=== PATIENT | male | born 1945 | race Hispanic/Latino ===

== ENCOUNTER 2016-04-26 14:41 | Emergency (ER) | payer MEDICARE, OTHER ==
[2016-04-26 14:42] VITALS: BMI 23.2
[2016-04-26 15:09] VITALS: BP 123/59; PULSE 71; RESP 16; TEMP 97.9; O2SAT 100
[2016-04-26] MEDS ORDERED: Oxycodone/Acetaminophen 5/325 mg Tab PO STA (15:35)
[2016-04-26] MEDS ORDERED: Oxycodone/Acetaminophen 5/325 mg Tab ONE (15:40)
--- NOTE | 2016-04-26 16:43 | ED PDOC ---
HPI: Back Time Seen by Provider: 04/26/16 15:00 Chief Complaint (Nursing): Back Pain Additional Complaint(s): Patient is a 71 year old male who presents to ED for multiple somatic complaints. Notes a history of chronic back pain requesting an MRI to check on it and a Percocet for pain relief. In addition patient is requesting his sugar be checked and a Hepatitis C test because of a commercial he saw. Patient denies any recent injury. Past Medical History Reviewed: Historical Data, Nursing Documentation, Vital Signs Vital Signs: Last Vital Signs Temp 97.9 F 04/26/16 15:04 Pulse 71 04/26/16 15:04 Resp 16 04/26/16 15:04 BP 123/59 L 04/26/16 15:04 Pulse Ox 100 04/26/16 15:04 - Medical History PMH: Anxiety, Back Problems (herniated disk), Bipolar Disorder, Depression, Diabetes (type II), Hypercholesterolemia, Hyperlipidemia, Seizures Denies: Arthritis, CHF, COPD, Hepatitis, HIV, HTN, Hypothyroidism, Chronic Kidney Disease, Rheumatoid Arthritis, Sexually Transmitted Disease - Surgical History Surgical History: Back Surgery, Tonsillectomy - Family History Family History: States: Unknown Family Hx, Diabetes (father) - Social History Current smoker - smoking cessation education provided: Yes - Immunization History Hx Tetanus Toxoid Vaccination: No Hx Influenza Vaccination: No Hx Pneumococcal Vaccination: No - Home Medications Home Medications: Ambulatory Orders Medication Instructions Recorded Divalproex [Depakote (*BID*)] 1,000 mg PO HS #0 tcp 05/14/15 Divalproex [Depakote (*BID*)] 500 mg PO DAILY #0 tcp 05/14/15 clonazePAM [Klonopin] 1 mg PO BID #0 tab 05/14/15 Benztropine [Cogentin] 0.5 mg PO HS #30 tab 10/07/15 Benztropine [Cogentin] 1 mg PO HS #30 tab 10/07/15 risperiDONE [RisperDAL Tab] 3 mg PO HS #30 tab 10/07/15 Naproxen 1 tab PO BID PRN #14 tab 10/10/15 Atropine/Diphenoxylate [Lonox 2 tab PO Q6 PRN #30 tab 12/07/15 0.025 MG-2.5 MG] Ibuprofen [Motrin Tab] 400 mg PO TID 01/15/16 Famotidine [Pepcid] 20 mg PO BID #10 tab 01/20/16 Cyclobenzaprine [Cyclobenzaprine 10 mg PO TID #20 tab 04/26/16 HCl] oxyCODONE/Acetaminophen [Percocet 1 ea PO Q6 PRN #5 tab 04/26/16 5/325 mg Tab] - Allergies Allergies/Adverse Reactions: Allergies Allergy/AdvReac Type Severity Reaction Status Date / Time No Known Allergies Allergy Verified 04/26/16 15:04 Review of Systems ROS Statement: Except As Marked, All Systems Reviewed And Found Negative Constitutional: Negative for: Fever, Chills Cardiovascular: Negative for: Chest Pain, Palpitations Respiratory: Negative for: Shortness of Breath Musculoskeletal: Positive for: Back Pain. Negative for: Neck Pain, Leg Pain Neurological: Negative for: Weakness, Numbness, Headache, Dizziness Physical Exam - Reviewed Nursing Documentation Reviewed: Yes Vital Signs Reviewed: Yes - Physical Exam Appears: Positive for: Non-toxic, No Acute Distress Skin: Positive for: Normal Color, Warm Eye Exam: Positive for: Normal appearance Neck: Positive for: Normal, Painless ROM Cardiovascular/Chest: Positive for: Regular Rate, Rhythm. Negative for: Murmur Respiratory: Positive for: Normal Breath Sounds. Negative for: Respiratory Distress Back: Positive for: Normal Inspection. Negative for: Vertebral Tenderness, Decreased ROM, Muscle Spasm Extremity: Positive for: Normal ROM Neurologic/Psych: Positive for: Alert, Oriented - ECG O2 Sat by Pulse Oximetry: 100 (RA) Pulse Ox Interpretation: Normal Medical Decision Making Medical Decision Making: Time: 1530 Initial Impression: Chronic back pain Initial Plan: -- Accucheck 137 in ED -- Percocet PO Pt doing well on re-eval, no complaints of pain. Pt educated on indications for Hep C screening, as well as MRI. Advised neither indicated clinically at this time Scribe Attestation: Documented by Betty Dong, acting as a scribe for Janina Pastrana PA-C. Provider Scribe Attestation: All medical record entries made by the Scribe were at my direction and personally dictated by me. I have reviewed the chart and agree that the record accurately reflects my personal performance of the history, physical exam, medical decision making, and the department course for this patient. I have also personally directed, reviewed, and agree with the discharge instructions and disposition. Disposition - Clinical Impression Clinical Impression: Chronic back pain - Patient ED Disposition Is Patient to be Admitted: No - Disposition Referrals: Moe Ojeda MD [Primary Care Provider] - Disposition: Routine/Home Disposition Time: 18:00 Condition: STABLE Prescriptions: Cyclobenzaprine [Cyclobenzaprine HCl] 10 mg PO TID #20 tab oxyCODONE/Acetaminophen [Percocet 5/325 mg Tab] 1 ea PO Q6 PRN #5 tab PRN Reason: Pain, Severe (8-10) Instructions: Chronic Back Pain (ED) - POA Present On Arrival: None
== END 2016-04-26 17:10 | disposition home or self-care (01) ==
LOC: H.ER 14:41
DX: G89.29 Other chronic pain (principal); M54.9 Dorsalgia, unspecified; E11.8 Type 2 diabetes mellitus with unspecified complications; Z71.6 Tobacco abuse counseling; Z86.59 Personal history of other mental and behavioral disorders

== ENCOUNTER 2016-04-28 12:16 | Emergency (ER) | payer MEDICARE, OTHER ==
[2016-04-28 12:16] VITALS: BMI 23.2
[2016-04-28 12:31] VITALS: TEMP 98.4; O2SAT 99
--- NOTE | 2016-04-28 13:04 | ED PDOC ---
HPI: Back Time Seen by Provider: 04/28/16 12:34 Chief Complaint (Nursing): Back Pain Chief Complaint (Provider): Back Pain History Per: Patient History/Exam Limitations: no limitations Onset/Duration Of Symptoms: Days Current Symptoms Are (Timing): Still Present Additional Complaint(s): 71 y/o male who presents to the emergency department with a complaint of a chronic back pain. Patient is requesting an rx for MRI and pain medications because Percocets given 2 days ago worked better than Tylenol #3. Reports going to Dr. Ojeda's office today but unable to get an appointment because the office was closed so patient decided to visit the ER. Denies new injury or any further complaints. Dr. Ojeda's office called and they state the office is open til 1pm. PMD: Dr. Moe Ojeda MD Past Medical History Reviewed: Historical Data, Nursing Documentation, Vital Signs Vital Signs: Last Vital Signs Temp 98.4 F 04/28/16 12:27 Pulse 79 04/28/16 12:27 Resp 20 04/28/16 12:27 BP 186/76 H 04/28/16 12:27 Pulse Ox 99 04/28/16 12:27 - Medical History PMH: Anxiety, Back Problems (herniated disk), Bipolar Disorder, Depression, Diabetes (type II), Hypercholesterolemia, Hyperlipidemia, Seizures Denies: Arthritis, CHF, COPD, Hepatitis, HIV, HTN, Hypothyroidism, Chronic Kidney Disease, Rheumatoid Arthritis, Sexually Transmitted Disease - Surgical History Surgical History: Back Surgery, Tonsillectomy - Family History Family History: States: Unknown Family Hx, Diabetes (father) - Social History Current smoker - smoking cessation education provided: No Alcohol: None Drugs: Denies - Immunization History Hx Tetanus Toxoid Vaccination: No Hx Influenza Vaccination: No Hx Pneumococcal Vaccination: No - Home Medications Home Medications: Ambulatory Orders Medication Instructions Recorded Divalproex [Depakote DR(*BID*)] 1,000 mg PO HS #0 tcp 05/14/15 Divalproex [Depakote DR(*BID*)] 500 mg PO DAILY #0 tcp 05/14/15 clonazePAM [Klonopin] 1 mg PO BID #0 tab 05/14/15 Benztropine [Cogentin] 0.5 mg PO HS #30 tab 10/07/15 Benztropine [Cogentin] 1 mg PO HS #30 tab 08/23/16 risperiDONE [RisperDAL Tab] 3 mg PO HS #30 tab 10/07/15 Naproxen 1 tab PO BID PRN #14 tab 10/10/15 Atropine/Diphenoxylate [Lonox 2 tab PO Q6 PRN #30 tab 12/07/15 0.025 MG-2.5 MG] Ibuprofen [Motrin Tab] 400 mg PO TID 01/15/16 Famotidine [Pepcid] 20 mg PO BID #10 tab 01/20/16 Cyclobenzaprine [Cyclobenzaprine 10 mg PO TID #20 tab 04/26/16 HCl] oxyCODONE/Acetaminophen [Percocet 1 ea PO Q6 PRN #5 tab 04/26/16 5/325 mg Tab] - Allergies Allergies/Adverse Reactions: Allergies Allergy/AdvReac Type Severity Reaction Status Date / Time No Known Allergies Allergy Verified 04/26/16 15:04 Review of Systems ROS Statement: Except As Marked, All Systems Reviewed And Found Negative Musculoskeletal: Positive for: Back Pain (Chronic) Physical Exam - Reviewed Nursing Documentation Reviewed: Yes Vital Signs Reviewed: Yes - Physical Exam Appears: Positive for: Non-toxic, No Acute Distress Head Exam: Positive for: ATRAUMATIC, NORMOCEPHALIC Skin: Positive for: Normal Color, Warm, Dry Eye Exam: Positive for: Normal appearance. Negative for: Conjunctival injection Neck: Positive for: Normal, Supple Respiratory: Negative for: Accessory Muscle Use, Respiratory Distress Extremity: Positive for: Normal ROM. Negative for: Pedal Edema, Swelling Neurologic/Psych: Positive for: Alert, Oriented, Gait - ECG O2 Sat by Pulse Oximetry: 99 (RA) Pulse Ox Interpretation: Normal Medical Decision Making Medical Decision Making: Time: 13:34 Initial impression: Chronic Back Pain Initial plan: --Patient is under the impression he will get pain medications if he gets an MRI. Spoke to patient and notified him that MRI's are not done within the emergency department. Patient must see his PMD in order to get an Rx for the MRI to be completed. Patient states he went to 's office but unable to see him because they were closed. --LUCY White called Dr. Ojeda's office (at 12:30 for confirmation) and notified patient that the office was open until 1 pm. --Patient was notified patient that narcotics or controlled medications will not be prescribed for chronic pain. --Patient doesn't want full exam if he won't get pain medications and stated he will try Dr. Ojeda's office again. Scribe Attestation: Documented by Alana Barrios, acting as a scribe for Pat White PA-C. Provider Scribe Attestation: All medical record entries made by the Scribe were at my direction and personally dictated by me. I have reviewed the chart and agree that the record accurately reflects my personal performance of the history, physical exam, medical decision making, and the department course for this patient. I have also personally directed, reviewed, and agree with the discharge instructions and disposition. Disposition - Clinical Impression Clinical Impression: Chronic back pain - Patient ED Disposition Is Patient to be Admitted: No Counseled Patient/Family Regarding: Diagnosis, Need For Followup - Disposition Referrals: Moe Ojeda MD [Staff Provider] - Disposition: Routine/Home Disposition Time: 13:53 Condition: GOOD Instructions: Chronic Back Pain (ED)
[2016-04-28 13:17] VITALS: BP 160/82; PULSE 74; RESP 14
== END 2016-04-28 13:23 | disposition home or self-care (01) ==
LOC: H.ER 12:16
DX: M54.5 Low back pain (principal)

== ENCOUNTER 2016-05-04 11:01 | Emergency (ER) | payer MEDICARE, OTHER ==
[2016-05-04 11:17] VITALS: TEMP 97; O2SAT 98
[2016-05-04 11:18] VITALS: BMI 21.1
[2016-05-04 12:30] LABS: BASO % 0.8 % (0.0-2.0); EOS # 0.1 K/uL (0.0-0.7); EOS % 1.2 % (0.0-4.0); HEMATOCRIT 42.4 % (35.0-51.0); LYMPH # 1.6 K/uL (1.0-4.3); LYMPH % 26.2 % (20.0-40.0); MEAN CELL VOLUME 91.5 fl (80.0-94.0); MEAN CORPUSCULAR HEMOGLOBIN 31.1 pg (27.0-31.0); MEAN CORPUSCULAR HGB CONC 34.1 g/dL (33.0-37.0); MEAN PLATELET VOLUME 8.3 fl (7.2-11.7); MONO # 0.4 K/uL (0.0-0.8); MONO % 6.9 % (0.0-10.0); NEUT # 3.9 K/uL (1.8-7.0); NEUT % 64.9 % (50.0-75.0); NRBC % 0.1 % (0.0-0.0); RED CELL DISTRIBUTION WIDTH 13.6 % (11.5-14.5)
--- NOTE | 2016-05-04 12:36 | ED PDOC ---
HPI: Abdomen Time Seen by Provider: 05/04/16 11:18 Chief Complaint (Nursing): Abdominal Pain Chief Complaint (Provider): Abdominal Pain History Per: Patient History/Exam Limitations: no limitations Onset/Duration Of Symptoms: Days (years) Current Symptoms Are (Timing): Still Present Severity: Mild Associated Symptoms: Back Pain. denies: Fever, Nausea, Vomiting, Diarrhea Additional Complaint(s): Patient is a 71 year old male presenting to the ED complaining of recurrent abdominal pain and joint pain for the past few years. Patient reports back and shoulder pain every morning for the past few years. Patient takes Tylenol and Codeine for the pain. Patient does not follow up with his pain management doctor and has been to this ED multiple times for these same complaints. Patient does not have any new complaints. Denies fever, nausea, vomiting, or diarrhea. PMD: none Past Medical History Reviewed: Historical Data, Nursing Documentation, Vital Signs Vital Signs: Last Vital Signs Temp 97 F L 05/04/16 11:16 Pulse 90 05/04/16 14:07 Resp 18 05/04/16 14:07 BP 142/78 05/04/16 14:07 Pulse Ox 98 05/04/16 14:07 - Medical History PMH: Anxiety, Back Problems (herniated disk), Bipolar Disorder, Depression, Diabetes (type II), Hypercholesterolemia, Hyperlipidemia, Seizures Denies: Arthritis, CHF, COPD, Hepatitis, HIV, HTN, Hypothyroidism, Chronic Kidney Disease, Rheumatoid Arthritis, Sexually Transmitted Disease - Surgical History Surgical History: Back Surgery, Tonsillectomy - Family History Family History: States: Unknown Family Hx, Diabetes (father) - Immunization History Hx Tetanus Toxoid Vaccination: No Hx Influenza Vaccination: No Hx Pneumococcal Vaccination: No - Home Medications Home Medications: Ambulatory Orders Medication Instructions Recorded Divalproex [Depakote DR(*BID*)] 1,000 mg PO HS #0 tcp 05/14/15 Divalproex [Depakote DR(*BID*)] 500 mg PO DAILY #0 tcp 05/14/15 clonazePAM [Klonopin] 1 mg PO BID #0 tab 05/14/15 Benztropine [Cogentin] 0.5 mg PO HS #30 tab 10/07/15 Benztropine [Cogentin] 1 mg PO HS #30 tab 10/07/15 risperiDONE [RisperDAL Tab] 3 mg PO HS #30 tab 10/07/15 Naproxen 1 tab PO BID PRN #14 tab 10/10/15 Atropine/Diphenoxylate [Lonox 2 tab PO Q6 PRN #30 tab 12/07/15 0.025 MG-2.5 MG] Ibuprofen [Motrin Tab] 400 mg PO TID 01/15/16 Famotidine [Pepcid] 20 mg PO BID #10 tab 01/20/16 Cyclobenzaprine [Cyclobenzaprine 10 mg PO TID #20 tab 04/26/16 HCl] oxyCODONE/Acetaminophen [Percocet 1 ea PO Q6 PRN #5 tab 04/26/16 5/325 mg Tab] - Allergies Allergies/Adverse Reactions: Allergies Allergy/AdvReac Type Severity Reaction Status Date / Time No Known Allergies Allergy Verified 05/04/16 11:30 Review of Systems ROS Statement: Except As Marked, All Systems Reviewed And Found Negative Constitutional: Negative for: Fever Gastrointestinal: Positive for: Abdominal Pain. Negative for: Nausea, Vomiting , Diarrhea Musculoskeletal: Positive for: Shoulder Pain, Back Pain Physical Exam - Reviewed Nursing Documentation Reviewed: Yes Vital Signs Reviewed: Yes - Physical Exam Appears: Positive for: Well, Non-toxic, No Acute Distress Head Exam: Positive for: ATRAUMATIC, NORMAL INSPECTION, NORMOCEPHALIC Skin: Positive for: Normal Color, Warm, DRY Eye Exam: Positive for: EOMI, Normal appearance, PERRL Neck: Positive for: Normal, Painless ROM Cardiovascular/Chest: Positive for: Regular Rate, Rhythm. Negative for: Gallop , Murmur Respiratory: Positive for: Normal Breath Sounds. Negative for: Accessory Muscle Use, Rhonchi, Respiratory Distress Back: Positive for: Other (paralumbar tenderness bilateral) Extremity: Positive for: Normal ROM Neurologic/Psych: Positive for: Alert, Oriented - Laboratory Results Result Diagrams: 05/04/16 12:10 05/04/16 12:10 - ECG O2 Sat by Pulse Oximetry: 98 - Progress Re-evaluation Time: 14:00 Condition: Re-examined, Improved Medical Decision Making Medical Decision Making: Time: 11:20 Impression: Recurrent Abdominal Pain Chronic back and shoulder pain DDx: Gastritis v Colisistitis Plan: CMP Lipase CBC Flexeril 10 mg PO Pepcid 20 mg PO Toradol 30 mg IM Ultram 50 mg PO Scribe Attestation: Documented by Erica Jiménez acting as a scribe for Sandeep Dias MD. Scribe Attestation: All medical record entries made by the Scribe were at my direction and personally dictated by me. I have reviewed the chart and agree that the record accurately reflects my personal performance of the history, physical exam, medical decision making, and the department course for this patient. I have also personally directed, reviewed, and agree with the discharge instructions and disposition. Disposition - Clinical Impression Clinical Impression: Abdominal pain, Arthritis - Patient ED Disposition Is Patient to be Admitted: No Doctor Will See Patient In The: Office Counseled Patient/Family Regarding: Studies Performed, Diagnosis, Need For Followup - Disposition Referrals: Pito Goins MD, PhD [Staff Provider] - Moe Ojeda MD [Staff Provider] - Disposition: Routine/Home Disposition Time: 14:00 Condition: GOOD Additional Instructions: Follow up with your PCP in 2-3 days. Instructions: Abdominal Pain (ED), Chronic Back Pain (ED)
[2016-05-04 12:41] LABS: ALB/GLOB RATIO 1.3 (1.0-2.1); ALKALINE PHOSPHATASE 69 U/L (38-126); ALT/SGPT 38 U/L (21-72); AST/SGOT 26 U/L (17-59); BILIRUBIN,TOTAL 0.5 mg/dl (0.2-1.3); BLOOD UREA NITROGEN 20 mg/dl (9-20); CALCIUM 9.8 mg/dL (8.4-10.2); CARBON DIOXIDE 22 mmol/L (22-30); CHLORIDE 109 mmol/L (98-107); GFR AFRICAN-AMERICAN > 60; GLUCOSE,RANDOM 98 mg/dL (75-110); LIPASE 141 U/L (23-300); POTASSIUM 4.4 MMOL/L (3.6-5.0); SODIUM 145 mmol/l (132-148); TOTAL PROTEIN 7.1 G/DL (6.3-8.2)
[2016-05-04 14:08] VITALS: BP 142/78; PULSE 90; RESP 18
== END 2016-05-04 14:08 | disposition home or self-care (01) ==
LOC: H.ER 11:01
DX: R10.9 Unspecified abdominal pain (principal); M15.9 Polyosteoarthritis, unspecified; E11.9 Type 2 diabetes mellitus without complications
CPT/HCPCS: 80053; 83690; 85025; 96372; 99282; J1885

== ENCOUNTER 2016-05-07 12:47 | Emergency (ER) | payer MEDICARE, OTHER ==
[2016-05-07 12:48] VITALS: BMI 21.1
[2016-05-07 13:11] VITALS: BP 145/76; PULSE 86; RESP 19; TEMP 97.7; O2SAT 98
--- NOTE | 2016-05-07 13:41 | ED PDOC ---
HPI: General Adult Time Seen by Provider: 05/07/16 13:33 Chief Complaint (Nursing): Upper Extremity Problem/Injury Chief Complaint (Provider): pain History Per: Patient History/Exam Limitations: no limitations Additional Complaint(s): 71yo M in ED for c/o of neck pain, abdominal pain, arm pain and back pain x " man years" immediately request percocet for pain. Pt was liliana in ED two this month requesting percocets for pain, last visit was told he is unable to get Rx for narcotics and given the [place] ED narcotic panin and Sedation Medication Policy. Pt has Rx for PTx and Chest xray for chronic cough from PMD-MD emil. negative for: CP, SOB, fever vomiting. Past Medical History Reviewed: Historical Data, Nursing Documentation, Vital Signs Vital Signs: Last Vital Signs Temp 97.7 F 05/07/16 13:07 Pulse 86 05/07/16 13:07 Resp 19 05/07/16 13:07 BP 145/76 05/07/16 13:07 Pulse Ox 98 05/07/16 13:07 - Medical History PMH: Anxiety, Back Problems (herniated disk), Bipolar Disorder, Depression, Diabetes (type II), Hypercholesterolemia, Hyperlipidemia, Seizures Denies: Arthritis, CHF, COPD, Hepatitis, HIV, HTN, Hypothyroidism, Chronic Kidney Disease, Rheumatoid Arthritis, Sexually Transmitted Disease - Surgical History Surgical History: Back Surgery, Tonsillectomy - Family History Family History: States: Unknown Family Hx, Diabetes (father) - Immunization History Hx Tetanus Toxoid Vaccination: No Hx Influenza Vaccination: No Hx Pneumococcal Vaccination: No - Home Medications Home Medications: Ambulatory Orders Medication Instructions Recorded Divalproex [Depakote DR(*BID*)] 1,000 mg PO HS #0 tcp 05/14/15 Divalproex [Depakote DR(*BID*)] 500 mg PO DAILY #0 tcp 05/14/15 clonazePAM [Klonopin] 1 mg PO BID #0 tab 05/14/15 Benztropine [Cogentin] 0.5 mg PO HS #30 tab 10/07/15 Benztropine [Cogentin] 1 mg PO HS #30 tab 10/07/15 risperiDONE [RisperDAL Tab] 3 mg PO HS #30 tab 10/07/15 Naproxen 1 tab PO BID PRN #14 tab 10/10/15 Atropine/Diphenoxylate [Lonox 2 tab PO Q6 PRN #30 tab 12/07/15 0.025 MG-2.5 MG] Ibuprofen [Motrin Tab] 400 mg PO TID 01/15/16 Famotidine [Pepcid] 20 mg PO BID #10 tab 01/20/16 Cyclobenzaprine [Cyclobenzaprine 10 mg PO TID #20 tab 04/26/16 HCl] oxyCODONE/Acetaminophen [Percocet 1 ea PO Q6 PRN #5 tab 04/26/16 5/325 mg Tab] - Allergies Allergies/Adverse Reactions: Allergies Allergy/AdvReac Type Severity Reaction Status Date / Time No Known Allergies Allergy Verified 05/07/16 13:06 Review of Systems ROS Statement: Except As Marked, All Systems Reviewed And Found Negative Musculoskeletal: Positive for: Neck Pain, Shoulder Pain, Arm Pain, Back Pain Physical Exam - Reviewed Nursing Documentation Reviewed: Yes Vital Signs Reviewed: Yes - Physical Exam Appears: Positive for: Well, Non-toxic, No Acute Distress Head Exam: Positive for: ATRAUMATIC, NORMAL INSPECTION, NORMOCEPHALIC Skin: Positive for: Normal Color, Warm, DRY Neck: Positive for: Normal, Painless ROM, Supple Cardiovascular/Chest: Positive for: Regular Rate, Rhythm Gastrointestinal/Abdominal: Positive for: Normal Exam, Bowel Sounds, Soft. Negative for: Tenderness Back: Positive for: Normal Inspection Extremity: Positive for: Normal ROM Neurologic/Psych: Positive for: Alert, Oriented - ECG O2 Sat by Pulse Oximetry: 98 Medical Decision Making Medical Decision Making: PT was offered Xray, but demanded strong kian medication ie T#3/T#4/percocets/ morphine. Pt offered motrin or tylenol, but declined. did not want to further complete treatment in ED. advised to return to ED if with CP or SOB, otherwise for chronic pain control to f.u with pain mgnt, get PTx and f/u with pmd. pt upset that he could not get narcotics. another ED pain/sedation policy given.. Disposition - Clinical Impression Clinical Impression: Drug dependence, Chronic back pain - Patient ED Disposition Is Patient to be Admitted: No - Disposition Disposition: Routine/Home Disposition Time: 13:45 Condition: STABLE
== END 2016-05-07 14:46 | disposition home or self-care (01) ==
LOC: H.ER 12:47
DX: F19.20 Other psychoactive substance dependence, uncomplicated (principal); M54.9 Dorsalgia, unspecified

== ENCOUNTER 2016-05-12 18:24 | Emergency (ER) | payer MEDICARE, OTHER ==
[2016-05-12 18:26] VITALS: BMI 21.1
[2016-05-12 18:44] VITALS: RESP 18; O2SAT 99
[2016-05-12] MEDS: Sodium Chloride 0.9% 500 ML IV STA (19:47)
--- NOTE | 2016-05-12 20:10 | ED PDOC ---
HPI: General Adult Time Seen by Provider: 05/12/16 19:14 Chief Complaint (Nursing): GI Problem Chief Complaint (Provider): Im having diarrhea History Per: Patient History/Exam Limitations: no limitations Onset/Duration Of Symptoms: Hrs (6) Current Symptoms Are (Timing): Intermittent Episodes Recently: Treated By A Physician Additional Complaint(s): 71yo male c/o 3 episodes of diarrhea, last one felt incontinent and "went in my pants". Denies bloody stools, abdominal pain, nausea/vomiting, fever or exposure to spoiled or uncooked foods. Past Medical History Reviewed: Historical Data, Nursing Documentation, Vital Signs Vital Signs: Last Vital Signs Temp 98.2 F 05/12/16 18:41 Pulse 74 05/12/16 18:41 Resp 18 05/12/16 18:41 BP 171/86 H 05/12/16 18:41 Pulse Ox 99 05/12/16 20:10 - Medical History PMH: Anxiety, Back Problems (herniated disk), Bipolar Disorder, Depression, Diabetes (type II), Hypercholesterolemia, Hyperlipidemia, Seizures Denies: Arthritis, CHF, COPD, Hepatitis, HIV, HTN, Hypothyroidism, Chronic Kidney Disease, Rheumatoid Arthritis, Sexually Transmitted Disease Other PMH: on chronic narcotics per [place] Rx monitoring database - Surgical History Surgical History: Back Surgery, Tonsillectomy - Family History Family History: States: Unknown Family Hx, Diabetes (father) - Immunization History Hx Tetanus Toxoid Vaccination: No Hx Influenza Vaccination: No Hx Pneumococcal Vaccination: No - Home Medications Home Medications: Ambulatory Orders Medication Instructions Recorded Divalproex [Depakote DR(*BID*)] 1,000 mg PO HS #0 tcp 05/14/15 Divalproex [Depakote DR(*BID*)] 500 mg PO DAILY #0 tcp 05/14/15 clonazePAM [Klonopin] 1 mg PO BID #0 tab 05/14/15 Benztropine [Cogentin] 0.5 mg PO HS #30 tab 10/07/15 Benztropine [Cogentin] 1 mg PO HS #30 tab 10/07/15 risperiDONE [RisperDAL Tab] 3 mg PO HS #30 tab 10/07/15 Naproxen 1 tab PO BID PRN #14 tab 10/10/15 Atropine/Diphenoxylate [Lonox 2 tab PO Q6 PRN #30 tab 10/23/16 0.025 MG-2.5 MG] Ibuprofen [Motrin Tab] 400 mg PO TID 01/15/16 Famotidine [Pepcid] 20 mg PO BID #10 tab 01/20/16 Cyclobenzaprine [Cyclobenzaprine 10 mg PO TID #20 tab 04/26/16 HCl] oxyCODONE/Acetaminophen [Percocet 1 ea PO Q6 PRN #5 tab 04/26/16 5/325 mg Tab] Loperamide [Loperamide HCl] 2 mg PO QID PRN #10 cap 05/12/16 - Allergies Allergies/Adverse Reactions: Allergies Allergy/AdvReac Type Severity Reaction Status Date / Time No Known Allergies Allergy Verified 05/07/16 13:06 Review of Systems ROS Statement: Except As Marked, All Systems Reviewed And Found Negative Constitutional: Negative for: Fever, Chills Cardiovascular: Negative for: Chest Pain Respiratory: Negative for: Cough Gastrointestinal: Positive for: Diarrhea, Rectal Pain. Negative for: Nausea, Vomiting, Abdominal Pain, Constipation, Melena, Hematochezia, Hematemesis Genitourinary Male: Negative for: Dysuria, Frequency Musculoskeletal: Negative for: Neck Pain, Shoulder Pain Skin: Negative for: Rash, Lesions, Jaundice Neurological: Negative for: Weakness, Numbness, Dizziness Psych: Negative for: Anxiety Physical Exam - Reviewed Nursing Documentation Reviewed: Yes Vital Signs Reviewed: Yes - Physical Exam Appears: Positive for: Well, Non-toxic, No Acute Distress Head Exam: Positive for: ATRAUMATIC, NORMAL INSPECTION, NORMOCEPHALIC Skin: Positive for: Normal Color, Warm, DRY Eye Exam: Positive for: EOMI, Normal appearance, PERRL ENT: Positive for: Normal ENT Inspection Neck: Positive for: Normal, Painless ROM Cardiovascular/Chest: Positive for: Regular Rate, Rhythm Respiratory: Positive for: CNT, Normal Breath Sounds Gastrointestinal/Abdominal: Positive for: Normal Exam, Bowel Sounds, Soft. Negative for: Tenderness, Guarding Back: Positive for: Normal Inspection Extremity: Positive for: Normal ROM Neurologic/Psych: Positive for: Alert, Oriented, Gait (normal). Negative for: Motor/Sensory Deficits - Laboratory Results Result Diagrams: 05/12/16 20:08 05/12/16 20:08 - ECG O2 Sat by Pulse Oximetry: 99 Medical Decision Making Medical Decision Making: workup for acute diarrhea initiated. IVF bolus, check electrolytes. Pt denies recent Abx use or hospitalizations. labs were unremarkable No further BM in ED. Tolerated PO. DC from ED, followup Dr Ojeda. Rx imodium #10 Disposition - Clinical Impression Clinical Impression: Diarrhea - Patient ED Disposition Is Patient to be Admitted: No Counseled Patient/Family Regarding: Studies Performed, Diagnosis, Need For Followup, Rx Given - Disposition Referrals: Moe Ojeda MD [Staff Provider] - Disposition: Routine/Home Disposition Time: 20:45 Condition: STABLE Additional Instructions: Return to ER for any worse or new symptoms. Take medication as directed. Drink plenty of fluids. Prescriptions: Loperamide [Loperamide HCl] 2 mg PO QID PRN #10 cap PRN Reason: Diarrhea Instructions: Acute Diarrhea (ED)
[2016-05-12 20:12] LABS: BASO % 0.5 % (0.0-2.0); EOS # 0.1 K/uL (0.0-0.7); EOS % 1.8 % (0.0-4.0); HEMATOCRIT 40.8 % (35.0-51.0); LYMPH # 1.6 K/uL (1.0-4.3); LYMPH % 29.4 % (20.0-40.0); MEAN CELL VOLUME 92.6 fl (80.0-94.0); MEAN CORPUSCULAR HEMOGLOBIN 31.2 pg (27.0-31.0); MEAN CORPUSCULAR HGB CONC 33.7 g/dL (33.0-37.0); MEAN PLATELET VOLUME 8.1 fl (7.2-11.7); MONO # 0.5 K/uL (0.0-0.8); MONO % 9.5 % (0.0-10.0); NEUT # 3.3 K/uL (1.8-7.0); NEUT % 58.8 % (50.0-75.0); NRBC % 0.1 % (0.0-0.0); RED CELL DISTRIBUTION WIDTH 13.6 % (11.5-14.5); WHITE BLOOD COUNT 5.6 K/uL (4.8-10.8)
[2016-05-12 20:22] LABS: ALB/GLOB RATIO 1.3 (1.0-2.1); ALKALINE PHOSPHATASE 72 U/L (38-126); ALT/SGPT 43 U/L (21-72); AST/SGOT 42 U/L (17-59); BILIRUBIN,TOTAL 0.5 mg/dl (0.2-1.3); BLOOD UREA NITROGEN 30 mg/dl (9-20); CARBON DIOXIDE 28 mmol/L (22-30); CHLORIDE 103 mmol/L (98-107); GFR AFRICAN-AMERICAN > 60; GLUCOSE,RANDOM 102 mg/dL (75-110); POTASSIUM 4.6 MMOL/L (3.6-5.0); SODIUM 143 mmol/l (132-148); TOTAL PROTEIN 7.5 G/DL (6.3-8.2)
[2016-05-12 20:24] LABS: RBC URINE 2 /hpf (0-3); URINE BILIRUBIN NEGATIVE (NEGATIVE); URINE BLOOD NEGATIVE (NEGATIVE); URINE COLOR YELLOW (YELLOW); URINE GLUCOSE (UA) NEG (Normal); URINE KETONE NEGATIVE (NEGATIVE); URINE LEUKOCYTE ESTERASE NEG Leu/uL (Negative); URINE PROTEIN NEGATIVE (NEGATIVE); URINE UROBILINOGEN 0.2-1.0 mg/dL (0.2-1.0); WBC URINE 1 /hpf (0-5)
[2016-05-12 21:35] VITALS: BP 155/85; PULSE 83; TEMP 98.1
== END 2016-05-12 20:52 | disposition home or self-care (01) ==
LOC: H.ER 18:24
DX: R19.7 Diarrhea, unspecified (principal); E11.9 Type 2 diabetes mellitus without complications; E78.00 Pure hypercholesterolemia, unspecified; F31.9 Bipolar disorder, unspecified
CPT/HCPCS: 80053; 81003; 85025; 96360; 99283; J7040

== ENCOUNTER 2016-05-28 15:23 | Emergency (ER) | payer MEDICARE, OTHER ==
[2016-05-28 15:23] VITALS: BMI 21.1
[2016-05-28 15:37] VITALS: BP 150/69; PULSE 86; RESP 18; TEMP 98.1; O2SAT 98
--- NOTE | 2016-05-28 16:43 | ED PDOC ---
Hyperglycemia/Hypoglycemia Time Seen by Provider: 05/28/16 15:39 Chief Complaint (Nursing): High Blood Sugar Chief Complaint (Provider): i want my sugar checked History Per: Patient History/Exam Limitations: no limitations Onset/Duration Of Symptoms: Days (3) : The patient does not have any of the infectious symptoms listed except for those marked. Additional Complaint(s): 71yo male denies hx DM, presents to ED stating her wants his blood sugar checked. States hes been urinating frequently but denies dysuria, back pain or hematuria. Denies polydipsia, weakness or chest pain/ SOB. 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 Past Medical History Reviewed: Historical Data, Nursing Documentation, Vital Signs Vital Signs: Last Vital Signs Temp 98.1 F 05/28/16 15:32 Pulse 86 05/28/16 15:32 Resp 18 05/28/16 15:32 BP 150/69 05/28/16 15:32 Pulse Ox 98 05/28/16 15:32 - Medical History PMH: Anxiety, Back Problems (herniated disk), Bipolar Disorder, Depression, Diabetes (type II), Hypercholesterolemia, Hyperlipidemia, Seizures Denies: Arthritis, CHF, COPD, Hepatitis, HIV, HTN, Hypothyroidism, Chronic Kidney Disease, Rheumatoid Arthritis, Sexually Transmitted Disease - Surgical History Surgical History: Back Surgery, Tonsillectomy - Family History Family History: States: Unknown Family Hx, Diabetes (father) - Social History Current smoker - smoking cessation education provided: Yes Alcohol: Occasional - Immunization History Hx Tetanus Toxoid Vaccination: No Hx Influenza Vaccination: No Hx Pneumococcal Vaccination: No - Home Medications Home Medications: Ambulatory Orders Medication Instructions Recorded Divalproex [Depakote DR(*BID*)] 1,000 mg PO HS #0 tcp 05/14/15 Divalproex [Depakote DR(*BID*)] 500 mg PO DAILY #0 tcp 05/14/15 clonazePAM [Klonopin] 1 mg PO BID #0 tab 05/14/15 Benztropine [Cogentin] 0.5 mg PO HS #30 tab 10/07/15 Benztropine [Cogentin] 1 mg PO HS #30 tab 10/07/15 risperiDONE [RisperDAL Tab] 3 mg PO HS #30 tab 10/07/15 Naproxen 1 tab PO BID PRN #14 tab 10/10/15 Atropine/Diphenoxylate [Lonox 2 tab PO Q6 PRN #30 tab 12/07/15 0.025 MG-2.5 MG] Ibuprofen [Motrin Tab] 400 mg PO TID 01/15/16 Famotidine [Pepcid] 20 mg PO BID #10 tab 01/20/16 Cyclobenzaprine [Cyclobenzaprine 10 mg PO TID #20 tab 04/26/16 HCl] oxyCODONE/Acetaminophen [Percocet 1 ea PO Q6 PRN #5 tab 04/26/16 5/325 mg Tab] Loperamide [Loperamide HCl] 2 mg PO QID PRN #10 cap 05/12/16 - Allergies Allergies/Adverse Reactions: Allergies Allergy/AdvReac Type Severity Reaction Status Date / Time No Known Allergies Allergy Verified 05/07/16 13:06 Review of Systems ROS Statement: Except As Marked, All Systems Reviewed And Found Negative Constitutional: Negative for: Fever, Chills Respiratory: Negative for: Cough, Shortness of Breath Gastrointestinal: Negative for: Nausea, Abdominal Pain Genitourinary Male: Positive for: Frequency. Negative for: Dysuria, Incontinence, Hematuria, Penile Discharge, Scrotal Pain Musculoskeletal: Negative for: Neck Pain, Shoulder Pain, Back Pain Skin: Negative for: Rash, Lesions, Jaundice Neurological: Negative for: Weakness, Numbness, Headache, Dizziness Physical Exam - Reviewed Nursing Documentation Reviewed: Yes Vital Signs Reviewed: Yes - Physical Exam Appears: Positive for: Well, Non-toxic Head Exam: Positive for: ATRAUMATIC Skin: Positive for: Normal Color, Warm Eye Exam: Positive for: EOMI. Negative for: Periorbital swelling Neck: Positive for: Normal, Painless ROM Cardiovascular/Chest: Positive for: Regular Rate, Rhythm Respiratory: Positive for: Normal Breath Sounds. 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 Negative for: Motor/Sensory Deficits - ECG O2 Sat by Pulse Oximetry: 98 Medical Decision Making Medical Decision Making: accucheck performed, normal. Pt given cup to provide urine sample but refused and left ED without treatment complete. Risks of leaving were explained. Patient had stable vitals with normal speech and gait, able to make decisions for self. Refused to sign AMA paperwork. Disposition - Clinical Impression Clinical Impression: Polyuria - Patient ED Disposition Is Patient to be Admitted: No Counseled Patient/Family Regarding: Studies Performed, Diagnosis, Need For Followup - Disposition Disposition: Left W/O Treatment Disposition Time: 16:15 Condition: STABLE
== END 2016-05-28 15:45 | disposition left against medical advice (07) ==
LOC: H.ER 15:23
DX: E11.9 Type 2 diabetes mellitus without complications (principal); R35.8 Other polyuria; E78.00 Pure hypercholesterolemia, unspecified; F31.9 Bipolar disorder, unspecified

== ENCOUNTER 2016-06-29 06:51 | Emergency (ER) | payer MEDICARE, OTHER ==
[2016-06-29 06:51] VITALS: BMI 21.1
[2016-06-29 07:02] VITALS: BP 149/76; PULSE 98; RESP 18; TEMP 99.3; O2SAT 100
--- NOTE | 2016-06-29 07:18 | ED PDOC ---
HPI: CCC, URI, Sore Throat Time Seen by Provider: 06/29/16 07:09 Chief Complaint (Nursing): Flu-like Symptoms Chief Complaint (Provider): Flu-like Symptoms History Per: Patient History/Exam Limitations: no limitations Onset/Duration Of Symptoms: Days Current Symptoms Are (Timing): Still Present Location Of Pain: Diffuse Myalgias Sick Contacts (Context): None Associated Symptoms: Fever, Chills, Cough, Sputum, Nasal Congestion Ear Symptoms: Bilateral: None Severity: Mild Additional Complaint(s): Patient is a 71 year old male who presents to ED for cough, congestion, body aches and runny nose for 4-5 days. Patient state sputum is yellow in color but denies chest pain or SOB. Notes he took Motrin last night. No nausea, vomit. Past Medical History Reviewed: Historical Data, Nursing Documentation, Vital Signs Vital Signs: Last Vital Signs Temp 99.3 F 06/29/16 06:55 Pulse 98 H 06/29/16 06:55 Resp 18 06/29/16 06:55 BP 149/76 06/29/16 06:55 Pulse Ox 100 06/29/16 07:29 - Medical History PMH: Anxiety, Back Problems (herniated disk), Bipolar Disorder, Depression, Diabetes (type II), Hypercholesterolemia, Hyperlipidemia Denies: Arthritis, CHF, COPD, Hepatitis, HIV, HTN, Hypothyroidism, Chronic Kidney Disease, Rheumatoid Arthritis, Sexually Transmitted Disease - Surgical History Surgical History: Back Surgery, Tonsillectomy - Family History Family History: States: Unknown Family Hx, Diabetes (father) - Living Arrangements Living Arrangements: With Family - Immunization History Hx Tetanus Toxoid Vaccination: No Hx Influenza Vaccination: No Hx Pneumococcal Vaccination: No - Home Medications Home Medications: Ambulatory Orders Medication Instructions Recorded Divalproex [Depakote DR(*BID*)] 1,000 mg PO HS #0 tcp 05/14/15 Divalproex [Depakote DR(*BID*)] 500 mg PO DAILY #0 tcp 05/14/15 clonazePAM [Klonopin] 1 mg PO BID #0 tab 05/14/15 Benztropine [Cogentin] 0.5 mg PO HS #30 tab 10/07/15 Benztropine [Cogentin] 1 mg PO HS #30 tab 10/07/15 risperiDONE [RisperDAL Tab] 3 mg PO HS #30 tab 10/07/15 Naproxen 1 tab PO BID PRN #14 tab 10/10/15 Atropine/Diphenoxylate [Lonox 2 tab PO Q6 PRN #30 tab 12/07/15 0.025 MG-2.5 MG] Ibuprofen [Motrin Tab] 400 mg PO TID 01/15/16 Famotidine [Pepcid] 20 mg PO BID #10 tab 01/20/16 Cyclobenzaprine [Cyclobenzaprine 10 mg PO TID #20 tab 04/26/16 HCl] oxyCODONE/Acetaminophen [Percocet 1 ea PO Q6 PRN #5 tab 04/26/16 5/325 mg Tab] Loperamide [Loperamide HCl] 2 mg PO QID PRN #10 cap 05/12/16 Ibuprofen [Motrin] 600 mg PO TID 7 Days 06/29/16 - Allergies Allergies/Adverse Reactions: Allergies Allergy/AdvReac Type Severity Reaction Status Date / Time No Known Allergies Allergy Verified 05/07/16 13:06 Review of Systems Constitutional: Positive for: Fever, Chills. Negative for: Weakness ENT: Positive for: Nose Congestion. Negative for: Ear Pain, Throat Pain Cardiovascular: Negative for: Chest Pain, Palpitations Respiratory: Positive for: Cough, Sputum. Negative for: Shortness of Breath Gastrointestinal: Negative for: Nausea, Vomiting Musculoskeletal: Positive for: Other (diffuse myalgias). Negative for: Neck Pain, Back Pain Skin: Negative for: Rash Neurological: Negative for: Weakness, Numbness, Confusion, Dizziness Physical Exam - Reviewed Nursing Documentation Reviewed: Yes Vital Signs Reviewed: Yes - Physical Exam Appears: Positive for: Non-toxic, No Acute Distress Skin: Positive for: Normal Color, Warm. Negative for: Rash Eye Exam: Positive for: Normal appearance ENT: Positive for: Nasal Congestion. Negative for: Pharyngeal Erythema, Tonsillar Exudate, Tonsillar Swelling Neck: Positive for: Normal, Painless ROM Cardiovascular/Chest: Positive for: Regular Rate, Rhythm. Negative for: Murmur Respiratory: Positive for: Normal Breath Sounds. Negative for: Accessory Muscle Use, Respiratory Distress Back: Positive for: Normal Inspection. Negative for: L CVA Tenderness, R CVA Tenderness Extremity: Positive for: Normal ROM. Negative for: Tenderness, Pedal Edema Neurologic/Psych: Positive for: Alert, Oriented - ECG O2 Sat by Pulse Oximetry: 100 (RA) Pulse Ox Interpretation: Normal - Progress ED Course And Treament: 800: Stable. AAOx3. Pain free. Tolerated PO. Ambulated with no issues. No fever. Likely URI. On tylenol with codeine. Medical Decision Making Medical Decision Making: Time: 714 Initial impression: Viral illness Initial plan: -- Motrin PO Patient instructed to take Motrin as needed for discomfort and to follow up with PMD in 2-3 days. Scribe Attestation: Documented by Betty Dong acting as a scribe for Nicolas Johnson MD MD Scribe Attestation: All medical record entries made by the Scribe were at my direction and personally dictated by me. I have reviewed the chart and agree that the record accurately reflects my personal performance of the history, physical exam, medical decision making, and the department course for this patient. I have also personally directed, reviewed, and agree with the discharge instructions and disposition. Disposition - Clinical Impression Clinical Impression: URI (upper respiratory infection) - Patient ED Disposition Is Patient to be Admitted: No Counseled Patient/Family Regarding: Diagnosis, Need For Followup, Rx Given - Disposition Referrals: [facility] [Outside] - 06/30/16 Disposition: Routine/Home Disposition Time: 07:18 Condition: STABLE Additional Instructions: Return if not better in 3 days. Prescriptions: Ibuprofen [Motrin] 600 mg PO TID 7 Days Instructions: Upper Respiratory Infection (ED)
== END 2016-06-29 07:36 | disposition home or self-care (01) ==
LOC: H.ER 06:51
DX: J06.9 Acute upper respiratory infection, unspecified (principal); R50.9 Fever, unspecified; E11.9 Type 2 diabetes mellitus without complications; E78.00 Pure hypercholesterolemia, unspecified; F31.9 Bipolar disorder, unspecified; F41.9 Anxiety disorder, unspecified

== ENCOUNTER 2016-07-12 19:46 | Emergency (ER) | payer MEDICARE, OTHER ==
[2016-07-12 19:47] VITALS: BMI 21.1
[2016-07-12 20:08] VITALS: BP 147/100; PULSE 78; RESP 18; TEMP 98; O2SAT 100
--- NOTE | 2016-07-12 20:52 | ED PDOC ---
Upper Extremity Pain/Injury Time Seen by Provider: 07/12/16 20:30 Chief Complaint (Nursing): Upper Extremity Problem/Injury Chief Complaint (Provider): Left Shoulder Pain History Per: Patient History/Exam Limitations: no limitations Current Symptoms Are (Timing): Still Present Additional Complaint(s): Bishop Min is a 71 year old male that presents to the ED with a chief complaint of left shoulder pain. Patient states that he has experienced pain in this area before. He denies any injury to the area, as well as denies any irregular activity. Patient reports that he has not taken any medication for his pain. Past Medical History Reviewed: Historical Data, Nursing Documentation, Vital Signs Vital Signs: Last Vital Signs Temp 98 F 07/12/16 20:04 Pulse 78 07/12/16 20:04 Resp 18 07/12/16 20:04 BP 147/100 H 07/12/16 20:04 Pulse Ox 100 07/12/16 20:04 - Medical History PMH: Anxiety, Back Problems (herniated disk), Bipolar Disorder, Depression, Diabetes (type II), Hypercholesterolemia, Hyperlipidemia, Seizures Denies: Arthritis, CHF, COPD, Hepatitis, HIV, HTN, Hypothyroidism, Chronic Kidney Disease, Rheumatoid Arthritis, Sexually Transmitted Disease - Surgical History Surgical History: Back Surgery, Tonsillectomy - Family History Family History: States: Unknown Family Hx, Diabetes (father) - Immunization History Hx Tetanus Toxoid Vaccination: No Hx Influenza Vaccination: No Hx Pneumococcal Vaccination: No - Home Medications Home Medications: Ambulatory Orders Medication Instructions Recorded Divalproex [Depakote (*BID*)] 1,000 mg PO HS #0 tcp 05/14/15 Divalproex [Depakote DR(*BID*)] 500 mg PO DAILY #0 tcp 05/14/15 clonazePAM [Klonopin] 1 mg PO BID #0 tab 05/14/15 Benztropine [Cogentin] 0.5 mg PO HS #30 tab 10/07/15 Benztropine [Cogentin] 1 mg PO HS #30 tab 10/07/15 risperiDONE [RisperDAL Tab] 3 mg PO HS #30 tab 10/07/15 Naproxen 1 tab PO BID PRN #14 tab 10/10/15 Atropine/Diphenoxylate [Lonox 2 tab PO Q6 PRN #30 tab 12/07/15 0.025 MG-2.5 MG] Ibuprofen [Motrin Tab] 400 mg PO TID 01/15/16 Famotidine [Pepcid] 20 mg PO BID #10 tab 01/20/16 Cyclobenzaprine [Cyclobenzaprine 10 mg PO TID #20 tab 04/26/16 HCl] oxyCODONE/Acetaminophen [Percocet 1 ea PO Q6 PRN #5 tab 04/26/16 5/325 mg Tab] Loperamide [Loperamide HCl] 2 mg PO QID PRN #10 cap 05/12/16 Ibuprofen [Motrin] 600 mg PO TID 7 Days 06/29/16 Naproxen [Naprosyn Tab] 375 mg PO Q8 PRN #21 tab 07/12/16 - Allergies Allergies/Adverse Reactions: Allergies Allergy/AdvReac Type Severity Reaction Status Date / Time No Known Allergies Allergy Verified 05/07/16 13:06 Review of Systems Musculoskeletal: Positive for: Shoulder Pain (left shoulder pain) Physical Exam - Reviewed Nursing Documentation Reviewed: Yes Vital Signs Reviewed: Yes - Physical Exam Appears: Positive for: Non-toxic, No Acute Distress Head Exam: Positive for: ATRAUMATIC, NORMOCEPHALIC Skin: Positive for: Normal Color, Warm Eye Exam: Positive for: Normal appearance, EOMI, PERRL Extremity: Positive for: Normal ROM. Negative for: Tenderness Neurologic/Psych: Positive for: Alert, Oriented - ECG O2 Sat by Pulse Oximetry: 100 (RA) Pulse Ox Interpretation: Normal Medical Decision Making Medical Decision Making: Impression: Left Shoulder Pain Plan: * Will give patient Rx for Naproxen. Patient is stable for discharge home. Scribe Attestation: Documented by Rosemary Ruiz, acting as a scribe for Kelechi Crow PA-C. Provider Scribe Attestation: All medical record entries made by the Scribe were at my direction and personally dictated by me. I have reviewed the chart and agree that the record accurately reflects my personal performance of the history, physical exam, medical decision making, and the department course for this patient. I have also personally directed, reviewed, and agree with the discharge instructions and disposition. Disposition - Clinical Impression Clinical Impression: Shoulder strain - Patient ED Disposition Is Patient to be Admitted: No - Disposition Disposition: Routine/Home Disposition Time: 20:40 Condition: FAIR Prescriptions: Naproxen [Naprosyn Tab] 375 mg PO Q8 PRN #21 tab PRN Reason: Pain, Moderate (4-7) Instructions: Rotator Cuff Injury (DC)
== END 2016-07-12 20:49 | disposition home or self-care (01) ==
LOC: H.ER 19:46
DX: M25.512 Pain in left shoulder (principal); E11.9 Type 2 diabetes mellitus without complications

== ENCOUNTER 2016-07-19 14:21 | Emergency (ER) | payer MEDICARE, OTHER ==
[2016-07-19 14:21] VITALS: BMI 21.1
[2016-07-19 14:27] VITALS: BP 154/90; PULSE 98; RESP 19; TEMP 98; O2SAT 100
== END 2016-07-19 14:30 | disposition left against medical advice (07) ==
LOC: H.ER 14:21
DX: Z02.89 Encounter for other administrative examinations (principal)

== ENCOUNTER 2016-07-19 14:44 | Emergency (ER) | payer MEDICARE, OTHER ==
[2016-07-19 14:44] VITALS: BMI 21.1
[2016-07-19 14:50] VITALS: BP 154/90; PULSE 95; RESP 19; TEMP 98; O2SAT 99
--- NOTE | 2016-07-19 16:42 | ED PDOC ---
HPI: Psych/Substance Abuse Time Seen by Provider: 07/19/16 14:46 Chief Complaint (Nursing): Psychiatric Evaluation Chief Complaint (Provider): Psychiatric Evaluation History Per: Patient History/Exam Limitations: no limitations Onset/Duration Of Symptoms: Days (a month prior to arrival) Additional Complaint(s): 14:46 Bishop Min, 71 year old male presents to the ED on 07/19/16 for psychiatric evaluation. Upon arrival, the patient reported hearing voices for a month. He denies any suicidal or homicidal ideations, or any further medical complaints. Past Medical History Reviewed: Historical Data, Nursing Documentation, Vital Signs Vital Signs: Last Vital Signs Temp 98.0 F 07/19/16 14:47 Pulse 95 H 07/19/16 14:47 Resp 19 07/19/16 14:47 BP 154/90 H 07/19/16 14:47 Pulse Ox 99 07/19/16 14:47 - Medical History PMH: Anxiety, Back Problems (herniated disk), Bipolar Disorder, Depression, Diabetes (type II), Hypercholesterolemia, Hyperlipidemia, Seizures Denies: Arthritis, CHF, COPD, Hepatitis, HIV, HTN, Hypothyroidism, Chronic Kidney Disease, Rheumatoid Arthritis, Sexually Transmitted Disease - Surgical History Surgical History: Back Surgery, Tonsillectomy - Family History Family History: States: Unknown Family Hx, Diabetes (father) - Immunization History Hx Tetanus Toxoid Vaccination: No Hx Influenza Vaccination: No Hx Pneumococcal Vaccination: No - Home Medications Home Medications: Ambulatory Orders Medication Instructions Recorded Divalproex [Depakote DR(*BID*)] 1,000 mg PO HS #0 tcp 05/14/15 Divalproex [Depakote DR(*BID*)] 500 mg PO DAILY #0 tcp 05/14/15 clonazePAM [Klonopin] 1 mg PO BID #0 tab 05/14/15 Benztropine [Cogentin] 0.5 mg PO HS #30 tab 10/07/15 Benztropine [Cogentin] 1 mg PO HS #30 tab 10/07/15 risperiDONE [RisperDAL Tab] 3 mg PO HS #30 tab 10/07/15 Naproxen 1 tab PO BID PRN #14 tab 10/10/15 Atropine/Diphenoxylate [Lonox 2 tab PO Q6 PRN #30 tab 12/07/15 0.025 MG-2.5 MG] Ibuprofen [Motrin Tab] 400 mg PO TID 01/15/16 Famotidine [Pepcid] 20 mg PO BID #10 tab 01/20/16 Cyclobenzaprine [Cyclobenzaprine 10 mg PO TID #20 tab 04/26/16 HCl] oxyCODONE/Acetaminophen [Percocet 1 ea PO Q6 PRN #5 tab 04/26/16 5/325 mg Tab] Loperamide [Loperamide HCl] 2 mg PO QID PRN #10 cap 05/12/16 Ibuprofen [Motrin] 600 mg PO TID 7 Days 06/29/16 Naproxen [Naprosyn Tab] 375 mg PO Q8 PRN #21 tab 07/12/16 - Allergies Allergies/Adverse Reactions: Allergies Allergy/AdvReac Type Severity Reaction Status Date / Time No Known Allergies Allergy Verified 05/07/16 13:06 Review of Systems ROS Statement: Except As Marked, All Systems Reviewed And Found Negative Psych: Positive for: Other (hearing voices). Negative for: Suicidal ideation ( and no homicidal ideations) Physical Exam - Reviewed Nursing Documentation Reviewed: Yes Vital Signs Reviewed: Yes - Physical Exam Appears: Positive for: Non-toxic, No Acute Distress Head Exam: Positive for: ATRAUMATIC, NORMOCEPHALIC Skin: Positive for: Normal Color Eye Exam: Positive for: Normal appearance Neck: Positive for: Normal Respiratory: Negative for: Accessory Muscle Use, Respiratory Distress Extremity: Positive for: Normal ROM Neurologic/Psych: Positive for: Alert, Oriented (x3) - ECG O2 Sat by Pulse Oximetry: 99 (RA) Pulse Ox Interpretation: Normal Medical Decision Making Medical Decision Makin:44 At this time, patient left without completing treatment. Pt was pending crisis evaluation. Pt denies SI/HI. Scribe Attestation: Documented by Debby Painting, acting as a scribe for Pat White PA-C. Provider Scribe Attestation: All medical record entries made by the Scribe were at my direction and personally dictated by me. I have reviewed the chart and agree that the record accurately reflects my personal performance of the history, physical exam, medical decision making, and the department course for this patient. I have also personally directed, reviewed, and agree with the discharge instructions and disposition. Disposition - Clinical Impression Clinical Impression: Schizophrenia - Patient ED Disposition Is Patient to be Admitted: No - Disposition Disposition: Left W/O Treatment Disposition Time: 20:56 Condition: STABLE
== END 2016-07-19 16:30 | disposition left against medical advice (07) ==
LOC: H.ER 14:44
DX: R44.0 Auditory hallucinations (principal)

== ENCOUNTER 2016-08-01 20:44 | Observation (INO) | payer MEDICARE, OTHER ==
[2016-08-01 20:45] VITALS: BMI 21.1
[2016-08-01 20:48] VITALS: TEMP 98.6
[2016-08-01] MEDS ORDERED: Sodium Chloride 0.9% 1,000 ML IV STA (22:01)
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
[2016-08-01 22:36] LABS: BASO % 0.4 % (0.0-2.0); EOS % 0.5 % (0.0-4.0); LYMPH # 1.8 K/uL (1.0-4.3); LYMPH % 20.9 % (20.0-40.0); MEAN PLATELET VOLUME 8.1 fl (7.2-11.7); MONO # 0.4 K/uL (0.0-0.8); MONO % 4.7 % (0.0-10.0); NEUT # 6.5 K/uL (1.8-7.0); NEUT % 73.5 % (50.0-75.0); RED CELL DISTRIBUTION WIDTH 13.7 % (11.5-14.5); WHITE BLOOD COUNT 8.8 K/uL (4.8-10.8)
[2016-08-01 22:54] LABS: ALB/GLOB RATIO 1.3 (1.0-2.1); ALCOHOL SERUM < 10 mg/dl (0-10); ALKALINE PHOSPHATASE 62 U/L (38-126); ALT/SGPT 33 U/L (21-72); AST/SGOT 20 U/L (17-59); BILIRUBIN,TOTAL 0.6 mg/dl (0.2-1.3); BLOOD UREA NITROGEN 15 mg/dl (9-20); CALCIUM 9.8 mg/dL (8.4-10.2); CARBON DIOXIDE 25 mmol/L (22-30); CHLORIDE 106 mmol/L (98-107); GFR AFRICAN-AMERICAN > 60; GLUCOSE,RANDOM 170 mg/dL (75-110); SODIUM 142 mmol/l (132-148); TOTAL PROTEIN 7.2 G/DL (6.3-8.2)
[2016-08-01 22:56] LABS: POTASSIUM 3.5 MMOL/L (3.6-5.0)
[2016-08-02 00:11] LABS: HEMATOCRIT 44.9 % (35.0-51.0)
[2016-08-02 00:12] LABS: MEAN CELL VOLUME 91.8 fl (80.0-94.0); MEAN CORPUSCULAR HEMOGLOBIN 31.6 pg (27.0-31.0)
[2016-08-02 00:13] LABS: MEAN CORPUSCULAR HGB CONC 34.5 g/dL (33.0-37.0)
[2016-08-02 02:22] LABS: RBC URINE 2 /hpf (0-3); URINE BACTERIA RARE (<OCC); URINE BILIRUBIN NEGATIVE (NEGATIVE); URINE BLOOD NEGATIVE (NEGATIVE); URINE COLOR YELLOW (YELLOW); URINE GLUCOSE (UA) NEG (Normal); URINE KETONE NEGATIVE (NEGATIVE); URINE LEUKOCYTE ESTERASE NEG Leu/uL (Negative); URINE PROTEIN NEGATIVE (NEGATIVE); URINE UROBILINOGEN 0.2-1.0 mg/dL (0.2-1.0); WBC URINE 1 /hpf (0-5)
[2016-08-02 02:52] VITALS: RESP 13
[2016-08-02 02:53] VITALS: BP 150/72; PULSE 95
[2016-08-02 03:08] VITALS: O2SAT 99
--- NOTE | 2016-08-03 00:12 | CARD ---
APPROVED REPORT EKG Measurement Heart [id number] <Conclusion> Normal sinus rhythm Normal ECG
== END 2016-08-02 06:23 | disposition home or self-care (01) ==
LOC: H.ER 20:44 → H.EROBSV 22:01
PROVIDERS: ADMIT Emergency Medicine; ATTEND Emergency Medicine
DX: F25.9 Schizoaffective disorder, unspecified (principal); E11.9 Type 2 diabetes mellitus without complications; E78.00 Pure hypercholesterolemia, unspecified; F31.9 Bipolar disorder, unspecified; F41.9 Anxiety disorder, unspecified; R56.9 Unspecified convulsions; E78.5 Hyperlipidemia, unspecified; F32.9 Major depressive disorder, single episode, unspecified; Z78.1 Physical restraint status; F17.200 Nicotine dependence, unspecified, uncomplicated
CPT/HCPCS: 36415; 80053; 81003; 82948; 85025; 93005; 96374; 99285; G0378; G0480; J2060; J7040

== ENCOUNTER 2016-08-06 16:16 | Emergency (ER) | payer MEDICARE, OTHER ==
[2016-08-06 16:16] VITALS: BMI 21.1
[2016-08-06 16:26] VITALS: BP 141/73; PULSE 99; RESP 18; TEMP 98.6; O2SAT 97
== END 2016-08-06 17:42 | disposition home or self-care (01) ==
LOC: H.ER 16:16
DX: F20.9 Schizophrenia, unspecified (principal); Z00.8 Encounter for other general examination

== ENCOUNTER 2016-10-22 18:13 | Emergency (ER) | payer MEDICARE, OTHER ==
[2016-10-22 18:14] VITALS: BMI 21.1
[2016-10-22 18:23] VITALS: BP 138/58; PULSE 69; RESP 16; TEMP 98.4; O2SAT 100
--- NOTE | 2016-10-22 18:47 | ED PDOC ---
ATTENTION PHYSICIANS Hyperglycemia/Hypoglycemia History Per: Patient (71 y M with PMHx of Depression, Bipolar Disorder, DM, HLD , and chronic back pain presents to ED for possible hyperglycemia. He states that he had not taking his diabetes medication in 2 weeks and felt worried that his sugar was too high. He has no complaints at this time. Denies CP, SOB, Abominal pain, auditory or visual hallucinations, or suicidal ideations. ) : The patient does not have any of the infectious symptoms listed except for those marked. Treatment Prior To Provider Evaluation: Carey (189) <Jacki Pritchard - Last Filed: 10/22/16 19:01> <Maile Blancas - Last Filed: 10/22/16 19:05> Time Seen by Provider: 10/22/16 18:45 Chief Complaint (Nursing): High Blood Sugar Supervising Attending Note - Supervising Attending Note The Documented history was done by the: Physician Station Cashier The documented physical exam was done by the: Physician Station Cashier The documented procedures were done by the: Physician Station Cashier - Attestation: I have personally seen and examined this patient.: Yes I have fully participated in the care of the patient.: Yes I have reviewed all pertinent clinical information, including history, physical exam and plan: Yes <Maile Blancas - Last Filed: 10/22/16 19:05> Past Medical History Reviewed: Historical Data, Nursing Documentation, Vital Signs Vital Signs: Last Vital Signs Temp 98.4 F 10/22/16 18:22 Pulse 69 10/22/16 18:22 Resp 16 10/22/16 18:22 BP 138/58 L 10/22/16 18:22 Pulse Ox 100 10/22/16 18:22 - Medical History PMH: Anxiety, Back Problems (herniated disk), Bipolar Disorder, Depression, Diabetes (type II), Hypercholesterolemia, Hyperlipidemia, Seizures Denies: Arthritis, CHF, COPD, Hepatitis, HIV, HTN, Hypothyroidism, Chronic Kidney Disease, Rheumatoid Arthritis, Sexually Transmitted Disease - Surgical History Surgical History: Back Surgery, Tonsillectomy - Family History Family History: States: Unknown Family Hx, Diabetes (father) - Living Arrangements Living Arrangements: With Family (Lives with brother) - Immunization History Hx Tetanus Toxoid Vaccination: No Hx Influenza Vaccination: No Hx Pneumococcal Vaccination: No <Jacki Pritchard - Last Filed: 10/22/16 19:01> Vital Signs: Last Vital Signs Temp 98.4 F 10/22/16 18:22 Pulse 69 10/22/16 18:22 Resp 16 10/22/16 18:22 BP 138/58 L 10/22/16 18:22 Pulse Ox 100 10/22/16 19:01 <Maile Blancas - Last Filed: 10/22/16 19:05> - Home Medications Home Medications: Ambulatory Orders Medication Instructions Recorded Divalproex [Depakote DR(*BID*)] 1,000 mg PO HS #0 tcp 05/14/15 Divalproex [Depakote DR(*BID*)] 500 mg PO DAILY #0 tcp 05/14/15 clonazePAM [Klonopin] 1 mg PO BID #0 tab 05/14/15 Benztropine [Cogentin] 0.5 mg PO HS #30 tab 10/07/15 Benztropine [Cogentin] 1 mg PO HS #30 tab 10/07/15 risperiDONE [RisperDAL Tab] 3 mg PO HS #30 tab 10/07/15 Naproxen 1 tab PO BID PRN #14 tab 10/10/15 Atropine/Diphenoxylate [Lonox 2 tab PO Q6 PRN #30 tab 12/07/15 0.025 MG-2.5 MG] Ibuprofen [Motrin Tab] 400 mg PO TID 01/15/16 Famotidine [Pepcid] 20 mg PO BID #10 tab 01/20/16 Cyclobenzaprine [Cyclobenzaprine 10 mg PO TID #20 tab 04/26/16 HCl] oxyCODONE/Acetaminophen [Percocet 1 ea PO Q6 PRN #5 tab 04/26/16 5/325 mg Tab] Loperamide [Loperamide HCl] 2 mg PO QID PRN #10 cap 05/12/16 Ibuprofen [Motrin] 600 mg PO TID 7 Days 06/29/16 Naproxen [Naprosyn Tab] 375 mg PO Q8 PRN #21 tab 07/12/16 - Allergies Allergies/Adverse Reactions: Allergies Allergy/AdvReac Type Severity Reaction Status Date / Time No Known Allergies Allergy Verified 08/06/16 16:23 Review of Systems ROS Statement: Except As Marked, All Systems Reviewed And Found Negative Constitutional: Negative for: Fever, Chills Cardiovascular: Negative for: Chest Pain Respiratory: Negative for: Cough, Shortness of Breath Gastrointestinal: Negative for: Nausea, Vomiting, Abdominal Pain, Diarrhea, Constipation Genitourinary Male: Negative for: Dysuria, Frequency, Incontinence Neurological: Negative for: Weakness, Confusion Psych: Positive for: Anxiety <Jacki Pritchard - Last Filed: 10/22/16 19:01> Physical Exam - Reviewed Nursing Documentation Reviewed: Yes Vital Signs Reviewed: Yes - Physical Exam Appears: Positive for: Well, Non-toxic, No Acute Distress Head Exam: Positive for: ATRAUMATIC, NORMAL INSPECTION, NORMOCEPHALIC Skin: Positive for: Normal Color, Warm, DRY Eye Exam: Positive for: EOMI, Normal appearance, PERRL ENT: Positive for: Normal ENT Inspection Neck: Positive for: Normal, Painless ROM Cardiovascular/Chest: Positive for: Regular Rate, Rhythm Respiratory: Positive for: CNT, Normal Breath Sounds Gastrointestinal/Abdominal: Positive for: Normal Exam, Bowel Sounds, Soft Back: Positive for: Normal Inspection Extremity: Positive for: Normal ROM Neurologic/Psych: Positive for: Alert, Oriented <Jacki Pritchard - Last Filed: 10/22/16 19:01> - ECG O2 Sat by Pulse Oximetry: 100 <Jacki Pritchard - Last Filed: 10/22/16 19:01> Medical Decision Making Medical Decision Makin y male with PMHx of Depression, Bipolar Disorder, DM, HLD, Chronic back pain presents to ED for subjective hyperglycemia and was found to have Glucose of 189. Patient has no complaints or symptoms, physical exam is normal. Stable for D/C <Jacki Pritchard - Last Filed: 10/22/16 19:01> Disposition - Disposition Disposition: Routine/Home Disposition Time: 18:54 <Jacki Pritchard - Last Filed: 10/22/16 19:01> <Maile Blancas - Last Filed: 10/22/16 19:05> - Clinical Impression Clinical Impression: Hyperglycemia - Disposition Condition: STABLE Instructions: How to Check Your Blood Sugar (ED), Diabetes Mellitus Type 2 in Adults (ED) Forms: [employer] ([place]atian)
== END 2016-10-22 19:15 | disposition home or self-care (01) ==
LOC: H.ER 18:13
DX: E11.65 Type 2 diabetes mellitus with hyperglycemia (principal)

== ENCOUNTER 2016-10-27 16:54 | Emergency (ER) | payer MEDICARE, OTHER ==
[2016-10-27 16:54] VITALS: BMI 21.1
[2016-10-27 17:08] VITALS: BP 89/61; PULSE 64; RESP 16; TEMP 98.1; O2SAT 98
--- NOTE | 2016-10-27 18:12 | ED PDOC ---
HPI:Nausea, Vomiting, Diarrhea Time Seen by Provider: 10/27/16 17:45 Chief Complaint (Nursing): Abdominal Pain Chief Complaint (Provider): Diarrhea History Per: Patient Onset/Duration Of Symptoms: Days (365) Current Symptoms Are (Timing): Still Present Have you had recent travel within the past 21 days to any of the following countries: [place], [place], [place] or [place]?: No Severity: Moderate Associated Symptoms: Diarrhea. denies: Fever, Chills, Nausea, Vomiting, Loss Of Appetite, Back Pain, Chest Pain, Constipation, Urinary Symptoms Exacerbating Factors: None Alleviating Factors: None Last Bowel Movement: Today Additional History Per: Patient Additional Complaint(s): 71 y/o male complaining of small amounts of watery diarrhea for the last year and is unchanged. Denies any abdominal pain, nausea, vomiting, fever, blood in stool, or other complaint. He has been taking Immodium and requests recommendation for an alternative. Patient has not discussed this with his PMD Dr. Coombs. Past Medical History Vital Signs: Last Vital Signs Temp 98.1 F 10/27/16 17:03 Pulse 64 10/27/16 17:03 Resp 16 10/27/16 17:03 BP 89/61 L 10/27/16 17:03 Pulse Ox 98 10/27/16 17:03 - Medical History PMH: Anxiety, Back Problems (herniated disk), Bipolar Disorder, Depression, Diabetes (type II), Hypercholesterolemia, Hyperlipidemia, Seizures Denies: Arthritis, CHF, COPD, Hepatitis, HIV, HTN, Hypothyroidism, Chronic Kidney Disease, Rheumatoid Arthritis, Sexually Transmitted Disease - Surgical History Surgical History: Back Surgery, Tonsillectomy - Family History Family History: States: Unknown Family Hx, Diabetes (father) - Immunization History Hx Tetanus Toxoid Vaccination: No Hx Influenza Vaccination: No Hx Pneumococcal Vaccination: No - Home Medications Home Medications: Ambulatory Orders Medication Instructions Recorded Divalproex [Depakote DR(*BID*)] 1,000 mg PO HS #0 tcp 05/14/15 Divalproex [Depakote DR(*BID*)] 500 mg PO DAILY #0 tcp 05/14/15 clonazePAM [Klonopin] 1 mg PO BID #0 tab 05/14/15 Benztropine [Cogentin] 0.5 mg PO HS #30 tab 10/07/15 Benztropine [Cogentin] 1 mg PO HS #30 tab 10/07/15 risperiDONE [RisperDAL Tab] 3 mg PO HS #30 tab 10/07/15 Naproxen 1 tab PO BID PRN #14 tab 10/10/15 Ibuprofen [Motrin Tab] 400 mg PO TID 01/15/16 Famotidine [Pepcid] 20 mg PO BID #10 tab 01/20/16 Cyclobenzaprine [Cyclobenzaprine 10 mg PO TID #20 tab 04/26/16 HCl] oxyCODONE/Acetaminophen [Percocet 1 ea PO Q6 PRN #5 tab 04/26/16 5/325 mg Tab] Loperamide [Loperamide HCl] 2 mg PO QID PRN #10 cap 05/12/16 Ibuprofen [Motrin] 600 mg PO TID 7 Days 06/29/16 Naproxen [Naprosyn Tab] 375 mg PO Q8 PRN #21 tab 07/12/16 Atropine/Diphenoxylate [Lonox 2 tab PO Q6 PRN #30 tab 10/27/16 0.025 MG-2.5 MG] - Allergies Allergies/Adverse Reactions: Allergies Allergy/AdvReac Type Severity Reaction Status Date / Time No Known Allergies Allergy Verified 08/06/16 16:23 Review of Systems ROS Statement: Except As Marked, All Systems Reviewed And Found Negative Gastrointestinal: Positive for: Diarrhea Physical Exam - Reviewed Nursing Documentation Reviewed: Yes Vital Signs Reviewed: Yes - Physical Exam Appears: Positive for: Well, Non-toxic, No Acute Distress Head Exam: Positive for: ATRAUMATIC, NORMAL INSPECTION, NORMOCEPHALIC Skin: Positive for: Normal Color, Warm, DRY Eye Exam: Positive for: Normal appearance Neck: Positive for: Normal, Painless ROM Cardiovascular/Chest: Positive for: Regular Rate, Rhythm Respiratory: Positive for: CNT, Normal Breath Sounds Gastrointestinal/Abdominal: Positive for: Normal Exam, Bowel Sounds, Soft Back: Positive for: Normal Inspection Extremity: Positive for: Normal ROM Neurologic/Psych: Positive for: Alert, Oriented - ECG O2 Sat by Pulse Oximetry: 98 (RA) Pulse Ox Interpretation: Normal Medical Decision Making Medical Decision Making: Impression: Chronic Diarrhea Discussion: there are no acute conditions per history or exam. The patient expresses multiple times that he is here for a medication recommendation, and does not wish for any testing. Additionally I consider emergency medical testing to be contraindicated at this time for his chronic complaints. Prescription for Lomotil given. Patient discharged in stable condition. Attestation Scribe Attestation: Documented by Genesis Menezes acting as a scribe for Sandeep Dias MD. Scribe Attestation: All medical record entries made by the Scribe were at my direction and personally dictated by me. I have reviewed the chart and agree that the record accurately reflects my personal performance of the history, physical exam, medical decision making, and the department course for this patient. I have also personally directed, reviewed, and agree with the discharge instructions and disposition. Disposition - Clinical Impression Clinical Impression: Chronic diarrhea - Patient ED Disposition Is Patient to be Admitted: No Doctor Will See Patient In The: Office Counseled Patient/Family Regarding: Studies Performed, Diagnosis, Need For Followup - Disposition Referrals: Moe Ojeda MD [Family Provider] - Disposition: Routine/Home Disposition Time: 18:33 Condition: GOOD Prescriptions: Atropine/Diphenoxylate [Lonox 0.025 MG-2.5 MG] 2 tab PO Q6 PRN #30 tab PRN Reason: DIARRHEA Instructions: Chronic Diarrhea (ED)
== END 2016-10-27 18:45 | disposition home or self-care (01) ==
LOC: H.ER 16:54
DX: R19.7 Diarrhea, unspecified (principal); E11.9 Type 2 diabetes mellitus without complications; E78.5 Hyperlipidemia, unspecified; F31.9 Bipolar disorder, unspecified; F41.9 Anxiety disorder, unspecified; K52.9 Noninfective gastroenteritis and colitis, unspecified

== ENCOUNTER 2017-02-22 07:54 | Day surgery (SDC) | payer MEDICARE, OTHER ==
[2017-02-22] MEDS ORDERED: Lactated Ringer's 1,000 ML IV ONE (08:42)
[2017-02-22] MEDS ORDERED: Metoprolol 1 mg/ml Inj IVP ONE (09:43)
[2017-02-22] MEDS ORDERED: Propofol 10 mg/ml Inj (20 ML) ONE (09:43)
[2017-02-22 10:24] VITALS: TEMP 98
[2017-02-22 10:49] VITALS: BP 130/67; PULSE 55; RESP 12; O2SAT 100
== END 2017-02-22 11:04 | disposition home or self-care (01) ==
LOC: H.ENDO 07:54
PROVIDERS: ATTEND Internal Medicine Gastroenterology
DX: Z12.11 Encounter for screening for malignant neoplasm of colon (principal); K64.8 Other hemorrhoids; D12.0 Benign neoplasm of cecum; K57.30 Diverticulosis of large intestine without perforation or abscess without bleeding; D12.4 Benign neoplasm of descending colon
CPT/HCPCS: 45385; 82948; 88305; J2704; J7120

== ENCOUNTER 2017-03-06 16:45 | Observation (INO) | payer MEDICARE, OTHER ==
[2017-03-06 16:45] VITALS: BMI 21.1
[2017-03-06] MEDS ORDERED: Iohexol 240 (50 ml) PO ONE (18:17)
[2017-03-06] MEDS ORDERED: Alum-Mag Hydrox-Simethicone Susp (30 mL) PO STA (18:17)
[2017-03-06] MEDS ORDERED: Iohexol 240 (50 ml) ONE (19:05)
[2017-03-06] MEDS ORDERED: Alum-Mag Hydrox-Simethicone Susp (30 mL) ONE (19:05)
[2017-03-06 20:09] LABS: BLOOD UREA NITROGEN 20 mg/dl (9-20); GFR AFRICAN-AMERICAN > 60; GFR NON-AFRICAN AMERICAN > 60
[2017-03-06 20:10] LABS: ALB/GLOB RATIO 1.2 (1.0-2.1); ALBUMIN 4.3 g/dL (3.5-5.0); ALT/SGPT 28 U/L (21-72); AST/SGOT 74 U/L (17-59); CALCIUM 9.6 mg/dL (8.4-10.2)
[2017-03-06 20:11] LABS: LIPASE 80 U/L (23-300)
[2017-03-06 20:15] LABS: BASO % 0.1 % (0.0-2.0); EOS % 0.3 % (0.0-4.0); HEMOGLOBIN 16.1 g/dL (12.0-18.0); LYMPH # 1.4 K/uL (1.0-4.3); LYMPH % 14.7 % (20.0-40.0); MEAN CELL VOLUME 90.3 fl (80.0-94.0); MEAN CORPUSCULAR HEMOGLOBIN 31.5 pg (27.0-31.0); MEAN CORPUSCULAR HGB CONC 34.9 g/dL (33.0-37.0); MEAN PLATELET VOLUME 8.6 fl (7.2-11.7); MONO # 0.5 K/uL (0.0-0.8); MONO % 5.6 % (0.0-10.0); NEUT # 7.5 K/uL (1.8-7.0); NEUT % 79.3 % (50.0-75.0); NRBC % 0.2 % (0.0-0.0); RBC 5.12 Mil/uL (4.40-5.90); RED CELL DISTRIBUTION WIDTH 14.2 % (11.5-14.5); WHITE BLOOD COUNT 9.4 K/uL (4.8-10.8)
--- NOTE | 2017-03-06 20:25 | ED PDOC ---
HPI: Abdomen Time Seen by Provider: 03/06/17 17:04 Chief Complaint (Nursing): Abdominal Pain Chief Complaint (Provider): Adominal Pain History Per: Patient History/Exam Limitations: no limitations Onset/Duration Of Symptoms: Days (x2) Current Symptoms Are (Timing): Still Present Associated Symptoms: denies: Vomiting, Diarrhea Last Bowel Movement: Yesterday Additional Complaint(s): Bishop Min, a 71 year old male patients presents to the Emergency Department complaining of abdominal pain onset two days ago. Reports he took oxycodone for pain, however the pain has returned. His last bowl movement was yesterday. The patient had a colonoscopy about last week, but does not have any results present yet. Also has a history of chronic back pain, alcohol abuse, depression, and hepatitis c. Denies vomiting or diarrhea. PMD: Theodoro Past Medical History Reviewed: Historical Data, Nursing Documentation, Vital Signs Vital Signs: Last Vital Signs Temp 98.5 F 03/07/17 16:39 Pulse 62 03/07/17 16:39 Resp 18 03/07/17 16:39 BP 169/76 H 03/07/17 16:39 Pulse Ox 97 03/07/17 16:39 - Medical History PMH: Anxiety, Back Problems (herniated disk), Bipolar Disorder, Depression, Diabetes (type II), HIV, Hypercholesterolemia, Hyperlipidemia, Seizures Denies: Arthritis, CHF, COPD, Hepatitis, HTN, Hypothyroidism, Chronic Kidney Disease, Rheumatoid Arthritis, Sexually Transmitted Disease - Surgical History Surgical History: Back Surgery, Tonsillectomy - Family History Family History: States: Unknown Family Hx, Diabetes (father) - Social History Current smoker - smoking cessation education provided: Yes Drugs: Other (hx oxycontin abuse) - Immunization History Hx Tetanus Toxoid Vaccination: No Hx Influenza Vaccination: No Hx Pneumococcal Vaccination: No - Home Medications Home Medications: Ambulatory Orders Medication Instructions Recorded ALPRAZolam [Xanax] 1 mg PO DAILY 03/07/17 oxyCODONE [oxyCODONE Immediate 30 mg PO TID 03/07/17 Release Tab] tiZANidine [Zanaflex] 2 mg PO DAILY 03/07/17 - Allergies Allergies/Adverse Reactions: Allergies Allergy/AdvReac Type Severity Reaction Status Date / Time No Known Allergies Allergy Verified 02/22/17 08:45 Review of Systems ROS Statement: Except As Marked, All Systems Reviewed And Found Negative Constitutional: Negative for: Fever, Chills Gastrointestinal: Positive for: Other (abdominal pain; non-radiating ). Negative for: Vomiting, Diarrhea Physical Exam - Reviewed Nursing Documentation Reviewed: Yes Vital Signs Reviewed: Yes - Physical Exam Appears: Positive for: Well, Non-toxic, No Acute Distress Skin: Positive for: Normal Color, Warm, Dry Eye Exam: Positive for: Normal appearance, EOMI, PERRL ENT: Positive for: Normal ENT Inspection Neck: Positive for: Normal, Painless ROM Cardiovascular/Chest: Positive for: Regular Rate, Rhythm. Negative for: Murmur Respiratory: Positive for: Normal Breath Sounds Gastrointestinal/Abdominal: Positive for: Normal Exam, Soft, Tenderness Back: Positive for: Normal Inspection Extremity: Positive for: Normal ROM Neurologic/Psych: Positive for: Alert, Oriented (x3) - Laboratory Results Result Diagrams: 03/07/17 05:30 03/07/17 05:30 - ECG O2 Sat by Pulse Oximetry: 100 (RA) Pulse Ox Interpretation: Normal Medical Decision Making Medical Decision Making: Time: 18:17 Initial Impression: Abdominal Pain Differential Diagnosis includes but is not limited to: Gastritis, Pancreatitis, Colitis, Small bowl movement Initial Plan: --Abdominal Pelvis PO & IV CT --CMP --Lipase Test --CBC --Lidocaine 2% Viscous 15ml PO --Maalox Plus 30ml --Omnipaque 50ml PO --Pepcid 20mg IVP --Reevaluation Time: 22:33 Abdomen/Pelvis CT FINDINGS: Lower thorax: Centrilobular emphysema. Atelectasis. ABDOMEN: Liver: Subcentimeter hypoattenuating foci in the liver, too small to characterize. Gallbladder and bile ducts: Cholelithiasis. Distended gallbladder. Dilated common bile duct. Further evaluation can be performed with dedicated ultrasound. Pancreas: No acute abnormality as visualized. Spleen: No splenomegaly. Approximately 18 mm enhancing focus in the spleen, not visualized on delayed images. Adrenals: No acute abnormality as visualized. Kidneys and ureters: Symmetric emhancement. Right pelvocaliectasis. Bilateral hypoattenuating lesions in the kidneys measuring approximately 1 cm, incompletely characterized. Stomach and bowel: Reflux of contrast into the distal esophagus. Thickening of distal esophageal wall/minimal hiatal hernia. Some retained fecal material in the colon. Appendix: No findings to suggest acute appendicitis. PELVIS: Bladder: No acute abnormality as visualized. Reproductive: Enlarged prostate impresses upon the bladder. ABDOMEN and PELVIS: Intraperitoneal space: No free air. No significant fluid collection. Bones: Multilevel degenerative changes. Mild spondylolisthesis. Vasculature: Atherosclerosis. No abdominal aortic aneurysm. Lymph nodes: No acute abnormality as visualized. IMPRESSION: Cholelithiasis. Distended gallbladder. Dilated common bile duct. Correlate clinically. Further evaluation can be performed with dedicated ultrasound. Please see additional details/findings as above. Some of the above findings may warrant followup evaluation. Time: 22:00 Abdomen US FINDINGS: Liver: No acute abnormality as visualized. Gallbladder: Cholelithiasis. Sludge. No gallbladder wall thickening or pericholecystic fluid. Common bile duct: Dilated to 1.2 cm, sludge visualized within the duct. Pancreas: No acute abnormality as visualized. Right kidney: Measured approximately 12 cm. Dilated central collecting system/hydronephrosis. IMPRESSION: Cholelithiasis. Sludge. Dilated common bile duct with sludge within the duct. Correlate clinically. Nuclear hepatobiliary scan can aid in evaluation. Right kidney demonstrates dilated collecting system/hydronephrosis, question related to UPJ obstruction, right pelvocaliectasis demonstrated on current and prior CT dated 12/07/2015. 0015 Discussed the case with Dr Marie who will be on consult. Scribe Attestation: Documented by Yanely Moralez and Alek Crow, acting as a scribe for Sandeep Dias MD Provider Scribe Attestation: All medical record entries made by the Scribe were at my direction and personally dictated by me. I have reviewed the chart and agree that the record accurately reflects my personal performance of the history, physical exam, medical decision making, and the department course for this patient. I have also personally directed, reviewed, and agree with the discharge instructions and disposition. Disposition - Clinical Impression Clinical Impression: Drug dependence, Choledocholithiasis, Elevated bilirubin - Patient ED Disposition Is Patient to be Admitted: Yes Discussed With : Ely Ramos Doctor Will See Patient In The: ED Counseled Patient/Family Regarding: Studies Performed, Diagnosis - Disposition Disposition Time: 00:30 Condition: FAIR - Pt Status Changed To: Hospital Disposition Of: Inpatient - Admit Certification Admit to Inpatient:: After my assessment, the patient will require hospitalization for at least two midnights. This is because of the severity of symptoms shown, intensity of services needed, and/or the medical risk in this patient being treated as an outpatient. - POA Present On Arrival: None
[2017-03-06] MEDS ORDERED: Iohexol 300 100 ML IJ ONE (21:20)
--- NOTE | 2017-03-06 22:33 | CT ---
EXAM: CT Abdomen and Pelvis With Intravenous Contrast CLINICAL HISTORY: 71 years old, male; Pain; Abdominal pain; Generalized; Patient HX: Generalized abd pain. Constipation. Hep c. Smoker x around 40 yrs TECHNIQUE: Axial computed tomography images of the abdomen and pelvis with intravenous contrast. All CT scans at this facility use one or more dose reduction techniques, viz.: automated exposure control; ma/kV adjustment per patient size (including targeted exams where dose is matched to indication; i.e. head); or iterative reconstruction technique. Coronal and sagittal reformatted images were created and reviewed. CONTRAST: 98 mL of OMNIPAQUE administered intravenously. COMPARISON: CT - ABD PELVIS W/O PO OR IV CONT 2015-12-07 17:45 FINDINGS: Lower thorax: Centrilobular emphysema. Atelectasis. ABDOMEN: Liver: Subcentimeter hypoattenuating foci in the liver, too small to characterize. Gallbladder and bile ducts: Cholelithiasis. Distended gallbladder. Dilated common bile duct. Further evaluation can be performed with dedicated ultrasound. Pancreas: No acute abnormality as visualized. Spleen: No splenomegaly. Approximately 18 mm enhancing focus in the spleen, not visualized on delayed images. Adrenals: No acute abnormality as visualized. Kidneys and ureters: Symmetric emhancement. Right pelvocaliectasis. Bilateral hypoattenuating lesions in the kidneys measuring approximately 1 cm, incompletely characterized. Stomach and bowel: Reflux of contrast into the distal esophagus. Thickening of distal esophageal wall/minimal hiatal hernia. Some retained fecal material in the colon. Appendix: No findings to suggest acute appendicitis. PELVIS: Bladder: No acute abnormality as visualized. Reproductive: Enlarged prostate impresses upon the bladder. ABDOMEN and PELVIS: Intraperitoneal space: No free air. No significant fluid collection. Bones: Multilevel degenerative changes. Mild spondylolisthesis. Vasculature: Atherosclerosis. No abdominal aortic aneurysm. Lymph nodes: No acute abnormality as visualized. IMPRESSION: Cholelithiasis. Distended gallbladder. Dilated common bile duct. Correlate clinically. Further evaluation can be performed with dedicated ultrasound. Please see additional details/findings as above. Some of the above findings may warrant followup evaluation.
--- NOTE | 2017-03-07 00:22 | US ---
EXAM: US Abdomen Limited, Right Upper Quadrant CLINICAL HISTORY: 71 years old, male; Pain; Abdominal pain; Epigastric; Additional info: Abdominal pain gallstones TECHNIQUE: Real-time ultrasound of the right upper quadrant with image documentation. COMPARISON: CT - ABD PELVIS PO IV CONTRAST 2017-03-06 21:28 FINDINGS: Liver: No acute abnormality as visualized. Gallbladder: Cholelithiasis. Sludge. No gallbladder wall thickening or pericholecystic fluid. Common bile duct: Dilated to 1.2 cm, sludge visualized within the duct. Pancreas: No acute abnormality as visualized. Right kidney: Measured approximately 12 cm. Dilated central collecting system/hydronephrosis. IMPRESSION: Cholelithiasis. Sludge. Dilated common bile duct with sludge within the duct. Correlate clinically. Nuclear hepatobiliary scan can aid in evaluation. Right kidney demonstrates dilated collecting system/hydronephrosis, question related to UPJ obstruction, right pelvocaliectasis demonstrated on current and prior CT dated 12/07/2015.
[2017-03-07] MEDS ORDERED: Piperacillin/Tazobact 3.375 GM in Sodium Chloride 0.9% 100 ML IVPB STA (00:36)
[2017-03-07] MEDS ORDERED: Sodium Chloride 0.9% 1,000 ML IV SCH (00:45)
--- NOTE | 2017-03-07 00:45 | CP.PCM.HP ---
History of Present Illness - History of Present Illness History of Present Illness: CC: abd pain HPI: This is a 71 y/o male with MHx significant for EtOH abuse, Hep C, ?heroin abuse, and HTN among other conditions who comes in with several days of abdominal pain with nausea. States pain started 2 days ago, somewhat on the right side. Occ nausea, but no vomiting or diarrhea. Patient had a colonoscopy last week per his report. Patient denies f/c. Patient has chronic back pain. 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 Allergies: NKDA Medications: As per med rec Family Hx: ?DM in family Social Hx: Lives with brother, smokes 1.5 ppd, no EtOH currently Surrogate Dec Mkr: Brother Present on Admission - Present on Admission Any Indicators Present on Admission: No Past Patient History - Infectious Disease Hx of Infectious Diseases: None - Tetanus Immunizations Tetanus Immunization: Unknown - Past Medical History & Family History Past Medical History?: Yes - Past Social History Drugs: Other (hx oxycontin abuse) - CARDIAC Hx Congestive Heart Failure: No Hx Hypercholesterolemia: Yes Hx Hypertension: No - PULMONARY Hx Chronic Obstructive Pulmonary Disease (COPD): No - NEUROLOGICAL Hx Seizures: Yes - HEENT Hx HEENT Problems: No - RENAL Hx Chronic Kidney Disease: No - ENDOCRINE/METABOLIC Hx Hypothyroidism: No - HEMATOLOGICAL/ONCOLOGICAL Hx Human Immunodeficiency Virus (HIV): Yes - INTEGUMENTARY Hx Dermatological Problems: No - MUSCULOSKELETAL/RHEUMATOLOGICAL Hx Arthritis: No Hx Rheumatoid Arthritis: No - GASTROINTESTINAL Hx Gastrointestinal Disorders: No - GENITOURINARY/GYNECOLOGICAL Hx Sexually Transmitted Disorders: No - PSYCHIATRIC Hx Anxiety: Yes Hx Bipolar Disorder: Yes Hx Depression: Yes - SURGICAL HISTORY Hx Tonsillectomy: Yes - ANESTHESIA Hx Anesthesia: No Meds Allergies/Adverse Reactions: Allergies Allergy/AdvReac Type Severity Reaction Status Date / Time No Known Allergies Allergy Verified 02/22/17 08:45 Physical Exam - Constitutional Appears: No Acute Distress - Head Exam Head Exam: ATRAUMATIC, NORMOCEPHALIC - Eye Exam Eye Exam: EOMI, PERRL - ENT Exam ENT Exam: Mucous Membranes Moist - Neck Exam Neck exam: Positive for: Full Rom - Respiratory Exam Respiratory Exam: Clear to Auscultation Bilateral, NORMAL BREATHING PATTERN - Cardiovascular Exam Cardiovascular Exam: REGULAR RHYTHM, +S1, +S2 - GI/Abdominal Exam GI & Abdominal Exam: Normal Bowel Sounds, Soft, Tenderness - Extremities Exam Extremities exam: Positive for: full ROM, normal inspection - Neurological Exam Neurological exam: Alert, CN II-XII Intact, Oriented x3 - Psychiatric Exam Psychiatric exam: Normal Affect, Normal Mood - Skin Skin Exam: Dry, Warm Results - Vital Signs Recent Vital Signs: Last Vital Signs Temp 97.8 F 03/06/17 16:48 Pulse 85 03/06/17 16:48 Resp 16 03/06/17 16:48 BP 162/75 H 03/06/17 16:48 Pulse Ox 100 03/07/17 00:32 - Labs Result Diagrams: 03/06/17 19:22 03/06/17 19:22 Labs: Laboratory Results - last 24 hr 03/06/17 03/06/17 19:22 19:22 WBC 9.4 RBC 5.12 Hgb 16.1 Hct 46.2 MCV 90.3 MCH 31.5 H MCHC 34.9 RDW 14.2 Plt Count 194 MPV 8.6 Neut % (Auto) 79.3 H Lymph % (Auto) 14.7 L Piatt % (Auto) 5.6 Eos % (Auto) 0.3 Baso % (Auto) 0.1 Neut # 7.5 H Lymph # 1.4 Piatt # 0.5 Eos # 0.0 Baso # 0.0 Sodium 139 Potassium 5.2 H Chloride 104 Carbon Dioxide 25 Anion Gap 15 BUN 20 Creatinine 0.9 Est GFR ( Amer) > 60 Est GFR (Non-Af Amer) > 60 Random Glucose 109 Calcium 9.6 Total Bilirubin 2.3 H AST 74 H ALT 28 Alkaline Phosphatase 59 Total Protein 7.8 Albumin 4.3 Globulin 3.5 Albumin/Globulin Ratio 1.2 Lipase 80 - Imaging and Cardiology US - abdomen Status: Report reviewed by me (u/s and CT show cholelithiasis, GB sludge; no cholecystitis) Assessment & Plan (1) Cholelithiases Assessment and Plan: 71 y/o male with HTN, hep C, EtOH and heroine abuse p/w cholelithasis, GB sludge , elevated bilirubin. -NPO after midnight, MRCP in AM -Pain control per scale with dilaudid -GI and surgery consult in AM -Cont abx as started per GI -- Zosyn IV -DVT PPx -- SCDs Status: Acute (2) Biliary sludge Status: Acute (3) DVT prophylaxis Status: Acute (4) Abdominal pain Status: Acute
[2017-03-07] MEDS ORDERED: Piperacillin/Tazobact 3.375 gm Inj IVPB ONE (01:22)
[2017-03-07] MEDS ORDERED: Pneumococcal 23-Valent Vaccine IM ONE (06:00)
[2017-03-07 06:33] LABS: MEAN CORPUSCULAR HEMOGLOBIN 31.3 pg (27.0-31.0); MEAN PLATELET VOLUME 8.1 fl (7.2-11.7); RBC 5.13 Mil/uL (4.40-5.90); RED CELL DISTRIBUTION WIDTH 14.1 % (11.5-14.5); WHITE BLOOD COUNT 8.5 K/uL (4.8-10.8)
[2017-03-07 06:44] LABS: BLOOD UREA NITROGEN 18 mg/dl (9-20); CALCIUM 9.8 mg/dL (8.4-10.2); GFR AFRICAN-AMERICAN > 60; GFR NON-AFRICAN AMERICAN > 60
--- NOTE | 2017-03-07 07:37 | CP.PCM.CON ---
<Rod Newton Ramiro - Last Filed: 03/07/17 07:48> History of Present Illness - History of Present Illness History of Present Illness: General Surgery Consult: Dr Lebron Pt is a 71M w/ hx of Hep C, heroin abuse, HTN and smoking who came into the ED with a 2-3 day history of abdominal pain with nausea. Pt states pain is located in the epigastrium. Pt admits to nausea but denies vomiting. Also complaining of intermittent constipation. Last BM 2 days ago. Pt states he has never had pain like this before. CT demonstrated distended gb, without surrounding pericholecystic fluid, as well as a dilated CBD and right hydronephrosis. Pt scheduled for MRCP today. Review of Systems - Review of Systems All systems: reviewed and no additional remarkable complaints except (as per hpi ) Past Patient History - Infectious Disease Hx of Infectious Diseases: None - Tetanus Immunizations Tetanus Immunization: Unknown - Past Medical History & Family History Past Medical History?: Yes - Past Social History Smoking Status: Heavy Smoker > 10 Cigarettes Daily - CARDIAC Hx Cardiac Disorders: Yes Hx Congestive Heart Failure: No Hx Hypercholesterolemia: Yes Hx Hypertension: No - PULMONARY Hx Respiratory Disorders: No Hx Chronic Obstructive Pulmonary Disease (COPD): No - NEUROLOGICAL Hx Neurological Disorder: Yes Hx Seizures: Yes - HEENT Hx HEENT Problems: No - RENAL Hx Chronic Kidney Disease: No - ENDOCRINE/METABOLIC Hx Endocrine Disorders: No Hx Hypothyroidism: No - HEMATOLOGICAL/ONCOLOGICAL Hx Blood Disorders: Yes Hx AIDS: No Hx Human Immunodeficiency Virus (HIV): Yes - INTEGUMENTARY Hx Dermatological Problems: No Hx Basil Cell: No Hx Zepeda: No Hx Cellulitis: No Hx Eczema: No Hx Melanoma: No Hx Psoriasis: No Hx Squamous Cell: No - MUSCULOSKELETAL/RHEUMATOLOGICAL Hx Musculoskeletal Disorders: No Hx Arthritis: No Hx Falls: No Hx Rheumatoid Arthritis: No - GASTROINTESTINAL Hx Gastrointestinal Disorders: No - GENITOURINARY/GYNECOLOGICAL Hx Genitourinary Disorders: No Hx Sexually Transmitted Disorders: No - PSYCHIATRIC Hx Psychophysiologic Disorder: Yes Hx Anxiety: Yes Hx Bipolar Disorder: Yes Hx Depression: Yes Hx Substance Use: Yes - SURGICAL HISTORY Hx Surgeries: Yes Hx Tonsillectomy: Yes - ANESTHESIA Hx Anesthesia: No Meds Allergies/Adverse Reactions: Allergies Allergy/AdvReac Type Severity Reaction Status Date / Time No Known Allergies Allergy Verified 02/22/17 08:45 - Medications Medications: Current Medications Hydromorphone HCl (Dilaudid) 1 mg IVP Q4 PRN PRN Reason: Pain, Mild (1-3) Hydromorphone HCl (Dilaudid) 2 mg IVP Q4H PRN PRN Reason: Pain, moderate (4-7) Last Admin: 03/07/17 01:42 Dose: 2 mg Sodium Chloride (Sodium Chloride 0.9%) 1,000 mls @ 100 mls/hr IV .Q10H [facility] Stop: 03/07/17 10:44 Last Admin: 03/07/17 01:42 Dose: 100 mls/hr Piperacillin Sod/Tazobactam (Sod 3.375 gm/ Sodium Chloride) 100 mls @ 100 mls/ hr IVPB Q6H [facility] PRN Reason: Protocol Influenza Virus Vaccine (Afluria (Pf)(18yr & Older)) 0.5 ml IM .ONCE ONE Stop: 03/07/17 09:01 Ondansetron HCl (Zofran Inj) 4 mg IVP Q6 PRN PRN Reason: Nausea/Vomiting Physical Exam - Constitutional Appears: Non-toxic, No Acute Distress - Head Exam Head Exam: NORMAL INSPECTION - ENT Exam ENT Exam: Mucous Membranes Moist - Respiratory Exam Respiratory Exam: absent: Accessory Muscle Use, Respiratory Distress - Cardiovascular Exam Cardiovascular Exam: REGULAR RHYTHM. absent: Tachycardia - GI/Abdominal Exam GI & Abdominal Exam: Soft. absent: Distended, Firm, Guarding, Hernia, Rebound, Rigid, Tenderness - Extremities Exam Extremities exam: Negative for: pedal edema - Neurological Exam Neurological exam: Alert, Oriented x3 - Psychiatric Exam Psychiatric exam: Normal Affect, Normal Mood - Skin Skin Exam: Normal Color, Warm Results - Vital Signs Recent Vital Signs: Last Vital Signs Temp 98.2 F 03/07/17 02:40 Pulse 60 03/07/17 02:40 Resp 19 03/07/17 03:00 BP 137/68 03/07/17 02:40 Pulse Ox 96 03/07/17 03:00 - Labs Result Diagrams: 03/07/17 05:30 03/07/17 05:30 Labs: Laboratory Results - last 24 hr 03/06/17 03/06/17 03/07/17 19:22 19:22 05:30 WBC 9.4 8.5 RBC 5.12 5.13 Hgb 16.1 16.0 Hct 46.2 47.2 MCV 90.3 92.0 MCH 31.5 H 31.3 H MCHC 34.9 34.0 RDW 14.2 14.1 Plt Count 194 164 MPV 8.6 8.1 Neut % (Auto) 79.3 H Lymph % (Auto) 14.7 L Power % (Auto) 5.6 Eos % (Auto) 0.3 Baso % (Auto) 0.1 Neut # 7.5 H Lymph # 1.4 Power # 0.5 Eos # 0.0 Baso # 0.0 Sodium 139 Potassium 5.2 H Chloride 104 Carbon Dioxide 25 Anion Gap 15 BUN 20 Creatinine 0.9 Est GFR ( Amer) > 60 Est GFR (Non-Af Amer) > 60 Random Glucose 109 Calcium 9.6 Total Bilirubin 2.3 H AST 74 H ALT 28 Alkaline Phosphatase 59 Total Protein 7.8 Albumin 4.3 Globulin 3.5 Albumin/Globulin Ratio 1.2 Lipase 80 03/07/17 05:30 WBC RBC Hgb Hct MCV MCH MCHC RDW Plt Count MPV Neut % (Auto) Lymph % (Auto) Power % (Auto) Eos % (Auto) Baso % (Auto) Neut # Lymph # Power # Eos # Baso # Sodium 143 Potassium 4.7 Chloride 105 Carbon Dioxide 27 Anion Gap 16 BUN 18 Creatinine 1.0 Est GFR ( Amer) > 60 Est GFR (Non-Af Amer) > 60 Random Glucose 107 Calcium 9.8 Total Bilirubin AST ALT Alkaline Phosphatase Total Protein Albumin Globulin Albumin/Globulin Ratio Lipase Assessment & Plan - Assessment and Plan (Free Text) Assessment: 71M admitted for abdominal pain; ddx cholecystitis vs symptomatic cholelithiasis vs gastritis Plan: keep NPO IV fluids abx pt for MRCP to evaluate ductal dilatation further recs to follow d/w Dr Nehemias Newton, PGY3 <Nahid Del Cid - Last Filed: 03/07/17 10:40> History of Present Illness - History of Present Illness History of Present Illness: Patient was seen and examined at the bedside. Agree with resident's note above. Meds - Medications Medications: Current Medications Hydromorphone HCl (Dilaudid) 1 mg IVP Q4 PRN PRN Reason: Pain, Mild (1-3) Hydromorphone HCl (Dilaudid) 2 mg IVP Q4H PRN PRN Reason: Pain, moderate (4-7) Last Admin: 03/07/17 01:42 Dose: 2 mg Sodium Chloride (Sodium Chloride 0.9%) 1,000 mls @ 100 mls/hr IV .Q10H [facility] Stop: 03/07/17 10:44 Last Admin: 03/07/17 01:42 Dose: 100 mls/hr Piperacillin Sod/Tazobactam (Sod 3.375 gm/ Sodium Chloride) 100 mls @ 100 mls/ hr IVPB Q6H [facility] PRN Reason: Protocol Last Admin: 03/07/17 10:02 Dose: 100 mls/hr Ondansetron HCl (Zofran Inj) 4 mg IVP Q6 PRN PRN Reason: Nausea/Vomiting Results - Vital Signs Recent Vital Signs: Last Vital Signs Temp 98.2 F 03/07/17 08:56 Pulse 56 L 03/07/17 08:56 Resp 20 03/07/17 08:56 BP 149/79 03/07/17 08:56 Pulse Ox 95 03/07/17 08:56 - Labs Result Diagrams: 03/07/17 05:30 03/07/17 05:30 Labs: Laboratory Results - last 24 hr 03/06/17 03/06/17 03/07/17 19:22 19:22 05:30 WBC 9.4 8.5 RBC 5.12 5.13 Hgb 16.1 16.0 Hct 46.2 47.2 MCV 90.3 92.0 MCH 31.5 H 31.3 H MCHC 34.9 34.0 RDW 14.2 14.1 Plt Count 194 164 MPV 8.6 8.1 Neut % (Auto) 79.3 H Lymph % (Auto) 14.7 L Power % (Auto) 5.6 Eos % (Auto) 0.3 Baso % (Auto) 0.1 Neut # 7.5 H Lymph # 1.4 Power # 0.5 Eos # 0.0 Baso # 0.0 Sodium 139 Potassium 5.2 H Chloride 104 Carbon Dioxide 25 Anion Gap 15 BUN 20 Creatinine 0.9 Est GFR ( Amer) > 60 Est GFR (Non-Af Amer) > 60 Random Glucose 109 Calcium 9.6 Total Bilirubin 2.3 H AST 74 H ALT 28 Alkaline Phosphatase 59 Total Protein 7.8 Albumin 4.3 Globulin 3.5 Albumin/Globulin Ratio 1.2 Lipase 80 03/07/17 05:30 WBC RBC Hgb Hct MCV MCH MCHC RDW Plt Count MPV Neut % (Auto) Lymph % (Auto) Power % (Auto) Eos % (Auto) Baso % (Auto) Neut # Lymph # Power # Eos # Baso # Sodium 143 Potassium 4.7 Chloride 105 Carbon Dioxide 27 Anion Gap 16 BUN 18 Creatinine 1.0 Est GFR ( Amer) > 60 Est GFR (Non-Af Amer) > 60 Random Glucose 107 Calcium 9.8 Total Bilirubin AST ALT Alkaline Phosphatase Total Protein Albumin Globulin Albumin/Globulin Ratio Lipase - Imaging and Cardiology CT scan - abdomen Status: Image reviewed by me, Report reviewed by me Assessment & Plan - Assessment and Plan (Free Text) Plan: - keep NPO - IV fluids - Pain control - MRCP - repeat labs in am - GI follow up - Will follow
[2017-03-07] MEDS ORDERED: Influenza Vaccine 18yr & older 0.5 ML/45 MCG SYR IM ONE (09:00)
--- NOTE | 2017-03-07 09:08 | CP.PCM.CON ---
History of Present Illness - History of Present Illness History of Present Illness: 71 yo male with h/o Etoh use and HCV admittted with right sided abdominal pain, nausea and vomiting . Denies having had similar pain previously. Pain has improved since admission. Review of Systems - Constitutional Constitutional: absent: Chills - EENT Eyes: absent: Blurred Vision Ears: absent: Decreased Hearing Nose/Mouth/Throat: absent: Epistaxis - Cardiovascular Cardiovascular: absent: Chest Pain - Respiratory Respiratory: absent: Dyspnea - Gastrointestinal Gastrointestinal: As Per HPI - Genitourinary Genitourinary: absent: Change in Urinary Stream Past Patient History - Infectious Disease Hx of Infectious Diseases: None - Tetanus Immunizations Tetanus Immunization: Unknown - Past Medical History & Family History Past Medical History?: Yes - Past Social History Smoking Status: Heavy Smoker > 10 Cigarettes Daily - CARDIAC Hx Cardiac Disorders: Yes Hx Congestive Heart Failure: No Hx Hypercholesterolemia: Yes Hx Hypertension: No - PULMONARY Hx Respiratory Disorders: No Hx Chronic Obstructive Pulmonary Disease (COPD): No - NEUROLOGICAL Hx Neurological Disorder: Yes Hx Seizures: Yes - HEENT Hx HEENT Problems: No - RENAL Hx Chronic Kidney Disease: No - ENDOCRINE/METABOLIC Hx Endocrine Disorders: No Hx Hypothyroidism: No - HEMATOLOGICAL/ONCOLOGICAL Hx Blood Disorders: Yes Hx AIDS: No Hx Human Immunodeficiency Virus (HIV): Yes - INTEGUMENTARY Hx Dermatological Problems: No Hx Basil Cell: No Hx Zepeda: No Hx Cellulitis: No Hx Eczema: No Hx Melanoma: No Hx Psoriasis: No Hx Squamous Cell: No - MUSCULOSKELETAL/RHEUMATOLOGICAL Hx Musculoskeletal Disorders: No Hx Arthritis: No Hx Falls: No Hx Rheumatoid Arthritis: No - GASTROINTESTINAL Hx Gastrointestinal Disorders: No - GENITOURINARY/GYNECOLOGICAL Hx Genitourinary Disorders: No Hx Sexually Transmitted Disorders: No - PSYCHIATRIC Hx Psychophysiologic Disorder: Yes Hx Anxiety: Yes Hx Bipolar Disorder: Yes Hx Depression: Yes Hx Substance Use: Yes - SURGICAL HISTORY Hx Surgeries: Yes Hx Tonsillectomy: Yes - ANESTHESIA Hx Anesthesia: No Meds Allergies/Adverse Reactions: Allergies Allergy/AdvReac Type Severity Reaction Status Date / Time No Known Allergies Allergy Verified 02/22/17 08:45 - Medications Medications: Current Medications Hydromorphone HCl (Dilaudid) 1 mg IVP Q4 PRN PRN Reason: Pain, Mild (1-3) Hydromorphone HCl (Dilaudid) 2 mg IVP Q4H PRN PRN Reason: Pain, moderate (4-7) Last Admin: 03/07/17 01:42 Dose: 2 mg Sodium Chloride (Sodium Chloride 0.9%) 1,000 mls @ 100 mls/hr IV .Q10H [facility] Stop: 03/07/17 10:44 Last Admin: 03/07/17 01:42 Dose: 100 mls/hr Piperacillin Sod/Tazobactam (Sod 3.375 gm/ Sodium Chloride) 100 mls @ 100 mls/ hr IVPB Q6H [facility] PRN Reason: Protocol Ondansetron HCl (Zofran Inj) 4 mg IVP Q6 PRN PRN Reason: Nausea/Vomiting Physical Exam - Head Exam Head Exam: ATRAUMATIC - Eye Exam Eye Exam: Normal appearance - ENT Exam ENT Exam: Mucous Membranes Moist - Respiratory Exam Respiratory Exam: Clear to Auscultation Bilateral - Cardiovascular Exam Cardiovascular Exam: REGULAR RHYTHM, +S1, +S2 - GI/Abdominal Exam GI & Abdominal Exam: Normal Bowel Sounds, Soft, Tenderness Additional comments: mild RUQ tenderness Results - Vital Signs Recent Vital Signs: Last Vital Signs Temp 98.2 F 03/07/17 08:56 Pulse 56 L 03/07/17 08:56 Resp 20 03/07/17 08:56 BP 149/79 03/07/17 08:56 Pulse Ox 95 03/07/17 08:56 - Labs Result Diagrams: 03/07/17 05:30 03/07/17 05:30 Labs: Laboratory Results - last 24 hr 03/06/17 03/06/17 03/07/17 19:22 19:22 05:30 WBC 9.4 8.5 RBC 5.12 5.13 Hgb 16.1 16.0 Hct 46.2 47.2 MCV 90.3 92.0 MCH 31.5 H 31.3 H MCHC 34.9 34.0 RDW 14.2 14.1 Plt Count 194 164 MPV 8.6 8.1 Neut % (Auto) 79.3 H Lymph % (Auto) 14.7 L [place] % (Auto) 5.6 Eos % (Auto) 0.3 Baso % (Auto) 0.1 Neut # 7.5 H Lymph # 1.4 [place] # 0.5 Eos # 0.0 Baso # 0.0 Sodium 139 Potassium 5.2 H Chloride 104 Carbon Dioxide 25 Anion Gap 15 BUN 20 Creatinine 0.9 Est GFR ( Amer) > 60 Est GFR (Non-Af Amer) > 60 Random Glucose 109 Calcium 9.6 Total Bilirubin 2.3 H AST 74 H ALT 28 Alkaline Phosphatase 59 Total Protein 7.8 Albumin 4.3 Globulin 3.5 Albumin/Globulin Ratio 1.2 Lipase 80 03/07/17 05:30 WBC RBC Hgb Hct MCV MCH MCHC RDW Plt Count MPV Neut % (Auto) Lymph % (Auto) [place] % (Auto) Eos % (Auto) Baso % (Auto) Neut # Lymph # [place] # Eos # Baso # Sodium 143 Potassium 4.7 Chloride 105 Carbon Dioxide 27 Anion Gap 16 BUN 18 Creatinine 1.0 Est GFR ( Amer) > 60 Est GFR (Non-Af Amer) > 60 Random Glucose 107 Calcium 9.8 Total Bilirubin AST ALT Alkaline Phosphatase Total Protein Albumin Globulin Albumin/Globulin Ratio Lipase - Imaging and Cardiology CT scan - abdomen Status: Report reviewed by me US - abdomen Status: Report reviewed by me Assessment & Plan (1) Abdominal pain Assessment and Plan: RUQ abdominal pain and cholelithiasis. CBD dilatedto 1.2 cm and Bili slightly elevated but Alk Phos is normal. MRCP to rule out biliary stone/ sludge. Status: Acute
[2017-03-07] MEDS: Piperacillin/Tazobact 3.375 GM in Sodium Chloride 0.9% 100 ML IVPB SCH ×2 (10:02→15:13)
--- NOTE | 2017-03-07 15:44 | MRI ---
PROCEDURE: Magnetic Resonance Cholangiopancreatography dilated CBD measuring 1.3 centimeter. HISTORY: COMPARISON: None available. TECHNIQUE: Multiplanar, multisequence MR images of the abdomen were obtained, including heavily T2 weighted MRCP images of the biliary system. Rotating maximum intensity projection images of the biliary system were generated. FINDINGS: MRCP: Limited evaluation. Dilated CBD measuring up to 1.3 centimeter. Poor evaluation of the distal CBD. Mild intrahepatic biliary ductal dilatation. No pancreatic ductal dilatation. LIVER: 7 millimeter left hepatic dome T2 hyperintense structure, likely cyst. GALLBLADDER: Depending cholelithiasis without gallbladder wall thickening/edema. SPLEEN: 1.8 centimeter superior splenic T2 hyperintense structure, nonspecific (series 5, image 3). PANCREAS: Limited evaluation. No gross lesion. ADRENALS: Unremarkable. KIDNEYS: Right renal pelvocaliectasis. AORTA: No aneurysm. ASCITES: None. OTHER FINDINGS: Susceptibility artifact in the right lower quadrant. IMPRESSION: Limited evaluation due to motion artifact and absence of intravenous contrast. Dilated CBD measuring up to 1.3 centimeter without obvious choledocholithiasis. Poor evaluation of the distal CBD and pancreatic head for which mass lesion cannot be entirely excluded. ERCP with EUS can be performed for further evaluation as clinically warranted. Cholelithiasis without MR evidence of acute cholecystitis. Nonspecific area of magnetic susceptibility artifact in the right lower quadrant. In review of the CT scan performed 1 day prior on 03/06/2017, there is an approximately 1.8 centimeter longitudinal metallic structure in the base of the cecum series 3, images 117-121) that was not present on prior CT imaging (12/07/2015). Additional findings as above. Findings and recommendations were reported to KIRSTEN Huff by Dr. Duque at 3:30 p.m. on 03/07/2017.
[2017-03-07 16:39] VITALS: BP 169/76; PULSE 62; RESP 18; TEMP 98.5
[2017-03-08 22:14] VITALS: O2SAT 100
== END 2017-03-07 16:45 | disposition left against medical advice (07) ==
LOC: H.ER 16:45 → H.ERHOLD 03-07 00:37 → H.MEDSURG1 03-07 02:37
PROVIDERS: ADMIT Internal Medicine; ATTEND Internal Medicine
DX: K80.70 Calculus of gallbladder and bile duct without cholecystitis without obstruction (principal); F11.20 Opioid dependence, uncomplicated; G89.29 Other chronic pain; I10 Essential (primary) hypertension; E11.9 Type 2 diabetes mellitus without complications; E78.5 Hyperlipidemia, unspecified; B19.20 Unspecified viral hepatitis C without hepatic coma; F10.10 Alcohol abuse, uncomplicated; F31.9 Bipolar disorder, unspecified; F17.210 Nicotine dependence, cigarettes, uncomplicated; Z23 Encounter for immunization
CPT/HCPCS: 36415; 74177; 74181; 76705; 80048; 80053; 83690; 85025; 85027; 87040; 90732; 96374; 99283; G0008; G0009; G0378; J1170; J2543; J7040; Q2035; Q9966; Q9967

== ENCOUNTER 2017-03-10 11:55 | Inpatient (IN) | payer MEDICARE, OTHER ==
[2017-03-10 11:59] VITALS: BMI 20.3
--- NOTE | 2017-03-10 13:01 | ED PDOC ---
HPI: Abdomen Time Seen by Provider: 03/10/17 12:38 Chief Complaint (Nursing): Abdominal Pain Chief Complaint (Provider): Abdominal pain History Per: Patient History/Exam Limitations: no limitations Onset/Duration Of Symptoms: Days (4) Current Symptoms Are (Timing): Still Present Location Of Pain/Discomfort: Diffuse Associated Symptoms: denies: Nausea, Vomiting Additional History Per: Patient Additional Complaint(s): 71yo male, history of HIV, diabetes, hypercholesterolemia, hyperlipidemia, presents to ED with complaints of abdominal pain for the past 4 days. Patient denies any nausea, vomiting or fevers. Patient was admitted on 03/06 for same and was found to have sludge in his galbladder. Patient had MRCP performed and was evaluated by both GI and surgery and was found to be stable for discharge home. No other complaints. Past Medical History Reviewed: Historical Data, Nursing Documentation, Vital Signs Vital Signs: Last Vital Signs Temp 98.1 F 03/10/17 15:23 Pulse 60 03/10/17 15:23 Resp 20 03/10/17 15:23 BP 133/83 03/10/17 15:23 Pulse Ox 97 03/10/17 15:23 - Medical History PMH: Anxiety, Back Problems (herniated disk), Bipolar Disorder, Depression, Diabetes (type II), HIV, Hypercholesterolemia, Hyperlipidemia, Seizures Denies: Arthritis, CHF, COPD, Hepatitis, HTN, Hypothyroidism, Chronic Kidney Disease, Rheumatoid Arthritis, Sexually Transmitted Disease - Surgical History Surgical History: Back Surgery, Tonsillectomy - Family History Family History: States: Unknown Family Hx, Diabetes (father) - Immunization History Hx Tetanus Toxoid Vaccination: No Hx Influenza Vaccination: No Hx Pneumococcal Vaccination: No - Home Medications Home Medications: Ambulatory Orders Medication Instructions Recorded ALPRAZolam [Xanax] 1 mg PO DAILY 03/07/17 oxyCODONE [oxyCODONE Immediate 30 mg PO TID 03/07/17 Release Tab] tiZANidine [Zanaflex] 2 mg PO DAILY 03/07/17 - Allergies Allergies/Adverse Reactions: Allergies Allergy/AdvReac Type Severity Reaction Status Date / Time No Known Allergies Allergy Verified 03/10/17 11:58 Review of Systems ROS Statement: Except As Marked, All Systems Reviewed And Found Negative Constitutional: Negative for: Fever Gastrointestinal: Positive for: Abdominal Pain. Negative for: Nausea, Vomiting , Diarrhea Physical Exam - Reviewed Nursing Documentation Reviewed: Yes Vital Signs Reviewed: Yes - Physical Exam Appears: Positive for: Non-toxic, No Acute Distress Head Exam: Positive for: ATRAUMATIC, NORMAL INSPECTION, NORMOCEPHALIC Skin: Positive for: Normal Color Eye Exam: Positive for: Normal appearance Neck: Positive for: Supple Cardiovascular/Chest: Positive for: Regular Rate, Rhythm Respiratory: Positive for: Normal Breath Sounds. Negative for: Respiratory Distress Gastrointestinal/Abdominal: Positive for: Normal Exam, Bowel Sounds, Soft. Negative for: Tenderness Neurologic/Psych: Positive for: Alert, Oriented. Negative for: Motor/Sensory Deficits - Laboratory Results Result Diagrams: 03/10/17 13:10 03/10/17 13:10 - ECG O2 Sat by Pulse Oximetry: 99 (RA) Pulse Ox Interpretation: Normal Medical Decision Making Medical Decision Making: Impression: Abdominal pain Plan: -- CMP -- Bentyl 10 mg PO -- Pepcid 20 mg IVP -- US Abdomen Reassess Scribe Attestation: Documented by Nancy Delgadillo acting as a scribe for Duane Masters MD. Provider Attestation: All medical record entries made by the Scribe were at my direction and personally dictated by me. I have reviewed the chart and agree that the record accurately reflects my personal performance of the history, physical exam, medical decision making, and the department course for this patient. I have also personally directed, reviewed, and agree with the discharge instructions and disposition. Disposition - Clinical Impression Clinical Impression: Cholelithiases, SIRS (systemic inflammatory response syndrome) - Patient ED Disposition Is Patient to be Admitted: Yes - Disposition Disposition Time: 15:25 Condition: FAIR Forms: [employer] (Iraqi) - Pt Status Changed To: Hospital Disposition Of: Observation - POA Present On Arrival: None
[2017-03-10 13:28] LABS: BASO % 0.2 % (0.0-2.0); EOS # 0.1 K/uL (0.0-0.7); EOS % 0.4 % (0.0-4.0); HEMOGLOBIN 17.8 g/dL (12.0-18.0); LYMPH # 1.8 K/uL (1.0-4.3); LYMPH % 11.4 % (20.0-40.0); MEAN CORPUSCULAR HEMOGLOBIN 31.4 pg (27.0-31.0); MEAN CORPUSCULAR HGB CONC 34.9 g/dL (33.0-37.0); MEAN PLATELET VOLUME 8.9 fl (7.2-11.7); MONO # 0.8 K/uL (0.0-0.8); MONO % 4.9 % (0.0-10.0); NEUT # 13.1 K/uL (1.8-7.0); NEUT % 83.1 % (50.0-75.0); NRBC % 0.1 % (0.0-0.0); RBC 5.66 Mil/uL (4.40-5.90); RED CELL DISTRIBUTION WIDTH 13.7 % (11.5-14.5); WHITE BLOOD COUNT 15.8 K/uL (4.8-10.8)
[2017-03-10 13:37] LABS: ALB/GLOB RATIO 1.3 (1.0-2.1); ALBUMIN 3.9 g/dL (3.5-5.0); ALT/SGPT 47 U/L (21-72); AST/SGOT 34 U/L (17-59); BLOOD UREA NITROGEN 31 mg/dl (9-20); CALCIUM 9.9 mg/dL (8.4-10.2); GFR AFRICAN-AMERICAN > 60; GFR NON-AFRICAN AMERICAN > 60
[2017-03-10] MEDS ORDERED: Piperacillin/Tazobact 3.375 GM in Sodium Chloride 0.9% 100 ML IVPB STA (13:43)
[2017-03-10 14:13] LABS: VENOUS BLOOD GAS BASE EXCESS 0.9 mmol/L (0.0-2.0); VENOUS BLOOD GAS PCO2 39 mmHg (40-60); VENOUS BLOOD GAS PO2 43 mm/Hg (30-55); VENOUS BLOOD PH 7.42 (7.32-7.43)
--- NOTE | 2017-03-10 14:52 | US ---
HISTORY: abd pain COMPARISON: None. TECHNIQUE: Sonographic evaluation of the right upper quadrant of the abdomen. FINDINGS: LIVER: Measures 17.4 cm in length. Normal echogenicity of the liver parenchyma. No mass. No intrahepatic bile duct dilatation. GALLBLADDER: Dependent sludge and small calculi. No mural thickening. Negative sonographic Wright's sign. COMMON BILE DUCT: Measures 9 mm. No evidence of choledocholithiasis. Dilated common bile duct may reflect age related ectasia. No associated intrahepatic biliary ductal dilatation. . PANCREAS: Unremarkable as visualized. No mass. No ductal dilatation. RIGHT KIDNEY: Measures 11.1 cm in length. Normal cortical thickness and echogenicity. Hydronephrosis noted. Etiology unknown. Lower pole simple cortical cyst, 1.3 cm diameter. No calculus. No solid mass. AORTA: No aneurysmal dilatation. IVC: Unremarkable. OTHER FINDINGS: None . IMPRESSION: Cholelithiasis without evidence of cholecystitis. Right hydronephrosis. Mildly dilated common bile duct of uncertain etiology. This may be due to age related ectasia. 1.3 cm simple right lower pole renal cortical cyst.
[2017-03-10] MEDS ORDERED: Vancomycin 1 g Inj ONE (15:26)
--- NOTE | 2017-03-10 19:17 | CP.PCM.CON ---
<Jennie Cm - Last Filed: 03/10/17 19:27> History of Present Illness - History of Present Illness History of Present Illness: General surgery consult note for Dr. Mandie Cm, PGY-1 Pt S & E at bedside. 71M w/PMH sig for ETOH abuse, Hepatitis & HTN consulted for RUQ abdominal pain x 2 days. Pt recently seen/evaluated for the same on previous admission on 03/07 , pt left AMA prior to completing work up. MRCP done at that time with cholelithiasis, no choledocholithiasis; LFTs high. This admission pt reports continued RUQ ab pain after leaving hospital, non radiating, severe, constant, variable intensity. Admits to chills and diarrhea (multiple episodes) at home. Denies fevers, N & V, other complaints. PMH: ETOH abuse, Hep C (or B?), HTN PSH: Back surgery, tonsilectomy All:NKDA SH: ETOH abuse, remote hx of IVDU, heavy tobacco abuse Review of Systems - Review of Systems All systems: reviewed and no additional remarkable complaints except - Constitutional Constitutional: Chills. absent: Fever - EENT Eyes: absent: Change in Vision - Cardiovascular Cardiovascular: absent: Chest Pain - Respiratory Respiratory: absent: Cough - Gastrointestinal Gastrointestinal: Abdominal Pain, Diarrhea. absent: Constipation, Nausea, Vomiting - Genitourinary Genitourinary: absent: Change in Urinary Stream - Integumentary Integumentary: absent: Rash - Psychiatric Psychiatric: absent: Anxiety Past Patient History - Infectious Disease Hx of Infectious Diseases: None - Tetanus Immunizations Tetanus Immunization: Unknown - Past Medical History & Family History Past Medical History?: Yes - Past Social History Smoking Status: Heavy Smoker > 10 Cigarettes Daily - CARDIAC Hx Cardiac Disorders: No - PULMONARY Hx Respiratory Disorders: No Hx Chronic Obstructive Pulmonary Disease (COPD): No - NEUROLOGICAL Hx Neurological Disorder: No Hx Seizures: No - HEENT Hx HEENT Problems: No - RENAL Hx Chronic Kidney Disease: No - ENDOCRINE/METABOLIC Hx Diabetes Mellitus Type 2: Yes Hx Hypothyroidism: No - HEMATOLOGICAL/ONCOLOGICAL Hx Blood Disorders: Yes Hx AIDS: Yes - INTEGUMENTARY Hx Dermatological Problems: No Hx Basil Cell: No Hx Zepeda: No Hx Cellulitis: No Hx Eczema: No Hx Melanoma: No Hx Psoriasis: No Hx Squamous Cell: No - MUSCULOSKELETAL/RHEUMATOLOGICAL Hx Musculoskeletal Disorders: Yes Hx Falls: No - GASTROINTESTINAL Hx Gastrointestinal Disorders: No - GENITOURINARY/GYNECOLOGICAL Hx Sexually Transmitted Disorders: No - PSYCHIATRIC Hx Anxiety: Yes Hx Bipolar Disorder: Yes Hx Depression: Yes Hx Substance Use: No - SURGICAL HISTORY Hx Tonsillectomy: Yes Other/Comment: Cyst removed from his back - ANESTHESIA Hx Anesthesia: Yes Hx Anesthesia Reactions: No Hx Malignant Hyperthermia: No Has any member of the family had a problem w/ anesthesia?: No Meds Allergies/Adverse Reactions: Allergies Allergy/AdvReac Type Severity Reaction Status Date / Time No Known Allergies Allergy Verified 03/10/17 11:58 - Medications Medications: Current Medications Alprazolam (Xanax) 1 mg PO BID [facility] Calcium/Vitamin D (Oyster Shell Calcium/Vitamin D 500 Mg-200 Iu) 1 tab PO BID [facility] Metformin HCl (Glucophage) 500 mg PO BID [facility] Tizanidine HCl (Zanaflex) 4 mg PO BID PRN PRN Reason: Muscle spasm Trazodone HCl (Desyrel) 100 mg PO HS [facility] Physical Exam - Constitutional Appears: Non-toxic, No Acute Distress - Head Exam Head Exam: ATRAUMATIC, NORMAL INSPECTION, NORMOCEPHALIC - Eye Exam Eye Exam: EOMI, Normal appearance - ENT Exam ENT Exam: Mucous Membranes Moist, Normal Exam - Neck Exam Neck exam: Positive for: Full Rom, Normal Inspection - Respiratory Exam Respiratory Exam: NORMAL BREATHING PATTERN - Cardiovascular Exam Cardiovascular Exam: REGULAR RHYTHM, +S1, +S2 - GI/Abdominal Exam GI & Abdominal Exam: Normal Bowel Sounds, Soft. absent: Distended, Firm, Guarding, Rebound, Rigid, Tenderness - Extremities Exam Extremities exam: Positive for: normal inspection. Negative for: pedal edema - Neurological Exam Neurological exam: Alert, CN II-XII Intact, Oriented x3 - Psychiatric Exam Psychiatric exam: Normal Affect, Normal Mood - Skin Skin Exam: Dry, Intact, Normal Color, Warm Results - Vital Signs Recent Vital Signs: Last Vital Signs Temp 99.5 F 03/10/17 17:58 Pulse 59 L 03/10/17 17:58 Resp 20 03/10/17 18:12 BP 165/83 H 03/10/17 17:58 Pulse Ox 98 03/10/17 17:58 - Labs Result Diagrams: 03/10/17 13:10 03/10/17 13:10 Labs: Laboratory Results - last 24 hr 03/10/17 03/10/17 03/10/17 13:10 13:10 13:42 WBC 15.8 H D RBC 5.66 Hgb 17.8 Hct 51.0 MCV 90.0 D MCH 31.4 H MCHC 34.9 RDW 13.7 Plt Count 170 MPV 8.9 Neut % (Auto) 83.1 H Lymph % (Auto) 11.4 L [place] % (Auto) 4.9 Eos % (Auto) 0.4 Baso % (Auto) 0.2 Neut # 13.1 H Lymph # 1.8 [place] # 0.8 Eos # 0.1 Baso # 0.0 pO2 43 VBG pH 7.42 VBG pCO2 39 L VBG HCO3 24.9 VBG Total CO2 26.5 VBG O2 Sat (Calc) 89.0 H VBG Base Excess 0.9 VBG Potassium 3.9 Glucose 130 H Lactate 1.1 FiO2 21.0 Sodium 143 139.0 Potassium 4.0 Chloride 108 H 104.0 Carbon Dioxide 22 Anion Gap 17 BUN 31 H Creatinine 0.8 Est GFR ( Amer) > 60 Est GFR (Non-Af Amer) > 60 Random Glucose 143 H Calcium 9.9 Total Bilirubin 1.4 H AST 34 ALT 47 Alkaline Phosphatase 53 Total Protein 7.0 Albumin 3.9 Globulin 3.1 Albumin/Globulin Ratio 1.3 Venous Blood Potassium 3.9 Assessment & Plan - Assessment and Plan (Free Text) Assessment: 71M w/biliary colic due to cholelithasis Plan: Pt needs medical/cardiac clearance prior to OR IV Abx pain control IVF Anti-emetic CLD Tenative plan for OR Tuesday pending clearance DW attending Soila, PGY-1 - Date & Time Date: 03/10/17 Time: 19:28 <Nahid Del Cid - Last Filed: 03/10/17 19:37> History of Present Illness - History of Present Illness History of Present Illness: Patient was seen and examined at the bedside. Agree with resident's note above Meds - Medications Medications: Current Medications Alprazolam (Xanax) 1 mg PO BID [facility] Calcium/Vitamin D (Oyster Shell Calcium/Vitamin D 500 Mg-200 Iu) 1 tab PO BID [facility] Piperacillin Sod/Tazobactam (Sod 3.375 gm/ Sodium Chloride) 100 mls @ 100 mls/ hr IVPB Q12 [facility] PRN Reason: Protocol Lactated Ringer's (Lactated Ringer's) 1,000 mls @ 100 mls/hr IV .Q10H [facility] Ketorolac Tromethamine (Toradol) 15 mg IVP Q6 PRN PRN Reason: Pain, moderate (4-7) Metformin HCl (Glucophage) 500 mg PO BID [facility] Tizanidine HCl (Zanaflex) 4 mg PO BID PRN PRN Reason: Muscle spasm Trazodone HCl (Desyrel) 100 mg PO HS [facility] Results - Vital Signs Recent Vital Signs: Last Vital Signs Temp 99.5 F 03/10/17 17:58 Pulse 59 L 03/10/17 17:58 Resp 20 03/10/17 18:12 BP 165/83 H 03/10/17 17:58 Pulse Ox 98 03/10/17 17:58 - Labs Result Diagrams: 03/10/17 13:10 03/10/17 13:10 Labs: Laboratory Results - last 24 hr 03/10/17 03/10/17 03/10/17 13:10 13:10 13:42 WBC 15.8 H D RBC 5.66 Hgb 17.8 Hct 51.0 MCV 90.0 D MCH 31.4 H MCHC 34.9 RDW 13.7 Plt Count 170 MPV 8.9 Neut % (Auto) 83.1 H Lymph % (Auto) 11.4 L [place] % (Auto) 4.9 Eos % (Auto) 0.4 Baso % (Auto) 0.2 Neut # 13.1 H Lymph # 1.8 [place] # 0.8 Eos # 0.1 Baso # 0.0 pO2 43 VBG pH 7.42 VBG pCO2 39 L VBG HCO3 24.9 VBG Total CO2 26.5 VBG O2 Sat (Calc) 89.0 H VBG Base Excess 0.9 VBG Potassium 3.9 Glucose 130 H Lactate 1.1 FiO2 21.0 Sodium 143 139.0 Potassium 4.0 Chloride 108 H 104.0 Carbon Dioxide 22 Anion Gap 17 BUN 31 H Creatinine 0.8 Est GFR ( Amer) > 60 Est GFR (Non-Af Amer) > 60 Random Glucose 143 H Calcium 9.9 Total Bilirubin 1.4 H AST 34 ALT 47 Alkaline Phosphatase 53 Total Protein 7.0 Albumin 3.9 Globulin 3.1 Albumin/Globulin Ratio 1.3 Venous Blood Potassium 3.9
[2017-03-10] MEDS: Lactated Ringer's 1,000 ML IV SCH (20:16)
[2017-03-10] MEDS ORDERED: Piperacillin/Tazobact 3.375 GM in Sodium Chloride 0.9% 100 ML IVPB SCH (21:00)
--- NOTE | 2017-03-10 22:46 | CP.PCM.HP ---
History of Present Illness - History of Present Illness History of Present Illness: CC: Abdominal Pain History of Present Illness: A 71yo male, history of HIV, diabetes, Hypercholesterolemia, hyperlipidemia, presents to ED with complaints of abdominal pain for the past 4 days. Patient denies any nausea, vomiting or fevers. Patient was admitted on 03/06 for same and was found to have sludge in his galbladder. Patient had MRCP performed and was evaluated by both GI and surgery and was found to be stable for discharge home. No other complaints. Past Patient History - Infectious Disease Hx of Infectious Diseases: None - Tetanus Immunizations Tetanus Immunization: Unknown - Past Medical History & Family History Past Medical History?: Yes - Past Social History Smoking Status: Heavy Smoker > 10 Cigarettes Daily - CARDIAC Hx Cardiac Disorders: No - PULMONARY Hx Respiratory Disorders: No Hx Chronic Obstructive Pulmonary Disease (COPD): No - NEUROLOGICAL Hx Neurological Disorder: No Hx Seizures: No - HEENT Hx HEENT Problems: No - RENAL Hx Chronic Kidney Disease: No - ENDOCRINE/METABOLIC Hx Diabetes Mellitus Type 2: Yes Hx Hypothyroidism: No - HEMATOLOGICAL/ONCOLOGICAL Hx Blood Disorders: Yes Hx AIDS: Yes - INTEGUMENTARY Hx Dermatological Problems: No Hx Basil Cell: No Hx Zepeda: No Hx Cellulitis: No Hx Eczema: No Hx Melanoma: No Hx Psoriasis: No Hx Squamous Cell: No - MUSCULOSKELETAL/RHEUMATOLOGICAL Hx Musculoskeletal Disorders: Yes Hx Falls: No - GASTROINTESTINAL Hx Gastrointestinal Disorders: No - GENITOURINARY/GYNECOLOGICAL Hx Sexually Transmitted Disorders: No - PSYCHIATRIC Hx Anxiety: Yes Hx Bipolar Disorder: Yes Hx Depression: Yes Hx Substance Use: No - SURGICAL HISTORY Hx Tonsillectomy: Yes Other/Comment: Cyst removed from his back - ANESTHESIA Hx Anesthesia: Yes Hx Anesthesia Reactions: No Hx Malignant Hyperthermia: No Has any member of the family had a problem w/ anesthesia?: No Meds Allergies/Adverse Reactions: Allergies Allergy/AdvReac Type Severity Reaction Status Date / Time No Known Allergies Allergy Verified 03/10/17 11:58 Results - Vital Signs Recent Vital Signs: Last Vital Signs Temp 98.8 F 03/10/17 20:18 Pulse 52 L 03/10/17 20:18 Resp 16 03/10/17 20:18 BP 158/76 H 03/10/17 20:18 Pulse Ox 97 03/10/17 20:18 - Labs Result Diagrams: 03/12/17 06:00 03/12/17 06:00 Labs: Laboratory Results - last 24 hr 03/10/17 03/10/17 03/10/17 13:10 13:10 13:42 WBC 15.8 H D RBC 5.66 Hgb 17.8 Hct 51.0 MCV 90.0 D MCH 31.4 H MCHC 34.9 RDW 13.7 Plt Count 170 MPV 8.9 Neut % (Auto) 83.1 H Lymph % (Auto) 11.4 L [place] % (Auto) 4.9 Eos % (Auto) 0.4 Baso % (Auto) 0.2 Neut # 13.1 H Lymph # 1.8 [place] # 0.8 Eos # 0.1 Baso # 0.0 pO2 43 VBG pH 7.42 VBG pCO2 39 L VBG HCO3 24.9 VBG Total CO2 26.5 VBG O2 Sat (Calc) 89.0 H VBG Base Excess 0.9 VBG Potassium 3.9 Glucose 130 H Lactate 1.1 FiO2 21.0 Sodium 143 139.0 Potassium 4.0 Chloride 108 H 104.0 Carbon Dioxide 22 Anion Gap 17 BUN 31 H Creatinine 0.8 Est GFR ( Amer) > 60 Est GFR (Non-Af Amer) > 60 Random Glucose 143 H Calcium 9.9 Total Bilirubin 1.4 H AST 34 ALT 47 Alkaline Phosphatase 53 Troponin I Total Protein 7.0 Albumin 3.9 Globulin 3.1 Albumin/Globulin Ratio 1.3 Venous Blood Potassium 3.9 03/10/17 20:12 WBC RBC Hgb Hct MCV MCH MCHC RDW Plt Count MPV Neut % (Auto) Lymph % (Auto) [place] % (Auto) Eos % (Auto) Baso % (Auto) Neut # Lymph # [place] # Eos # Baso # pO2 VBG pH VBG pCO2 VBG HCO3 VBG Total CO2 VBG O2 Sat (Calc) VBG Base Excess VBG Potassium Glucose Lactate FiO2 Sodium Potassium Chloride Carbon Dioxide Anion Gap BUN Creatinine Est GFR ( Amer) Est GFR (Non-Af Amer) Random Glucose Calcium Total Bilirubin AST ALT Alkaline Phosphatase Troponin I 0.0170 Total Protein Albumin Globulin Albumin/Globulin Ratio Venous Blood Potassium
[2017-03-11] MEDS: Piperacillin/Tazobact 3.375 GM in Sodium Chloride 0.9% 100 ML IVPB SCH ×2 (05:05→16:15)
--- NOTE | 2017-03-11 08:09 | CP.PCM.PN ---
<Rod Newton - Last Filed: 03/11/17 08:07> Subjective - Date & Time of Evaluation Date of Evaluation: 03/11/17 Time of Evaluation: 08:07 - Subjective Subjective: Gen Surg: Dr Del Cid Pt S&E. KATLYN. Pt reports improvement in pain. Still to RUQ but now 03/26. Denies N/V, F/C. Requesting something solid to eat. Objective - Vital Signs/Intake and Output Vital Signs (last 24 hours): Temp Pulse Resp BP Pulse Ox 98.7 F 55 L 18 163/70 H 96 03/11/17 06:00 03/11/17 06:00 03/11/17 06:00 03/11/17 06:00 03/11/17 06:00 - Medications Medications: Current Medications Alprazolam (Xanax) 1 mg PO BID [facility] Last Admin: 03/10/17 21:17 Dose: 1 mg Calcium/Vitamin D (Oyster Shell Calcium/Vitamin D 500 Mg-200 Iu) 1 tab PO BID [facility] Lactated Ringer's (Lactated Ringer's) 1,000 mls @ 100 mls/hr IV .Q10H [facility] Last Admin: 03/10/17 20:16 Dose: 100 mls/hr Piperacillin Sod/Tazobactam (Sod 3.375 gm/ Sodium Chloride) 100 mls @ 100 mls/ hr IVPB Q12@0500,1700 [facility] PRN Reason: Protocol Last Admin: 03/11/17 05:05 Dose: 100 mls/hr Ketorolac Tromethamine (Toradol) 15 mg IVP Q6 PRN PRN Reason: Pain, moderate (4-7) Last Admin: 03/10/17 21:31 Dose: 15 mg Metformin HCl (Glucophage) 500 mg PO BID [facility] Tizanidine HCl (Zanaflex) 4 mg PO BID PRN PRN Reason: Muscle spasm Trazodone HCl (Desyrel) 100 mg PO HS [facility] Last Admin: 03/10/17 21:17 Dose: 100 mg - Labs Labs: 03/10/17 13:10 03/10/17 13:10 - Constitutional Appears: Non-toxic, No Acute Distress - Head Exam Head Exam: NORMAL INSPECTION - Respiratory Exam Respiratory Exam: NORMAL BREATHING PATTERN. absent: Accessory Muscle Use, Respiratory Distress - Cardiovascular Exam Cardiovascular Exam: REGULAR RHYTHM. absent: Tachycardia - GI/Abdominal Exam GI & Abdominal Exam: Soft, Tenderness (minimal RUQ). absent: Distended, Firm, Guarding - Neurological Exam Neurological Exam: Alert, Awake, Oriented x3 - Psychiatric Exam Psychiatric exam: Normal Affect, Normal Mood - Skin Skin Exam: Normal Color, Warm Assessment and Plan - Assessment and Plan (Free Text) Assessment: 71M w/ recurrent symptomatic cholelithiasis Plan: tentatively planning for OR tuesday pending medical/cardiac clearance ECHO is ordered will cont to follow will d/w Dr Nehemias Newton, PGY3 <Nahid Del Cid - Last Filed: 03/11/17 12:25> Subjective - Date & Time of Evaluation Time of Evaluation: 11:45 - Subjective Subjective: Patient was seen and examined at the bedside. Agree with resident's note above. Objective - Vital Signs/Intake and Output Vital Signs (last 24 hours): Temp Pulse Resp BP Pulse Ox 98.2 F 55 L 18 151/64 H 95 03/11/17 09:32 03/11/17 09:32 03/11/17 09:32 03/11/17 09:32 03/11/17 09:32 - Medications Medications: Current Medications Alprazolam (Xanax) 1 mg PO BID [facility] Last Admin: 03/11/17 11:47 Dose: 1 mg Calcium/Vitamin D (Oyster Shell Calcium/Vitamin D 500 Mg-200 Iu) 1 tab PO BID [facility] Last Admin: 03/11/17 09:16 Dose: 1 tab Lactated Ringer's (Lactated Ringer's) 1,000 mls @ 100 mls/hr IV .Q10H [facility] Last Admin: 03/11/17 09:17 Dose: 100 mls/hr Piperacillin Sod/Tazobactam (Sod 3.375 gm/ Sodium Chloride) 100 mls @ 100 mls/ hr IVPB Q12@0500,1700 [facility] PRN Reason: Protocol Last Admin: 03/11/17 05:05 Dose: 100 mls/hr Ketorolac Tromethamine (Toradol) 15 mg IVP Q6 PRN PRN Reason: Pain, moderate (4-7) Last Admin: 03/11/17 11:56 Dose: 15 mg Metformin HCl (Glucophage) 500 mg PO BID [facility] Last Admin: 03/11/17 09:16 Dose: 500 mg Tizanidine HCl (Zanaflex) 4 mg PO BID PRN PRN Reason: Muscle spasm Trazodone HCl (Desyrel) 100 mg PO [facility] Last Admin: 03/10/17 21:17 Dose: 100 mg - Labs Labs: 03/10/17 13:10 03/10/17 13:10 Assessment and Plan - Assessment and Plan (Free Text) Plan: - Pain control - Regular diet - Antibiotics - Plan for cholecystectomy on 03/14/17
[2017-03-11] MEDS: Calcium-Vit D 500 mg-200 Units Tab UD PO SCH ×2 (09:16→16:14)
[2017-03-11] MEDS: Lactated Ringer's 1,000 ML IV SCH ×2 (09:17→16:14)
--- NOTE | 2017-03-11 11:59 | CP.PCM.CON ---
History of Present Illness - History of Present Illness History of Present Illness: This 71-year-old man came to the emergency room complaining of severe abdominal pain. He is known to have cholecystitis and recently underwent MRCP. The patient has a long medical history consisting of HIV, COPD because of chronic cigarette use and chronic alcohol abuse and hypertension. He is not a diabetic and denies any history of having suffered myocardial infarction or symptoms of congestive cardiac failure. Prior to his present illness the patient indicated that he is able to walk 6-8 blocks without any difficulty and can't climb a flight of stairs without any problem. This consultation was requested for cardiac evaluation before proceeding with gallbladder surgery. On physical examination this is a middle aged man who is alert awake and coherent afebrile able to lie virtually flat in bed and breathes comfortably at 18 breaths per minute and can carry on conversation. He was afebrile with a pulse rate 62 bpm and regular. His blood pressure was 136/74 mmHg. His jugular venous pressure was not elevated and there was no edema or his lower extremity. The pedal pulses were feeble but distinctly present. There were no carotid bruits. The apex was not palpable. The first and second heart sounds are normal. There was a brief apical systolic murmur. There were no gallop and no rales. Abdomen was soft mild tenderness was evident in the right hypochondrial area. There was no guarding or rigidity. His electrocardiogram showed sinus rhythm with a normal EKG pattern. His echocardiogram had a poor echo window but the left ventricular systolic function appeared preserved. His lab data showed mild leukocytosis with mildly elevated hemoglobin and hematocrit. His BUN/creatinine were 31 and 0.8 mg percent respectively his electrolytes were normal his total bilirubin was 1.4 g otherwise his liver profile was normal his troponin levels were also normal. Impression: Acute cholecystitis in a patient with known colelithiasis, chronic alcohol use, COPD and HIV. The patient is hemodynamically stable to proceed with the planned surgery. Past Patient History - Infectious Disease Hx of Infectious Diseases: None - Tetanus Immunizations Tetanus Immunization: Unknown - Past Medical History & Family History Past Medical History?: Yes - Past Social History Smoking Status: Heavy Smoker > 10 Cigarettes Daily - CARDIAC Hx Cardiac Disorders: No - PULMONARY Hx Respiratory Disorders: No Hx Chronic Obstructive Pulmonary Disease (COPD): No - NEUROLOGICAL Hx Neurological Disorder: No Hx Seizures: No - HEENT Hx HEENT Problems: No - RENAL Hx Chronic Kidney Disease: No - ENDOCRINE/METABOLIC Hx Diabetes Mellitus Type 2: Yes Hx Hypothyroidism: No - HEMATOLOGICAL/ONCOLOGICAL Hx Blood Disorders: Yes Hx AIDS: Yes - INTEGUMENTARY Hx Dermatological Problems: No Hx Basil Cell: No Hx Zepeda: No Hx Cellulitis: No Hx Eczema: No Hx Melanoma: No Hx Psoriasis: No Hx Squamous Cell: No - MUSCULOSKELETAL/RHEUMATOLOGICAL Hx Musculoskeletal Disorders: Yes Hx Falls: No - GASTROINTESTINAL Hx Gastrointestinal Disorders: No - GENITOURINARY/GYNECOLOGICAL Hx Sexually Transmitted Disorders: No - PSYCHIATRIC Hx Anxiety: Yes Hx Bipolar Disorder: Yes Hx Depression: Yes Hx Substance Use: No - SURGICAL HISTORY Hx Tonsillectomy: Yes Other/Comment: Cyst removed from his back - ANESTHESIA Hx Anesthesia: Yes Hx Anesthesia Reactions: No Hx Malignant Hyperthermia: No Has any member of the family had a problem w/ anesthesia?: No Meds Allergies/Adverse Reactions: Allergies Allergy/AdvReac Type Severity Reaction Status Date / Time No Known Allergies Allergy Verified 03/10/17 11:58 - Medications Medications: Current Medications Alprazolam (Xanax) 1 mg PO BID [facility] Last Admin: 03/10/17 21:17 Dose: 1 mg Calcium/Vitamin D (Oyster Shell Calcium/Vitamin D 500 Mg-200 Iu) 1 tab PO BID [facility] Last Admin: 03/11/17 09:16 Dose: 1 tab Lactated Ringer's (Lactated Ringer's) 1,000 mls @ 100 mls/hr IV .Q10H [facility] Last Admin: 03/11/17 09:17 Dose: 100 mls/hr Piperacillin Sod/Tazobactam (Sod 3.375 gm/ Sodium Chloride) 100 mls @ 100 mls/ hr IVPB Q12@0500,1700 [facility] PRN Reason: Protocol Last Admin: 03/11/17 05:05 Dose: 100 mls/hr Ketorolac Tromethamine (Toradol) 15 mg IVP Q6 PRN PRN Reason: Pain, moderate (4-7) Last Admin: 03/10/17 21:31 Dose: 15 mg Metformin HCl (Glucophage) 500 mg PO BID [facility] Last Admin: 03/11/17 09:16 Dose: 500 mg Tizanidine HCl (Zanaflex) 4 mg PO BID PRN PRN Reason: Muscle spasm Trazodone HCl (Desyrel) 100 mg PO HS [facility] Last Admin: 03/10/17 21:17 Dose: 100 mg Results - Vital Signs Recent Vital Signs: Last Vital Signs Temp 98.2 F 03/11/17 09:32 Pulse 55 L 03/11/17 09:32 Resp 18 03/11/17 09:32 BP 151/64 H 03/11/17 09:32 Pulse Ox 95 03/11/17 09:32 - Labs Result Diagrams: 03/10/17 13:10 03/10/17 13:10 Labs: Laboratory Results - last 24 hr 03/10/17 03/10/17 03/10/17 13:10 13:10 13:42 WBC 15.8 H D RBC 5.66 Hgb 17.8 Hct 51.0 MCV 90.0 D MCH 31.4 H MCHC 34.9 RDW 13.7 Plt Count 170 MPV 8.9 Neut % (Auto) 83.1 H Lymph % (Auto) 11.4 L Bowie % (Auto) 4.9 Eos % (Auto) 0.4 Baso % (Auto) 0.2 Neut # 13.1 H Lymph # 1.8 Bowie # 0.8 Eos # 0.1 Baso # 0.0 pO2 43 VBG pH 7.42 VBG pCO2 39 L VBG HCO3 24.9 VBG Total CO2 26.5 VBG O2 Sat (Calc) 89.0 H VBG Base Excess 0.9 VBG Potassium 3.9 Glucose 130 H Lactate 1.1 FiO2 21.0 Sodium 143 139.0 Potassium 4.0 Chloride 108 H 104.0 Carbon Dioxide 22 Anion Gap 17 BUN 31 H Creatinine 0.8 Est GFR ( Amer) > 60 Est GFR (Non-Af Amer) > 60 POC Glucose (mg/dL) Random Glucose 143 H Calcium 9.9 Total Bilirubin 1.4 H AST 34 ALT 47 Alkaline Phosphatase 53 Troponin I Total Protein 7.0 Albumin 3.9 Globulin 3.1 Albumin/Globulin Ratio 1.3 Venous Blood Potassium 3.9 03/10/17 03/11/17 03/11/17 20:12 04:45 09:24 WBC RBC Hgb Hct MCV MCH MCHC RDW Plt Count MPV Neut % (Auto) Lymph % (Auto) Bowie % (Auto) Eos % (Auto) Baso % (Auto) Neut # Lymph # Bowie # Eos # Baso # pO2 VBG pH VBG pCO2 VBG HCO3 VBG Total CO2 VBG O2 Sat (Calc) VBG Base Excess VBG Potassium Glucose Lactate FiO2 Sodium Potassium Chloride Carbon Dioxide Anion Gap BUN Creatinine Est GFR ( Amer) Est GFR (Non-Af Amer) POC Glucose (mg/dL) 139 H Random Glucose Calcium Total Bilirubin AST ALT Alkaline Phosphatase Troponin I 0.0170 0.0220 Total Protein Albumin Globulin Albumin/Globulin Ratio Venous Blood Potassium
[2017-03-11 15:47] LABS: URINE BILIRUBIN NEGATIVE (NEGATIVE); URINE BLOOD NEGATIVE (NEGATIVE); URINE CLARITY CLEAR (Clear); URINE COLOR YELLOW (YELLOW); URINE GLUCOSE (UA) NEG (Normal); URINE LEUKOCYTE ESTERASE NEG Leu/uL (Negative); URINE NITRATE NEGATIVE (NEGATIVE); URINE PROTEIN NEGATIVE (NEGATIVE); URINE UROBILINOGEN 0.2-1.0 mg/dL (0.2-1.0)
--- NOTE | 2017-03-11 17:02 | CP.PCM.PN ---
Subjective - Date & Time of Evaluation Date of Evaluation: 03/11/17 Time of Evaluation: 18:00 Objective - Vital Signs/Intake and Output Vital Signs (last 24 hours): Temp Pulse Resp BP Pulse Ox 98.4 F 54 L 14 148/61 98 03/11/17 15:49 03/11/17 15:49 03/11/17 15:49 03/11/17 15:49 03/11/17 15:49 - Medications Medications: Current Medications Alprazolam (Xanax) 1 mg PO BID [facility] Last Admin: 03/11/17 16:16 Dose: 1 mg Calcium/Vitamin D (Oyster Shell Calcium/Vitamin D 500 Mg-200 Iu) 1 tab PO BID [facility] Last Admin: 03/11/17 16:14 Dose: 1 tab Lactated Ringer's (Lactated Ringer's) 1,000 mls @ 100 mls/hr IV .Q10H [facility] Last Admin: 03/11/17 16:14 Dose: Not Given Piperacillin Sod/Tazobactam (Sod 3.375 gm/ Sodium Chloride) 100 mls @ 100 mls/ hr IVPB Q12@0500,1700 [facility] PRN Reason: Protocol Last Admin: 03/11/17 16:15 Dose: 100 mls/hr Ketorolac Tromethamine (Toradol) 15 mg IVP Q6 PRN PRN Reason: Pain, moderate (4-7) Last Admin: 03/11/17 11:56 Dose: 15 mg Metformin HCl (Glucophage) 500 mg PO BID [facility] Last Admin: 03/11/17 16:14 Dose: 500 mg Tizanidine HCl (Zanaflex) 4 mg PO BID PRN PRN Reason: Muscle spasm Trazodone HCl (Desyrel) 100 mg PO HS [facility] Last Admin: 03/10/17 21:17 Dose: 100 mg - Labs Labs: 03/10/17 13:10 03/10/17 13:10
--- NOTE | 2017-03-11 17:54 | CARD ---
APPROVED REPORT EXAM: Two-dimensional and M-mode echocardiogram with Doppler and color Doppler. Other Information Quality : AverageRhythm : NSR Technically limited study due to Limited Parasternal Window INDICATION LV Function:SystolicDiastolic 2D DIMENSIONS IVSd1.00 (0.7-1.1cm)LVDd4.06 (3.9-5.9cm) PWd0.88 (0.7-1.1cm)IVSs1.07 (0.8-1.2cm) LVDs2.49 (2.5-4.0cm)FS (%) 38.8 % PWs1.01 (0.8-1.2cm) Mitral Valve MV E Teyoitst58.9cm/sMV DECEL [id number] A Wmsltqxg47.0cm/s MV [id number]/A ratio0.9MVA (PHT)2.14cm2 TDI Lateral E' Peak V7.99cm/sMedial E' Peak V5.70cm/sE/Lateral E'7.9 E/Medial E'11.0 LEFT VENTRICLE The left ventricle is normal size. There is normal left ventricular wall thickness. The left ventricular function is normal. The left ventricular ejection fraction is 60% There is normal LV segmental wall motion. The left ventricular diastolic function is normal. No left ventricle thrombus noted on this study. There is no ventricular septal defect visualized. There is no left ventricular aneurysm. There is no mass noted in the left ventricle. RIGHT VENTRICLE The right ventricle is normal size. There is normal right ventricular wall thickness. The right ventricular systolic function is normal. ATRIA The left atrium size is normal. The right atrium size is normal. The interatrial septum is intact with no evidence for an atrial septal defect. AORTIC VALVE The aortic valve is normal in structure. No aortic regurgitation is present. There is no aortic valvular stenosis. There is no aortic valvular vegetation. MITRAL VALVE The mitral valve is normal in structure. There is no evidence of mitral valve prolapse. There is no mitral valve stenosis. There is no mitral valve regurgitation noted. TRICUSPID VALVE The tricuspid valve is normal in structure. There is no tricuspid valve regurgitation noted. There is no tricuspid valve prolapse or vegetation. There is no tricuspid valve stenosis. PULMONIC VALVE The pulmonary valve is normal in structure. There is no pulmonic valvular regurgitation. There is no pulmonic valvular stenosis. GREAT VESSELS The aortic root is normal in size. The ascending aorta is normal in size. The IVC is normal in size and collapses >50% with inspiration. PERICARDIAL EFFUSION The pericardium appears normal. There is no pleural effusion. <Conclusion> Normal Echocardiogram Limited Echocardiographic Views
--- NOTE | 2017-03-11 18:11 | CARD ---
APPROVED REPORT EKG Measurement Heart [id number] <Conclusion> Sinus bradycardia Nonspecific ST abnormality Abnormal ECG
--- NOTE | 2017-03-12 00:49 | CP.PCM.PN ---
Subjective - Date & Time of Evaluation Date of Evaluation: 03/12/17 Time of Evaluation: 00:47 - Subjective Subjective: General Surgery: Dr Del Cid Pt S&E. Resting comfortably. Pt reports pain is minimal. Has been tolerating diet. Denies N/V, F/C. Agrees to plan for laparoscopic cholecystectomy tuesday. Pt cleared by cardiology. Objective - Vital Signs/Intake and Output Vital Signs (last 24 hours): Temp Pulse Resp BP Pulse Ox 98.8 F 60 14 158/69 H 98 03/11/17 20:28 03/11/17 21:00 03/11/17 20:28 03/11/17 20:28 03/11/17 20:28 Intake and Output: 03/11/17 03/12/17 18:59 06:59 Intake Total 850 Balance 850 - Medications Medications: Current Medications Alprazolam (Xanax) 1 mg PO BID [facility] Last Admin: 03/11/17 16:16 Dose: 1 mg Calcium/Vitamin D (Oyster Shell Calcium/Vitamin D 500 Mg-200 Iu) 1 tab PO BID [facility] Last Admin: 03/11/17 16:14 Dose: 1 tab Lactated Ringer's (Lactated Ringer's) 1,000 mls @ 100 mls/hr IV .Q10H [facility] Last Admin: 03/11/17 16:14 Dose: Not Given Piperacillin Sod/Tazobactam (Sod 3.375 gm/ Sodium Chloride) 100 mls @ 100 mls/ hr IVPB Q12@0500,1700 [facility] PRN Reason: Protocol Last Admin: 03/11/17 16:15 Dose: 100 mls/hr Ketorolac Tromethamine (Toradol) 15 mg IVP Q6 PRN PRN Reason: Pain, moderate (4-7) Last Admin: 03/12/17 00:14 Dose: 15 mg Metformin HCl (Glucophage) 500 mg PO BID [facility] Last Admin: 03/11/17 16:14 Dose: 500 mg Tizanidine HCl (Zanaflex) 4 mg PO BID PRN PRN Reason: Muscle spasm Trazodone HCl (Desyrel) 100 mg PO HS [facility] Last Admin: 03/11/17 21:04 Dose: 100 mg - Labs Labs: 03/10/17 13:10 03/10/17 13:10 - Constitutional Appears: Non-toxic, No Acute Distress - Eye Exam Eye Exam: Normal appearance - ENT Exam ENT Exam: Mucous Membranes Moist - Respiratory Exam Respiratory Exam: absent: Accessory Muscle Use, Respiratory Distress - Cardiovascular Exam Cardiovascular Exam: REGULAR RHYTHM. absent: Tachycardia - GI/Abdominal Exam GI & Abdominal Exam: Soft, Tenderness (RUQ but improved). absent: Distended, Guarding, Rigid - Extremities Exam Extremities Exam: absent: Pedal Edema - Neurological Exam Neurological Exam: Alert, Awake, Oriented x3 - Psychiatric Exam Psychiatric exam: Normal Affect, Normal Mood - Skin Skin Exam: Normal Color, Warm Assessment and Plan - Assessment and Plan (Free Text) Assessment: 71M with acute cholecystitis Plan: plan for OR tuesday NPO tuesday night hold anti-coagulation tuesday further mgmt by primary team will d/w attending Lamar, PGY3
[2017-03-12] MEDS: Lactated Ringer's 1,000 ML IV SCH ×3 (01:30→23:48)
[2017-03-12] MEDS: Piperacillin/Tazobact 3.375 GM in Sodium Chloride 0.9% 100 ML IVPB SCH ×2 (05:53→16:38)
[2017-03-12 07:31] LABS: BASO % 0.3 % (0.0-2.0); EOS # 0.1 K/uL (0.0-0.7); EOS % 1.2 % (0.0-4.0); LYMPH # 1.5 K/uL (1.0-4.3); LYMPH % 15.1 % (20.0-40.0); MEAN CELL VOLUME 90.7 fl (80.0-94.0); MEAN CORPUSCULAR HEMOGLOBIN 31.6 pg (27.0-31.0); MEAN CORPUSCULAR HGB CONC 34.9 g/dL (33.0-37.0); MEAN PLATELET VOLUME 8.9 fl (7.2-11.7); MONO # 0.5 K/uL (0.0-0.8); MONO % 5.2 % (0.0-10.0); NEUT % 78.2 % (50.0-75.0); NRBC % 0.1 % (0.0-0.0); RBC 4.74 Mil/uL (4.40-5.90); RED CELL DISTRIBUTION WIDTH 13.5 % (11.5-14.5); WHITE BLOOD COUNT 10.2 K/uL (4.8-10.8)
[2017-03-12 07:45] LABS: ALB/GLOB RATIO 1.1 (1.0-2.1); ALT/SGPT 41 U/L (21-72); AST/SGOT 22 U/L (17-59); BLOOD UREA NITROGEN 29 mg/dl (9-20); CALCIUM 9.3 mg/dL (8.4-10.2); GFR AFRICAN-AMERICAN > 60; GFR NON-AFRICAN AMERICAN > 60; LIPASE 513 U/L (23-300)
[2017-03-12 07:50] LABS: INR 1.2 (0.9-1.2); PARTIAL THROMBOPLASTIN TIME 28.1 Seconds (25.6-37.1); PROTHROMBIN TIME 12.9 Seconds (9.8-13.1)
[2017-03-12] MEDS: Calcium-Vit D 500 mg-200 Units Tab UD PO SCH ×2 (08:17→16:37)
--- NOTE | 2017-03-12 11:06 | RAD ---
PROCEDURE: CHEST RADIOGRAPH, 1 VIEW HISTORY: Pre-op assessment COMPARISON: Comparison made with prior study 05/10/2016. FINDINGS: LUNGS: Minor bibasilar atelectasis left greater than right. . PLEURA: No pneumothorax or pleural fluid seen. CARDIOVASCULAR: Normal. OSSEOUS STRUCTURES: No significant abnormalities. VISUALIZED UPPER ABDOMEN: Normal. OTHER FINDINGS: None. IMPRESSION: Minor bibasilar atelectasis left greater than right. .
--- NOTE | 2017-03-12 16:54 | CP.PCM.PN ---
Subjective - Date & Time of Evaluation Date of Evaluation: 03/12/17 Time of Evaluation: 17:05 Objective - Vital Signs/Intake and Output Vital Signs (last 24 hours): Temp Pulse Resp BP Pulse Ox 98.4 F 53 L 14 157/79 H 97 03/12/17 16:12 03/12/17 16:12 03/12/17 16:12 03/12/17 16:12 03/12/17 16:12 - Medications Medications: Current Medications Alprazolam (Xanax) 1 mg PO BID@0900,2100 [facility] Last Admin: 03/12/17 08:18 Dose: 1 mg Calcium/Vitamin D (Oyster Shell Calcium/Vitamin D 500 Mg-200 Iu) 1 tab PO BID [facility] Last Admin: 03/12/17 16:37 Dose: 1 tab Lactated Ringer's (Lactated Ringer's) 1,000 mls @ 100 mls/hr IV .Q10H [facility] Last Admin: 03/12/17 12:35 Dose: 100 mls/hr Piperacillin Sod/Tazobactam (Sod 3.375 gm/ Sodium Chloride) 100 mls @ 100 mls/ hr IVPB Q12@0500,1700 [facility] PRN Reason: Protocol Last Admin: 03/12/17 16:38 Dose: 100 mls/hr Ketorolac Tromethamine (Toradol) 15 mg IVP Q6 PRN PRN Reason: Pain, moderate (4-7) Last Admin: 03/12/17 12:32 Dose: 15 mg Metformin HCl (Glucophage) 500 mg PO BID [facility] Last Admin: 03/12/17 16:36 Dose: 500 mg Tizanidine HCl (Zanaflex) 4 mg PO BID PRN PRN Reason: Muscle spasm Trazodone HCl (Desyrel) 100 mg PO HS [facility] Last Admin: 03/11/17 21:04 Dose: 100 mg - Labs Labs: 03/12/17 06:00 03/12/17 06:00 PT 12.9 Seconds (9.8-13.1) 03/12/17 06:00 INR 1.2 (0.9-1.2) 03/12/17 06:00 APTT 28.1 Seconds (25.6-37.1) 03/12/17 06:00
[2017-03-13] MEDS: Piperacillin/Tazobact 3.375 GM in Sodium Chloride 0.9% 100 ML IVPB SCH ×2 (04:29→16:07)
--- NOTE | 2017-03-13 05:58 | CP.PCM.PN ---
Subjective - Date & Time of Evaluation Date of Evaluation: 03/13/17 Time of Evaluation: 03:00 - Subjective Subjective: General Surgery Progress Note Fro Dr. Del Cid This pt was seen and examined this AM at bedside no acute events overnight. Pt reports abdominal pain and difficulty sleeping. Denies chest pain SOB nausea vomiting or diarrhea. Objective - Vital Signs/Intake and Output Vital Signs (last 24 hours): Temp Pulse Resp BP Pulse Ox 98.1 F 55 L 18 136/71 96 03/13/17 05:00 03/13/17 05:00 03/13/17 05:00 03/13/17 05:00 03/13/17 05:00 - Medications Medications: Current Medications Alprazolam (Xanax) 1 mg PO BID@0900,2100 [facility] Last Admin: 03/12/17 21:02 Dose: 1 mg Amlodipine Besylate (Norvasc) 5 mg PO DAILY [facility] Last Admin: 03/12/17 21:02 Dose: 5 mg Calcium/Vitamin D (Oyster Shell Calcium/Vitamin D 500 Mg-200 Iu) 1 tab PO BID [facility] Last Admin: 03/12/17 16:37 Dose: 1 tab Lactated Ringer's (Lactated Ringer's) 1,000 mls @ 100 mls/hr IV .Q10H [facility] Last Admin: 03/12/17 23:48 Dose: Not Given Piperacillin Sod/Tazobactam (Sod 3.375 gm/ Sodium Chloride) 100 mls @ 100 mls/ hr IVPB Q12@0500,1700 [facility] PRN Reason: Protocol Last Admin: 03/13/17 04:29 Dose: 100 mls/hr Ketorolac Tromethamine (Toradol) 15 mg IVP Q6 PRN PRN Reason: Pain, moderate (4-7) Last Admin: 03/12/17 21:26 Dose: 15 mg Ketorolac Tromethamine (Toradol) 30 mg IVP Q6 PRN PRN Reason: Pain, severe (8-10) Last Admin: 03/12/17 17:39 Dose: 30 mg Metformin HCl (Glucophage) 500 mg PO BID [facility] Last Admin: 03/12/17 16:36 Dose: 500 mg Tizanidine HCl (Zanaflex) 4 mg PO BID PRN PRN Reason: Muscle spasm Last Admin: 03/13/17 01:57 Dose: 4 mg Trazodone HCl (Desyrel) 100 mg PO HS [facility] Last Admin: 03/12/17 21:03 Dose: 100 mg - Labs Labs: 03/12/17 06:00 03/12/17 06:00 PT 12.9 Seconds (9.8-13.1) 03/12/17 06:00 INR 1.2 (0.9-1.2) 03/12/17 06:00 APTT 28.1 Seconds (25.6-37.1) 03/12/17 06:00 - Constitutional Appears: Non-toxic, No Acute Distress - Eye Exam Eye Exam: Normal appearance - ENT Exam ENT Exam: Mucous Membranes Moist - Respiratory Exam Respiratory Exam: absent: Accessory Muscle Use, Respiratory Distress - Cardiovascular Exam Cardiovascular Exam: REGULAR RHYTHM. absent: Tachycardia - GI/Abdominal Exam GI & Abdominal Exam: Soft. absent: Distended, Guarding, Rigid, Tender - Extremities Exam Extremities Exam: absent: Pedal Edema - Neurological Exam Neurological Exam: Alert, Awake, Oriented x3 - Psychiatric Exam Psychiatric exam: Normal Affect, Normal Mood - Skin Skin Exam: Normal Color, Warm Assessment and Plan - Assessment and Plan (Free Text) Assessment: 71M with acute cholecystitis Plan: plan for OR tomorrow NPO hold anti-coagulation further mgmt by primary team D/W Dr. Nehemias Holden PGY2
[2017-03-13] MEDS: Calcium-Vit D 500 mg-200 Units Tab UD PO SCH ×2 (08:22→17:29)
--- NOTE | 2017-03-13 22:42 | CP.PCM.PN ---
Subjective - Date & Time of Evaluation Date of Evaluation: 03/13/17 Time of Evaluation: 14:30 Objective - Vital Signs/Intake and Output Vital Signs (last 24 hours): Temp Pulse Resp BP Pulse Ox 99 F 60 20 167/75 H 98 03/13/17 19:46 03/13/17 21:14 03/13/17 19:46 03/13/17 21:14 03/13/17 19:46 - Medications Medications: Current Medications Alprazolam (Xanax) 1 mg PO BID@0900,2100 [facility] Last Admin: 03/13/17 21:16 Dose: 1 mg Amlodipine Besylate (Norvasc) 5 mg PO DAILY [facility] Last Admin: 03/13/17 21:14 Dose: 5 mg Calcium/Vitamin D (Oyster Shell Calcium/Vitamin D 500 Mg-200 Iu) 1 tab PO BID [facility] Last Admin: 03/13/17 17:29 Dose: 1 tab Lactated Ringer's (Lactated Ringer's) 1,000 mls @ 100 mls/hr IV .Q10H [facility] Last Admin: 03/12/17 23:48 Dose: Not Given Piperacillin Sod/Tazobactam (Sod 3.375 gm/ Sodium Chloride) 100 mls @ 100 mls/ hr IVPB Q12@0500,1700 [facility] PRN Reason: Protocol Last Admin: 03/13/17 16:07 Dose: 100 mls/hr Ketorolac Tromethamine (Toradol) 30 mg IVP Q6 PRN PRN Reason: Pain, severe (8-10) Last Admin: 03/13/17 15:19 Dose: 30 mg Ketorolac Tromethamine (Toradol) 15 mg IVP Q6 PRN PRN Reason: Pain, moderate (4-7) Last Admin: 03/13/17 19:42 Dose: 15 mg Metformin HCl (Glucophage) 500 mg PO BID [facility] Last Admin: 03/13/17 17:29 Dose: 500 mg Tizanidine HCl (Zanaflex) 4 mg PO BID PRN PRN Reason: Muscle spasm Last Admin: 03/13/17 16:08 Dose: 4 mg Trazodone HCl (Desyrel) 100 mg PO HS [facility] Last Admin: 03/12/17 21:03 Dose: 100 mg - Labs Labs: 03/12/17 06:00 03/12/17 06:00 PT 12.9 Seconds (9.8-13.1) 03/12/17 06:00 INR 1.2 (0.9-1.2) 03/12/17 06:00 APTT 28.1 Seconds (25.6-37.1) 03/12/17 06:00
[2017-03-14] MEDS: Piperacillin/Tazobact 3.375 GM in Sodium Chloride 0.9% 100 ML IVPB SCH (04:20)
[2017-03-14] MEDS: Lactated Ringer's 1,000 ML IV SCH (04:20)
[2017-03-14] MEDS: Calcium-Vit D 500 mg-200 Units Tab UD PO SCH ×2 (08:45→16:02)
[2017-03-14 08:59] LABS: HEMOGLOBIN 15.1 g/dL (12.0-18.0); MEAN CELL VOLUME 90.1 fl (80.0-94.0); MEAN CORPUSCULAR HEMOGLOBIN 31.5 pg (27.0-31.0); MEAN CORPUSCULAR HGB CONC 34.9 g/dL (33.0-37.0); RBC 4.81 Mil/uL (4.40-5.90); RED CELL DISTRIBUTION WIDTH 13.5 % (11.5-14.5); WHITE BLOOD COUNT 10.9 K/uL (4.8-10.8)
[2017-03-14 09:15] LABS: ALB/GLOB RATIO 1.1 (1.0-2.1); ALBUMIN 3.2 g/dL (3.5-5.0); ALT/SGPT 56 U/L (21-72); AST/SGOT 27 U/L (17-59); BLOOD UREA NITROGEN 20 mg/dl (9-20); CALCIUM 9.4 mg/dL (8.4-10.2); GFR AFRICAN-AMERICAN > 60; GFR NON-AFRICAN AMERICAN > 60
[2017-03-14] MEDS ORDERED: Bupivacaine 0.5% Inj(30mL) ONE (09:29)
[2017-03-14] MEDS ORDERED: Rocuronium 10 mg/ml (5 ml) ONE (10:14)
[2017-03-14] MEDS ORDERED: Midazolam 2 MG/2 ML VIAL ONE (10:14)
[2017-03-14] MEDS ORDERED: Propofol 10 mg/ml Inj (20 ML) ONE (10:14)
[2017-03-14] MEDS ORDERED: Succinylcholine 200 mg/10 ml Inj IV ONE (10:15)
[2017-03-14] MEDS ORDERED: Lactated Ringer's 1,000 ML IV ONE (10:17)
[2017-03-14] MEDS ORDERED: Phenylephrine 10 mg/ml Inj ONE ×2 (10:58→11:00)
[2017-03-14] MEDS ORDERED: ePHEDrine 50 mg/ml Inj ONE (10:58)
[2017-03-14] MEDS ORDERED: Bupivacaine 0.5% 50 ML IJ ONE (11:02)
--- NOTE | 2017-03-14 11:21 | PCM.SURG1 ---
Surgeon's Initial Post Op Note - Surgeon's Notes Surgeon: Nehemias Apprentice Painter Neckties: Bernardino Type of Anesthesia: General Endo Anesthesia Administered By: Batsheva Pre-Operative Diagnosis: Symptomatic cholelithiasis, possible choledocholithiasis Operative Findings: cholelithiasis Post-Operative Diagnosis: Same Operation Performed: Laparoscopic cholecystectomy Specimen/Specimens Removed: gallbladder Estimated Blood Loss: EBL {In ML}: 10 Blood Products Given: N/A Drains Used: No Drains Post-Op Condition: Good Date of Surgery/Procedure: 03/14/17 Time of Surgery/Procedure: 10:30
[2017-03-14] MEDS ORDERED: Lactated Ringer's 1,000 ML IV SCH ×2 (11:30→11:45)
[2017-03-14] MEDS ORDERED: DiphenhydrAMINE 50 mg/ml Inj IVP PRN (11:43)
[2017-03-14] MEDS: HYDROmorphone 0.5 mg/0.5 ml ISec IVP PRN ×3 (12:15→13:50)
[2017-03-14] MEDS ORDERED: HYDROmorphone 0.5 mg/0.5 ml ISec ONE (12:16)
--- NOTE | 2017-03-14 13:13 | OP ---
PROCEDURE DATE: PREOPERATIVE DIAGNOSES: Symptomatic cholelithiasis and possible choledocholithiasis. POSTOPERATIVE DIAGNOSES: Symptomatic cholelithiasis and possible choledocholithiasis. PROCEDURE: Laparoscopic cholecystectomy. SURGEON: Nahid Del Cid MD. CONGREGATIONAL CARE PASTOR: Bernardino. ANESTHESIA ADMINISTERED BY: Dr. Herman. TYPE OF ANESTHESIA: General with endotracheal intubation. IV FLUIDS: Crystalloids. ESTIMATED BLOOD LOSS: 10 mL INTRAOPERATIVE FINDINGS: Cholelithiasis. SPECIMEN: Gallbladder. BRIEF HISTORY: Mr. Min is a 71-year-old gentleman who initially presented to the hospital with epigastric right upper quadrant abdominal pain as well as elevated liver enzymes. Upon further investigation on MRCP, it did not reveal any filling defects in the common bile duct. However, the bile duct was dilated to 1.2 cm. Subsequent to that, the patient signed out from the hospital AMA and re-presented to the hospital 2 days later complaining of epigastric abdominal and right upper quadrant pain. At that time, the patient's LFT's have normalized and repeat ultrasound showed a decrease in size of the common bile duct to 9 mm. All the risks and benefits of the procedure were explained to the patient and with the patient having a full understanding of all the risks and benefits involved, informed consent was obtained and the patient was taken to the operating room for above-stated procedure. DESCRIPTION OF PROCEDURE: The patient was brought into the operating room and placed supine on the operating table. Bilateral Flowtron boots were applied to the patient's lower extremities. After successful induction of anesthesia and successful endotracheal intubation by the Anesthesia team, the patient's abdomen was shaved and prepped with ChloraPrep stick and draped in a standard surgical fashion. Prior to the beginning of the procedure, a time-out was called in the room and everyone in the room were in agreement. The patient received prophylactic Ancef antibiotic prior to the incision. Using Veress needle, the patient's abdomen was entered at the umbilicus and pneumoperitoneum was achieved with good opening pressures. Once this was accomplished, using an 11-blade scalpel knife, approximately 1-cm incision was made in a longitudinal fashion in the umbilicus and subsequent to that, an 11-mm trocar was introduced into the patient's abdomen. At that point in time, a 5 mm 0-degree scope was introduced into the patient's abdomen and abdomen was inspected. We immediately were able to visualize the gallbladder that appeared to be chronically inflamed. Then, attention was turned to the subxiphoid area. Using an 11-blade scalpel knife, a 5-mm incision was made in a transverse fashion and subsequent to that, 5 mm trocar was introduced into the patient's abdomen. At that point in time, attention was turned to the right side of the patient's abdomen. Using an 11 blade scalpel knife, two 5 mm incisions were made in a transverse fashion and subsequent to that, two 5 mm trocars were introduced into the patient's abdomen. At this point in time, gallbladder was grasped at the fundus and the infundibulum, and using [place] dissector, cystic duct and cystic artery were dissected out and a critical view of safety was achieved. At this point in time, the cystic duct was clipped with two clips proximal and one distal, and transected with laparoscopic scissors. Same thing was done for the cystic artery. It was clipped with two clips proximal and one distal and transected with laparoscopic scissors. At this point in time, gallbladder was dissected off the gallbladder fossa using hook electrical cautery. Once the gallbladder was completely freed up from the gallbladder fossa, EndoCatch bag was introduced into the patient's abdomen; gallbladder was placed inside of the bag and the bag was closed. At this point in time, gallbladder fossa was inspected for hemostasis,hemostasis was confirmed. Abdominal cavity and gallbladder fossa were irrigated with sterile saline and fluid was suctioned out. At this point in time, an 11-mm trocar together with the EndoCatch bag and gallbladder were removed from patient's abdomen and passed [facility] to [facility] as a specimen. Fascial layer at the umbilical port site was closed with two interrupted 0 Vicryl sutures on UR-6 needle; subsequent to that, patient's abdomen was fully desufflated. The rest of the trocars were removed from the patient's abdomen and the skin was closed with 4-0 Monocryl suture in a running subcuticular fashion. At the end of the procedure, incision sites were infiltrated with Marcaine anesthetic. The patient's abdomen was washed and dried and Dermabond was applied to the incision sites. Patient was successfully extubated by the Anesthesia team, transferred to the stretcher, and taken to the recovery room in a stable condition. At the end of the procedure, all instrument counts, needles, and sponges were correct. Nahid Del Cid MD
[2017-03-14 13:15] LABS: HEMOGLOBIN 16.1 g/dL (12.0-18.0); MEAN CELL VOLUME 90.1 fl (80.0-94.0); MEAN CORPUSCULAR HEMOGLOBIN 31.1 pg (27.0-31.0); MEAN CORPUSCULAR HGB CONC 34.5 g/dL (33.0-37.0); RBC 5.18 Mil/uL (4.40-5.90); RED CELL DISTRIBUTION WIDTH 13.6 % (11.5-14.5); WHITE BLOOD COUNT 10.7 K/uL (4.8-10.8)
[2017-03-14] MEDS ORDERED: Piperacillin/Tazobact 3.375 GM in Sodium Chloride 0.9% 50 ML IVPB SCH (17:00)
[2017-03-14] MEDS: Oxycodone/Acetaminophen 5/325 mg Tab PO PRN (22:43)
[2017-03-15 05:49] LABS: BASO % 0.4 % (0.0-2.0); EOS # 0.1 K/uL (0.0-0.7); EOS % 1.1 % (0.0-4.0); LYMPH % 18.2 % (20.0-40.0); MEAN CELL VOLUME 89.1 fl (80.0-94.0); MEAN CORPUSCULAR HEMOGLOBIN 30.8 pg (27.0-31.0); MEAN CORPUSCULAR HGB CONC 34.5 g/dL (33.0-37.0); MEAN PLATELET VOLUME 8.7 fl (7.2-11.7); MONO % 8.8 % (0.0-10.0); NEUT # 7.9 K/uL (1.8-7.0); NEUT % 71.5 % (50.0-75.0); NRBC % 1.4 % (0.0-0.0); RBC 4.88 Mil/uL (4.40-5.90); RED CELL DISTRIBUTION WIDTH 13.6 % (11.5-14.5); WHITE BLOOD COUNT 11.1 K/uL (4.8-10.8)
[2017-03-15 06:03] LABS: ALB/GLOB RATIO 1.1 (1.0-2.1); ALBUMIN 3.1 g/dL (3.5-5.0); ALT/SGPT 48 U/L (21-72); AST/SGOT 39 U/L (17-59); BLOOD UREA NITROGEN 16 mg/dl (9-20); CALCIUM 9.7 mg/dL (8.4-10.2); GFR AFRICAN-AMERICAN > 60; GFR NON-AFRICAN AMERICAN > 60
--- NOTE | 2017-03-15 07:47 | CP.PCM.PN ---
<Rod Newton Ramiro - Last Filed: 03/15/17 07:42> Subjective - Date & Time of Evaluation Date of Evaluation: 03/15/17 Time of Evaluation: 07:42 - Subjective Subjective: General Surgery: Dr Del Cid Pt S&E. POD#1 s/p lap vignesh. Reports pain well controlled. Tolerated CLD. Denies N/V, F/C. Not yet passing flatus. States he feels somewhat weak. Objective - Vital Signs/Intake and Output Vital Signs (last 24 hours): Temp Pulse Resp BP Pulse Ox 98.4 F 57 L 16 115/68 96 03/15/17 05:00 03/15/17 05:00 03/15/17 05:00 03/15/17 05:00 03/15/17 05:00 - Medications Medications: Current Medications Alprazolam (Xanax) 1 mg PO BID@0900,2100 [facility] Last Admin: 03/14/17 22:39 Dose: 1 mg Amlodipine Besylate (Norvasc) 5 mg PO DAILY [facility] Last Admin: 03/14/17 08:44 Dose: Not Given Calcium/Vitamin D (Oyster Shell Calcium/Vitamin D 500 Mg-200 Iu) 1 tab PO BID [facility] Last Admin: 03/14/17 16:02 Dose: 1 tab Hydralazine HCl (Apresoline) 10 mg IV ONCE PRN PRN Reason: Systolic Blood Pressure Last Admin: 03/14/17 12:45 Dose: 10 mg Hydromorphone HCl (Dilaudid) 0.5 mg IVP Q3 PRN PRN Reason: moderate pain Last Admin: 03/14/17 20:21 Dose: 0.5 mg Ketorolac Tromethamine (Toradol) 30 mg IVP Q6 PRN PRN Reason: Pain, severe (8-10) Last Admin: 03/14/17 03:03 Dose: 30 mg Metformin HCl (Glucophage) 500 mg PO BID [facility] Last Admin: 03/14/17 16:02 Dose: 500 mg Ondansetron HCl (Zofran Inj) 4 mg IVP Q6 PRN PRN Reason: Nausea/Vomiting Oxycodone/Acetaminophen (Percocet 5/325 Mg Tab) 1 tab PO Q4 PRN PRN Reason: Pain, Mild (1-3) Stop: 03/17/17 11:23 Last Admin: 03/14/17 22:43 Dose: 1 tab Tizanidine HCl (Zanaflex) 4 mg PO BID PRN PRN Reason: Muscle spasm Last Admin: 03/13/17 16:08 Dose: 4 mg Trazodone HCl (Desyrel) 100 mg PO HS [facility] Last Admin: 03/14/17 22:39 Dose: 100 mg - Labs Labs: 03/15/17 04:25 03/15/17 04:25 PT 12.9 Seconds (9.8-13.1) 03/12/17 06:00 INR 1.2 (0.9-1.2) 03/12/17 06:00 APTT 28.1 Seconds (25.6-37.1) 03/12/17 06:00 - Constitutional Appears: Non-toxic, No Acute Distress - ENT Exam ENT Exam: Mucous Membranes Moist - Respiratory Exam Respiratory Exam: absent: Accessory Muscle Use, Respiratory Distress - Cardiovascular Exam Cardiovascular Exam: REGULAR RHYTHM - GI/Abdominal Exam GI & Abdominal Exam: Soft, Tenderness (post-op and appropriate). absent: Distended, Firm, Guarding Additional comments: incisions c/d/ hematomas resolved adv to regular diet will d/w attending [facility], PGY3 <Nahid Del Cid - Last Filed: 03/15/17 10:56> Subjective - Date & Time of Evaluation Time of Evaluation: 10:00 - Subjective Subjective: Patient was seen and examined at the bedside. Agree with resident's note above. Objective - Vital Signs/Intake and Output Vital Signs (last 24 hours): Temp Pulse Resp BP Pulse Ox 97.4 F L 63 18 126/67 97 03/15/17 09:13 03/15/17 10:02 03/15/17 09:13 03/15/17 10:02 03/15/17 09:13 - Medications Medications: Current Medications Amlodipine Besylate (Norvasc) 5 mg PO DAILY [facility] Last Admin: 03/15/17 10:02 Dose: 5 mg Calcium/Vitamin D (Oyster Shell Calcium/Vitamin D 500 Mg-200 Iu) 1 tab PO BID [facility] Last Admin: 03/15/17 10:03 Dose: 1 tab Hydralazine HCl (Apresoline) 10 mg IV ONCE PRN PRN Reason: Systolic Blood Pressure Last Admin: 03/14/17 12:45 Dose: 10 mg Hydromorphone HCl (Dilaudid) 0.5 mg IVP Q3 PRN PRN Reason: moderate pain Last Admin: 03/15/17 07:49 Dose: 0.5 mg Ketorolac Tromethamine (Toradol) 30 mg IVP Q6 PRN PRN Reason: Pain, severe (8-10) Last Admin: 03/14/17 03:03 Dose: 30 mg Metformin HCl (Glucophage) 500 mg PO BID [facility] Last Admin: 03/15/17 10:02 Dose: 500 mg Ondansetron HCl (Zofran Inj) 4 mg IVP Q6 PRN PRN Reason: Nausea/Vomiting Oxycodone/Acetaminophen (Percocet 5/325 Mg Tab) 1 tab PO Q4 PRN PRN Reason: Pain, Mild (1-3) Stop: 03/17/17 11:23 Last Admin: 03/15/17 10:07 Dose: 1 tab Tizanidine HCl (Zanaflex) 4 mg PO BID PRN PRN Reason: Muscle spasm Last Admin: 03/13/17 16:08 Dose: 4 mg Trazodone HCl (Desyrel) 100 mg PO HS [facility] Last Admin: 03/14/17 22:39 Dose: 100 mg - Labs Labs: 03/15/17 04:25 03/15/17 04:25 PT 12.9 Seconds (9.8-13.1) 03/12/17 06:00 INR 1.2 (0.9-1.2) 03/12/17 06:00 APTT 28.1 Seconds (25.6-37.1) 03/12/17 06:00 Assessment and Plan - Assessment and Plan (Free Text) Plan: - Start regular diet - pain control - Insentive spirometry - Patient is clear for discharge from the general surgery stand point - Patient will follow up with me in the office in 10 days to 2 weeks for post- op visit
[2017-03-15] MEDS: Calcium-Vit D 500 mg-200 Units Tab UD PO SCH ×2 (10:03→17:44)
[2017-03-15] MEDS: Oxycodone/Acetaminophen 5/325 mg Tab PO PRN ×2 (10:07→18:27)
--- NOTE | 2017-03-15 10:07 | PQF GENQUE ---
This form is a permanent part of the medical record 03/15/17 Dr. Black, Please clarify the diagnosis of HIV utilizing the following coding terminology :"Asymptomatic HIV Infection /HIV positive only" : used when no HIV infection symptoms or conditions are present..... versus "Symptomatic HIV Disease /AIDS" : this code is used for pts. who have had a prior diagnosis of an HIV- related illness or CD4 count <200 in the past; HAART OR ...Unable to determine H&P in draft with history of HIV. Clarification of your documentation is requested to better reflect the severity of illness and intensity of treatment of your patient. Indicators present [] Specify: [] [] Specify: [] [] Specify: [] [] Specify: [] Location in the medical record that reflects the above clinical findings: [] Treatment Provided: [] PHYSICIAN'S RESPONSE Based on your medical judgment of the clinical indicators outlined above please clarify the following: [X] Practitioner response: Asymptomatic HIV Infection /HIV positive only [] If unable to determine, please check the box, sign and date. Present On Admission (POA) Indicator: [X] Present at the time of admission [] Not present at the time of admission [] Clinically Undetermined In responding to this query, please exercise your independent professional judgment. The fact that a question is asked does not imply that any particular answer is desired or expected. Thank you for your clarification on this documentation. If you have any questions please call:ext [phone] * Thank you, Kiesha Ng RN [facility]
--- NOTE | 2017-03-15 23:53 | CP.PCM.PN ---
Subjective - Date & Time of Evaluation Date of Evaluation: 03/14/17 Time of Evaluation: 23:15 Objective - Vital Signs/Intake and Output Vital Signs (last 24 hours): Temp Pulse Resp BP Pulse Ox 98.5 F 68 20 119/68 95 03/15/17 19:16 03/15/17 19:16 03/15/17 19:16 03/15/17 19:16 03/15/17 19:16 Intake and Output: 03/15/17 03/16/17 18:59 06:59 Intake Total 860 Balance 860 - Medications Medications: Current Medications Alprazolam (Xanax) 1 mg PO BID [facility] Last Admin: 03/15/17 17:46 Dose: 1 mg Amlodipine Besylate (Norvasc) 5 mg PO DAILY [facility] Last Admin: 03/15/17 10:02 Dose: 5 mg Calcium/Vitamin D (Oyster Shell Calcium/Vitamin D 500 Mg-200 Iu) 1 tab PO BID [facility] Last Admin: 03/15/17 17:44 Dose: 1 tab Hydralazine HCl (Apresoline) 10 mg IV ONCE PRN PRN Reason: Systolic Blood Pressure Last Admin: 03/14/17 12:45 Dose: 10 mg Hydromorphone HCl (Dilaudid) 0.5 mg IVP Q3 PRN PRN Reason: moderate pain Last Admin: 03/15/17 20:15 Dose: 0.5 mg Ketorolac Tromethamine (Toradol) 30 mg IVP Q6 PRN PRN Reason: Pain, severe (8-10) Last Admin: 03/14/17 03:03 Dose: 30 mg Metformin HCl (Glucophage) 500 mg PO BID [facility] Last Admin: 03/15/17 17:47 Dose: Not Given Ondansetron HCl (Zofran Inj) 4 mg IVP Q6 PRN PRN Reason: Nausea/Vomiting Oxycodone/Acetaminophen (Percocet 5/325 Mg Tab) 1 tab PO Q4 PRN PRN Reason: Pain, Mild (1-3) Stop: 03/17/17 11:23 Last Admin: 03/15/17 18:27 Dose: 1 tab Tizanidine HCl (Zanaflex) 4 mg PO BID PRN PRN Reason: Muscle spasm Last Admin: 03/15/17 21:09 Dose: 4 mg Trazodone HCl (Desyrel) 100 mg PO HS [facility] Last Admin: 03/15/17 21:09 Dose: 100 mg - Labs Labs: 03/15/17 04:25 03/15/17 04:25 PT 12.9 Seconds (9.8-13.1) 03/12/17 06:00 INR 1.2 (0.9-1.2) 03/12/17 06:00 APTT 28.1 Seconds (25.6-37.1) 03/12/17 06:00
--- NOTE | 2017-03-15 23:54 | CP.PCM.PN ---
Subjective - Date & Time of Evaluation Date of Evaluation: 03/15/17 Time of Evaluation: 20:45 Objective - Vital Signs/Intake and Output Vital Signs (last 24 hours): Temp Pulse Resp BP Pulse Ox 98.5 F 68 20 119/68 95 03/15/17 19:16 03/15/17 19:16 03/15/17 19:16 03/15/17 19:16 03/15/17 19:16 Intake and Output: 03/15/17 03/16/17 18:59 06:59 Intake Total 860 Balance 860 - Medications Medications: Current Medications Alprazolam (Xanax) 1 mg PO BID [facility] Last Admin: 03/15/17 17:46 Dose: 1 mg Amlodipine Besylate (Norvasc) 5 mg PO DAILY [facility] Last Admin: 03/15/17 10:02 Dose: 5 mg Calcium/Vitamin D (Oyster Shell Calcium/Vitamin D 500 Mg-200 Iu) 1 tab PO BID [facility] Last Admin: 03/15/17 17:44 Dose: 1 tab Hydralazine HCl (Apresoline) 10 mg IV ONCE PRN PRN Reason: Systolic Blood Pressure Last Admin: 03/14/17 12:45 Dose: 10 mg Hydromorphone HCl (Dilaudid) 0.5 mg IVP Q3 PRN PRN Reason: moderate pain Last Admin: 03/15/17 20:15 Dose: 0.5 mg Ketorolac Tromethamine (Toradol) 30 mg IVP Q6 PRN PRN Reason: Pain, severe (8-10) Last Admin: 03/14/17 03:03 Dose: 30 mg Metformin HCl (Glucophage) 500 mg PO BID [facility] Last Admin: 03/15/17 17:47 Dose: Not Given Ondansetron HCl (Zofran Inj) 4 mg IVP Q6 PRN PRN Reason: Nausea/Vomiting Oxycodone/Acetaminophen (Percocet 5/325 Mg Tab) 1 tab PO Q4 PRN PRN Reason: Pain, Mild (1-3) Stop: 03/17/17 11:23 Last Admin: 03/15/17 18:27 Dose: 1 tab Tizanidine HCl (Zanaflex) 4 mg PO BID PRN PRN Reason: Muscle spasm Last Admin: 03/15/17 21:09 Dose: 4 mg Trazodone HCl (Desyrel) 100 mg PO HS [facility] Last Admin: 03/15/17 21:09 Dose: 100 mg - Labs Labs: 03/15/17 04:25 03/15/17 04:25 PT 12.9 Seconds (9.8-13.1) 03/12/17 06:00 INR 1.2 (0.9-1.2) 03/12/17 06:00 APTT 28.1 Seconds (25.6-37.1) 03/12/17 06:00
[2017-03-16 08:11] VITALS: RESP 20
[2017-03-16] MEDS: Calcium-Vit D 500 mg-200 Units Tab UD PO SCH ×2 (08:36→17:39)
[2017-03-16] MEDS: Oxycodone/Acetaminophen 5/325 mg Tab PO PRN ×2 (08:43→13:20)
--- NOTE | 2017-03-16 09:56 | CP.PCM.PN ---
Subjective - Date & Time of Evaluation Date of Evaluation: 03/16/17 Time of Evaluation: 09:35 - Subjective Subjective: Patient was seen and examined at the bedside. Denies any abdominal pain, tolerating regular diet. Objective - Vital Signs/Intake and Output Vital Signs (last 24 hours): Temp Pulse Resp BP Pulse Ox 98.4 F 69 20 108/65 95 03/16/17 08:00 03/16/17 08:34 03/16/17 08:00 03/16/17 08:34 03/16/17 08:00 Intake and Output: 03/16/17 03/16/17 06:59 18:59 Intake Total 860 Balance 860 - Medications Medications: Current Medications Alprazolam (Xanax) 1 mg PO BID [facility] Last Admin: 03/16/17 08:44 Dose: 1 mg Amlodipine Besylate (Norvasc) 5 mg PO DAILY [facility] Last Admin: 03/16/17 08:34 Dose: 5 mg Calcium/Vitamin D (Oyster Shell Calcium/Vitamin D 500 Mg-200 Iu) 1 tab PO BID [facility] Last Admin: 03/16/17 08:36 Dose: 1 tab Hydralazine HCl (Apresoline) 10 mg IV ONCE PRN PRN Reason: Systolic Blood Pressure Last Admin: 03/14/17 12:45 Dose: 10 mg Hydromorphone HCl (Dilaudid) 0.5 mg IVP Q3 PRN PRN Reason: moderate pain Last Admin: 03/16/17 05:57 Dose: 0.5 mg Ketorolac Tromethamine (Toradol) 30 mg IVP Q6 PRN PRN Reason: Pain, severe (8-10) Last Admin: 03/14/17 03:03 Dose: 30 mg Metformin HCl (Glucophage) 500 mg PO BID [facility] Last Admin: 03/16/17 08:34 Dose: 500 mg Ondansetron HCl (Zofran Inj) 4 mg IVP Q6 PRN PRN Reason: Nausea/Vomiting Oxycodone/Acetaminophen (Percocet 5/325 Mg Tab) 1 tab PO Q4 PRN PRN Reason: Pain, Mild (1-3) Stop: 03/17/17 11:23 Last Admin: 03/16/17 08:43 Dose: 1 tab Tizanidine HCl (Zanaflex) 4 mg PO BID PRN PRN Reason: Muscle spasm Last Admin: 03/15/17 21:09 Dose: 4 mg Trazodone HCl (Desyrel) 100 mg PO HS [facility] Last Admin: 03/15/17 21:09 Dose: 100 mg - Labs Labs: 03/15/17 04:25 03/15/17 04:25 PT 12.9 Seconds (9.8-13.1) 03/12/17 06:00 INR 1.2 (0.9-1.2) 03/12/17 06:00 APTT 28.1 Seconds (25.6-37.1) 03/12/17 06:00 - Constitutional Appears: Well, Non-toxic, No Acute Distress - Head Exam Head Exam: ATRAUMATIC, NORMAL INSPECTION, NORMOCEPHALIC - Eye Exam Eye Exam: EOMI, Normal appearance, PERRL Pupil Exam: NORMAL ACCOMODATION, PERRL - ENT Exam ENT Exam: Mucous Membranes Moist, Normal Exam - Neck Exam Neck Exam: Full ROM, Normal Inspection - Respiratory Exam Respiratory Exam: Clear to Ausculation Bilateral, NORMAL BREATHING PATTERN - Cardiovascular Exam Cardiovascular Exam: REGULAR RHYTHM, +S1, +S2 - GI/Abdominal Exam GI & Abdominal Exam: Soft, Normal Bowel Sounds Additional comments: NT, ND, no rebound, no guarding, incisions clean, no erythema, no drainage, dermobond in place - Rectal Exam Rectal Exam: Deferred - Extremities Exam Extremities Exam: Full ROM, Normal Inspection - Neurological Exam Neurological Exam: Alert, Awake, Oriented x3 - Psychiatric Exam Psychiatric exam: Normal Affect, Normal Mood - Skin Skin Exam: Dry, Intact, Normal Color, Warm Assessment and Plan - Assessment and Plan (Free Text) Assessment: 71 y.o. male s/p Laparoscopic cholecystectomy Plan: - Continue diet - pain control - Insentive spirometry - DVT ppx - Out of bed and ambulate - Patient is clear for discharge home from the general surgery stand point - No further general surgery intervention at present time - General surgery will sign off - Please re-consult as needed
--- NOTE | 2017-03-16 15:47 | CP.PCM.DIS ---
Provider - Provider Date of Admission: 03/11/17 19:16 Attending physician: Erica Black MD Time Spent in preparation of Discharge (in minutes): 35 Hospital Course - Lab Results Lab Results: Micro Results 03/10/17 13:55 Blood Blood Culture - Final NO GROWTH AFTER 5 DAYS 03/10/17 13:55 Blood Gram Stain - Final TEST NOT PERFORMED 03/10/17 14:24 Blood Blood Culture - Final NO GROWTH AFTER 5 DAYS 03/10/17 14:24 Blood Gram Stain - Final TEST NOT PERFORMED 03/10/17 15:28 Urine,Random Urine Culture - Final No Growth (<1,000 CFU/ML) Most Recent Lab Values WBC 11.1 K/uL (4.8-10.8) H 03/15/17 04:25 RBC 4.88 Mil/uL (4.40-5.90) 03/15/17 04:25 Hgb 15.0 g/dL (12.0-18.0) 03/15/17 04:25 Hct 43.5 % (35.0-51.0) 03/15/17 04:25 MCV 89.1 fl (80.0-94.0) 03/15/17 04:25 MCH 30.8 pg (27.0-31.0) 03/15/17 04:25 MCHC 34.5 g/dL (33.0-37.0) 03/15/17 04:25 RDW 13.6 % (11.5-14.5) 03/15/17 04:25 Plt Count 154 K/uL (130-400) 03/15/17 04:25 MPV 8.7 fl (7.2-11.7) 03/15/17 04:25 Neut % (Auto) 71.5 % (50.0-75.0) 03/15/17 04:25 Lymph % (Auto) 18.2 % (20.0-40.0) L 03/15/17 04:25 Obion % (Auto) 8.8 % (0.0-10.0) 03/15/17 04:25 Eos % (Auto) 1.1 % (0.0-4.0) 03/15/17 04:25 Baso % (Auto) 0.4 % (0.0-2.0) 03/15/17 04:25 Neut # 7.9 K/uL (1.8-7.0) H 03/15/17 04:25 Lymph # 2.0 K/uL (1.0-4.3) 03/15/17 04:25 Obion # 1.0 K/uL (0.0-0.8) H 03/15/17 04:25 Eos # 0.1 K/uL (0.0-0.7) 03/15/17 04:25 Baso # 0.0 K/uL (0.0-0.2) 03/15/17 04:25 PT 12.9 Seconds (9.8-13.1) 03/12/17 06:00 INR 1.2 (0.9-1.2) 03/12/17 06:00 APTT 28.1 Seconds (25.6-37.1) 03/12/17 06:00 pO2 43 mm/Hg (30-55) 03/10/17 13:42 VBG pH 7.42 (7.32-7.43) 03/10/17 13:42 VBG pCO2 39 mmHg (40-60) L 03/10/17 13:42 VBG HCO3 24.9 mmol/L 03/10/17 13:42 VBG Total CO2 26.5 mmol/L (22-28) 03/10/17 13:42 VBG O2 Sat (Calc) 89.0 % (40-65) H 03/10/17 13:42 VBG Base Excess 0.9 mmol/L (0.0-2.0) 03/10/17 13:42 VBG Potassium 3.9 mmol/L (3.6-5.2) 03/10/17 13:42 Sodium 139.0 mmol/L (132-148) 03/10/17 13:42 Chloride 104.0 mmol/L (98-107) 03/10/17 13:42 Glucose 130 mg/dL (75-110) H 03/10/17 13:42 Lactate 1.1 mmol/L (0.7-2.1) 03/10/17 13:42 FiO2 21.0 % 03/10/17 13:42 Sodium 140 mmol/l (132-148) 03/15/17 04:25 Potassium 4.1 MMOL/L (3.6-5.0) 03/15/17 04:25 Chloride 103 mmol/L (98-107) 03/15/17 04:25 Carbon Dioxide 27 mmol/L (22-30) 03/15/17 04:25 Anion Gap 14 (10-20) 03/15/17 04:25 BUN 16 mg/dl (9-20) 03/15/17 04:25 Creatinine 0.7 mg/dl (0.8-1.5) L 03/15/17 04:25 Est GFR ( Amer) > 60 03/15/17 04:25 Est GFR (Non-Af Amer) > 60 03/15/17 04:25 Random Glucose 111 mg/dL (75-110) H 03/15/17 04:25 POC Glucose (mg/dL) 159 mg/dL (65-110) H 03/16/17 11:06 Calcium 9.7 mg/dL (8.4-10.2) 03/15/17 04:25 Total Bilirubin 1.2 mg/dl (0.2-1.3) 03/15/17 04:25 AST 39 U/L (17-59) 03/15/17 04:25 ALT 48 U/L (21-72) 03/15/17 04:25 Alkaline Phosphatase 62 U/L (38-126) 03/15/17 04:25 Troponin I 0.0150 ng/mL (0.00-0.120) 03/11/17 12:05 Total Protein 6.0 G/DL (6.3-8.2) L 03/15/17 04:25 Albumin 3.1 g/dL (3.5-5.0) L 03/15/17 04:25 Globulin 2.9 gm/dL (2.2-3.9) 03/15/17 04:25 Albumin/Globulin Ratio 1.1 (1.0-2.1) 03/15/17 04:25 Lipase 154 U/L (23-300) 03/15/17 14:07 Venous Blood Potassium 3.9 mmol/L (3.6-5.2) 03/10/17 13:42 Urine Color Yellow (YELLOW) 03/10/17 15:28 Urine Clarity Clear (Clear) 03/10/17 15:28 Urine pH 6.0 (5.0-8.0) 03/10/17 15:28 Ur Specific Vaiden 1.028 (1.003-1.030) 03/10/17 15:28 Urine Protein Negative mg/dL (NEGATIVE) 03/10/17 15:28 Urine Glucose (UA) Neg mg/dL (Normal) 03/10/17 15:28 Urine Ketones Negative mg/dL (NEGATIVE) 03/10/17 15:28 Urine Blood Negative (NEGATIVE) 03/10/17 15:28 Urine Nitrate Negative (NEGATIVE) 03/10/17 15:28 Urine Bilirubin Negative (NEGATIVE) 03/10/17 15:28 Urine Urobilinogen 0.2-1.0 mg/dL (0.2-1.0) 03/10/17 15:28 Ur Leukocyte Esterase Neg Edward/uL (Negative) 03/10/17 15:28 Urine RBC (Auto) 1 /hpf (0-3) 03/10/17 15:28 Urine Microscopic WBC 2 /hpf (0-5) 03/10/17 15:28 Discharge Exam - Head Exam Head Exam: ATRAUMATIC, NORMAL INSPECTION, NORMOCEPHALIC Discharge Plan - Follow Up Plan Condition: FAIR Disposition: HOME/ ROUTINE
[2017-03-16 16:18] VITALS: BP 120/66; PULSE 68; TEMP 97.6; O2SAT 96
== END 2017-03-16 19:00 | DRG 419 ==
LOC: H.ER 11:55 → H.ERHOLD 15:22 → H.TEL 17:57 → OBSVTOIN 03-11 19:16 → H.TEL 03-14 12:19
PROVIDERS: ADMIT Internal Medicine; ATTEND Internal Medicine
PROC: 0FT44ZZ Resection of Gallbladder, Percutaneous Endoscopic Approach (ICD-10-PCS; principal; 2017-03-14 10:00)
DX: K80.00 Calculus of gallbladder with acute cholecystitis without obstruction (principal); E11.9 Type 2 diabetes mellitus without complications; Z21 Asymptomatic human immunodeficiency virus [HIV] infection status; R56.9 Unspecified convulsions; J44.9 Chronic obstructive pulmonary disease, unspecified; I10 Essential (primary) hypertension; E78.5 Hyperlipidemia, unspecified; F10.10 Alcohol abuse, uncomplicated; F31.9 Bipolar disorder, unspecified; B19.20 Unspecified viral hepatitis C without hepatic coma; F41.9 Anxiety disorder, unspecified; F17.210 Nicotine dependence, cigarettes, uncomplicated

== ENCOUNTER 2017-04-03 16:28 | Emergency (ER) | payer MEDICARE, OTHER ==
[2017-04-03 16:28] VITALS: BMI 20.3
[2017-04-03 16:40] VITALS: RESP 16; O2SAT 99
[2017-04-03 17:57] LABS: BASO # 0.1 K/uL (0.0-0.2); BASO % 0.5 % (0.0-2.0); EOS % 0.4 % (0.0-4.0); HEMOGLOBIN 13.6 g/dL (12.0-18.0); LYMPH # 1.8 K/uL (1.0-4.3); LYMPH % 16.6 % (20.0-40.0); MEAN CELL VOLUME 90.1 fl (80.0-94.0); MEAN CORPUSCULAR HEMOGLOBIN 30.9 pg (27.0-31.0); MEAN CORPUSCULAR HGB CONC 34.3 g/dL (33.0-37.0); MONO # 0.7 K/uL (0.0-0.8); MONO % 6.4 % (0.0-10.0); NEUT # 8.1 K/uL (1.8-7.0); NEUT % 76.1 % (50.0-75.0); NRBC % 0.2 % (0.0-0.0); RBC 4.41 Mil/uL (4.40-5.90); RED CELL DISTRIBUTION WIDTH 13.9 % (11.5-14.5); WHITE BLOOD COUNT 10.7 K/uL (4.8-10.8)
[2017-04-03 18:16] LABS: ALBUMIN 3.4 g/dL (3.5-5.0); ALT/SGPT 52 U/L (21-72); AMYLASE 162 U/L (30-110); AST/SGOT 27 U/L (17-59); BLOOD UREA NITROGEN 18 mg/dl (9-20); CALCIUM 9.4 mg/dL (8.4-10.2); GFR AFRICAN-AMERICAN > 60; GFR NON-AFRICAN AMERICAN > 60; LIPASE 287 U/L (23-300)
--- NOTE | 2017-04-03 18:27 | ED PDOC ---
HPI: Abdomen Time Seen by Provider: 04/03/17 17:20 Chief Complaint (Nursing): Abdominal Pain Chief Complaint (Provider): Diffuse Abdominal Pain History/Exam Limitations: no limitations Onset/Duration Of Symptoms: Days Current Symptoms Are (Timing): Still Present Location Of Pain/Discomfort: Diffuse Exacerbating Factors: None Alleviating Factors: None Additional Complaint(s): 71 year old male post cholecytectomy 3 weeks ago presents to the ED complaining of ongoing diffuse abdominal pain since surgery. The patient state that as an outpatient he was given dilaudid for pain and is requesting the same today. Denies nausea, fever, vomiting, diarrhea, fever. Patients surgical wounds have healed without complications. Past Medical History Vital Signs: Last Vital Signs Temp 98.1 F 04/03/17 19:09 Pulse 75 04/03/17 19:09 Resp 16 04/03/17 19:09 BP 135/80 04/03/17 19:09 Pulse Ox 99 04/03/17 19:09 - Medical History PMH: Anxiety, Back Problems (herniated disk), Bipolar Disorder, Depression, Diabetes (type II), HIV, Hypercholesterolemia, Hyperlipidemia Denies: Arthritis, CHF, COPD, Hepatitis, HTN, Hypothyroidism, Chronic Kidney Disease, Rheumatoid Arthritis, Seizures, Sexually Transmitted Disease - Surgical History Surgical History: Back Surgery, Tonsillectomy - Family History Family History: States: Unknown Family Hx, Diabetes (father) - Immunization History Hx Tetanus Toxoid Vaccination: No Hx Influenza Vaccination: No Hx Pneumococcal Vaccination: No - Home Medications Home Medications: Ambulatory Orders Medication Instructions Recorded Calcium Carbonate/Vitamin D3 1 tab PO BID 03/10/17 [Calcium 500-Vit D3 200 Caplet] Ranitidine HCl [Zantac] 150 mg PO BID 03/10/17 metFORMIN [glucOPHAGE] 500 mg PO BID 03/10/17 tiZANidine [Zanaflex] 4 mg PO BID PRN 03/10/17 traZODone [Desyrel] 100 mg PO HS 03/10/17 ALPRAZolam [Xanax] 1 mg PO BID tab 03/16/17 amLODIPine [Norvasc] 5 mg PO DAILY tab 03/16/17 oxyCODONE/Acetaminophen [Percocet 1 tab PO Q4 PRN #20 tab 03/16/17 5/325 mg Tab] traMADol [Ultram] 50 mg PO TID PRN #15 tab 04/03/17 - Allergies Allergies/Adverse Reactions: Allergies Allergy/AdvReac Type Severity Reaction Status Date / Time No Known Allergies Allergy Verified 03/10/17 11:58 Review of Systems ROS Statement: Except As Marked, All Systems Reviewed And Found Negative Constitutional: Negative for: Fever Gastrointestinal: Positive for: Abdominal Pain (diffuse). Negative for: Nausea , Vomiting, Diarrhea Physical Exam - Reviewed Nursing Documentation Reviewed: Yes Vital Signs Reviewed: Yes - Physical Exam Appears: Positive for: Non-toxic, No Acute Distress Head Exam: Positive for: ATRAUMATIC, NORMAL INSPECTION, NORMOCEPHALIC Skin: Positive for: Normal Color, Warm, Dry. Negative for: Rash Eye Exam: Positive for: Normal appearance, EOMI, PERRL ENT: Positive for: Normal ENT Inspection. Negative for: Nasal Congestion, Tonsillar Exudate Neck: Positive for: Normal, Painless ROM Cardiovascular/Chest: Positive for: Regular Rate, Rhythm, Chest Non Tender. Negative for: Tachycardia Respiratory: Negative for: Rales, Rhonchi, Wheezing, Respiratory Distress Gastrointestinal/Abdominal: Positive for: Bowel Sounds, Soft, Tenderness ( bruises diffusely tender to surficial palpation), Other (pt has healing wounds and diffuse areas of resolving bruises ). Negative for: Mass, Guarding, Rebound , Hernia Back: Positive for: Normal Inspection. Negative for: L CVA Tenderness, R CVA Tenderness Extremity: Positive for: Normal ROM. Negative for: Tenderness, Deformity, Swelling Neurologic/Psych: Positive for: Alert, Oriented, Gait. Negative for: Motor/ Sensory Deficits - Laboratory Results Result Diagrams: 04/03/17 17:43 04/03/17 17:43 - ECG O2 Sat by Pulse Oximetry: 99 (RA) Pulse Ox Interpretation: Normal Medical Decision Making Medical Decision Makin Initial Impression 71 y/o male presenting with post surgical abdominal pain Initial Plan: * Amylase * CMP * Lipase * CBC * Toradol 30mg IVP * RAD abdomen (Flat Plate) * Reevaluation Documented by Yoko Olvera acting as a scribe for Francesco Reyes DO. All medical record entries made by the Scribe were at my direction and personally dictated by me. I have reviewed the chart and agree that the record accurately reflects my personal performance of the history, physical exam, medical decision making, and the department course for this patient. I have also personally directed, reviewed, and agree with the discharge instructions and disposition. Disposition - Clinical Impression Clinical Impression: Abdominal pain - Disposition Condition: STABLE Prescriptions: traMADol [Ultram] 50 mg PO TID PRN #15 tab PRN Reason: Pain, Moderate (4-7) Instructions: Acute Abdomen (Belly Pain), Adult (DC) Forms: [employer] (Tongan)
[2017-04-03 19:09] VITALS: BP 135/80; PULSE 75; TEMP 98.1
--- NOTE | 2017-04-04 11:06 | RAD ---
HISTORY: pain post vignesh COMPARISON: No prior. FINDINGS: BOWEL: The bowel gas pattern is nonspecific. No evidence of bowel dilatation. BONES: Normal. OTHER FINDINGS: Surgical clips in the right upper quadrant are related to prior cholecystectomy. IMPRESSION: Nonobstructive bowel-gas pattern.
== END 2017-04-03 19:10 | disposition home or self-care (01) ==
LOC: H.ER 16:28
DX: R10.9 Unspecified abdominal pain (principal); E11.9 Type 2 diabetes mellitus without complications; Z79.84 Long term (current) use of oral hypoglycemic drugs; E78.00 Pure hypercholesterolemia, unspecified; F31.9 Bipolar disorder, unspecified; F41.9 Anxiety disorder, unspecified; Z98.890 Other specified postprocedural states
CPT/HCPCS: 74018; 80053; 82150; 83690; 85025; 96374; 99284; J1885

== ENCOUNTER 2017-04-08 09:50 | Emergency (ER) | payer MEDICARE, OTHER ==
[2017-04-08 09:59] VITALS: BMI 17.2
[2017-04-08 10:00] VITALS: RESP 20
--- NOTE | 2017-04-08 11:21 | ED PDOC ---
HPI: Abdomen Time Seen by Provider: 04/08/17 10:06 Chief Complaint (Nursing): Abdominal Pain Chief Complaint (Provider): abd pain History Per: Patient Additional Complaint(s): 71-year-old male presents to emergency department with persistent abdominal pain. Patient has history of chronic abdominal pain but had cholecystectomy on and states the pain has been worse since then. Patient denies any vomiting or or diarrhea. He is tolerating liquids and solids. No fever or chills. Patient was seen for same complaint on April 03 and was sent home with tramadol but he states this is not helping the pain. Patient has long standing history of opiate dependence. PMD: Dr. Ojeda Past Medical History Reviewed: Historical Data, Nursing Documentation, Vital Signs Vital Signs: Last Vital Signs Temp 98.3 F 04/08/17 10:00 Pulse 70 04/08/17 10:00 Resp 20 04/08/17 10:00 BP 138/78 04/08/17 10:00 Pulse Ox 99 04/08/17 12:16 - Medical History PMH: Anxiety, Back Problems (herniated disk), Bipolar Disorder, Depression, Diabetes (type II), HIV, Hypercholesterolemia, Hyperlipidemia, Seizures - Surgical History Surgical History: Back Surgery, Cholecystectomy, Tonsillectomy - Family History Family History: States: Diabetes (father) - Living Arrangements Living Arrangements: With Family (lives with his brother) - Social History Current smoker - smoking cessation education provided: No Alcohol: None Drugs: Denies - Home Medications Home Medications: Ambulatory Orders Medication Instructions Recorded Calcium Carbonate/Vitamin D3 1 tab PO BID 03/10/17 [Calcium 500-Vit D3 200 Caplet] Ranitidine HCl [Zantac] 150 mg PO BID 03/10/17 metFORMIN [glucOPHAGE] 500 mg PO BID 03/10/17 tiZANidine [Zanaflex] 4 mg PO BID PRN 03/10/17 traZODone [Desyrel] 100 mg PO HS 03/10/17 ALPRAZolam [Xanax] 1 mg PO BID tab 03/16/17 amLODIPine [Norvasc] 5 mg PO DAILY tab 03/16/17 oxyCODONE/Acetaminophen [Percocet 1 tab PO Q4 PRN #20 tab 03/16/17 5/325 mg Tab] traMADol [Ultram] 50 mg PO TID PRN #15 tab 04/03/17 Ibuprofen [Motrin Tab] 800 mg PO Q8 PRN #20 tab 04/08/17 - Allergies Allergies/Adverse Reactions: Allergies Allergy/AdvReac Type Severity Reaction Status Date / Time No Known Allergies Allergy Verified 04/08/17 10:05 Review of Systems ROS Statement: Except As Marked, All Systems Reviewed And Found Negative Constitutional: Negative for: Fever, Chills Cardiovascular: Negative for: Chest Pain Respiratory: Negative for: Shortness of Breath Gastrointestinal: Positive for: Abdominal Pain. Negative for: Nausea, Vomiting , Diarrhea, Constipation Physical Exam - Reviewed Nursing Documentation Reviewed: Yes Vital Signs Reviewed: Yes - Physical Exam Appears: Positive for: Well, Non-toxic, No Acute Distress Skin: Negative for: Rash Eye Exam: Positive for: Normal appearance Cardiovascular/Chest: Positive for: Regular Rate, Rhythm Respiratory: Positive for: Normal Breath Sounds Gastrointestinal/Abdominal: Positive for: Soft, Other (Well-healed surgical scars noted). Negative for: Tenderness, Distended, Guarding, Rebound Back: Negative for: L CVA Tenderness, R CVA Tenderness Extremity: Positive for: Normal ROM Neurologic/Psych: Positive for: Alert, Oriented - Laboratory Results Result Diagrams: 04/08/17 11:59 04/08/17 11:59 - ECG O2 Sat by Pulse Oximetry: 99 Pulse Ox Interpretation: Normal - Other Rad KUB X-Ray: Interpreted by Me, Viewed By Me X-Ray Interpretation: moderate feces, no obstruction Medical Decision Making Medical Decision Makin71 year old with abdominal pain, s/p cholecystectomy on 03/15/17 Plan: CBC CMP KUB IVF IV toradol Patient states he feels somewhat better after Toradol. Negative workup noted. Patient discharged with prescription for Motrin and was advised to follow up with primary doctor. Disposition - Clinical Impression Clinical Impression: Abdominal pain, Chronic pain - Patient ED Disposition Is Patient to be Admitted: No Counseled Patient/Family Regarding: Studies Performed, Diagnosis, Need For Followup, Rx Given - Disposition Referrals: Moe Ojeda MD [Staff Provider] - Disposition: Routine/Home Disposition Time: 12:58 Condition: STABLE Additional Instructions: Take rx meds as directed. Follow up with primary care doctor. Prescriptions: Ibuprofen [Motrin Tab] 800 mg PO Q8 PRN #20 tab PRN Reason: Pain, Moderate (4-7) Instructions: Chronic Pain (DC), Acute Abdomen (Belly Pain), Adult (DC) Forms: [employer] (Frisian) Results - Lab Results Lab Results: 04/08/17 04/08/17 04/08/17 11:59 11:59 10:15 WBC 6.2 RBC 4.50 Hgb 14.4 Hct 41.1 MCV 91.4 MCH 31.9 H MCHC 34.9 RDW 14.9 H Plt Count 193 MPV 7.5 Neut % (Auto) 70.8 Lymph % (Auto) 22.3 Hardin % (Auto) 6.0 Eos % (Auto) 0.3 Baso % (Auto) 0.6 Neut # (Auto) 4.4 Lymph # (Auto) 1.4 Hardin # (Auto) 0.4 Eos # (Auto) 0.0 Baso # (Auto) 0.0 Sodium 143 Potassium 3.6 Chloride 108 H Carbon Dioxide 23 Anion Gap 16 BUN 15 Creatinine 0.7 L Est GFR ( Amer) > 60 Est GFR (Non-Af Amer) > 60 POC Glucose (mg/dL) 104 Random Glucose 101 Calcium 9.2 Total Bilirubin 0.8 AST 25 ALT 41 Alkaline Phosphatase 68 Total Protein 6.7 Albumin 3.5 Globulin 3.2 Albumin/Globulin Ratio 1.1
[2017-04-08] MEDS ORDERED: Sodium Chloride 0.9% 1,000 ML IV STA (11:42)
[2017-04-08 12:08] LABS: BASO % 0.6 % (0.0-2.0); EOS % 0.3 % (0.0-4.0); HEMOGLOBIN 14.4 g/dL (12.0-18.0); LYMPH # 1.4 K/uL (1.0-4.3); LYMPH % 22.3 % (20.0-40.0); MEAN CELL VOLUME 91.4 fl (80.0-94.0); MEAN CORPUSCULAR HEMOGLOBIN 31.9 pg (27.0-31.0); MEAN CORPUSCULAR HGB CONC 34.9 g/dL (33.0-37.0); MEAN PLATELET VOLUME 7.5 fl (7.2-11.7); MONO # 0.4 K/uL (0.0-0.8); NEUT # 4.4 K/uL (1.8-7.0); NEUT % 70.8 % (50.0-75.0); NRBC % 0.2 % (0.0-0.0); RBC 4.5 Mil/uL (4.40-5.90); RED CELL DISTRIBUTION WIDTH 14.9 % (11.5-14.5); WHITE BLOOD COUNT 6.2 K/uL (4.8-10.8)
[2017-04-08 12:18] LABS: ALB/GLOB RATIO 1.1 (1.0-2.1); ALBUMIN 3.5 g/dL (3.5-5.0); ALT/SGPT 41 U/L (21-72); AST/SGOT 25 U/L (17-59); BLOOD UREA NITROGEN 15 mg/dl (9-20); CALCIUM 9.2 mg/dL (8.4-10.2); GFR AFRICAN-AMERICAN > 60; GFR NON-AFRICAN AMERICAN > 60
--- NOTE | 2017-04-08 12:48 | RAD ---
HISTORY: pain COMPARISON: No prior. FINDINGS: BOWEL: There is a nonspecific bowel gas pattern appreciated with a mildly distended loop of apparent small bowel the left upper quadrant distended to 3.5 cm. Remaining small bowel is generally unremarkable but mildly distended with gas. No demonstrated free intraperitoneal gas air surgical clips again seen the right upper quadrant abdomen. No suspicious intra-abdominal calcifications. BONES: Normal. OTHER FINDINGS: None. IMPRESSION: Nonspecific bowel gas pattern with a 3.4 distended loop of small bowel noted in the left upper quadrant. No free intraperitoneal gas. Prior cholecystectomy changes suggestive right upper quadrant. Clinically correlate with possible radiographic follow-up as required.
[2017-04-08 13:29] VITALS: BP 120/70; PULSE 72; TEMP 98.6; O2SAT 98
== END 2017-04-08 13:32 | disposition home or self-care (01) ==
LOC: H.ER 09:50
DX: R10.9 Unspecified abdominal pain (principal); G89.29 Other chronic pain; E11.9 Type 2 diabetes mellitus without complications; E78.00 Pure hypercholesterolemia, unspecified; F31.9 Bipolar disorder, unspecified; F41.9 Anxiety disorder, unspecified; Z79.84 Long term (current) use of oral hypoglycemic drugs; Z90.49 Acquired absence of other specified parts of digestive tract
CPT/HCPCS: 96365; 99283; J1885; J7040

== ENCOUNTER 2017-04-09 00:14 | Inpatient (IN) | payer MEDICARE, OTHER ==
[2017-04-09 00:14] VITALS: BMI 17.2
--- NOTE | 2017-04-09 01:01 | ED PDOC ---
HPI: Abdomen Time Seen by Provider: 04/09/17 00:20 Chief Complaint (Nursing): Abdominal Pain Chief Complaint (Provider): abdominal pain and back pain History Per: Patient History/Exam Limitations: no limitations Onset/Duration Of Symptoms: Hrs (24 hours ago), Days Current Symptoms Are (Timing): Still Present Additional Complaint(s): 71 yo male with a history of depression,schizophrenia, and a recent cholecystectomy for acute cholecystitis, presents to the ED complaining of abdominal pain and back pain, onset of 24 hours ago. Of note, this is the patient's 3rd ED visit in the last 24 hours. He initially presents complaining of abdominal and back pain, but now also states that he feels depressed, alone, and unable to care for himself. He was recently released from a rehab facility and says that he felt safer in said facility. He denies any homicidal or suicidal ideation, but reports of auditory hallucinations. Past Medical History Reviewed: Historical Data, Nursing Documentation, Vital Signs Vital Signs: Last Vital Signs Temp 98.2 F 04/09/17 00:38 Pulse 72 04/09/17 00:38 Resp 18 04/09/17 00:38 BP 132/83 04/09/17 00:38 Pulse Ox 97 04/09/17 01:15 - Medical History PMH: Anxiety, Back Problems (herniated disk), Bipolar Disorder, Depression, Diabetes (type II), HIV, Hypercholesterolemia, Hyperlipidemia, Schizophrenia, Seizures Denies: Arthritis, CHF, COPD, Hepatitis, HTN, Hypothyroidism, Chronic Kidney Disease, Rheumatoid Arthritis, Sexually Transmitted Disease - Surgical History Surgical History: Back Surgery, Cholecystectomy, Tonsillectomy - Family History Family History: States: Unknown Family Hx, Diabetes (father) - Social History Current smoker - smoking cessation education provided: Yes (heavy) Alcohol: None Drugs: Denies - Immunization History Hx Tetanus Toxoid Vaccination: No Hx Influenza Vaccination: No Hx Pneumococcal Vaccination: No - Home Medications Home Medications: Ambulatory Orders Medication Instructions Recorded No Known Home Med 04/08/17 - Allergies Allergies/Adverse Reactions: Allergies Allergy/AdvReac Type Severity Reaction Status Date / Time No Known Allergies Allergy Verified 04/08/17 15:20 Review of Systems ROS Statement: Except As Marked, All Systems Reviewed And Found Negative Gastrointestinal: Positive for: Abdominal Pain Musculoskeletal: Positive for: Back Pain Psych: Positive for: Depression, Other (auditory hallucination). Negative for: Suicidal ideation (no suicidal or homicidal ideation) Physical Exam - Reviewed Nursing Documentation Reviewed: Yes Vital Signs Reviewed: Yes - Physical Exam Appears: Positive for: Well, Non-toxic, No Acute Distress Head Exam: Positive for: ATRAUMATIC, NORMAL INSPECTION, NORMOCEPHALIC Skin: Positive for: Normal Color, Warm, DRY Eye Exam: Positive for: EOMI, Normal appearance, PERRL ENT: Positive for: Normal ENT Inspection Neck: Positive for: Normal, Painless ROM Cardiovascular/Chest: Positive for: Regular Rate, Rhythm. Negative for: Murmur Respiratory: Positive for: Normal Breath Sounds. Negative for: Respiratory Distress Gastrointestinal/Abdominal: Positive for: Normal Exam, Soft. Negative for: Tenderness Back: Positive for: Normal Inspection Extremity: Positive for: Normal ROM. Negative for: Pedal Edema, Deformity Neurologic/Psych: Positive for: Alert, Oriented, Mood/Affect (affect is flat) - ECG O2 Sat by Pulse Oximetry: 97 (RA) Pulse Ox Interpretation: Normal Medical Decision Making Medical Decision Making: Time: --00:40 Impression: --71 yo male with depression and auditory hallucinations in setting of schizophrenia Plan: --ECG --Crisis Evaluation as ordered Reassess --01:50 Patient has been evaluated by crisis and will be admitted under Dr. Cardozo. diagnosis: Depression Scribe Attestation: Documented by Darwin Aguillon acting as a scribe for Josh Ayala MD. Provider Attestation: All medical record entries made by the Scribe were at my direction and personally dictated by me. I have reviewed the chart and agree that the record accurately reflects my personal performance of the history, physical exam, medical decision making, and the department course for this patient. I have also personally directed, reviewed, and agree with the discharge instructions and disposition. Disposition - Clinical Impression Clinical Impression: Depression - Patient ED Disposition Is Patient to be Admitted: Yes Discussed With : Elina Cardozo Doctor Will See Patient In The: Hospital - Disposition Disposition Time: 01:50 Condition: FAIR Forms: [employer] (Samoan)
[2017-04-09] MEDS ORDERED: Alum-Mag Hydrox-Simethicone Susp (30 mL) PO STA (01:45)
[2017-04-09] MEDS ORDERED: Alum-Mag Hydrox-Simethicone Susp (30 mL) ONE (01:48)
[2017-04-09] MEDS ORDERED: Oxycodone/Acetaminophen 5/325 mg Tab PO STA (02:55)
[2017-04-09 03:03] VITALS: O2SAT 99
[2017-04-09] MEDS ORDERED: Oxycodone/Acetaminophen 5/325 mg Tab ONE (03:05)
[2017-04-09] MEDS ORDERED: Alum-Mag Hydrox-Simethicone Susp (30 mL) PO PRN (04:51)
[2017-04-09] MEDS ORDERED: Magnesium Hydroxide Susp 30 ml UD PO PRN (04:51)
[2017-04-09] MEDS ORDERED: Bismuth Subsalicylate 262 mg/15 ml Sus (240 ml) PO PRN (04:51)
--- NOTE | 2017-04-09 05:05 | PCM.BM ---
<Treva Calix - Last Filed: 04/09/17 05:03> Treatment Plan Problems - Problems identified on initial assessmt Hopelessness/Helplessness Date Initiated: 04/09/17 Time Initiated: 05:03 Assessment reference: NA Status: Active Self care deficit Date Initiated: 04/09/17 Time Initiated: 05:04 Assessment reference: NA Status: Active Treatment assets and liabiliti Patient Assests: cooperative, ADL independent, negotiates basic needs Patient Liabilities: poor support system - Milieu Protocol Maintain good personal hygiene: daily Encourage regular showers, daily Remind patient to perform daily oral care, other Assist patient to perform ADL's (prn) Conduct patient checks and document Observation sheet: Q15 minutes Maintain personal safety: every shift Educate patient to report safety concerns to staff, every shift Monitor environment for contraband/sharps Medication safety: Monitor for expected outcome, potential side effects: every shift, Assess barriers to learning: every shift, Assess readiness for medication education: every shift <Elina Cardozo - Last Filed: 04/09/17 12:30> - Diagnosis (1) Major depressive disorder Status: Acute Interventions: Medication management, Individual and group therapy, Psychoeducation 04/09/17 12:30 <Jenniffer Robertson - Last Filed: 04/11/17 12:34> Family Contact Family involvement: Patient does not wish Family/SO involvement Family contact: Patient declines to allow family contact at present Family contact name: Juancarlos - brother Discharge/Continuing Care - Education Needs Education Needs: Patient Medication, Patient Diagnosis/Disease Process, Patient Coping Skills, Patient Community resources, Patient Activities of Daily Living, Patient Health Practices/Safety, Patient Personal Hygiene/Grooming, Patient Aftercare Safety Plan - Discharge Discharge Criteria: Tolerates medication w/o severe side effects, Normal sleep pattern, Ability to care for self, Reduction of target symptoms, Other ( Reduction of depressive symptoms) Discharge to:: Home, With Family - Additional Comments 04/11/17 12:26 Pt seen and discussed in team meeting. Reason for admission reviewed and discussed. Pt reported being self-referred tot he Ed due to abdominal pain. Pt stated " i was in a lot of pain in my stomach, depressed and very nervous." Pt reported feeling very nervous because "I can't take care of myself." When asked to further elaborate of "can't take care of himself" pt stated that he is unable to cook for himself and his brother, Juancarlos and has difficulty going to the grocery store. Lab Analyst reviewed and discussed home health aide services, but pt refused at the present time. Pt reported being his brother, Juancarlos primary patient care associate. Pt reported limited social and emotional support system. Pt reported medication non-compliance. Pt reported he is not linked to an outpatient mental health services at the present time. Pt's medications reviewed and discussed with attending MD. Tx plan reviewed and pt is agreeable. SW to continue to follow case. - Treatment Team Participation Discussed with Family/SO: No Was Patient/Family/SO present at Treatment Team Meeting: Yes
--- NOTE | 2017-04-09 09:37 | RAD ---
HISTORY: admit COMPARISON: Portable chest 03/12/2017. FINDINGS: LUNGS: No active pulmonary disease. PLEURA: No significant pleural effusion identified, no pneumothorax apparent. CARDIOVASCULAR: Normal. OSSEOUS STRUCTURES: No significant abnormalities. VISUALIZED UPPER ABDOMEN: Normal. OTHER FINDINGS: None. IMPRESSION: No interval acute cardiopulmonary disease appreciated.
--- NOTE | 2017-04-09 12:31 | PCM.PSYCH ---
Initial Psychiatric Evaluation - Initial Psychiatric Evaluation Type of Admission: Voluntary Legal Status: Capacity Chief Complaint (in patient's own words): I'm depressed Patient's Reaction to Hospitalization: HPI: 71 yo male w/ remote history of Alcohol and Opiate use disorder, presents w / severe depression in the context of having chronic pain. Patient reports that he feels depressed and hopeless and reports poor memory and concentration. He denies AH/VH/paranoia/delusions/SI/HI. PPHx: H/o previous psychiatric hospitalizations for MDD vs bipolar disorder; patient is not currently compliant with any psychiatric treatment or medications PMHx: Hepatitis, HTN SHx: H/o back surgery, h/o tonsil surgery ALL: NKDA SHx: Lives w/ his brother; denies current drug/ alcohol abuse; +cig use FHx: Brother w/ schizophrenia Current Medications: Active Medications Generic Name Dose Route Start Last Admin Trade Name Freq PRN Reason Stop Dose Admin Acetaminophen 650 mg 04/09/17 04:51 Tylenol 325mg Tab PO Q4 PRN Pain, moderate (4-7) Al Hydrox/Mg Hydrox/Simethicone 30 ml 04/09/17 04:51 Maalox Plus 30 Ml PO Q4 PRN Dyspepsia Bismuth Subsalicylate 524 mg 04/09/17 04:51 Pepto-Bismol PO Q4 PRN Diarrhea Duloxetine HCl 30 mg 04/09/17 12:30 Cymbalta PO DAILY MERCEDES Lorazepam 0.5 mg 04/09/17 04:51 Ativan PO 04/23/17 04:52 HS PRN Insomnia Lorazepam 0.5 mg 04/09/17 04:51 Ativan PO 04/23/17 04:52 Q6 PRN Anixety/Agitation Magnesium Hydroxide 30 ml 04/09/17 04:51 Milk Of Magnesia PO HS PRN Constipation Tramadol HCl 50 mg 04/09/17 10:12 04/09/17 10:41 Ultram PO 50 mg Q6 PRN Administration Pain, severe (8-10) Trazodone HCl 50 mg 04/09/17 12:29 Desyrel PO HS PRN Insomnia Past Psychiatric History - Past Psychiatric History Previous Treatment History: Inpatient Pertinent Medical Hx (Current Medical&Sleep Prob, Allergies): Allergies Allergy/AdvReac Type Severity Reaction Status Date / Time No Known Allergies Allergy Verified 04/08/17 15:20 No Known Home Med 04/08/17 Review of Systems - Psychiatric Psychiatric: Abnormal Sleep Pattern, Depression, Difficulty Concentrating, Memory Loss Mental Status Examination - Personal Presentation Personal Presentation: Looks stated age - Affect Affect: Constricted, Depressed - Motor Activity Motor Activity: Calm - Reliability in Providing Information Reliability in Providing Information: Poor, due to altered mood - Speech Speech: Coherent - Mood Mood: Depressed - Formal Thought Process Formal Thought Process: Loosening of associations - Hallucinations/Delusions Additional comments: Denies AH/VH/paranoia/delusions - Obsessions/Compulsions Obsessions: No Compulsions: No - Cognitive Functions Orientation: Person, Place, Situation, Time Sensorium: Alert Judgement: Intact, as evidence by: Insight regarding need for hospitalization Memory: Recent intact, as evidence by: Ability to recall events of the day, Remote intact, as evidenced by: Abilit to recall sig. life events - Risk Risk: Diminished functioning - Strength & Assets Inventory Strength & Assets Inventory: Cooperative DSM 5 DX - DSM 5 DSM 5 Diagnosis: Depressive Disorder - Recommended/Plan of Treatment Treatment Recommendations and Plan of Treatment: Depressive Disorder; r/o MDD, r/o Bipolar disorder -Admit to geriatric psychiatry unit -Start Cymbalta 30 mg PO Daily -Individual and group therapy -Medicine consult -Psychoeducation -Disposition planning Projected ELOS: 5-9 days Discharge Plan and Discharge Criteria: Discharge patient when he is psychiatrically stable - Smoking Cessation Smoking Cessation Initiated: No Reason for not providing: Patient declined
[2017-04-09 17:34] LABS: OPIATES, UR NEGATIVE (NEGATIVE)
[2017-04-09 17:39] LABS: BARBITURATES, UR NEGATIVE (NEGATIVE); BENZODIAZEPINES, UR NEGATIVE (NEGATIVE); PHENCYCLIDINE, UR NEGATIVE (NEGATIVE)
--- NOTE | 2017-04-09 19:06 | CARD ---
APPROVED REPORT EKG Measurement Heart [id number] <Conclusion> Normal sinus rhythm Normal ECG
--- NOTE | 2017-04-09 22:06 | CP.PCM.HP ---
History of Present Illness - History of Present Illness History of Present Illness: CC: Feeling Down and Back Pain History of Present Illness A 71 yo male with a history of depression,schizophrenia, and a recent cholecystectomy for acute cholecystitis, presents to the ED complaining of abdominal pain and back pain, onset of 24 hours ago. Of note, this is the patient's 3rd ED visit in the last 24 hours. He initially presents complaining of abdominal and back pain, but now also states that he feels depressed, alone, and unable to care for himself. He was recently released from a rehab facility and says that he felt safer in said facility. He denies any homicidal or suicidal ideation, but reports of auditory hallucinations. Present on Admission - Present on Admission Any Indicators Present on Admission: No History of DVT/PE: No Review of Systems - Review of Systems All systems: reviewed and no additional remarkable complaints except Past Patient History - Infectious Disease Hx of Infectious Diseases: None - Tetanus Immunizations Tetanus Immunization: Unknown - Past Medical History & Family History Past Medical History?: Yes Past Family History: Reviewed and not pertinent - Past Social History Smoking Status: Former Smoker Alcohol: None Drugs: Denies - CARDIAC Hx Cardiac Disorders: No Hx Hypertension: No - PULMONARY Hx Respiratory Disorders: No Hx Bronchitis: No Hx Tuberculosis: No - NEUROLOGICAL HX Cerebrovascular Accident: No Hx Seizures: Yes - HEENT Hx HEENT Problems: No - RENAL Hx Chronic Kidney Disease: No - ENDOCRINE/METABOLIC Hx Endocrine Disorders: Yes Hx Diabetes Mellitus Type 2: Yes - HEMATOLOGICAL/ONCOLOGICAL Hx Blood Disorders: No Hx Cancer: No Hx Human Immunodeficiency Virus (HIV): Yes - INTEGUMENTARY Hx Dermatological Problems: No - MUSCULOSKELETAL/RHEUMATOLOGICAL Hx Arthritis: No Hx Falls: No Hx Rheumatoid Arthritis: No - GASTROINTESTINAL Hx Gastrointestinal Disorders: No - GENITOURINARY/GYNECOLOGICAL Hx Sexually Transmitted Disorders: No - PSYCHIATRIC Hx Depression: Yes Hx Emotional Abuse: No Hx Physical Abuse: No Hx Sexual Abuse: No Hx Substance Use: Yes (HX HEROIN, COCAINE, AND MARIJUANA USE) - SURGICAL HISTORY Hx Cholecystectomy: Yes Hx Tonsillectomy: Yes - ANESTHESIA Hx Anesthesia: Yes Hx Anesthesia Reactions: No Hx Malignant Hyperthermia: No Meds Allergies/Adverse Reactions: Allergies Allergy/AdvReac Type Severity Reaction Status Date / Time No Known Allergies Allergy Verified 04/08/17 15:20 Physical Exam - Constitutional Appears: Chronically Ill - Head Exam Head Exam: ATRAUMATIC, NORMAL INSPECTION, NORMOCEPHALIC - Eye Exam Eye Exam: EOMI, Normal appearance, PERRL Pupil Exam: NORMAL ACCOMODATION, PERRL - ENT Exam ENT Exam: Mucous Membranes Moist, Normal Exam - Neck Exam Neck exam: Positive for: Full Rom, Normal Inspection - Respiratory Exam Respiratory Exam: Clear to Auscultation Bilateral, NORMAL BREATHING PATTERN - Cardiovascular Exam Cardiovascular Exam: REGULAR RHYTHM, +S1, +S2 - GI/Abdominal Exam GI & Abdominal Exam: Normal Bowel Sounds, Soft. absent: Tenderness - Extremities Exam Extremities exam: Positive for: full ROM, joint swelling, normal inspection - Back Exam Back exam: NORMAL INSPECTION - Neurological Exam Neurological exam: Alert, CN II-XII Intact, Normal Gait, Oriented x3, Reflexes Normal - Psychiatric Exam Psychiatric exam: Anxious, Depressed, Flat Affect - Skin Skin Exam: Dry, Intact, Normal Color, Warm Results - Vital Signs Recent Vital Signs: Last Vital Signs Temp 97.6 F 04/09/17 15:08 Pulse 62 04/09/17 15:08 Resp 18 04/09/17 15:08 BP 144/69 04/09/17 15:08 Pulse Ox 99 04/09/17 03:02 - Labs Result Diagrams: 04/10/17 06:30 04/10/17 06:30 Labs: Laboratory Results - last 24 hr 04/09/17 17:10 Urine Opiates Screen Negative Urine Methadone Screen Negative Ur Barbiturates Screen Negative Ur Phencyclidine Scrn Negative Ur Amphetamines Screen Negative U Benzodiazepines Scrn Negative U Oth Cocaine Metabols Negative U Cannabinoids Screen Negative - Imaging and Cardiology Chest x-ray Additional comment: IMPRESSION: No interval acute cardiopulmonary disease appreciated. Assessment & Plan (1) Major depressive disorder Assessment and Plan: With Hallucination Continue Psych Recommendation Status: Acute (2) Abdominal pain Assessment and Plan: Bialiary Colic Tramadol PRN Will consult surgery if pain Persists Status: Chronic Priority: Medium (3) HIV antibody positive Status: Chronic
[2017-04-10 07:25] LABS: BASO % 0.5 % (0.0-2.0); EOS # 0.1 K/uL (0.0-0.7); EOS % 1.6 % (0.0-4.0); HEMOGLOBIN 13.2 g/dL (12.0-18.0); LYMPH # 1.9 K/uL (1.0-4.3); LYMPH % 31.4 % (20.0-40.0); MEAN CELL VOLUME 90.6 fl (80.0-94.0); MEAN CORPUSCULAR HEMOGLOBIN 31.8 pg (27.0-31.0); MEAN CORPUSCULAR HGB CONC 35.1 g/dL (33.0-37.0); MEAN PLATELET VOLUME 7.5 fl (7.2-11.7); MONO # 0.5 K/uL (0.0-0.8); NEUT # 3.5 K/uL (1.8-7.0); NEUT % 58.5 % (50.0-75.0); NRBC % 0.4 % (0.0-0.0); RBC 4.16 Mil/uL (4.40-5.90); RED CELL DISTRIBUTION WIDTH 15.2 % (11.5-14.5); WHITE BLOOD COUNT 5.9 K/uL (4.8-10.8)
[2017-04-10 07:55] LABS: ALT/SGPT 42 U/L (21-72); AST/SGOT 31 U/L (17-59); BLOOD UREA NITROGEN 20 mg/dl (9-20); CALCIUM 9.1 mg/dL (8.4-10.2); GFR AFRICAN-AMERICAN > 60; GFR NON-AFRICAN AMERICAN > 60; HDL CHOLESTEROL 35 MG/DL (30-70); IRON 55 ug/dL (49-181)
[2017-04-10 08:04] LABS: LDL CHOLESTEROL 49 mg/dL (0-129)
[2017-04-10 08:08] LABS: % IRON SATURATION 23 % (20-55); TOTAL IRON BINDING CAPACITY 240 ug/dL (250-450)
--- NOTE | 2017-04-10 10:05 | PCM.PYCHPN ---
Psychiatric Progress Note - Psychiatric Progress Note Patient seen today, length of contact: Patient evaluated, case discussed w/ team , chart reviewed Patient Chief Complaint: I'm depressed Problems Identified/Issues Discussed: Patient continues to report feeling depressed. He states that his chronic stomach pain causes him to feel hopeless. No acute AH/VH/SI/HI. Medication Change: No Medical Record Reviewed: Yes Consults ordered or reviewed: Medicine consult Mental Status Examination - Cognitive Function Orientation: Person, Place, Situation, Time Memory: Impaired Fund of Knowledge: WNL Decription of patient's judgement and insights: Fair I/J - Mood Mood: Depressed - Affect Affect: Constricted, Depressed - Formal Thought Process Formal Thought Process: Loosening of associations Psychotic Thoughts and Behaviors: NO AH/VH/paranoia/delusions - Suicidal Ideation Suicidal Ideation: No - Homicidal Ideation Homicidal Ideation: No Goal/Treatment Plan - Goal/Treatment Plan Need for Continued Stay: Remain at risks for inpatient hospitalization, Severe depression anxiety Progress Toward Problem(s) and Goals/Treatment Plan: Depressive Disorder; r/o MDD, r/o Bipolar disorder -Continue Cymbalta 30 mg PO Daily -Individual and group therapy -Medicine consult -Psychoeducation -Disposition planning Estimated Date of D/C: 04/14/17
--- NOTE | 2017-04-10 13:22 | CP.PCM.PN ---
Subjective - Date & Time of Evaluation Date of Evaluation: 04/10/17 Time of Evaluation: 13:05 - Subjective Subjective: Seen and examined the bed side. C/O On and off abdominal pain. Objective - Vital Signs/Intake and Output Vital Signs (last 24 hours): Temp Pulse Resp BP Pulse Ox 97.7 F 62 18 139/69 99 04/10/17 05:54 04/10/17 05:54 04/10/17 05:54 04/10/17 05:54 04/09/17 03:02 - Medications Medications: Current Medications Acetaminophen (Tylenol 325mg Tab) 650 mg PO Q4 PRN PRN Reason: Pain, moderate (4-7) Al Hydrox/Mg Hydrox/Simethicone (Maalox Plus 30 Ml) 30 ml PO Q4 PRN PRN Reason: Dyspepsia Last Admin: 04/10/17 12:21 Dose: 30 ml Bismuth Subsalicylate (Pepto-Bismol) 524 mg PO Q4 PRN PRN Reason: Diarrhea Duloxetine HCl (Cymbalta) 30 mg PO DAILY [facility] Last Admin: 04/10/17 08:14 Dose: 30 mg Lorazepam (Ativan) 0.5 mg PO HS PRN PRN Reason: Insomnia Stop: 04/23/17 04:52 Lorazepam (Ativan) 0.5 mg PO Q6 PRN PRN Reason: Anixety/Agitation Stop: 04/23/17 04:52 Magnesium Hydroxide (Milk Of Magnesia) 30 ml PO HS PRN PRN Reason: Constipation Tramadol HCl (Ultram) 50 mg PO Q6 PRN PRN Reason: Pain, severe (8-10) Last Admin: 04/10/17 09:47 Dose: 50 mg Trazodone HCl (Desyrel) 50 mg PO HS PRN PRN Reason: Insomnia Last Admin: 04/09/17 21:06 Dose: 50 mg - Labs Labs: 04/10/17 06:30 04/10/17 06:30 - Constitutional Appears: Well, No Acute Distress - Head Exam Head Exam: ATRAUMATIC, NORMAL INSPECTION, NORMOCEPHALIC - Eye Exam Eye Exam: EOMI, Normal appearance, PERRL Pupil Exam: NORMAL ACCOMODATION, PERRL - ENT Exam ENT Exam: Mucous Membranes Moist, Normal Exam - Neck Exam Neck Exam: Full ROM, Normal Inspection. absent: Lymphadenopathy - Respiratory Exam Respiratory Exam: Clear to Ausculation Bilateral, NORMAL BREATHING PATTERN - Cardiovascular Exam Cardiovascular Exam: REGULAR RHYTHM, +S1, +S2. absent: Murmur - GI/Abdominal Exam GI & Abdominal Exam: Soft, Normal Bowel Sounds. absent: Tenderness - Extremities Exam Extremities Exam: Full ROM, Normal Capillary Refill, Normal Inspection. absent : Joint Swelling, Pedal Edema - Back Exam Back Exam: NORMAL INSPECTION - Neurological Exam Neurological Exam: Alert, Awake, CN II-XII Intact, Normal Gait, Oriented x3 - Psychiatric Exam Psychiatric exam: Normal Affect, Normal Mood - Skin Skin Exam: Dry, Intact, Normal Color, Warm Assessment and Plan (1) Major depressive disorder Assessment & Plan: With Hallucination Continue Psych Recommendation Status: Acute (2) Abdominal pain Assessment and Plan: Bialiary Colic Tramadol PRN Will consult surgery if pain Persists Status: Chronic Priority: Medium (3) HIV antibody positive Status: Chronic
[2017-04-10 16:39] LABS: FOLATE 14.3 ng/mL
--- NOTE | 2017-04-11 11:39 | PCM.PYCHPN ---
Psychiatric Progress Note - Psychiatric Progress Note Patient seen today, length of contact: Patient evaluated, case discussed w/ team , chart reviewed Patient Chief Complaint: I'm depressed Problems Identified/Issues Discussed: Patient continues to report feeling depressed and states that he is anxious. He reports less stomach pain, but continues to feel hopeless at times. No acute AH/VH/SI/HI. Medication Change: No Medical Record Reviewed: Yes Consults ordered or reviewed: Medicine consult Mental Status Examination - Cognitive Function Orientation: Person, Place, Situation, Time Memory: Impaired Fund of Knowledge: WNL Decription of patient's judgement and insights: Fair I/J - Mood Mood: Depressed, Anxious - Affect Affect: Constricted, Depressed - Formal Thought Process Formal Thought Process: Loosening of associations Psychotic Thoughts and Behaviors: NO AH/VH/paranoia/delusions - Suicidal Ideation Suicidal Ideation: No - Homicidal Ideation Homicidal Ideation: No Goal/Treatment Plan - Goal/Treatment Plan Need for Continued Stay: Remain at risks for inpatient hospitalization, Severe depression anxiety Progress Toward Problem(s) and Goals/Treatment Plan: Depressive Disorder; r/o MDD, r/o Bipolar disorder -Continue Cymbalta 30 mg PO Daily -Vistaril PRN anxiety -Individual and group therapy -Medicine consult -Psychoeducation -Disposition planning Estimated Date of D/C: 04/14/17
--- NOTE | 2017-04-12 10:16 | PCM.PYCHPN ---
Psychiatric Progress Note - Psychiatric Progress Note Patient seen today, length of contact: Patient evaluated, case discussed w/ team , chart reviewed Patient Chief Complaint: I'm depressed Problems Identified/Issues Discussed: Patient reports that his mood is starting to improve, but he continues to feel depressed and anxious. He reports less stomach pain (chronic pain). No acute AH/VH/SI/HI. Medication Change: No Medical Record Reviewed: Yes Consults ordered or reviewed: Medicine consult Mental Status Examination - Cognitive Function Orientation: Person, Place, Situation, Time Memory: Impaired Fund of Knowledge: WNL Decription of patient's judgement and insights: Fair I/J - Mood Mood: Anxious - Affect Affect: Constricted - Formal Thought Process Formal Thought Process: Loosening of associations Psychotic Thoughts and Behaviors: NO AH/VH/paranoia/delusions - Suicidal Ideation Suicidal Ideation: No - Homicidal Ideation Homicidal Ideation: No Goal/Treatment Plan - Goal/Treatment Plan Need for Continued Stay: Remain at risks for inpatient hospitalization, Severe depression anxiety Progress Toward Problem(s) and Goals/Treatment Plan: Depressive Disorder; r/o MDD, r/o Bipolar disorder -Continue Cymbalta 30 mg PO Daily -Vistaril PRN anxiety -Individual and group therapy -Medicine consult -Psychoeducation -Disposition planning Estimated Date of D/C: 04/14/17
--- NOTE | 2017-04-12 18:04 | CP.PCM.PN ---
Subjective - Date & Time of Evaluation Date of Evaluation: 04/11/17 Time of Evaluation: 15:45 - Subjective Subjective: Continue depressed. No Complaint. Objective - Vital Signs/Intake and Output Vital Signs (last 24 hours): Temp Pulse Resp BP Pulse Ox 98.1 F 67 18 134/64 99 04/12/17 15:46 04/12/17 15:46 04/12/17 15:46 04/12/17 15:46 04/09/17 03:02 - Medications Medications: Current Medications Acetaminophen (Tylenol 325mg Tab) 650 mg PO Q4 PRN PRN Reason: Pain, moderate (4-7) Al Hydrox/Mg Hydrox/Simethicone (Maalox Plus 30 Ml) 30 ml PO Q4 PRN PRN Reason: Dyspepsia Last Admin: 04/10/17 12:21 Dose: 30 ml Bismuth Subsalicylate (Pepto-Bismol) 524 mg PO Q4 PRN PRN Reason: Diarrhea Duloxetine HCl (Cymbalta) 30 mg PO DAILY [facility] Last Admin: 04/12/17 08:31 Dose: 30 mg Hydroxyzine Pamoate (Vistaril) 25 mg PO TID PRN PRN Reason: Anxiety Last Admin: 04/12/17 13:38 Dose: 25 mg Lorazepam (Ativan) 0.5 mg PO HS PRN PRN Reason: Insomnia Stop: 04/23/17 04:52 Last Admin: 04/10/17 21:04 Dose: 0.5 mg Lorazepam (Ativan) 0.5 mg PO Q6 PRN PRN Reason: Anixety/Agitation Stop: 04/23/17 04:52 Last Admin: 04/11/17 21:21 Dose: 0.5 mg Magnesium Hydroxide (Milk Of Magnesia) 30 ml PO HS PRN PRN Reason: Constipation Tramadol HCl (Ultram) 50 mg PO Q6 PRN PRN Reason: Pain, severe (8-10) Last Admin: 04/12/17 09:37 Dose: 50 mg Trazodone HCl (Desyrel) 50 mg PO HS PRN PRN Reason: Insomnia Last Admin: 04/09/17 21:06 Dose: 50 mg - Labs Labs: 04/10/17 06:30 04/10/17 06:30 - Constitutional Appears: No Acute Distress, Chronically Ill - Head Exam Head Exam: ATRAUMATIC, NORMAL INSPECTION, NORMOCEPHALIC - Eye Exam Eye Exam: EOMI - ENT Exam ENT Exam: Mucous Membranes Dry - Neck Exam Neck Exam: Full ROM, Normal Inspection - Cardiovascular Exam Cardiovascular Exam: REGULAR RHYTHM, +S1, +S2 - Extremities Exam Extremities Exam: Full ROM, Normal Capillary Refill, Normal Inspection - Neurological Exam Neurological Exam: Alert, Awake, CN II-XII Intact - Psychiatric Exam Psychiatric exam: Anxious, Depressed, Flat Affect Assessment and Plan (1) Major depressive disorder Status: Acute (2) Back pain Status: Chronic
--- NOTE | 2017-04-12 18:05 | CP.PCM.PN ---
Subjective - Date & Time of Evaluation Date of Evaluation: 04/12/17 Time of Evaluation: 17:50 - Subjective Subjective: Still feels Depressed and anxious. Objective - Vital Signs/Intake and Output Vital Signs (last 24 hours): Temp Pulse Resp BP Pulse Ox 98.1 F 67 18 134/64 99 04/12/17 15:46 04/12/17 15:46 04/12/17 15:46 04/12/17 15:46 04/09/17 03:02 - Medications Medications: Current Medications Acetaminophen (Tylenol 325mg Tab) 650 mg PO Q4 PRN PRN Reason: Pain, moderate (4-7) Al Hydrox/Mg Hydrox/Simethicone (Maalox Plus 30 Ml) 30 ml PO Q4 PRN PRN Reason: Dyspepsia Last Admin: 04/10/17 12:21 Dose: 30 ml Bismuth Subsalicylate (Pepto-Bismol) 524 mg PO Q4 PRN PRN Reason: Diarrhea Duloxetine HCl (Cymbalta) 30 mg PO DAILY [facility] Last Admin: 04/12/17 08:31 Dose: 30 mg Hydroxyzine Pamoate (Vistaril) 25 mg PO TID PRN PRN Reason: Anxiety Last Admin: 04/12/17 13:38 Dose: 25 mg Lorazepam (Ativan) 0.5 mg PO HS PRN PRN Reason: Insomnia Stop: 04/23/17 04:52 Last Admin: 04/10/17 21:04 Dose: 0.5 mg Lorazepam (Ativan) 0.5 mg PO Q6 PRN PRN Reason: Anixety/Agitation Stop: 04/23/17 04:52 Last Admin: 04/11/17 21:21 Dose: 0.5 mg Magnesium Hydroxide (Milk Of Magnesia) 30 ml PO HS PRN PRN Reason: Constipation Tramadol HCl (Ultram) 50 mg PO Q6 PRN PRN Reason: Pain, severe (8-10) Last Admin: 04/12/17 09:37 Dose: 50 mg Trazodone HCl (Desyrel) 50 mg PO HS PRN PRN Reason: Insomnia Last Admin: 04/09/17 21:06 Dose: 50 mg - Labs Labs: 04/10/17 06:30 04/10/17 06:30 Assessment and Plan (1) Major depressive disorder Assessment & Plan: Continue Current Care Status: Acute (2) Chronic back pain Status: Chronic
--- NOTE | 2017-04-13 12:25 | PCM.PYCHPN ---
Psychiatric Progress Note - Psychiatric Progress Note Patient seen today, length of contact: Patient evaluated, case discussed w/ team , chart reviewed Patient Chief Complaint: I'm depressed Problems Identified/Issues Discussed: Patient reports that his mood is improving, but he continues to feel depressed and anxious. He reports less stomach pain (chronic pain). No acute AH/VH/SI/ HI. Medication Change: No Medical Record Reviewed: Yes Mental Status Examination - Cognitive Function Orientation: Person, Place, Situation, Time Memory: Impaired Fund of Knowledge: WNL Decription of patient's judgement and insights: Fair I/J - Mood Mood: Anxious - Affect Affect: Constricted - Formal Thought Process Formal Thought Process: Loosening of associations Psychotic Thoughts and Behaviors: NO AH/VH/paranoia/delusions - Suicidal Ideation Suicidal Ideation: No - Homicidal Ideation Homicidal Ideation: No Goal/Treatment Plan - Goal/Treatment Plan Need for Continued Stay: Remain at risks for inpatient hospitalization, Severe depression anxiety Progress Toward Problem(s) and Goals/Treatment Plan: Depressive Disorder; r/o MDD, r/o Bipolar disorder -Continue Cymbalta 30 mg PO Daily -Vistaril PRN anxiety -Individual and group therapy -Medicine consult -Psychoeducation -Disposition planning Estimated Date of D/C: 04/15/17
--- NOTE | 2017-04-14 08:56 | PCM.PYCHPN ---
Psychiatric Progress Note - Psychiatric Progress Note Patient seen today, length of contact: Patient evaluated, case discussed w/ team , chart reviewed Patient Chief Complaint: I'm okay Problems Identified/Issues Discussed: Patient reports that his mood is improving, but he continues to feel intermittently depressed and anxious. His main complaint is chronic pain. No acute AH/VH/SI/HI. Medication Change: No Medical Record Reviewed: Yes Consults ordered or reviewed: Medicine consult Mental Status Examination - Cognitive Function Orientation: Person, Place, Situation, Time Memory: Impaired Fund of Knowledge: WNL Decription of patient's judgement and insights: Fair I/J - Mood Mood: Anxious - Affect Affect: Constricted - Formal Thought Process Formal Thought Process: Loosening of associations Psychotic Thoughts and Behaviors: NO AH/VH/paranoia/delusions - Suicidal Ideation Suicidal Ideation: No - Homicidal Ideation Homicidal Ideation: No Goal/Treatment Plan - Goal/Treatment Plan Need for Continued Stay: Remain at risks for inpatient hospitalization, Severe depression anxiety Progress Toward Problem(s) and Goals/Treatment Plan: Depressive Disorder; r/o MDD, r/o Bipolar disorder -Continue Cymbalta 30 mg PO Daily -Vistaril PRN anxiety -Individual and group therapy -Medicine consult -Psychoeducation -Disposition planning- likely discharge tomorrow if patient continues to improve clinically Estimated Date of D/C: 04/15/17
--- NOTE | 2017-04-15 00:04 | CP.PCM.PN ---
Subjective - Date & Time of Evaluation Date of Evaluation: 04/13/17 Time of Evaluation: 23:10 - Subjective Subjective: No New complaint. Objective - Vital Signs/Intake and Output Vital Signs (last 24 hours): Temp Pulse Resp BP Pulse Ox 97.7 F 71 20 112/60 99 04/14/17 16:03 04/14/17 16:03 04/14/17 16:03 04/14/17 16:03 04/09/17 03:02 - Medications Medications: Current Medications Acetaminophen (Tylenol 325mg Tab) 650 mg PO Q4 PRN PRN Reason: Pain, moderate (4-7) Al Hydrox/Mg Hydrox/Simethicone (Maalox Plus 30 Ml) 30 ml PO Q4 PRN PRN Reason: Dyspepsia Last Admin: 04/10/17 12:21 Dose: 30 ml Bismuth Subsalicylate (Pepto-Bismol) 524 mg PO Q4 PRN PRN Reason: Diarrhea Duloxetine HCl (Cymbalta) 30 mg PO DAILY [facility] Last Admin: 04/14/17 08:31 Dose: 30 mg Hydroxyzine Pamoate (Vistaril) 25 mg PO TID PRN PRN Reason: Anxiety Last Admin: 04/13/17 20:03 Dose: 25 mg Lorazepam (Ativan) 0.5 mg PO HS PRN PRN Reason: Insomnia Stop: 04/23/17 04:52 Last Admin: 04/13/17 23:44 Dose: 0.5 mg Lorazepam (Ativan) 0.5 mg PO Q6 PRN PRN Reason: Anixety/Agitation Stop: 04/23/17 04:52 Last Admin: 04/14/17 21:04 Dose: 0.5 mg Magnesium Hydroxide (Milk Of Magnesia) 30 ml PO HS PRN PRN Reason: Constipation Tramadol HCl (Ultram) 50 mg PO Q6 PRN PRN Reason: Pain, severe (8-10) Last Admin: 04/14/17 23:23 Dose: 50 mg Trazodone HCl (Desyrel) 50 mg PO HS PRN PRN Reason: Insomnia Last Admin: 04/13/17 21:04 Dose: 50 mg - Labs Labs: 04/10/17 06:30 04/10/17 06:30 - Constitutional Appears: No Acute Distress, Chronically Ill - Head Exam Head Exam: ATRAUMATIC, NORMAL INSPECTION, NORMOCEPHALIC - Eye Exam Eye Exam: EOMI, Normal appearance, PERRL Pupil Exam: NORMAL ACCOMODATION, PERRL - ENT Exam ENT Exam: Mucous Membranes Moist, Normal Exam - Neck Exam Neck Exam: Full ROM, Normal Inspection. absent: Lymphadenopathy - Respiratory Exam Respiratory Exam: Clear to Ausculation Bilateral, NORMAL BREATHING PATTERN - Cardiovascular Exam Cardiovascular Exam: REGULAR RHYTHM, +S1, +S2. absent: Murmur - GI/Abdominal Exam GI & Abdominal Exam: Soft, Normal Bowel Sounds. absent: Tenderness - Extremities Exam Extremities Exam: Full ROM, Normal Capillary Refill, Normal Inspection. absent : Joint Swelling, Pedal Edema - Back Exam Back Exam: NORMAL INSPECTION - Neurological Exam Neurological Exam: Alert, Awake, CN II-XII Intact, Normal Gait, Oriented x3 - Psychiatric Exam Psychiatric exam: Normal Affect, Normal Mood - Skin Skin Exam: Dry, Intact, Normal Color, Warm Assessment and Plan (1) Major depressive disorder Assessment & Plan: With Hallucination Continue Psych Recommendation Status: Acute (2) Abdominal pain Assessment and Plan: Bialiary Colic Tramadol PRN Will consult surgery if pain Persists Status: Chronic Priority: Medium (3) HIV antibody positive Status: Chronic
--- NOTE | 2017-04-15 00:05 | CP.PCM.PN ---
Subjective - Date & Time of Evaluation Date of Evaluation: 04/14/17 Time of Evaluation: 23:35 - Subjective Subjective: No new complaint. Objective - Vital Signs/Intake and Output Vital Signs (last 24 hours): Temp Pulse Resp BP Pulse Ox 97.7 F 71 20 112/60 99 04/14/17 16:03 04/14/17 16:03 04/14/17 16:03 04/14/17 16:03 04/09/17 03:02 - Medications Medications: Current Medications Acetaminophen (Tylenol 325mg Tab) 650 mg PO Q4 PRN PRN Reason: Pain, moderate (4-7) Al Hydrox/Mg Hydrox/Simethicone (Maalox Plus 30 Ml) 30 ml PO Q4 PRN PRN Reason: Dyspepsia Last Admin: 04/10/17 12:21 Dose: 30 ml Bismuth Subsalicylate (Pepto-Bismol) 524 mg PO Q4 PRN PRN Reason: Diarrhea Duloxetine HCl (Cymbalta) 30 mg PO DAILY [facility] Last Admin: 04/14/17 08:31 Dose: 30 mg Hydroxyzine Pamoate (Vistaril) 25 mg PO TID PRN PRN Reason: Anxiety Last Admin: 04/13/17 20:03 Dose: 25 mg Lorazepam (Ativan) 0.5 mg PO HS PRN PRN Reason: Insomnia Stop: 04/23/17 04:52 Last Admin: 04/13/17 23:44 Dose: 0.5 mg Lorazepam (Ativan) 0.5 mg PO Q6 PRN PRN Reason: Anixety/Agitation Stop: 04/23/17 04:52 Last Admin: 04/14/17 21:04 Dose: 0.5 mg Magnesium Hydroxide (Milk Of Magnesia) 30 ml PO HS PRN PRN Reason: Constipation Tramadol HCl (Ultram) 50 mg PO Q6 PRN PRN Reason: Pain, severe (8-10) Last Admin: 04/14/17 23:23 Dose: 50 mg Trazodone HCl (Desyrel) 50 mg PO HS PRN PRN Reason: Insomnia Last Admin: 04/13/17 21:04 Dose: 50 mg - Labs Labs: 04/10/17 06:30 04/10/17 06:30 - Constitutional Appears: No Acute Distress - Head Exam Head Exam: ATRAUMATIC, NORMAL INSPECTION, NORMOCEPHALIC - Eye Exam Eye Exam: EOMI, Normal appearance, PERRL Pupil Exam: NORMAL ACCOMODATION, PERRL - ENT Exam ENT Exam: Mucous Membranes Moist, Normal Exam - Neck Exam Neck Exam: Full ROM, Normal Inspection. absent: Lymphadenopathy - Respiratory Exam Respiratory Exam: Clear to Ausculation Bilateral, NORMAL BREATHING PATTERN - Cardiovascular Exam Cardiovascular Exam: REGULAR RHYTHM, +S1, +S2. absent: Murmur - GI/Abdominal Exam GI & Abdominal Exam: Soft, Normal Bowel Sounds. absent: Tenderness - Extremities Exam Extremities Exam: Full ROM, Normal Capillary Refill, Normal Inspection. absent : Joint Swelling, Pedal Edema - Back Exam Back Exam: NORMAL INSPECTION - Neurological Exam Neurological Exam: Alert, Awake, CN II-XII Intact, Normal Gait, Oriented x3 - Psychiatric Exam Psychiatric exam: Anxious, Depressed. absent: Homicidal Ideation, Suicidal Ideation - Skin Skin Exam: Dry, Intact, Normal Color, Warm Assessment and Plan (1) Major depressive disorder Assessment & Plan: With Hallucination Continue Psych Recommendation Status: Acute (2) Abdominal pain Assessment and Plan: Bialiary Colic Tramadol PRN Will consult surgery if pain Persists Status: Chronic Priority: Medium (3) HIV antibody positive Status: Chronic
--- NOTE | 2017-04-15 09:38 | PCM.PYCHPN ---
Psychiatric Progress Note - Psychiatric Progress Note Patient seen today, length of contact: Patient evaluated, case discussed w/ team , chart reviewed Patient Chief Complaint: I'm okay Problems Identified/Issues Discussed: Patient reports that he continues to feel depressed and anxious in the context of chronic pain. SW arranging to arrange at home service for him upon discharge. No acute AH/VH/SI/HI. Medication Change: No Medical Record Reviewed: Yes Consults ordered or reviewed: Medicine consult Mental Status Examination - Cognitive Function Orientation: Person, Place, Situation, Time Memory: Impaired Fund of Knowledge: WNL Decription of patient's judgement and insights: Fair I/J - Mood Mood: Depressed, Anxious - Affect Affect: Constricted - Formal Thought Process Formal Thought Process: Loosening of associations Psychotic Thoughts and Behaviors: NO AH/VH/paranoia/delusions - Suicidal Ideation Suicidal Ideation: No - Homicidal Ideation Homicidal Ideation: No Goal/Treatment Plan - Goal/Treatment Plan Need for Continued Stay: Remain at risks for inpatient hospitalization, Severe depression anxiety Progress Toward Problem(s) and Goals/Treatment Plan: Depressive Disorder; r/o MDD, r/o Bipolar disorder -Continue Cymbalta 30 mg PO Daily -Vistaril PRN anxiety -Individual and group therapy -Medicine consult -Psychoeducation -Psychology consult to determine neurocognitive function -Disposition planning- likely discharge on Tuesday if patient continues to improve clinically Estimated Date of D/C: 04/18/17
--- NOTE | 2017-04-15 10:25 | CP.PCM.CON ---
History of Present Illness - History of Present Illness History of Present Illness: Pt is a 71 year old male admitted to the geropsych unit and referred to the fiction and nonfiction prose writer for cognitive testing. Pt reported "losing time" prior to admission and increased memory issues. On the DRS, Pt scored an overall score of 115. Pt scored within normal limits on Attention and Memory tasks. Pt's Construction, Conceptualization and Initiation skills fell in the Borderline Range. Overall 115 Attention 33 Construction 3 Conceptaulization 29 Initiation 30 Memory 20 Pt may benefit from asssistance with financial and medication management assistance. Pt also provided with reccomendations such as a memory book and note taking to asssist with daily functioning. Thank you for this referral, Dr. Blackwood Past Patient History - Infectious Disease Hx of Infectious Diseases: None - Tetanus Immunizations Tetanus Immunization: Unknown - Past Medical History & Family History Past Medical History?: Yes Past Family History: Reviewed and not pertinent - Past Social History Smoking Status: Former Smoker Alcohol: None Drugs: Denies - CARDIAC Hx Cardiac Disorders: No Hx Hypertension: No - PULMONARY Hx Respiratory Disorders: No Hx Bronchitis: No Hx Tuberculosis: No - NEUROLOGICAL HX Cerebrovascular Accident: No Hx Seizures: Yes - HEENT Hx HEENT Problems: No - RENAL Hx Chronic Kidney Disease: No - ENDOCRINE/METABOLIC Hx Endocrine Disorders: Yes Hx Diabetes Mellitus Type 2: Yes - HEMATOLOGICAL/ONCOLOGICAL Hx Blood Disorders: No Hx Cancer: No Hx Human Immunodeficiency Virus (HIV): Yes - INTEGUMENTARY Hx Dermatological Problems: No - MUSCULOSKELETAL/RHEUMATOLOGICAL Hx Arthritis: No Hx Falls: No Hx Rheumatoid Arthritis: No - GASTROINTESTINAL Hx Gastrointestinal Disorders: No - GENITOURINARY/GYNECOLOGICAL Hx Sexually Transmitted Disorders: No - PSYCHIATRIC Hx Depression: Yes Hx Emotional Abuse: No Hx Physical Abuse: No Hx Sexual Abuse: No Hx Substance Use: Yes (HX HEROIN, COCAINE, AND MARIJUANA USE) - SURGICAL HISTORY Hx Cholecystectomy: Yes Hx Tonsillectomy: Yes - ANESTHESIA Hx Anesthesia: Yes Hx Anesthesia Reactions: No Hx Malignant Hyperthermia: No Meds Allergies/Adverse Reactions: Allergies Allergy/AdvReac Type Severity Reaction Status Date / Time No Known Allergies Allergy Verified 04/08/17 15:20 - Medications Medications: Current Medications Acetaminophen (Tylenol 325mg Tab) 650 mg PO Q4 PRN PRN Reason: Pain, moderate (4-7) Al Hydrox/Mg Hydrox/Simethicone (Maalox Plus 30 Ml) 30 ml PO Q4 PRN PRN Reason: Dyspepsia Last Admin: 04/10/17 12:21 Dose: 30 ml Bismuth Subsalicylate (Pepto-Bismol) 524 mg PO Q4 PRN PRN Reason: Diarrhea Duloxetine HCl (Cymbalta) 30 mg PO DAILY MERCEDES Last Admin: 04/15/17 08:41 Dose: 30 mg Hydroxyzine Pamoate (Vistaril) 25 mg PO TID PRN PRN Reason: Anxiety Last Admin: 04/13/17 20:03 Dose: 25 mg Lorazepam (Ativan) 0.5 mg PO HS PRN PRN Reason: Insomnia Stop: 04/23/17 04:52 Last Admin: 04/13/17 23:44 Dose: 0.5 mg Lorazepam (Ativan) 0.5 mg PO Q6 PRN PRN Reason: Anixety/Agitation Stop: 04/23/17 04:52 Last Admin: 04/14/17 21:04 Dose: 0.5 mg Magnesium Hydroxide (Milk Of Magnesia) 30 ml PO HS PRN PRN Reason: Constipation Tramadol HCl (Ultram) 50 mg PO Q6 PRN PRN Reason: Pain, severe (8-10) Last Admin: 04/15/17 06:37 Dose: 50 mg Trazodone HCl (Desyrel) 50 mg PO HS PRN PRN Reason: Insomnia Last Admin: 04/13/17 21:04 Dose: 50 mg Results - Vital Signs Recent Vital Signs: Last Vital Signs Temp 97.5 F L 04/15/17 05:43 Pulse 59 L 04/15/17 05:43 Resp 20 04/15/17 05:43 BP 129/73 04/15/17 05:43 Pulse Ox 99 04/09/17 03:02 - Labs Result Diagrams: 04/10/17 06:30 04/10/17 06:30
--- NOTE | 2017-04-16 11:41 | CP.PCM.PN ---
Subjective - Date & Time of Evaluation Date of Evaluation: 04/15/17 Time of Evaluation: 19:30 - Subjective Subjective: Seen and examined at the bed side. Anxious about going home. Ambulates with Steady gait. Objective - Vital Signs/Intake and Output Vital Signs (last 24 hours): Temp Pulse Resp BP Pulse Ox 97.1 F L 72 19 102/74 99 04/16/17 05:52 04/16/17 05:52 04/16/17 05:52 04/16/17 05:52 04/09/17 03:02 - Medications Medications: Current Medications Acetaminophen (Tylenol 325mg Tab) 650 mg PO Q4 PRN PRN Reason: Pain, moderate (4-7) Al Hydrox/Mg Hydrox/Simethicone (Maalox Plus 30 Ml) 30 ml PO Q4 PRN PRN Reason: Dyspepsia Last Admin: 04/10/17 12:21 Dose: 30 ml Bismuth Subsalicylate (Pepto-Bismol) 524 mg PO Q4 PRN PRN Reason: Diarrhea Duloxetine HCl (Cymbalta) 30 mg PO DAILY MERCEDES Last Admin: 04/16/17 08:36 Dose: 30 mg Hydroxyzine Pamoate (Vistaril) 25 mg PO TID PRN PRN Reason: Anxiety Last Admin: 04/13/17 20:03 Dose: 25 mg Lorazepam (Ativan) 0.5 mg PO HS PRN PRN Reason: Insomnia Stop: 04/23/17 04:52 Last Admin: 04/15/17 21:15 Dose: 0.5 mg Lorazepam (Ativan) 0.5 mg PO Q6 PRN PRN Reason: Anixety/Agitation Stop: 04/23/17 04:52 Last Admin: 04/14/17 21:04 Dose: 0.5 mg Magnesium Hydroxide (Milk Of Magnesia) 30 ml PO HS PRN PRN Reason: Constipation Tramadol HCl (Ultram) 50 mg PO Q6 PRN PRN Reason: Pain, severe (8-10) Last Admin: 04/16/17 01:58 Dose: 50 mg Trazodone HCl (Desyrel) 50 mg PO HS PRN PRN Reason: Insomnia Last Admin: 04/13/17 21:04 Dose: 50 mg - Labs Labs: 04/10/17 06:30 04/10/17 06:30 - Constitutional Appears: No Acute Distress - Head Exam Head Exam: ATRAUMATIC, NORMAL INSPECTION, NORMOCEPHALIC - Eye Exam Eye Exam: EOMI, Normal appearance, PERRL Pupil Exam: NORMAL ACCOMODATION, PERRL - ENT Exam ENT Exam: Mucous Membranes Moist, Normal Exam - Neck Exam Neck Exam: Full ROM, Normal Inspection. absent: Lymphadenopathy - Respiratory Exam Respiratory Exam: Clear to Ausculation Bilateral, NORMAL BREATHING PATTERN - Cardiovascular Exam Cardiovascular Exam: REGULAR RHYTHM, +S1, +S2. absent: Murmur - GI/Abdominal Exam GI & Abdominal Exam: Soft, Normal Bowel Sounds. absent: Tenderness - Extremities Exam Extremities Exam: Full ROM, Normal Capillary Refill, Normal Inspection. absent : Joint Swelling, Pedal Edema - Back Exam Back Exam: NORMAL INSPECTION - Neurological Exam Neurological Exam: Alert, Awake, CN II-XII Intact, Normal Gait, Oriented x3 - Psychiatric Exam Psychiatric exam: Normal Affect, Normal Mood - Skin Skin Exam: Dry, Intact, Normal Color, Warm Assessment and Plan (1) Major depressive disorder Assessment & Plan: With Hallucination Continue Psych Recommendation Status: Acute (2) Abdominal pain Assessment and Plan: Bialiary Colic Tramadol PRN Will consult surgery if pain Persists Status: Chronic Priority: Medium (3) HIV antibody positive Status: Chronic
--- NOTE | 2017-04-16 13:59 | PCM.PYCHPN ---
Psychiatric Progress Note - Psychiatric Progress Note Patient seen today, length of contact: Patient evaluated, case discussed w/ team , chart reviewed Patient Chief Complaint: I slept better last night Problems Identified/Issues Discussed: pt seen in bed cooperative good eye contact reporting depressed mood , anxious affect, improved sleep , no changes in appetite, denied any current suicidal or homicidal ideations denied perceptual disturbances, no reported side effects of medications DSM 5 Symptoms Update: depression generalized anxiety Medication Change: No Medical Record Reviewed: Yes Mental Status Examination - Cognitive Function Orientation: Person, Place, Situation, Time Memory: Impaired Attention: WNL Concentration: WNL Association: WNL Fund of Knowledge: WNL - Mood Mood: Depressed, Anxious - Affect Affect: Constricted - Speech Speech: Soft - Formal Thought Process Formal Thought Process: Circumstantial - Suicidal Ideation Suicidal Ideation: No - Homicidal Ideation Homicidal Ideation: No Goal/Treatment Plan - Goal/Treatment Plan Need for Continued Stay: Remain at risks for inpatient hospitalization, Severe depression anxiety Progress Toward Problem(s) and Goals/Treatment Plan: continue with duloxetine CBT , group and supportive therapy Estimated Date of D/C: 04/18/17
--- NOTE | 2017-04-16 23:22 | CP.PCM.PN ---
Subjective - Date & Time of Evaluation Date of Evaluation: 04/16/17 Time of Evaluation: 17:35 - Subjective Subjective: Seen and examined at the bed side. Anxious about going home. Ambulates with Steady gait. Objective - Vital Signs/Intake and Output Vital Signs (last 24 hours): Temp Pulse Resp BP Pulse Ox 97.7 F 60 19 110/68 99 04/16/17 16:48 04/16/17 16:48 04/16/17 16:48 04/16/17 16:48 04/09/17 03:02 - Medications Medications: Current Medications Acetaminophen (Tylenol 325mg Tab) 650 mg PO Q4 PRN PRN Reason: Pain, moderate (4-7) Al Hydrox/Mg Hydrox/Simethicone (Maalox Plus 30 Ml) 30 ml PO Q4 PRN PRN Reason: Dyspepsia Last Admin: 04/10/17 12:21 Dose: 30 ml Bismuth Subsalicylate (Pepto-Bismol) 524 mg PO Q4 PRN PRN Reason: Diarrhea Duloxetine HCl (Cymbalta) 30 mg PO DAILY MERCEDES Last Admin: 04/16/17 08:36 Dose: 30 mg Hydroxyzine Pamoate (Vistaril) 25 mg PO TID PRN PRN Reason: Anxiety Last Admin: 04/13/17 20:03 Dose: 25 mg Lorazepam (Ativan) 0.5 mg PO HS PRN PRN Reason: Insomnia Stop: 04/23/17 04:52 Last Admin: 04/16/17 21:01 Dose: 0.5 mg Lorazepam (Ativan) 0.5 mg PO Q6 PRN PRN Reason: Anixety/Agitation Stop: 04/23/17 04:52 Last Admin: 04/14/17 21:04 Dose: 0.5 mg Magnesium Hydroxide (Milk Of Magnesia) 30 ml PO HS PRN PRN Reason: Constipation Tramadol HCl (Ultram) 50 mg PO Q6 PRN PRN Reason: Pain, severe (8-10) Last Admin: 04/16/17 18:41 Dose: 50 mg Trazodone HCl (Desyrel) 50 mg PO HS PRN PRN Reason: Insomnia Last Admin: 04/13/17 21:04 Dose: 50 mg - Labs Labs: 04/10/17 06:30 04/10/17 06:30 Assessment and Plan (1) Major depressive disorder Assessment & Plan: With Hallucination Continue Psych Recommendation Status: Acute (2) Abdominal pain Assessment and Plan: Bialiary Colic Tramadol PRN Will consult surgery if pain Persists Status: Chronic Priority: Medium (3) HIV antibody positive Status: Chronic
--- NOTE | 2017-04-17 10:48 | PCM.PYCHPN ---
Psychiatric Progress Note - Psychiatric Progress Note Patient seen today, length of contact: Patient evaluated, case discussed w/ team , chart reviewed Patient Chief Complaint: I am ok Problems Identified/Issues Discussed: pt seen in bed cooperative good eye contact reporting better mood , anxious affect, improved sleep , no changes in appetite, denied any current suicidal or homicidal ideations denied perceptual disturbances, no reported side effects of medications DSM 5 Symptoms Update: depression generalized anxiety Medication Change: No Medical Record Reviewed: Yes Mental Status Examination - Cognitive Function Orientation: Person, Place, Situation, Time Memory: Impaired Attention: WNL Concentration: WNL Association: WNL Fund of Knowledge: WNL - Mood Mood: Depressed, Anxious - Affect Affect: Constricted - Speech Speech: Soft - Formal Thought Process Formal Thought Process: Circumstantial - Suicidal Ideation Suicidal Ideation: No - Homicidal Ideation Homicidal Ideation: No Goal/Treatment Plan - Goal/Treatment Plan Need for Continued Stay: Remain at risks for inpatient hospitalization, Severe depression anxiety Progress Toward Problem(s) and Goals/Treatment Plan: continue with duloxetine CBT , group and supportive therapy Estimated Date of D/C: 04/18/17
--- NOTE | 2017-04-17 22:04 | CP.PCM.PN ---
Subjective - Date & Time of Evaluation Date of Evaluation: 04/17/17 Time of Evaluation: 20:15 - Subjective Subjective: Seen and examined at the bed side. Anxious about going home. Ambulates with Steady gait. For d/c home tomorrow Objective - Vital Signs/Intake and Output Vital Signs (last 24 hours): Temp Pulse Resp BP Pulse Ox 97.5 F L 60 19 117/67 99 04/17/17 15:49 04/17/17 15:49 04/17/17 15:49 04/17/17 15:49 04/09/17 03:02 - Medications Medications: Current Medications Acetaminophen (Tylenol 325mg Tab) 650 mg PO Q4 PRN PRN Reason: Pain, moderate (4-7) Al Hydrox/Mg Hydrox/Simethicone (Maalox Plus 30 Ml) 30 ml PO Q4 PRN PRN Reason: Dyspepsia Last Admin: 04/10/17 12:21 Dose: 30 ml Bismuth Subsalicylate (Pepto-Bismol) 524 mg PO Q4 PRN PRN Reason: Diarrhea Duloxetine HCl (Cymbalta) 30 mg PO DAILY MERCEDES Last Admin: 04/17/17 09:02 Dose: 30 mg Hydroxyzine Pamoate (Vistaril) 25 mg PO TID PRN PRN Reason: Anxiety Last Admin: 04/13/17 20:03 Dose: 25 mg Lactulose (Enulose) 20 gm PO DAILY PRN PRN Reason: Constipation Last Admin: 04/17/17 09:02 Dose: 20 gm Lorazepam (Ativan) 0.5 mg PO HS PRN PRN Reason: Insomnia Stop: 04/23/17 04:52 Last Admin: 04/16/17 21:01 Dose: 0.5 mg Lorazepam (Ativan) 0.5 mg PO Q6 PRN PRN Reason: Anixety/Agitation Stop: 04/23/17 04:52 Last Admin: 04/14/17 21:04 Dose: 0.5 mg Magnesium Hydroxide (Milk Of Magnesia) 30 ml PO HS PRN PRN Reason: Constipation Tramadol HCl (Ultram) 50 mg PO Q6 PRN PRN Reason: Pain, severe (8-10) Last Admin: 04/17/17 15:07 Dose: 50 mg Trazodone HCl (Desyrel) 50 mg PO HS PRN PRN Reason: Insomnia Last Admin: 04/17/17 21:04 Dose: 50 mg - Labs Labs: 04/10/17 06:30 04/10/17 06:30 Assessment and Plan (1) Major depressive disorder Status: Chronic
[2017-04-18 05:51] VITALS: BP 101/62; PULSE 73; RESP 18; TEMP 97.3
--- NOTE | 2017-04-18 08:44 | PCM.PYCHDC ---
Mental Status Examination - Mental Status Examination Orientation: Person, Place, Situation, Time Memory: Intact Mood: Neutral Affect: Broad Speech: Appropriate Attention: WNL Concentration: Poor Association: WNL Fund of Knowledge: WNL Formal Thought Process: No Impairment Description of patient's judgement and insight: Fair I/J Psychotic Thoughts and Behaviors: NO AH/VH/paranoia/delusions Suicidal Ideation: No Current Homicidal Ideation?: No Discharge Summary - Discharge Note Reason for Hospitalization: HPI: 71 yo male w/ remote history of Alcohol and Opiate use disorder, presents w / severe depression in the context of having chronic pain. Patient reports that he feels depressed and hopeless and reports poor memory and concentration. He denies AH/VH/paranoia/delusions/SI/HI. PPHx: H/o previous psychiatric hospitalizations for MDD vs bipolar disorder; patient is not currently compliant with any psychiatric treatment or medications PMHx: Hepatitis, HTN SHx: H/o back surgery, h/o tonsil surgery ALL: NKDA SHx: Lives w/ his brother; denies current drug/ alcohol abuse; +cig use FHx: Brother w/ schizophrenia Consultations:: List each consultation separately and include: 1. Reason for request. 2. Findings. 3. Follow-up Consultations: Medicine consult Psychology consult: Pt is a 71 year old male admitted to the geropsych unit and referred to the telegraphic typewriter mechanic for cognitive testing. Pt reported "losing time" prior to admission and increased memory issues. On the DRS, Pt scored an overall score of 115. Pt scored within normal limits on Attention and Memory tasks. Pt's Construction, Conceptualization and Initiation skills fell in the Borderline Range. Overall 115 Attention 33 Construction 3 Conceptaulization 29 Initiation 30 Memory 20 Summary of Hospital Course include:: 1. Description of specific treatment plan utilized for patients during their course of treatmen. 2. Summarize the time- course for resolution of acute symptoms and/or regressed behaviors. 3. Describe issues identified and worked on during hospitalization. 4. Describe medication utilized. 5. Describe medical problems identified and treated. 6. Reassessment of suicide risk Summary of Hospital Course: Patient was admitted to the geriatric psychiatry unit. Individual and group therapy were provided. Patient was stabilized on Cymbalta 30 mg PO Daily and Trazodone 50 mg PO HS. He reports that his mood has improved. No current psychotic symptoms, no SI/HI. Patient is psychiatrically stable for discharge with outpatient follow-up. - Diagnosis (1) Major depressive disorder Current Visit: Yes Status: Chronic - Final Diagnosis (DSM 5) Condition upon Discharge: STABLE DSM 5: Depressive Disorder Disposition: HOME/ ROUTINE Follow-up Treatment Plan: Depressive Disorder -Continue Cymbalta and Trazodone -Discharge with outpatient follow-up Prescriptions/Medication Reconciliation: DULoxetine [Cymbalta] 30 mg PO DAILY #30 ecc traMADol [Ultram] 50 mg PO Q6 PRN #10 tab PRN Reason: Pain, Severe (8-10) traZODone [Desyrel] 50 mg PO HS #30 tab - Smoking Cessation Smoking Cessation Medication prescribed: No Reason for not providing: Not indicated - Antipsychotic Medications Pt discharged on 2 or more routine antipsychotic medications: No
--- NOTE | 2017-04-18 11:35 | PCM.BM ---
Treatment Plan Problems - Problems identified on initial assessmt Hopelessness/Helplessness Date Initiated: 04/09/17 Time Initiated: 05:03 Assessment reference: NA Status: Active Self care deficit Date Initiated: 04/09/17 Time Initiated: 05:04 Assessment reference: NA Status: Active Treatment assets and liabiliti Patient Assests: cooperative, ADL independent, negotiates basic needs Patient Liabilities: poor support system - Milieu Protocol Maintain good personal hygiene: daily Encourage regular showers, daily Remind patient to perform daily oral care, other Assist patient to perform ADL's (prn) Conduct patient checks and document Observation sheet: Q15 minutes Maintain personal safety: every shift Educate patient to report safety concerns to staff, every shift Monitor environment for contraband/sharps Medication safety: Monitor for expected outcome, potential side effects: every shift, Assess barriers to learning: every shift, Assess readiness for medication education: every shift Milieu Narrative: Depressive Disorder -Continue Cymbalta and Trazodone -Discharge with outpatient follow-up Family Contact Family involvement: Patient does not wish Family/SO involvement Family contact: Patient declines to allow family contact at present Family contact name: Juancarlos - brother Family contact comment: Pt reported he does not wish for his brother to be contacted as "he has his own issues." Pt reported that he will contact his brother and inform him of the hospitalization. Discharge/Continuing Care - Education Needs Education Needs: Patient Medication, Patient Diagnosis/Disease Process, Patient Coping Skills, Patient Community resources, Patient Activities of Daily Living, Patient Health Practices/Safety, Patient Personal Hygiene/Grooming, Patient Aftercare Safety Plan - Discharge Discharge Criteria: Tolerates medication w/o severe side effects, Normal sleep pattern, Ability to care for self, Reduction of target symptoms, Other ( Reduction of depressive symptoms) Discharge to:: Home, With Family - Additional Comments 04/11/17 12:26 Pt seen and discussed in team meeting. Reason for admission reviewed and discussed. Pt reported being self-referred tot he Ed due to abdominal pain. Pt stated " i was in a lot of pain in my stomach, depressed and very nervous." Pt reported feeling very nervous because "I can't take care of myself." When asked to further elaborate of "can't take care of himself" pt stated that he is unable to cook for himself and his brother, Juancarlos and has difficulty going to the grocery store. Deputy Director Of Finance reviewed and discussed home health aide services, but pt refused at the present time. Pt reported being his brother, Juancarlos primary hemodialysis patient care specialist. Pt reported limited social and emotional support system. Pt reported medication non-compliance. Pt reported he is not linked to an outpatient mental health services at the present time. Pt's medications reviewed and discussed with attending MD. Tx plan reviewed and pt is agreeable. SW to continue to follow case. - Treatment Team Participation Patient/Family/SO Statement: Depressive Disorder -Continue Cymbalta and Trazodone -Discharge with outpatient follow-up Discussed with Family/SO: No Was Patient/Family/SO present at Treatment Team Meeting: Yes Treatment Plan Review - Problem Hopelessness/Helplessness Date Initiated: 04/09/17 Time Initiated: 05:03 Progress toward outcomes: improved Self care deficit Date Initiated: 04/09/17 Time Initiated: 05:04 Progress toward outcomes: resolved - Discharge / Continuing Care Behavioral Health Services: Outpatient therapy ([facility] 04/22/2017 at 9AM) , Home health care, Other ([facility]; [facility]) Health Needs: Follow up care/test, Doctor appointments, Nutritional, Medications /Rx, Recreational/Social, Other (Pt also advised to follow up with PMD and GI regarding abdominal pain and discomfort)
== END 2017-04-18 14:30 | disposition home health service (06) | DRG 885 ==
LOC: H.ER 00:14 → H.ERHOLD 01:50 → H.STEP 04:43
PROVIDERS: ADMIT Psychiatry & Neurology Psychiatry; ATTEND Psychiatry & Neurology Psychiatry
PROC: GZHZZZZ Group Psychotherapy (ICD-10-PCS; principal; 2017-04-09)
PROC: GZ58ZZZ Individual Psychotherapy, Cognitive-Behavioral (ICD-10-PCS; 2017-04-09)
DX: F32.2 Major depressive disorder, single episode, severe without psychotic features (principal); F20.9 Schizophrenia, unspecified; Z21 Asymptomatic human immunodeficiency virus [HIV] infection status; F41.1 Generalized anxiety disorder; G89.29 Other chronic pain; E11.9 Type 2 diabetes mellitus without complications; K75.9 Inflammatory liver disease, unspecified; Z91.14 Patient's other noncompliance with medication regimen; R10.9 Unspecified abdominal pain; E78.5 Hyperlipidemia, unspecified; E78.00 Pure hypercholesterolemia, unspecified; I10 Essential (primary) hypertension; F11.10 Opioid abuse, uncomplicated; F17.200 Nicotine dependence, unspecified, uncomplicated

== ENCOUNTER 2017-05-06 12:57 | Emergency (ER) | payer MEDICARE ==
[2017-05-06 12:57] VITALS: BMI 17.2
[2017-05-06 13:05] VITALS: BP 165/94; PULSE 101; RESP 18; TEMP 98.5; O2SAT 100
--- NOTE | 2017-05-06 14:13 | ED PDOC ---
HPI: Psych/Substance Abuse Time Seen by Provider: 05/06/17 13:14 Chief Complaint (Nursing): Psychiatric Evaluation Chief Complaint (Provider): Psychiatric Evaluation History Per: Patient History/Exam Limitations: no limitations Onset/Duration Of Symptoms: Days Current Symptoms Are (Timing): Still Present Additional Complaint(s): 72 year old male presents to the emergency department with a complaint of anxiety and states he wanted to be admitted to psychiatric floor because he does not like living in the "real world." Otherwise patient denies depression, suicidal or homicidal ideation. Reports no other complaints. Denies any abdominal pain, N/V/D, urinary symptoms. Past Medical History Reviewed: Historical Data, Nursing Documentation, Vital Signs Vital Signs: Last Vital Signs Temp 98.5 F 05/06/17 13:02 Pulse 101 H 05/06/17 13:02 Resp 18 05/06/17 13:02 BP 165/94 H 05/06/17 13:02 Pulse Ox 100 05/06/17 13:02 - Medical History PMH: Anxiety, Back Problems (herniated disk), Bipolar Disorder, Depression, Diabetes (type II), HIV, Hypercholesterolemia, Hyperlipidemia, Schizophrenia, Seizures Denies: Arthritis, Bronchitis, CHF, COPD, Hepatitis, HTN, Hypothyroidism, Chronic Kidney Disease, Rheumatoid Arthritis, Sexually Transmitted Disease - Surgical History Surgical History: Back Surgery, Cholecystectomy, Tonsillectomy - Family History Family History: States: Unknown Family Hx, Diabetes (father) - Immunization History Hx Tetanus Toxoid Vaccination: No Hx Influenza Vaccination: No Hx Pneumococcal Vaccination: No - Home Medications Home Medications: Ambulatory Orders Medication Instructions Recorded DULoxetine [Cymbalta] 30 mg PO DAILY #30 ecc 04/18/17 traMADol [Ultram] 50 mg PO Q6 PRN #10 tab 04/18/17 traZODone [Desyrel] 50 mg PO HS #30 tab 04/18/17 - Allergies Allergies/Adverse Reactions: Allergies Allergy/AdvReac Type Severity Reaction Status Date / Time No Known Allergies Allergy Verified 04/08/17 15:20 Review of Systems ROS Statement: Except As Marked, All Systems Reviewed And Found Negative (As per HPI, otherwise negative) Psych: Positive for: Anxiety. Negative for: Depression, Suicidal ideation ( homicidal ) Physical Exam - Reviewed Nursing Documentation Reviewed: Yes Vital Signs Reviewed: Yes - Physical Exam Appears: Positive for: No Acute Distress Head Exam: Positive for: NORMAL INSPECTION (No scalp swelling or tenderness) Skin: Positive for: Warm, Dry. Negative for: Cyanosis Eye Exam: Positive for: Normal appearance. Negative for: Nystagmus, Conjunctival injection, Scleral icterus ENT: Positive for: Normal ENT Inspection (Mucous membranes moist) Neck: Positive for: Normal, Supple. Negative for: Pain On Movement Of Neck ( tenderness or stiffness) Respiratory: Positive for: Normal Breath Sounds (Equal b/l). Negative for: Rales, Rhonchi, Stridor, Wheezing Gastrointestinal/Abdominal: Positive for: Normal Exam, Soft. Negative for: Tenderness, Distended, Guarding Lymphatic: Positive for: Normal Exam. Negative for: Adenopathy Neurologic/Psych: Positive for: Alert, campus recruiting intern II-XII (intact), Oriented (x3), Mood/ Affect (Calm and cooperative) - ECG O2 Sat by Pulse Oximetry: 100 (RA) Pulse Ox Interpretation: Normal Medical Decision Making Medical Decision Making: Time: 1322 Initial impression: Psychiatric Evaluation Initial plan: --Crisis evaluation --Reevaluation CXR : NAD, as read by PA Patient is seen and evaluated by crisis. As per crisis evaluation, decision made for outpatient follow up as per Dr. Cardozo. Advised to follow up with outpt psych as advised by crisis in 1-2 days without fail. Return to the emergency room at any time for any new or worsening symptoms. Scribe Attestation: Documented by Alana Barrios, acting as a scribe for Merary Darling PA-C Provider Scribe Attestation: All medical record entries made by the Scribe were at my direction and personally dictated by me. I have reviewed the chart and agree that the record accurately reflects my personal performance of the history, physical exam, medical decision making, and the department course for this patient. I have also personally directed, reviewed, and agree with the discharge instructions and disposition. Disposition - Clinical Impression Clinical Impression: Depression - Patient ED Disposition Is Patient to be Admitted: No Counseled Patient/Family Regarding: Diagnosis, Need For Followup - Disposition Referrals: Gillian Redding MD [Medical Doctor] - Disposition: Routine/Home Disposition Time: 15:00 Condition: STABLE Additional Instructions: Thank you for letting us take care of you today. You were treated for depression. The emergency medical care you received today was directed at your acute symptoms. Return to the Emergency Department if your symptoms worsen, do not improve, or if you have any other problems. Please contact outpatient psych referral provided by crisis. Bring any paperwork you were given at discharge with you along with any medications you are taking to your follow up visit. Our treatment cannot replace ongoing medical care by a primary care provider (PCP) outside of the emergency department. Thank you for allowing the [facility] team to be part of your care today. Instructions: Depression Forms: [employer] (Korean) - PA / SALES AND MARKETING MANAGER / Resident Statement MD/DO has reviewed & agrees with the documentation as recorded.
--- NOTE | 2017-05-06 15:16 | RAD ---
PROCEDURE: CHEST RADIOGRAPH, 1 VIEW HISTORY: psych eval COMPARISON: Comparison made with prior chest radiograph dated 04/09/2017 FINDINGS: LUNGS: Mild hyperinflation. No focal consolidation or effusion. PLEURA: No pneumothorax or pleural fluid seen. CARDIOVASCULAR: Normal. OSSEOUS STRUCTURES: No significant abnormalities. VISUALIZED UPPER ABDOMEN: Normal. OTHER FINDINGS: None. IMPRESSION: No active disease.
== END 2017-05-06 15:27 | disposition home or self-care (01) ==
LOC: H.ER 12:57
DX: F32.9 Major depressive disorder, single episode, unspecified (principal); E11.9 Type 2 diabetes mellitus without complications; E78.00 Pure hypercholesterolemia, unspecified; F31.9 Bipolar disorder, unspecified; F20.9 Schizophrenia, unspecified; F41.9 Anxiety disorder, unspecified

== ENCOUNTER 2017-06-08 10:00 | Emergency (ER) | payer MEDICARE ==
[2017-06-08 10:05] VITALS: BMI 20.2
[2017-06-08 10:06] VITALS: RESP 16
[2017-06-08] MEDS ORDERED: Sodium Chloride 0.9% 1,000 ML IV STA (10:42)
[2017-06-08 11:18] LABS: BASO % 0.5 % (0.0-2.0); EOS % 0.6 % (0.0-4.0); HEMOGLOBIN 16.1 g/dL (12.0-18.0); LYMPH # 1.4 K/uL (1.0-4.3); LYMPH % 19.4 % (20.0-40.0); MEAN CELL VOLUME 93.6 fl (80.0-94.0); MEAN CORPUSCULAR HEMOGLOBIN 33.1 pg (27.0-31.0); MEAN CORPUSCULAR HGB CONC 35.4 g/dL (33.0-37.0); MEAN PLATELET VOLUME 8.1 fl (7.2-11.7); MONO # 0.4 K/uL (0.0-0.8); MONO % 6.2 % (0.0-10.0); NEUT # 5.3 K/uL (1.8-7.0); NEUT % 73.3 % (50.0-75.0); NRBC % 0.2 % (0.0-0.0); RBC 4.85 Mil/uL (4.40-5.90); RED CELL DISTRIBUTION WIDTH 13.5 % (11.5-14.5); WHITE BLOOD COUNT 7.2 K/uL (4.8-10.8)
[2017-06-08 11:30] LABS: ALB/GLOB RATIO 1.2 (1.0-2.1); ALBUMIN 3.9 g/dL (3.5-5.0); AMYLASE 132 U/L (30-110); CALCIUM 9.5 mg/dL (8.4-10.2); GFR AFRICAN-AMERICAN > 60; GFR NON-AFRICAN AMERICAN > 60
[2017-06-08 11:37] LABS: ALT/SGPT 35 U/L (21-72); AST/SGOT 26 U/L (17-59); BLOOD UREA NITROGEN 21 mg/dl (9-20)
--- NOTE | 2017-06-08 13:00 | ED PDOC ---
HPI: Abdomen Time Seen by Provider: 06/08/17 10:32 Chief Complaint (Nursing): GI Problem Chief Complaint (Provider): Weakness, diarrhea History Per: Patient History/Exam Limitations: no limitations Onset/Duration Of Symptoms: Days (2 months) Current Symptoms Are (Timing): Still Present Associated Symptoms: Diarrhea, Other (unsteady gait, weakness). denies: Fever, Chills, Nausea, Vomiting Additional Complaint(s): Bishop Min is a 72 year old male, with a past medical history of cholecystectomy and type 2 diabetes, who presents to the emergency department complaining of generalized weakness, unsteady gait and diarrhea associated with loss of appetite onset for x2 months. Patient reports he has difficulty taking care of himself at home, he can't clean or shave himself. Patient reports symptoms occurred after cholecystectomy done by Dr. Burns. He is not taking any medications. Patient states he is allergic to ASA but doesn't know reaction. He denies any fever, chills, cough, nausea, vomit or abodminal pain. No further medical complaints. PMD: None provided. Past Medical History Reviewed: Historical Data, Nursing Documentation, Vital Signs Vital Signs: Last Vital Signs Temp 98.4 F 06/08/17 10:05 Pulse 76 06/08/17 10:05 Resp 16 06/08/17 10:05 BP 151/80 H 06/08/17 10:05 Pulse Ox 99 06/08/17 13:21 - Medical History PMH: Anxiety, Back Problems (herniated disk), Bipolar Disorder, Depression, Diabetes (type II), HIV, Hypercholesterolemia, Hyperlipidemia, Schizophrenia, Seizures Denies: Arthritis, Bronchitis, CHF, COPD, Hepatitis, HTN, Hypothyroidism, Chronic Kidney Disease, Rheumatoid Arthritis, Sexually Transmitted Disease - Surgical History Surgical History: Back Surgery, Cholecystectomy, Tonsillectomy Other surgeries: teeth implants removed recently - Family History Family History: States: Unknown Family Hx, Diabetes (father) - Social History Current smoker - smoking cessation education provided: No Alcohol: None Drugs: Denies - Immunization History Hx Tetanus Toxoid Vaccination: No Hx Influenza Vaccination: No Hx Pneumococcal Vaccination: No - Home Medications Home Medications: Ambulatory Orders Medication Instructions Recorded DULoxetine [Cymbalta] 30 mg PO DAILY #30 ecc 04/18/17 traMADol [Ultram] 50 mg PO Q6 PRN #10 tab 04/18/17 traZODone [Desyrel] 50 mg PO HS #30 tab 04/18/17 - Allergies Allergies/Adverse Reactions: Allergies Allergy/AdvReac Type Severity Reaction Status Date / Time No Known Allergies Allergy Verified 06/08/17 10:13 Review of Systems ROS Statement: Except As Marked, All Systems Reviewed And Found Negative Constitutional: Positive for: Weakness (generalized ), Other (unsteady gait). Negative for: Fever, Chills Respiratory: Negative for: Cough Gastrointestinal: Positive for: Diarrhea, Other (loss of appetite). Negative for: Nausea, Vomiting, Abdominal Pain Physical Exam - Reviewed Nursing Documentation Reviewed: Yes Vital Signs Reviewed: Yes - Physical Exam Appears: Positive for: Non-toxic, No Acute Distress Head Exam: Positive for: ATRAUMATIC, NORMOCEPHALIC Skin: Positive for: Normal Color, Warm, Dry. Negative for: Rash Eye Exam: Positive for: Normal appearance, EOMI, PERRL ENT: Positive for: Other (mucosa dry ) Neck: Positive for: Painless ROM, Supple Cardiovascular/Chest: Positive for: Regular Rate, Rhythm. Negative for: Edema, Murmur Respiratory: Positive for: Normal Breath Sounds. Negative for: Respiratory Distress Gastrointestinal/Abdominal: Positive for: Normal Exam, Soft. Negative for: Tenderness Extremity: Positive for: Normal ROM (all extremities). Negative for: Deformity , Swelling Neurologic/Psych: Positive for: Alert, Oriented. Negative for: Motor/Sensory Deficits - Laboratory Results Result Diagrams: 06/08/17 11:05 06/08/17 11:05 - ECG O2 Sat by Pulse Oximetry: 99 (RA) Pulse Ox Interpretation: Normal Medical Decision Making Medical Decision Making: Initial Impression: Initial Plan: --Alcohol seum --Amylase --CMP --Drug screen, urine --Social work referral routine --Urine dipstick --CBC w/ differential --Sodium Chloride 1,000 ml IV 1,000 mls/hr --Physical therapy screening --Reevaluation Scribe Attestation: Documented by Delvis Jorge, acting as a scribe for Maile Blancas MD Provider Scribe Attestation: All medical record entries made by the Scribe were at my direction and personally dictated by me. I have reviewed the chart and agree that the record accurately reflects my personal performance of the history, physical exam, medical decision making, and the department course for this patient. I have also personally directed, reviewed, and agree with the discharge instructions and disposition. case d/w social insurance administrator. patient seen by PT and found to have steady gait. Patient observed to ambulate without issues. Advised him to followup with his PMD, Dr. Ojeda Disposition - Clinical Impression Clinical Impression: Feeding difficulty in elderly - Patient ED Disposition Is Patient to be Admitted: No Doctor Will See Patient In The: Office Counseled Patient/Family Regarding: Diagnosis, Need For Followup - Disposition Referrals: Moe Ojeda MD [Family Provider] - [facility] [Outside] Disposition: Routine/Home Disposition Time: 15:36 Condition: STABLE Instructions: Preventive Healthcare for Older Adults, Preventing Falls in the Older Adult Forms: [employer] (Maltese) - POA Present On Arrival: None
[2017-06-08] MEDS ORDERED: Alum-Mag Hydrox-Simethicone Susp (30 mL) PO ONE (14:02)
[2017-06-08] MEDS ORDERED: Alum-Mag Hydrox-Simethicone Susp (30 mL) ONE (14:13)
[2017-06-08 16:03] VITALS: BP 140/78; PULSE 72; TEMP 97; O2SAT 98
[2017-06-08 16:42] LABS: BARBITURATES, UR NEGATIVE (NEGATIVE); BENZODIAZEPINES, UR NEGATIVE (NEGATIVE); OPIATES, UR NEGATIVE (NEGATIVE); PHENCYCLIDINE, UR NEGATIVE (NEGATIVE)
== END 2017-06-08 16:14 | disposition home or self-care (01) ==
LOC: H.ER 10:00
DX: R63.3 Feeding difficulties (principal); E11.9 Type 2 diabetes mellitus without complications; E78.00 Pure hypercholesterolemia, unspecified; F20.9 Schizophrenia, unspecified; F31.9 Bipolar disorder, unspecified; F41.9 Anxiety disorder, unspecified
CPT/HCPCS: 80053; 82150; 85025; 99284; G0480; J7040

== ENCOUNTER 2017-06-17 11:06 | Inpatient (IN) | payer MEDICARE ==
[2017-06-17 14:11] LABS: BASO % 0.7 % (0.0-2.0); EOS # 0.1 K/uL (0.0-0.7); EOS % 0.8 % (0.0-4.0); LYMPH # 1.4 K/uL (1.0-4.3); LYMPH % 22.4 % (20.0-40.0); MEAN CELL VOLUME 92.9 fl (80.0-94.0); MEAN CORPUSCULAR HEMOGLOBIN 32.1 pg (27.0-31.0); MEAN CORPUSCULAR HGB CONC 34.6 g/dL (33.0-37.0); MEAN PLATELET VOLUME 8.1 fl (7.2-11.7); MONO # 0.4 K/uL (0.0-0.8); MONO % 5.7 % (0.0-10.0); NEUT # 4.4 K/uL (1.8-7.0); NEUT % 70.4 % (50.0-75.0); NRBC % 0.1 % (0.0-0.0); RBC 4.65 Mil/uL (4.40-5.90); RED CELL DISTRIBUTION WIDTH 12.8 % (11.5-14.5); WHITE BLOOD COUNT 6.3 K/uL (4.8-10.8)
[2017-06-17 14:12] LABS: URINE BILIRUBIN NEGATIVE (NEGATIVE); URINE BLOOD NEGATIVE (NEGATIVE); URINE CLARITY CLEAR (Clear); URINE COLOR YELLOW (YELLOW); URINE GLUCOSE (UA) NEG (Normal); URINE LEUKOCYTE ESTERASE NEG Leu/uL (Negative); URINE PROTEIN NEGATIVE (NEGATIVE); URINE UROBILINOGEN 0.2-1.0 mg/dL (0.2-1.0)
[2017-06-17 14:26] LABS: BARBITURATES, UR NEGATIVE (NEGATIVE); BENZODIAZEPINES, UR NEGATIVE (NEGATIVE); OPIATES, UR POSITIVE (NEGATIVE); PHENCYCLIDINE, UR NEGATIVE (NEGATIVE)
[2017-06-17 14:30] LABS: BLOOD UREA NITROGEN 14 mg/dl (9-20); CALCIUM 9.4 mg/dL (8.4-10.2); GFR AFRICAN-AMERICAN > 60; GFR NON-AFRICAN AMERICAN > 60
--- NOTE | 2017-06-17 14:57 | ED PDOC ---
HPI: Psych/Substance Abuse Time Seen by Provider: 06/17/17 11:21 Chief Complaint (Nursing): Psychiatric Evaluation Chief Complaint (Provider): Depression History Per: Patient History/Exam Limitations: no limitations Current Symptoms Are (Timing): Still Present Suicide/Self Injury Attempted (Context): None Additional Complaint(s): 72 year old male, with a past medical history of anxiety and depression, presented to ED with depression. Patient reported that he was hearing voices telling him it was not worth it to stay alive. He denies suicide intentions and reports no allergies. He indicates he stopped taking medications because of side effects. Past Medical History Reviewed: Historical Data, Nursing Documentation, Vital Signs Vital Signs: Last Vital Signs Temp 98.3 F 06/17/17 11:10 Pulse 82 06/17/17 11:10 Resp 19 06/17/17 11:10 BP 177/84 H 06/17/17 11:10 Pulse Ox 97 06/17/17 11:10 - Medical History PMH: Anxiety, Back Problems (herniated disk), Bipolar Disorder, Depression, Diabetes (type II), HIV, Hypercholesterolemia, Hyperlipidemia, Schizophrenia, Seizures Denies: Arthritis, Bronchitis, CHF, COPD, Hepatitis, HTN, Hypothyroidism, Chronic Kidney Disease, Rheumatoid Arthritis, Sexually Transmitted Disease - Surgical History Surgical History: Back Surgery, Cholecystectomy, Tonsillectomy - Family History Family History: States: Unknown Family Hx, Diabetes (father) - Social History Current smoker - smoking cessation education provided: No Ex-Smoker (has not smoked in the last 12 months): Yes Alcohol: None Drugs: Cannabis, Cocaine - Immunization History Hx Tetanus Toxoid Vaccination: No Hx Influenza Vaccination: No Hx Pneumococcal Vaccination: No - Home Medications Home Medications: Ambulatory Orders Medication Instructions Recorded DULoxetine [Cymbalta] 30 mg PO DAILY #30 ecc 04/18/17 traMADol [Ultram] 50 mg PO Q6 PRN #10 tab 04/18/17 traZODone [Desyrel] 50 mg PO HS #30 tab 04/18/17 - Allergies Allergies/Adverse Reactions: Allergies Allergy/AdvReac Type Severity Reaction Status Date / Time No Known Allergies Allergy Verified 06/08/17 10:13 Review of Systems ROS Statement: Except As Marked, All Systems Reviewed And Found Negative Psych: Positive for: Anxiety, Depression. Negative for: Suicidal ideation Physical Exam - Reviewed Nursing Documentation Reviewed: Yes Vital Signs Reviewed: Yes - Physical Exam Appears: Positive for: Non-toxic, No Acute Distress Head Exam: Positive for: ATRAUMATIC, NORMAL INSPECTION, NORMOCEPHALIC Skin: Positive for: Normal Color, Warm, Dry Eye Exam: Positive for: Normal appearance, EOMI, PERRL Neck: Positive for: Normal, Painless ROM Cardiovascular/Chest: Positive for: Regular Rate, Rhythm. Negative for: Murmur Respiratory: Positive for: Normal Breath Sounds. Negative for: Wheezing, Respiratory Distress Gastrointestinal/Abdominal: Positive for: Normal Exam, Soft. Negative for: Tenderness Back: Positive for: Normal Inspection. Negative for: L CVA Tenderness, R CVA Tenderness Extremity: Positive for: Normal ROM (upper/lower) Neurologic/Psych: Positive for: Alert, Oriented. Negative for: Motor/Sensory Deficits - Laboratory Results Result Diagrams: 06/17/17 13:53 06/17/17 13:53 - ECG O2 Sat by Pulse Oximetry: 97 (RA) Pulse Ox Interpretation: Normal Medical Decision Making Medical Decision Making: Initial Impression: Depression Initial Plan: Alcohol Serum stat BMP Drug Screen Urine stat CBC Urinalysis Crisis Evaluation Medical Evaluation Scribe Attestation: Documented by Kirill Painting acting as a scribe for Maile Blancas MD. Provider Scribe Attestation: All medical record entries made by the Scribe were at my direction and personally dictated by me. I have reviewed the chart and agree that the record accurately reflects my personal performance of the history, physical exam, medical decision making, and the department course for this patient. I have also personally directed, reviewed, and agree with the discharge instructions and disposition. patient is seen by project crew worker and admitted to [facility] for major depresion. Disposition - Clinical Impression Clinical Impression: Depression - Patient ED Disposition Is Patient to be Admitted: Transfer of Care Doctor Will See Patient In The: Hospital - Disposition Disposition: Transfer of Care Disposition Time: 15:18 Condition: STABLE Instructions: When You Have Depression and Another Health Problem, Depression, Adult (DC) Forms: [employer] (Irish) - POA Present On Arrival: None
[2017-06-17] MEDS ORDERED: Alum-Mag Hydrox-Simethicone Susp (30 mL) PO ONE (15:16)
[2017-06-17] MEDS ORDERED: Alum-Mag Hydrox-Simethicone Susp (30 mL) ONE (15:34)
--- NOTE | 2017-06-17 15:53 | RAD ---
HISTORY: for med clearance COMPARISON: Chest radiograph dated 05/06/2017. TECHNIQUE: Chest PA and lateral FINDINGS: LUNGS: No active pulmonary disease. PLEURA: No significant pleural effusion identified. No pneumothorax apparent. CARDIOVASCULAR: Atherosclerotic aortic calcifications. Cardiomediastinal silhouette within normal limits. OSSEOUS STRUCTURES: Unchanged. VISUALIZED UPPER ABDOMEN: Right upper quadrant surgical clips redemonstrated. OTHER FINDINGS: None. IMPRESSION: No active disease.
[2017-06-17] MEDS ORDERED: Magnesium Hydroxide Susp 30 ml UD PO PRN (17:14)
--- NOTE | 2017-06-17 17:32 | PCM.BM ---
<Renée Beal - Last Filed: 06/17/17 17:30> Treatment Plan Problems - Problems identified on initial assessmt Medication nonadherence Date Initiated: 06/17/17 Time Initiated: 17:34 Assessment reference: HP, NA Treatment assets and liabiliti Patient Assests: cooperative, ADL independent, negotiates basic needs Patient Liabilities: poor support system - Milieu Protocol Maintain good personal hygiene: daily Encourage regular showers, daily Remind patient to perform daily oral care, daily Assist patient to perform ADL's Conduct patient checks and document Observation sheet: Q15 minutes Maintain personal safety: every shift Educate patient to report safety concerns to staff, every shift Monitor environment for contraband/sharps Medication safety: Monitor for expected outcome, potential side effects: every shift, Assess barriers to learning: every shift, Assess readiness for medication education: every shift <Elina Cardozo - Last Filed: 06/18/17 11:00> - Diagnosis (1) Major depressive disorder with psychotic features Status: Acute Interventions: Medication management, Individual and group therapy, Psychoeducation 06/18/17 11:01 <Jenniffer Robertson - Last Filed: 06/20/17 12:04> Family Contact Family involvement: Famreymundo/BENY not involved - Outside Agency [facility] Care involvment: Not involved Agency contact name: Pt is non-compliant with after care appointments. Agency contact number: [phone] [facility] Care involvment: Not involved Agency contact name: Pt is non-compliant with after care referrals. Agency contact number: [phone] [facility] Care involvment: Not involved Agency contact name: Pt is non-compliant with after care referrals. - Goals for Treatment Patient goals for treatment: Pt to be encouraged to attend activity and clinical groups 3-5x per week to identify at least 2 contributing factors to depression and suicide attempt. Psycho-education to be provided to patient/ family regarding benefits of medications and treatment adherence. Pt to be encouraged to participate in group milieu to develop effective coping skills to reduce depression and free of suicide ideation. Coordinate discharge resource needs by providing referral for psychiatric treatment follow up in the community. Discharge/Continuing Care - Education Needs Education Needs: Patient Medication, Patient Diagnosis/Disease Process, Patient Coping Skills, Patient Community resources, Patient Activities of Daily Living, Patient Health Practices/Safety, Patient Personal Hygiene/Grooming, Patient Aftercare Safety Plan - Discharge Discharge Criteria: Tolerates medication w/o severe side effects, Free of agitation, Normal sleep pattern, Ability to care for self, Reduction of target symptoms, Other (Free of command auditory hallucinations) Discharge to:: Home - Additional Comments 06/20/17 11:57 Pt seen and discussed in team meeting. Reason for hospitalization reviewed and discussed. Pt reported being admitted due to "my stomach" and "the voices." Pt reported that the "voices" were telling him " all sort of stuff...I'm not getting better and this and that." Pt denied command auditory hallucinations at time of team meeting. Pt reported his sleep is "on and off." Pt reported "ok" appetite. Pt reported after care and recommendations non-compliance post discharge in april 2017. Pt reported he "could not make it" to [facility] due to stomach issues; pt reported that he disconnected the home telephone from the [facility] because people kept prank calling him therefore [facility]; and [facility] [place] with [place] 2 1/2 weeks ago. Pt reported his goal for admission and treatment is "to be put somewhere like rehab." Pt stated "I can't take being home anymore." Pt informed of the criteria and requirements for LTC placement. Pt's medications reviewed and discussed. Pt's social and medical issues reviewed. Tx plan reviewed and verbalized agreement. Pt signed written consent for [facility]. [employer] will continue to follow case. - Treatment Team Participation Discussed with Family/SO: No Was Patient/Family/SO present at Treatment Team Meeting: Yes
[2017-06-18 07:05] LABS: HEMOGLOBIN 14.1 g/dL (12.0-18.0); MEAN CELL VOLUME 92.7 fl (80.0-94.0); MEAN CORPUSCULAR HEMOGLOBIN 32.2 pg (27.0-31.0); MEAN CORPUSCULAR HGB CONC 34.8 g/dL (33.0-37.0); RBC 4.37 Mil/uL (4.40-5.90); RED CELL DISTRIBUTION WIDTH 12.9 % (11.5-14.5); WHITE BLOOD COUNT 7.1 K/uL (4.8-10.8)
[2017-06-18 07:17] LABS: LDL CHOLESTEROL 60 mg/dL (0-129)
[2017-06-18 07:22] LABS: T4 13.6 ug/dl (5.5-11.0)
[2017-06-18 07:40] LABS: ALB/GLOB RATIO 1.2 (1.0-2.1); ALBUMIN 3.4 g/dL (3.5-5.0); ALT/SGPT 33 U/L (21-72); AST/SGOT 18 U/L (17-59); BLOOD UREA NITROGEN 25 mg/dl (9-20); CALCIUM 9.4 mg/dL (8.4-10.2); GFR AFRICAN-AMERICAN > 60; GFR NON-AFRICAN AMERICAN > 60; HDL CHOLESTEROL 34 MG/DL (30-70)
--- NOTE | 2017-06-18 11:07 | PCM.PSYCH ---
Initial Psychiatric Evaluation - Initial Psychiatric Evaluation Type of Admission: Voluntary Legal Status: Capacity Chief Complaint (in patient's own words): "I'm depressed." Patient's Reaction to Hospitalization: HPI: 72 yo male w/ remote history of Alcohol use disorder, presents w/ severe depression in the context of having chronic pain. He also reports hearing AH, telling him he would be better off . He denies active suicidal ideation/ plan/intent. Patient reports that he feels depressed and hopeless and reports poor memory and concentration. Denies current AH/VH/paranoia/delusions. PPHx: H/o previous psychiatric hospitalizations for MDD vs bipolar disorder; patient is not currently compliant with any psychiatric treatment or medications ; last prescribed Cymbalta and Trazodone PMHx: Hepatitis, HTN SHx: H/o back surgery, h/o tonsil surgery ALL: NKDA SHx: Lives w/ his brother; denies current drug/ alcohol abuse; +1.5 ppd cig use ; +Opiate pain use (states he get Oxycodone from a pain specialist) FHx: Brother w/ schizophrenia Current Medications: Active Medications Generic Name Dose Route Start Last Admin Trade Name Freq PRN Reason Stop Dose Admin Acetaminophen 650 mg 06/17/17 17:14 Tylenol 325mg Tab PO Q4 PRN Pain, moderate (4-7) Al Hydrox/Mg Hydrox/Simethicone 30 ml 06/17/17 17:14 Maalox Plus 30 Ml PO Q4 PRN Dyspepsia Bismuth Subsalicylate 524 mg 06/17/17 17:14 Pepto-Bismol PO Q4 PRN Diarrhea Duloxetine HCl 30 mg 06/18/17 11:00 Cymbalta PO DAILY [facility] Lorazepam 0.5 mg 06/17/17 17:14 06/18/17 00:59 Ativan PO 07/01/17 17:15 0.5 mg HS PRN Administration Insomnia Lorazepam 0.5 mg 06/17/17 17:14 Ativan PO 07/01/17 17:15 Q6 PRN Anixety/Agitation Magnesium Hydroxide 30 ml 06/17/17 17:14 Milk Of Magnesia PO HS PRN Constipation Risperidone 0.5 mg 06/18/17 22:00 Risperdal Tab PO HS [facility] Trazodone HCl 50 mg 06/17/17 17:26 06/17/17 22:02 Desyrel PO 50 mg HS PRN Administration insomia Past Psychiatric History - Past Psychiatric History Previous Treatment History: Inpatient Pertinent Medical Hx (Current Medical&Sleep Prob, Allergies): Allergies Allergy/AdvReac Type Severity Reaction Status Date / Time No Known Allergies Allergy Verified 06/08/17 10:13 DULoxetine [Cymbalta] 30 mg PO DAILY #30 ecc 04/18/17 traMADol [Ultram] 50 mg PO Q6 PRN #10 tab 04/18/17 traZODone [Desyrel] 50 mg PO HS #30 tab 04/18/17 Review of Systems - Neurological Neurological: Abnormal Hearing - Psychiatric Psychiatric: As Per HPI, Abnormal Sleep Pattern, Anhedonia, Anxiety, Auditory Hallucinations, Change in Appetite, Depression, Difficulty Concentrating, Hopelessness, Irritability, Memory Loss, Mood Swings Mental Status Examination - Personal Presentation Personal Presentation: Looks stated age - Affect Affect: Constricted, Depressed - Motor Activity Motor Activity: Calm - Reliability in Providing Information Reliability in Providing Information: Fair - Speech Speech: Coherent - Mood Mood: Depressed - Formal Thought Process Formal Thought Process: Hallucinations (AH last night; none current) - Obsessions/Compulsions Obsessions: No Compulsions: No - Cognitive Functions Orientation: Person, Place, Situation, Time Sensorium: Alert Estimate of Intelligence: Average Judgement: Intact, as evidence by: Insight regarding need for hospitalization Memory: Recent intact, as evidence by: Ability to recall events of the day - Risk Risk: Diminished functioning - Strength & Assets Inventory Strength & Assets Inventory: Cooperative - Limitations Limitations: Decreased memory, recent DSM 5 DX - DSM 5 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
[2017-06-18] MEDS: Alum-Mag Hydrox-Simethicone Susp (30 mL) PO PRN (12:14)
--- NOTE | 2017-06-18 18:00 | CP.PCM.CON ---
History of Present Illness - History of Present Illness History of Present Illness: Cc: Depression A 72 year old male, with a past medical history of anxiety and depression, who presented to ED with depression. The patient reported that he was hearing voices telling him it was not worth it to stay alive. Patient denies suicide or homicidal intentions. He indicates he stopped taking medications because of side effects. He denies any chest pain, palpitations, headache, dizziness, fever , chills, nausea or vomiting. Review of Systems - Review of Systems All systems: reviewed and no additional remarkable complaints except (as stated) - Cardiovascular Cardiovascular: absent: Chest Pain, Dyspnea, Leg Edema - Respiratory Respiratory: absent: Cough, Chest Congestion - Neurological Neurological: absent: Dizziness, Headaches, Weakness - Psychiatric Psychiatric: Auditory Hallucinations, Behavioral Changes, Depression, Hallucinations Past Patient History - Infectious Disease Hx of Infectious Diseases: None - Tetanus Immunizations Tetanus Immunization: Unknown - Past Medical History & Family History Past Medical History?: Yes Pertinent Family History: Father (Diabetes) - Past Social History Alcohol: None Drugs: Cannabis, Cocaine - CARDIAC Hx Cardiac Disorders: No - PULMONARY Hx Respiratory Disorders: No Hx Tuberculosis: No - NEUROLOGICAL Hx Neurological Disorder: No HX Cerebrovascular Accident: No Hx Seizures: Yes - HEENT Hx HEENT Problems: No - RENAL Hx Chronic Kidney Disease: No - ENDOCRINE/METABOLIC Hx Diabetes Mellitus Type 2: Yes Hx Hypothyroidism: No - HEMATOLOGICAL/ONCOLOGICAL Hx Blood Disorders: No Hx Cancer: No Hx Hepatitis C: Yes - INTEGUMENTARY Hx Dermatological Problems: No - MUSCULOSKELETAL/RHEUMATOLOGICAL Hx Musculoskeletal Disorders: No Hx Arthritis: No Hx Falls: Yes Hx Rheumatoid Arthritis: No - GASTROINTESTINAL Hx Gastrointestinal Disorders: No - GENITOURINARY/GYNECOLOGICAL Hx Genitourinary Disorders: No Hx Sexually Transmitted Disorders: No - PSYCHIATRIC Hx Anxiety: Yes Hx Depression: Yes Hx Substance Use: Yes - SURGICAL HISTORY Hx Surgeries: Yes Hx Cholecystectomy: Yes Hx Tonsillectomy: Yes - ANESTHESIA Hx Anesthesia: Yes Hx Anesthesia Reactions: No Hx Malignant Hyperthermia: No Meds Allergies/Adverse Reactions: Allergies Allergy/AdvReac Type Severity Reaction Status Date / Time No Known Allergies Allergy Verified 06/08/17 10:13 - Medications Medications: Current Medications Acetaminophen (Tylenol 325mg Tab) 650 mg PO Q4 PRN PRN Reason: Pain, moderate (4-7) Al Hydrox/Mg Hydrox/Simethicone (Maalox Plus 30 Ml) 30 ml PO Q4 PRN PRN Reason: Dyspepsia Last Admin: 06/18/17 12:14 Dose: 30 ml Bismuth Subsalicylate (Pepto-Bismol) 524 mg PO Q4 PRN PRN Reason: Diarrhea Duloxetine HCl (Cymbalta) 30 mg PO DAILY [facility] Last Admin: 06/18/17 12:10 Dose: 30 mg Lorazepam (Ativan) 0.5 mg PO HS PRN PRN Reason: Insomnia Stop: 07/01/17 17:15 Last Admin: 06/18/17 00:59 Dose: 0.5 mg Lorazepam (Ativan) 0.5 mg PO Q6 PRN PRN Reason: Anixety/Agitation Stop: 07/01/17 17:15 Magnesium Hydroxide (Milk Of Magnesia) 30 ml PO HS PRN PRN Reason: Constipation Nicotine (Nicoderm Cq) 1 patch TD DAILY [facility] Last Admin: 06/18/17 12:34 Dose: 1 patch Risperidone (Risperdal Tab) 0.5 mg PO HS [facility] Tramadol HCl (Ultram) 50 mg PO Q6 PRN PRN Reason: Pain, severe (8-10) Last Admin: 06/18/17 16:04 Dose: 50 mg Trazodone HCl (Desyrel) 50 mg PO HS PRN PRN Reason: insomia Last Admin: 06/17/17 22:02 Dose: 50 mg Physical Exam - Constitutional Appears: Well, No Acute Distress - Head Exam Head Exam: ATRAUMATIC, NORMOCEPHALIC - Eye Exam Eye Exam: Normal appearance, PERRL Pupil Exam: NORMAL ACCOMODATION - ENT Exam ENT Exam: Mucous Membranes Moist - Neck Exam Neck exam: Positive for: Normal Inspection - Respiratory Exam Respiratory Exam: Clear to Auscultation Bilateral, NORMAL BREATHING PATTERN - Cardiovascular Exam Cardiovascular Exam: REGULAR RHYTHM, +S1, +S2 - GI/Abdominal Exam GI & Abdominal Exam: Normal Bowel Sounds, Soft - Extremities Exam Extremities exam: Positive for: normal inspection. Negative for: pedal edema - Back Exam Back exam: NORMAL INSPECTION - Neurological Exam Neurological exam: Alert, Oriented x3 - Psychiatric Exam Psychiatric exam: Anxious, Depressed - Skin Skin Exam: Dry, Warm Results - Vital Signs Recent Vital Signs: Last Vital Signs Temp 97.6 F 06/18/17 16:14 Pulse 65 06/18/17 16:14 Resp 18 06/18/17 16:14 BP 158/89 H 06/18/17 16:14 Pulse Ox 98 06/17/17 16:43 - Labs Result Diagrams: 06/18/17 06:44 06/18/17 06:44 Labs: Laboratory Results - last 24 hr 06/18/17 06/18/17 06/18/17 06:44 06:44 06:44 WBC 7.1 RBC 4.37 L Hgb 14.1 Hct 40.5 MCV 92.7 MCH 32.2 H MCHC 34.8 RDW 12.9 Plt Count 147 Sodium 141 Potassium 4.2 Chloride 104 Carbon Dioxide 29 Anion Gap 12 BUN 25 H Creatinine 0.8 Est GFR ( Amer) > 60 Est GFR (Non-Af Amer) > 60 Random Glucose 143 H Calcium 9.4 Ferritin 108.0 Total Bilirubin 0.5 AST 18 ALT 33 Alkaline Phosphatase 57 Total Protein 6.2 L Albumin 3.4 L Globulin 2.8 Albumin/Globulin Ratio 1.2 Triglycerides 89 Cholesterol 118 LDL Cholesterol Direct 60 HDL Cholesterol 34 Vitamin B12 312 Free T4 1.21 Thyroxine (T4) 13.6 H TSH 3rd Generation 0.97 Assessment & Plan (1) Depression Assessment and Plan: On medications Monitor Status: Acute (2) Anxiety Assessment and Plan: On medications Status: Acute (3) Abdominal pain Assessment and Plan: Tramadol PRN Status: Chronic Priority: Medium
[2017-06-19] MEDS: Alum-Mag Hydrox-Simethicone Susp (30 mL) PO PRN (10:11)
--- NOTE | 2017-06-19 10:12 | PCM.PYCHPN ---
Psychiatric Progress Note - Psychiatric Progress Note Patient seen today, length of contact: Patient evaluated, case discussed with team, chart reviewed Patient Chief Complaint: "I'm depressed." Problems Identified/Issues Discussed: Patient continues to report depression, anxiety, chronic stomach pain and intermittent AH. No adverse effects to medications reported. No current active suicidal ideation/plan/intent. Medication Change: No Medical Record Reviewed: Yes Consults ordered or reviewed: Medicine consult Mental Status Examination - Cognitive Function Orientation: Person, Place, Situation, Time Memory: Impaired Association: WNL Fund of Knowledge: [facility] Decription of patient's judgement and insights: Poor I/J - Mood Mood: Depressed - Affect Affect: Constricted, Depressed - Formal Thought Process Formal Thought Process: Hallucinations (intermittent AH) - Suicidal Ideation Suicidal Ideation: No - Homicidal Ideation Homicidal Ideation: No Goal/Treatment Plan - Goal/Treatment Plan Need for Continued Stay: Remain at risks for inpatient hospitalization, Severe depression anxiety, Discharge may exacerbated symptoms Progress Toward Problem(s) and Goals/Treatment Plan: Major Depressive Disorder w/ Psychotic Features -Continue Cymbalta 30 mg PO Daily -Continue Risperdal 0.5 mg PO HS -Medicine consult -Individual and group therapy -Psychoeducation -Disposition planning -Nicotine patch Estimated Date of D/C: 06/23/17
[2017-06-19 12:14] LABS: FOLATE 11.2 ng/mL
--- NOTE | 2017-06-20 10:11 | PCM.PYCHPN ---
Psychiatric Progress Note - Psychiatric Progress Note Patient seen today, length of contact: Patient evaluated, case discussed with team, chart reviewed Patient Chief Complaint: "I'm depressed." Problems Identified/Issues Discussed: Patient continues to report depression, anxiety and intermittent AH; denies CAH. No adverse effects to medications reported. No current active suicidal ideation/plan/intent. +Improving appetite Medication Change: Yes (Increase Cymbalta, Increase Risperdal) Medical Record Reviewed: Yes Consults ordered or reviewed: Medicine consult Mental Status Examination - Cognitive Function Orientation: Person, Place, Situation, Time Memory: Impaired Association: WNL Fund of Knowledge: [facility] Decription of patient's judgement and insights: Poor I/J - Mood Mood: Depressed - Affect Affect: Constricted, Depressed - Formal Thought Process Formal Thought Process: Hallucinations (Intermittent AH) Psychotic Thoughts and Behaviors: +Intermittent AH - Suicidal Ideation Suicidal Ideation: No - Homicidal Ideation Homicidal Ideation: No Goal/Treatment Plan - Goal/Treatment Plan Need for Continued Stay: Remain at risks for inpatient hospitalization, Severe depression anxiety, Discharge may exacerbated symptoms Progress Toward Problem(s) and Goals/Treatment Plan: Major Depressive Disorder w/ Psychotic Features -Increase Cymbalta to 60 mg PO Daily -Increase Risperdal to 1 mg PO HS -Medicine consult -Individual and group therapy -Psychoeducation -Disposition planning -Nicotine patch Estimated Date of D/C: 06/23/17
[2017-06-20] MEDS: Alum-Mag Hydrox-Simethicone Susp (30 mL) PO PRN (11:15)
--- NOTE | 2017-06-20 22:34 | CP.PCM.PN ---
Subjective - Date & Time of Evaluation Date of Evaluation: 06/20/17 Time of Evaluation: 16:00 - Subjective Subjective: Patient still reports depression and AH. Had some stomach discomfort today, medications helped Objective - Vital Signs/Intake and Output Vital Signs (last 24 hours): Temp Pulse Resp BP Pulse Ox 97.1 F L 72 19 126/77 98 06/20/17 15:53 06/20/17 15:53 06/20/17 15:53 06/20/17 15:53 06/17/17 16:43 - Medications Medications: Current Medications Acetaminophen (Tylenol 325mg Tab) 650 mg PO Q4 PRN PRN Reason: Pain, moderate (4-7) Last Admin: 06/20/17 15:57 Dose: 650 mg Al Hydrox/Mg Hydrox/Simethicone (Maalox Plus 30 Ml) 30 ml PO Q4 PRN PRN Reason: Dyspepsia Last Admin: 06/20/17 11:15 Dose: 30 ml Bismuth Subsalicylate (Pepto-Bismol) 524 mg PO Q4 PRN PRN Reason: Diarrhea Duloxetine HCl (Cymbalta) 60 mg PO DAILY [facility] Lorazepam (Ativan) 0.5 mg PO HS PRN PRN Reason: Insomnia Stop: 07/01/17 17:15 Last Admin: 06/19/17 21:07 Dose: 0.5 mg Lorazepam (Ativan) 0.5 mg PO Q6 PRN PRN Reason: Anixety/Agitation Stop: 07/01/17 17:15 Magnesium Hydroxide (Milk Of Magnesia) 30 ml PO HS PRN PRN Reason: Constipation Nicotine (Nicoderm Cq) 1 patch TD DAILY [facility] Last Admin: 06/20/17 08:13 Dose: 1 patch Risperidone (Risperdal Tab) 1 mg PO HS [facility] Last Admin: 06/20/17 21:04 Dose: 1 mg Tramadol HCl (Ultram) 50 mg PO Q6 PRN PRN Reason: Pain, severe (8-10) Last Admin: 06/20/17 14:14 Dose: 50 mg Trazodone HCl (Desyrel) 50 mg PO HS PRN PRN Reason: insomia Last Admin: 06/17/17 22:02 Dose: 50 mg - Labs Labs: 06/18/17 06:44 06/18/17 06:44 - Constitutional Appears: Well, No Acute Distress - Head Exam Head Exam: ATRAUMATIC, NORMOCEPHALIC - Respiratory Exam Respiratory Exam: Clear to Ausculation Bilateral, NORMAL BREATHING PATTERN - Cardiovascular Exam Cardiovascular Exam: REGULAR RHYTHM, +S1, +S2 - GI/Abdominal Exam GI & Abdominal Exam: Soft, Normal Bowel Sounds - Neurological Exam Neurological Exam: Alert, Oriented x3 - Psychiatric Exam Psychiatric exam: Depressed - Skin Skin Exam: Normal Color, Warm Assessment and Plan (1) Depression Assessment & Plan: Continue with medications as per psychiatrist Status: Acute (2) Anxiety Assessment & Plan: continue with psych meds Status: Acute (3) Abdominal pain Assessment & Plan: Continue Tramadol for Mod-severe APain Tylenol PRN for Mild pain. Status: Chronic
--- NOTE | 2017-06-21 09:38 | PCM.PYCHPN ---
Psychiatric Progress Note - Psychiatric Progress Note Patient seen today, length of contact: Patient evaluated, case discussed with team, chart reviewed Patient Chief Complaint: "I'm depressed." Problems Identified/Issues Discussed: Patient continues to report depression, chronic stomach pain, anxiety and intermittent AH; denies CAH. No adverse effects to medications reported. No current active suicidal ideation/plan/intent. Medication Change: No Medical Record Reviewed: Yes Consults ordered or reviewed: Medicine consult Mental Status Examination - Cognitive Function Orientation: Person, Place, Situation, Time Memory: Impaired Association: WNL Fund of Knowledge: [facility] Decription of patient's judgement and insights: Poor I/J - Mood Mood: Depressed - Affect Affect: Constricted, Depressed - Formal Thought Process Formal Thought Process: Hallucinations (Intermittent AH) Psychotic Thoughts and Behaviors: +Intermittent AH - Suicidal Ideation Suicidal Ideation: No - Homicidal Ideation Homicidal Ideation: No Goal/Treatment Plan - Goal/Treatment Plan Need for Continued Stay: Remain at risks for inpatient hospitalization, Severe depression anxiety, Discharge may exacerbated symptoms Progress Toward Problem(s) and Goals/Treatment Plan: Major Depressive Disorder w/ Psychotic Features -Continue Cymbalta 60 mg PO Daily -Continue Risperdal 1 mg PO HS -Medicine consult -Individual and group therapy -Psychoeducation -Disposition planning -Nicotine patch Estimated Date of D/C: 06/27/17
[2017-06-21] MEDS: Bismuth Subsalicylate 262 mg/15 ml Sus (240 ml) PO PRN (15:36)
--- NOTE | 2017-06-21 22:41 | CP.PCM.PN ---
Subjective - Date & Time of Evaluation Date of Evaluation: 06/21/17 Time of Evaluation: 17:00 - Subjective Subjective: Seen and examined at bedside, c/o of abd. pain, pain medication helping Still c/o of depression and AH Objective - Vital Signs/Intake and Output Vital Signs (last 24 hours): Temp Pulse Resp BP Pulse Ox 97.9 F 62 19 129/70 98 06/21/17 15:30 06/21/17 15:30 06/21/17 15:30 06/21/17 15:30 06/17/17 16:43 - Medications Medications: Current Medications Acetaminophen (Tylenol 325mg Tab) 650 mg PO Q4 PRN PRN Reason: Pain, moderate (4-7) Last Admin: 06/21/17 10:07 Dose: 650 mg Al Hydrox/Mg Hydrox/Simethicone (Maalox Plus 30 Ml) 30 ml PO Q4 PRN PRN Reason: Dyspepsia Last Admin: 06/20/17 11:15 Dose: 30 ml Bismuth Subsalicylate (Pepto-Bismol) 524 mg PO Q4 PRN PRN Reason: Diarrhea Last Admin: 06/21/17 15:36 Dose: 524 mg Duloxetine HCl (Cymbalta) 60 mg PO DAILY [facility] Last Admin: 06/21/17 08:46 Dose: 60 mg Lorazepam (Ativan) 0.5 mg PO HS PRN PRN Reason: Insomnia Stop: 07/01/17 17:15 Last Admin: 06/20/17 22:36 Dose: 0.5 mg Lorazepam (Ativan) 0.5 mg PO Q6 PRN PRN Reason: Anixety/Agitation Stop: 07/01/17 17:15 Magnesium Hydroxide (Milk Of Magnesia) 30 ml PO HS PRN PRN Reason: Constipation Nicotine (Nicoderm Cq) 1 patch TD DAILY [facility] Last Admin: 06/21/17 08:46 Dose: 1 patch Risperidone (Risperdal Tab) 1 mg PO HS [facility] Last Admin: 06/21/17 21:08 Dose: 1 mg Tramadol HCl (Ultram) 50 mg PO Q6 PRN PRN Reason: Pain, severe (8-10) Last Admin: 06/21/17 10:09 Dose: 50 mg Trazodone HCl (Desyrel) 50 mg PO HS PRN PRN Reason: insomia Last Admin: 06/17/17 22:02 Dose: 50 mg - Labs Labs: 06/18/17 06:44 06/18/17 06:44 - Constitutional Appears: Well, No Acute Distress - Head Exam Head Exam: ATRAUMATIC - Respiratory Exam Respiratory Exam: Clear to Ausculation Bilateral, NORMAL BREATHING PATTERN - Cardiovascular Exam Cardiovascular Exam: REGULAR RHYTHM, +S1, +S2 - GI/Abdominal Exam GI & Abdominal Exam: Soft, Normal Bowel Sounds - Neurological Exam Neurological Exam: Alert, Oriented x3 - Psychiatric Exam Psychiatric exam: Depressed - Skin Skin Exam: Normal Color, Warm Assessment and Plan (1) Depression Assessment & Plan: On medications group therapy Status: Acute (2) Anxiety Assessment & Plan: on medications Status: Acute (3) Abdominal discomfort Assessment & Plan: Tramadol prn for moderate pain Tylenol prn mild pain Status: Acute
[2017-06-22] MEDS: Bismuth Subsalicylate 262 mg/15 ml Sus (240 ml) PO PRN (03:42)
[2017-06-22] MEDS: Alum-Mag Hydrox-Simethicone Susp (30 mL) PO PRN ×2 (05:50→14:38)
--- NOTE | 2017-06-22 08:07 | CP.PCM.PN ---
Subjective - Date & Time of Evaluation Date of Evaluation: 06/19/17 Time of Evaluation: 19:15 - Subjective Subjective: Patient still reports depression and AH. Had some stomach discomfort today, medications helped Objective - Vital Signs/Intake and Output Vital Signs (last 24 hours): Temp Pulse Resp BP Pulse Ox 98.2 F 84 18 113/72 98 06/22/17 05:51 06/22/17 05:51 06/22/17 05:51 06/22/17 05:51 06/17/17 16:43 - Medications Medications: Current Medications Acetaminophen (Tylenol 325mg Tab) 650 mg PO Q4 PRN PRN Reason: Pain, moderate (4-7) Last Admin: 06/21/17 10:07 Dose: 650 mg Al Hydrox/Mg Hydrox/Simethicone (Maalox Plus 30 Ml) 30 ml PO Q4 PRN PRN Reason: Dyspepsia Last Admin: 06/22/17 05:50 Dose: 30 ml Bismuth Subsalicylate (Pepto-Bismol) 524 mg PO Q4 PRN PRN Reason: Diarrhea Last Admin: 06/22/17 03:42 Dose: 524 mg Duloxetine HCl (Cymbalta) 60 mg PO DAILY [facility] Last Admin: 06/21/17 08:46 Dose: 60 mg Lorazepam (Ativan) 0.5 mg PO HS PRN PRN Reason: Insomnia Stop: 07/01/17 17:15 Last Admin: 06/20/17 22:36 Dose: 0.5 mg Lorazepam (Ativan) 0.5 mg PO Q6 PRN PRN Reason: Anixety/Agitation Stop: 07/01/17 17:15 Magnesium Hydroxide (Milk Of Magnesia) 30 ml PO HS PRN PRN Reason: Constipation Nicotine (Nicoderm Cq) 1 patch TD DAILY [facility] Last Admin: 06/21/17 08:46 Dose: 1 patch Risperidone (Risperdal Tab) 1 mg PO HS [facility] Last Admin: 06/21/17 21:08 Dose: 1 mg Tramadol HCl (Ultram) 50 mg PO Q6 PRN PRN Reason: Pain, severe (8-10) Last Admin: 06/21/17 23:12 Dose: 50 mg Trazodone HCl (Desyrel) 50 mg PO HS PRN PRN Reason: insomia Last Admin: 06/17/17 22:02 Dose: 50 mg - Labs Labs: 06/18/17 06:44 06/18/17 06:44 Assessment and Plan (1) Depression Status: Acute (2) Anxiety Status: Acute (3) Abdominal pain Status: Chronic
--- NOTE | 2017-06-22 08:51 | PCM.PYCHPN ---
Psychiatric Progress Note - Psychiatric Progress Note Patient seen today, length of contact: Patient evaluated, case discussed with team, chart reviewed Patient Chief Complaint: "I'm depressed." Problems Identified/Issues Discussed: Patient continues to report depression, chronic stomach pain, anxiety and intermittent AH; denies CAH. It is unclear if the voices are true AH or negative thoughts; patient believes they are true external AH. No adverse effects to medications reported. No current active suicidal ideation/plan/ intent. Medication Change: No Medical Record Reviewed: Yes Consults ordered or reviewed: Medicine consult Mental Status Examination - Cognitive Function Orientation: Person, Place, Situation, Time Memory: Impaired Association: WNL Fund of Knowledge: [facility] Decription of patient's judgement and insights: Poor I/J - Mood Mood: Depressed - Affect Affect: Constricted, Depressed - Formal Thought Process Formal Thought Process: Hallucinations (Intermittent AH) Psychotic Thoughts and Behaviors: +Intermittent AH - Suicidal Ideation Suicidal Ideation: No - Homicidal Ideation Homicidal Ideation: No Goal/Treatment Plan - Goal/Treatment Plan Need for Continued Stay: Remain at risks for inpatient hospitalization, Severe depression anxiety, Discharge may exacerbated symptoms Progress Toward Problem(s) and Goals/Treatment Plan: Major Depressive Disorder w/ Psychotic Features -Continue Cymbalta 60 mg PO Daily -Continue Risperdal 1 mg PO HS; will consider further titration as clinically indicated -Medicine consult -Individual and group therapy -Psychoeducation -Disposition planning -Nicotine patch Estimated Date of D/C: 06/27/17
--- NOTE | 2017-06-22 21:35 | CP.PCM.PN ---
Subjective - Date & Time of Evaluation Date of Evaluation: 06/22/17 Time of Evaluation: 10:15 - Subjective Subjective: States he feels depressed, hearing voices has abd pain, medications helping Objective - Vital Signs/Intake and Output Vital Signs (last 24 hours): Temp Pulse Resp BP Pulse Ox 97.6 F 62 18 123/75 98 06/22/17 17:09 06/22/17 17:09 06/22/17 17:09 06/22/17 17:06/17/17 16:43 - Medications Medications: Current Medications Acetaminophen (Tylenol 325mg Tab) 650 mg PO Q4 PRN PRN Reason: Pain, moderate (4-7) Last Admin: 06/22/17 10:34 Dose: 650 mg Al Hydrox/Mg Hydrox/Simethicone (Maalox Plus 30 Ml) 30 ml PO Q4 PRN PRN Reason: Dyspepsia Last Admin: 06/22/17 14:38 Dose: 30 ml Bismuth Subsalicylate (Pepto-Bismol) 524 mg PO Q4 PRN PRN Reason: Diarrhea Last Admin: 06/22/17 03:42 Dose: 524 mg Duloxetine HCl (Cymbalta) 60 mg PO DAILY [facility] Last Admin: 06/22/17 08:33 Dose: 60 mg Lorazepam (Ativan) 0.5 mg PO HS PRN PRN Reason: Insomnia Stop: 07/01/17 17:15 Last Admin: 06/20/17 22:36 Dose: 0.5 mg Lorazepam (Ativan) 0.5 mg PO Q6 PRN PRN Reason: Anixety/Agitation Stop: 07/01/17 17:15 Magnesium Hydroxide (Milk Of Magnesia) 30 ml PO HS PRN PRN Reason: Constipation Nicotine (Nicoderm Cq) 1 patch TD DAILY [facility] Last Admin: 06/22/17 08:33 Dose: 1 patch Risperidone (Risperdal Tab) 1 mg PO HS [facility] Last Admin: 06/22/17 21:09 Dose: 1 mg Tramadol HCl (Ultram) 50 mg PO Q6 PRN PRN Reason: Pain, severe (8-10) Last Admin: 06/21/17 23:12 Dose: 50 mg Trazodone HCl (Desyrel) 50 mg PO HS PRN PRN Reason: insomia Last Admin: 06/17/17 22:02 Dose: 50 mg - Labs Labs: 06/18/17 06:44 06/18/17 06:44 - Constitutional Appears: Well, No Acute Distress - Head Exam Head Exam: ATRAUMATIC - Respiratory Exam Respiratory Exam: Clear to Ausculation Bilateral, NORMAL BREATHING PATTERN - Cardiovascular Exam Cardiovascular Exam: REGULAR RHYTHM, +S1, +S2 - GI/Abdominal Exam GI & Abdominal Exam: Soft, Normal Bowel Sounds - Neurological Exam Neurological Exam: Alert, Oriented x3 - Psychiatric Exam Psychiatric exam: Normal Affect - Skin Skin Exam: Normal Color, Warm Assessment and Plan (1) Depression Assessment & Plan: On medications Group therapy Status: Acute (2) Anxiety Assessment & Plan: On medications Status: Acute (3) Abdominal pain Assessment & Plan: Tramadol prn Tylenol prn Status: Chronic
--- NOTE | 2017-06-23 09:22 | PCM.PYCHPN ---
Psychiatric Progress Note - Psychiatric Progress Note Patient seen today, length of contact: Patient evaluated, case discussed with team, chart reviewed Patient Chief Complaint: "I'm depressed." Problems Identified/Issues Discussed: Patient continues to report depressed mood, chronic stomach pain, anxiety and intermittent AH; denies CAH. It is unclear if the voices are true AH or negative thoughts as the patient does not recall what the voices say and he does not seem internally preoccupied. No adverse effects to medications reported. No current active suicidal ideation/plan/intent. Medication Change: No Medical Record Reviewed: Yes Consults ordered or reviewed: Medicine consult Mental Status Examination - Cognitive Function Orientation: Person, Place, Situation, Time Memory: Impaired Association: WNL Fund of Knowledge: WNL Decription of patient's judgement and insights: Poor I/J - Mood Mood: Depressed - Affect Affect: Constricted, Depressed - Formal Thought Process Formal Thought Process: Hallucinations (Intermittent AH) Psychotic Thoughts and Behaviors: +Intermittent AH - Suicidal Ideation Suicidal Ideation: No - Homicidal Ideation Homicidal Ideation: No Goal/Treatment Plan - Goal/Treatment Plan Need for Continued Stay: Remain at risks for inpatient hospitalization, Severe depression anxiety, Discharge may exacerbated symptoms Progress Toward Problem(s) and Goals/Treatment Plan: Major Depressive Disorder w/ Psychotic Features -Continue Cymbalta 60 mg PO Daily -Continue Risperdal 1 mg PO HS; will consider further titration as clinically indicated -Medicine consult -Individual and group therapy -Psychoeducation -Disposition planning -Nicotine patch Estimated Date of D/C: 06/27/17
--- NOTE | 2017-06-23 22:41 | CP.PCM.PN ---
Subjective - Date & Time of Evaluation Date of Evaluation: 06/23/17 Time of Evaluation: 14:00 - Subjective Subjective: Feels slightly better but still depressed and has intermittent AH and some abdominal pain Objective - Vital Signs/Intake and Output Vital Signs (last 24 hours): Temp Pulse Resp BP Pulse Ox 97.2 F L 67 19 130/70 98 06/23/17 15:37 06/23/17 15:37 06/23/17 15:37 06/23/17 15:37 06/17/17 16:43 - Medications Medications: Current Medications Acetaminophen (Tylenol 325mg Tab) 650 mg PO Q4 PRN PRN Reason: Pain, moderate (4-7) Last Admin: 06/22/17 10:34 Dose: 650 mg Al Hydrox/Mg Hydrox/Simethicone (Maalox Plus 30 Ml) 30 ml PO Q4 PRN PRN Reason: Dyspepsia Last Admin: 06/22/17 14:38 Dose: 30 ml Bismuth Subsalicylate (Pepto-Bismol) 524 mg PO Q4 PRN PRN Reason: Diarrhea Last Admin: 06/22/17 03:42 Dose: 524 mg Duloxetine HCl (Cymbalta) 60 mg PO DAILY [facility] Last Admin: 06/23/17 08:40 Dose: 60 mg Lorazepam (Ativan) 0.5 mg PO HS PRN PRN Reason: Insomnia Stop: 07/01/17 17:15 Last Admin: 06/22/17 23:31 Dose: 0.5 mg Lorazepam (Ativan) 0.5 mg PO Q6 PRN PRN Reason: Anixety/Agitation Stop: 07/01/17 17:15 Magnesium Hydroxide (Milk Of Magnesia) 30 ml PO HS PRN PRN Reason: Constipation Nicotine (Nicoderm Cq) 1 patch TD DAILY [facility] Last Admin: 06/23/17 08:40 Dose: 1 patch Risperidone (Risperdal Tab) 1 mg PO HS [facility] Last Admin: 06/23/17 21:05 Dose: 1 mg Trazodone HCl (Desyrel) 50 mg PO HS PRN PRN Reason: insomia Last Admin: 06/17/17 22:02 Dose: 50 mg - Labs Labs: 06/18/17 06:44 06/18/17 06:44 - Constitutional Appears: Well, No Acute Distress - Head Exam Head Exam: ATRAUMATIC - Respiratory Exam Respiratory Exam: Clear to Ausculation Bilateral, NORMAL BREATHING PATTERN - Cardiovascular Exam Cardiovascular Exam: REGULAR RHYTHM, +S1, +S2 - GI/Abdominal Exam GI & Abdominal Exam: Soft, Normal Bowel Sounds - Neurological Exam Neurological Exam: Alert, Oriented x3 - Psychiatric Exam Psychiatric exam: Depressed - Skin Skin Exam: Normal Color, Warm Assessment and Plan (1) Depression Assessment & Plan: On medications group therapy Status: Acute (2) Anxiety Assessment & Plan: On medications Status: Acute (3) Abdominal pain Assessment & Plan: Tramadol and Tylenol prn pain Status: Chronic
[2017-06-24] MEDS: Alum-Mag Hydrox-Simethicone Susp (30 mL) PO PRN (06:23)
--- NOTE | 2017-06-24 09:15 | PCM.PYCHPN ---
Psychiatric Progress Note - Psychiatric Progress Note Patient seen today, length of contact: Patient evaluated, case discussed with team, chart reviewed Patient Chief Complaint: "I'm depressed." Problems Identified/Issues Discussed: Patient continues to report depression and chronic stomach pain. He acknowledges that he is not hearing voices, but instead is experiencing negative thoughts. No adverse effects to medications reported. No current active suicidal ideation/plan/intent. Medication Change: No Medical Record Reviewed: Yes Consults ordered or reviewed: Medicine consult Mental Status Examination - Cognitive Function Orientation: Person, Place, Situation, Time Memory: Impaired Association: WNL Fund of Knowledge: [facility] Decription of patient's judgement and insights: Poor I/J - Mood Mood: Depressed - Affect Affect: Constricted, Depressed - Speech Speech: Appropriate - Formal Thought Process Formal Thought Process: No Impairment Psychotic Thoughts and Behaviors: NO AH/VH/paranoia/delusions - Suicidal Ideation Suicidal Ideation: No - Homicidal Ideation Homicidal Ideation: No Goal/Treatment Plan - Goal/Treatment Plan Need for Continued Stay: Severe depression anxiety Progress Toward Problem(s) and Goals/Treatment Plan: Major Depressive Disorder w/ Psychotic Features -Continue Cymbalta 60 mg PO Daily -Continue Risperdal 1 mg PO HS -Medicine consult -Individual and group therapy -Psychoeducation -Disposition planning -Nicotine patch Estimated Date of D/C: 06/27/17 - Smoking Cessation Smoking Cessation Initiated: Yes
--- NOTE | 2017-06-24 12:27 | CARD ---
APPROVED REPORT EKG Measurement Heart [id number] <Conclusion> Sinus rhythm with premature supraventricular complexes Cannot rule out Anterior infarct, age undetermined Abnormal ECG
--- NOTE | 2017-06-24 23:33 | CP.PCM.PN ---
Subjective - Date & Time of Evaluation Date of Evaluation: 06/24/17 Time of Evaluation: 15:15 Objective - Vital Signs/Intake and Output Vital Signs (last 24 hours): Temp Pulse Resp BP Pulse Ox 97.8 F 61 20 123/70 98 06/24/17 15:57 06/24/17 15:57 06/24/17 15:57 06/24/17 15:57 06/17/17 16:43 - Medications Medications: Current Medications Acetaminophen (Tylenol 325mg Tab) 650 mg PO Q4 PRN PRN Reason: Pain, moderate (4-7) Last Admin: 06/22/17 10:34 Dose: 650 mg Al Hydrox/Mg Hydrox/Simethicone (Maalox Plus 30 Ml) 30 ml PO Q4 PRN PRN Reason: Dyspepsia Last Admin: 06/24/17 06:23 Dose: 30 ml Bismuth Subsalicylate (Pepto-Bismol) 524 mg PO Q4 PRN PRN Reason: Diarrhea Last Admin: 06/22/17 03:42 Dose: 524 mg Duloxetine HCl (Cymbalta) 60 mg PO DAILY [facility] Last Admin: 06/24/17 08:13 Dose: 60 mg Lorazepam (Ativan) 0.5 mg PO HS PRN PRN Reason: Insomnia Stop: 07/01/17 17:15 Last Admin: 06/23/17 23:29 Dose: 0.5 mg Lorazepam (Ativan) 0.5 mg PO Q6 PRN PRN Reason: Anixety/Agitation Stop: 07/01/17 17:15 Magnesium Hydroxide (Milk Of Magnesia) 30 ml PO HS PRN PRN Reason: Constipation Nicotine (Nicoderm Cq) 1 patch TD DAILY [facility] Last Admin: 06/24/17 08:12 Dose: 1 patch Risperidone (Risperdal Tab) 1 mg PO HS [facility] Last Admin: 06/24/17 22:26 Dose: Not Given Trazodone HCl (Desyrel) 50 mg PO HS PRN PRN Reason: insomia Last Admin: 06/24/17 22:26 Dose: 50 mg - Labs Labs: 06/18/17 06:44 06/18/17 06:44 Assessment and Plan (1) Depression Status: Acute (2) Anxiety Status: Acute (3) Abdominal pain Status: Chronic
--- NOTE | 2017-06-25 10:55 | PCM.PYCHPN ---
Psychiatric Progress Note - Psychiatric Progress Note Patient seen today, length of contact: Patient evaluated, case discussed with team, chart reviewed Patient Chief Complaint: pt is still depressed and his stomach is still hurting and got paranoid and refused risperdal. Medication Change: No Medical Record Reviewed: Yes Mental Status Examination - Cognitive Function Orientation: Person, Place, Situation, Time Memory: Impaired Association: WNL Fund of Knowledge: WNL - Mood Mood: Depressed - Affect Affect: Constricted, Depressed - Speech Speech: Appropriate - Formal Thought Process Formal Thought Process: No Impairment - Suicidal Ideation Suicidal Ideation: No - Homicidal Ideation Homicidal Ideation: No Goal/Treatment Plan - Goal/Treatment Plan Need for Continued Stay: Severe depression anxiety Progress Toward Problem(s) and Goals/Treatment Plan: will encourage pt to comply with meds and engage pt in therapy and groups . D/c plans as per dr banks Estimated Date of D/C: 06/27/17
[2017-06-26] MEDS: Alum-Mag Hydrox-Simethicone Susp (30 mL) PO PRN (04:34)
[2017-06-26 06:16] VITALS: O2SAT 18
--- NOTE | 2017-06-26 07:09 | CP.PCM.PN ---
Subjective - Date & Time of Evaluation Date of Evaluation: 06/25/17 Time of Evaluation: 12:45 Objective - Vital Signs/Intake and Output Vital Signs (last 24 hours): Temp Pulse Resp BP Pulse Ox 97.3 F L 73 19 131/72 18 L 06/26/17 06:00 06/26/17 06:00 06/25/17 15:30 06/26/17 06:00 06/26/17 06:00 - Medications Medications: Current Medications Acetaminophen (Tylenol 325mg Tab) 650 mg PO Q4 PRN PRN Reason: Pain, moderate (4-7) Last Admin: 06/25/17 10:41 Dose: 650 mg Al Hydrox/Mg Hydrox/Simethicone (Maalox Plus 30 Ml) 30 ml PO Q4 PRN PRN Reason: Dyspepsia Last Admin: 06/26/17 04:34 Dose: 30 ml Bismuth Subsalicylate (Pepto-Bismol) 524 mg PO Q4 PRN PRN Reason: Diarrhea Last Admin: 06/22/17 03:42 Dose: 524 mg Duloxetine HCl (Cymbalta) 60 mg PO DAILY [facility] Last Admin: 06/25/17 08:31 Dose: 60 mg Lorazepam (Ativan) 0.5 mg PO HS PRN PRN Reason: Insomnia Stop: 07/01/17 17:15 Last Admin: 06/23/17 23:29 Dose: 0.5 mg Lorazepam (Ativan) 0.5 mg PO Q6 PRN PRN Reason: Anixety/Agitation Stop: 07/01/17 17:15 Magnesium Hydroxide (Milk Of Magnesia) 30 ml PO HS PRN PRN Reason: Constipation Nicotine (Nicoderm Cq) 1 patch TD DAILY [facility] Last Admin: 06/25/17 08:32 Dose: 1 patch Risperidone (Risperdal Tab) 1 mg PO HS [facility] Last Admin: 06/25/17 21:01 Dose: 1 mg Trazodone HCl (Desyrel) 50 mg PO HS PRN PRN Reason: insomia Last Admin: 06/25/17 22:35 Dose: 50 mg - Labs Labs: 06/18/17 06:44 06/18/17 06:44 Assessment and Plan (1) Depression Status: Acute (2) Anxiety Status: Acute (3) Abdominal pain Status: Chronic
[2017-06-26] MEDS: Bismuth Subsalicylate 262 mg/15 ml Sus (240 ml) PO PRN (10:53)
--- NOTE | 2017-06-26 16:47 | CP.PCM.PN ---
Subjective - Date & Time of Evaluation Date of Evaluation: 06/26/17 Time of Evaluation: 19:30 Objective - Vital Signs/Intake and Output Vital Signs (last 24 hours): Temp Pulse Resp BP Pulse Ox 97.3 F L 60 19 140/67 18 L 06/26/17 15:50 06/26/17 15:50 06/26/17 15:50 06/26/17 15:50 06/26/17 06:00 - Medications Medications: Current Medications Acetaminophen (Tylenol 325mg Tab) 650 mg PO Q4 PRN PRN Reason: Pain, moderate (4-7) Last Admin: 06/25/17 10:41 Dose: 650 mg Al Hydrox/Mg Hydrox/Simethicone (Maalox Plus 30 Ml) 30 ml PO Q4 PRN PRN Reason: Dyspepsia Last Admin: 06/26/17 04:34 Dose: 30 ml Bismuth Subsalicylate (Pepto-Bismol) 524 mg PO Q4 PRN PRN Reason: Diarrhea Last Admin: 06/26/17 10:53 Dose: 262 mg Duloxetine HCl (Cymbalta) 60 mg PO DAILY [facility] Last Admin: 06/26/17 08:19 Dose: 60 mg Lorazepam (Ativan) 0.5 mg PO HS PRN PRN Reason: Insomnia Stop: 07/01/17 17:15 Last Admin: 06/23/17 23:29 Dose: 0.5 mg Lorazepam (Ativan) 0.5 mg PO Q6 PRN PRN Reason: Anixety/Agitation Stop: 07/01/17 17:15 Magnesium Hydroxide (Milk Of Magnesia) 30 ml PO HS PRN PRN Reason: Constipation Nicotine (Nicoderm Cq) 1 patch TD DAILY [facility] Last Admin: 06/26/17 08:20 Dose: 1 patch Risperidone (Risperdal Tab) 1 mg PO HS [facility] Last Admin: 06/25/17 21:01 Dose: 1 mg Trazodone HCl (Desyrel) 50 mg PO HS PRN PRN Reason: insomia Last Admin: 06/25/17 22:35 Dose: 50 mg - Labs Labs: 06/18/17 06:44 06/18/17 06:44 Assessment and Plan (1) Depression Status: Acute (2) Anxiety Status: Acute (3) Abdominal pain Status: Chronic
--- NOTE | 2017-06-26 17:18 | PCM.PYCHPN ---
Psychiatric Progress Note - Psychiatric Progress Note Patient seen today, length of contact: Patient evaluated, case discussed with team, chart reviewed Patient Chief Complaint: pt is still very anxious and has stomach pain seen by dr lovelace and no special recommendation and pt is still paranoid and now taking risperdal. Medication Change: No Medical Record Reviewed: Yes Mental Status Examination - Cognitive Function Orientation: Person, Place, Situation, Time Memory: Impaired Association: WNL Fund of Knowledge: WNL - Mood Mood: Depressed - Affect Affect: Constricted, Depressed - Speech Speech: Appropriate - Formal Thought Process Formal Thought Process: No Impairment - Suicidal Ideation Suicidal Ideation: No - Homicidal Ideation Homicidal Ideation: No Goal/Treatment Plan - Goal/Treatment Plan Need for Continued Stay: Severe depression anxiety Progress Toward Problem(s) and Goals/Treatment Plan: will encourage pt to comply with meds and engage pt in therapy and groups . D/c plans as per dr banks Estimated Date of D/C: 06/27/17
[2017-06-27 06:32] VITALS: BP 101/56; PULSE 63; RESP 18; TEMP 97.7
--- NOTE | 2017-06-27 08:25 | PCM.PYCHDC ---
Mental Status Examination - Mental Status Examination Orientation: Person, Place, Situation, Time Memory: Impaired (Mild chronic memory deficits) Mood: Neutral Affect: Broad Speech: Appropriate Association: WNL Fund of Knowledge: WNL Formal Thought Process: No Impairment Description of patient's judgement and insight: Improved I/J Psychotic Thoughts and Behaviors: NO AH/VH/paranoia/delusions Suicidal Ideation: No Current Homicidal Ideation?: No Discharge Summary - Discharge Note Reason for Hospitalization: HPI: 72 yo male w/ remote history of Alcohol use disorder, presents w/ severe depression in the context of having chronic pain. He also reports hearing AH, telling him he would be better off . He denies active suicidal ideation/ plan/intent. Patient reports that he feels depressed and hopeless and reports poor memory and concentration. Denies current AH/VH/paranoia/delusions. PPHx: H/o previous psychiatric hospitalizations for MDD vs bipolar disorder; patient is not currently compliant with any psychiatric treatment or medications ; last prescribed Cymbalta and Trazodone PMHx: Hepatitis, HTN SHx: H/o back surgery, h/o tonsil surgery ALL: NKDA SHx: Lives w/ his brother; denies current drug/ alcohol abuse; +1.5 ppd cig use ; +Opiate pain use (states he get Oxycodone from a pain specialist) FHx: Brother w/ schizophrenia Consultations:: List each consultation separately and include: 1. Reason for request. 2. Findings. 3. Follow-up Consultations: Medicine consult Summary of Hospital Course include:: 1. Description of specific treatment plan utilized for patients during their course of treatmen. 2. Summarize the time- course for resolution of acute symptoms and/or regressed behaviors. 3. Describe issues identified and worked on during hospitalization. 4. Describe medication utilized. 5. Describe medical problems identified and treated. 6. Reassessment of suicide risk Summary of Hospital Course: Patient was admitted to the geriatric psychiatry unit. Individual and group therapy were provided. Patient was stabilized on Cymbalta, Trazodone and Risperdal. He reports that his mood has improved. No current psychosis or SI/ HI. Patient is psychiatrically stable for discharge with outpatient follow- up. Psychoeducation provided on the importance of compliance with treatment and medications. - Diagnosis (1) Major depressive disorder with psychotic features Current Visit: Yes Status: Chronic - Final Diagnosis (DSM 5) Condition upon Discharge: STABLE DSM 5: Major Depressive Disorder Disposition: HOME/ ROUTINE Follow-up Treatment Plan: -Continue Cymbalta 60 mg PO Daily -Continue Risperdal 1 mg PO HS -Continue Trazodone 50 mg PO HS -Nicotine patch provided during admission; patient declined outpatient prescription Prescriptions/Medication Reconciliation: DULoxetine [Cymbalta] 60 mg PO DAILY #30 ecc risperiDONE [RisperDAL Tab] 1 mg PO HS #30 tab traZODone [Desyrel] 50 mg PO HS #30 tab - Smoking Cessation Smoking Cessation Medication prescribed: Yes Reason for not providing: Provided during admission; patient declined outpatient prescription - Antipsychotic Medications Pt discharged on 2 or more routine antipsychotic medications: No
[2017-06-27] MEDS ORDERED: Alum-Mag Hydrox-Simethicone Susp (30 mL) PO ONE (09:35)
--- NOTE | 2017-06-27 18:44 | CP.PCM.PN ---
Subjective - Date & Time of Evaluation Date of Evaluation: 06/27/17 Time of Evaluation: 11:35 Objective - Vital Signs/Intake and Output Vital Signs (last 24 hours): Temp Pulse Resp BP Pulse Ox 97.7 F 63 18 101/56 L 18 L 06/27/17 06:00 06/27/17 06:00 06/27/17 06:00 06/27/17 06:00 06/26/17 06:00 - Labs Labs: 06/18/17 06:44 06/18/17 06:44 Assessment and Plan (1) Depression Status: Acute (2) Anxiety Status: Acute (3) Abdominal pain Status: Chronic
== END 2017-06-27 13:15 | disposition home or self-care (01) | DRG 885 ==
LOC: H.ER 11:06 → H.ERHOLD 15:08 → H.STEP 17:00
PROVIDERS: ADMIT Psychiatry & Neurology Psychiatry; ATTEND Psychiatry & Neurology Psychiatry
PROC: GZ51ZZZ Individual Psychotherapy, Behavioral (ICD-10-PCS; 2017-06-18)
PROC: GZHZZZZ Group Psychotherapy (ICD-10-PCS; principal; 2017-06-21)
DX: F32.3 Major depressive disorder, single episode, severe with psychotic features (principal); F41.9 Anxiety disorder, unspecified; I10 Essential (primary) hypertension; Z79.899 Other long term (current) drug therapy; Z81.8 Family history of other mental and behavioral disorders; Z83.3 Family history of diabetes mellitus; Z90.49 Acquired absence of other specified parts of digestive tract; Z91.19 Patient's noncompliance with other medical treatment and regimen; Z86.19 Personal history of other infectious and parasitic diseases; F10.10 Alcohol abuse, uncomplicated; R56.9 Unspecified convulsions; E11.9 Type 2 diabetes mellitus without complications

== ENCOUNTER 2017-11-20 06:17 | Emergency (ER) | payer MEDICARE ==
[2017-11-20 06:57] VITALS: BMI 20.3
[2017-11-20 06:58] VITALS: RESP 18
[2017-11-20] MEDS ORDERED: Sodium Chloride 0.9% 1,000 ML IV STA (07:38)
--- NOTE | 2017-11-20 07:47 | ED PDOC ---
HPI: Abdomen Time Seen by Provider: 11/20/17 07:34 Chief Complaint (Nursing): Abdominal Pain Chief Complaint (Provider): Abdominal Pain History Per: Patient History/Exam Limitations: no limitations Onset/Duration Of Symptoms: Days (3) Location Of Pain/Discomfort: Diffuse Associated Symptoms: Diarrhea. denies: Fever, Vomiting, Urinary Symptoms Additional Complaint(s): 72 years old male with history of HIV, diabetes and anxiety presents to ER for evaluation of generalized abdominal pain associated with diarrhea onset 3 days ago. Patient denies any fever, vomiting or blood in stools. PMD: non provided Past Medical History Reviewed: Historical Data, Nursing Documentation, Vital Signs Vital Signs: Last Vital Signs Temp 98.6 F 11/20/17 06:57 Pulse 91 H 11/20/17 06:57 Resp 18 11/20/17 06:57 BP 135/80 11/20/17 06:57 Pulse Ox 96 11/20/17 06:57 - Medical History PMH: Anxiety, Back Problems (herniated disk), Bipolar Disorder, Depression, Diabetes (type II), HIV, Hypercholesterolemia, Hyperlipidemia, Schizophrenia, Seizures Denies: Arthritis, Bronchitis, CHF, COPD, Hepatitis, HTN, Hypothyroidism, Chronic Kidney Disease, Rheumatoid Arthritis, Sexually Transmitted Disease - Surgical History Surgical History: Back Surgery, Cholecystectomy, Tonsillectomy - Family History Family History: States: Diabetes (father) - Social History Current smoker - smoking cessation education provided: Yes (2 packs/day) Alcohol: None Drugs: Cocaine - Immunization History Hx Tetanus Toxoid Vaccination: No Hx Influenza Vaccination: No Hx Pneumococcal Vaccination: No - Home Medications Home Medications: Ambulatory Orders Medication Instructions Recorded DULoxetine [Cymbalta] 60 mg PO DAILY #30 ecc 06/27/17 risperiDONE [RisperDAL Tab] 1 mg PO HS #30 tab 06/27/17 traZODone [Desyrel] 50 mg PO HS #30 tab 06/27/17 Dicyclomine [Dicyclomine HCl] 10 mg PO Q8 #10 cap 11/20/17 - Allergies Allergies/Adverse Reactions: Allergies Allergy/AdvReac Type Severity Reaction Status Date / Time No Known Allergies Allergy Verified 11/20/17 06:56 Review of Systems ROS Statement: Except As Marked, All Systems Reviewed And Found Negative Constitutional: Negative for: Fever Gastrointestinal: Positive for: Abdominal Pain (Generalized), Diarrhea. Negativ e for: Vomiting Physical Exam - Reviewed Nursing Documentation Reviewed: Yes Vital Signs Reviewed: Yes - Physical Exam Appears: Positive for: Non-toxic, No Acute Distress Head Exam: Positive for: ATRAUMATIC, NORMOCEPHALIC Skin: Positive for: Normal Color, Warm, Dry Gastrointestinal/Abdominal: Positive for: Soft, Tenderness (Lower quadrant bilaterally) Back: Positive for: Normal Inspection. Negative for: L CVA Tenderness, R CVA Tenderness Extremity: Positive for: Normal ROM. Negative for: Pedal Edema, Swelling Neurologic/Psych: Positive for: Alert, Oriented (x3) - Laboratory Results Result Diagrams: 11/20/17 07:49 11/20/17 07:49 - ECG O2 Sat by Pulse Oximetry: 96 (RA) Pulse Ox Interpretation: Normal Medical Decision Making Medical Decision Making: Time: 737 Initial Plan: --Abdomen/Pelvis CT --CMP --CBC --NaCl 1,000 ml IV 100 ml/hr --Bentyl 10 mg PO Scribe Attestation: Documented by Marizol Mcclain, acting as a scribe for Duane Masters MD. Provider Scribe Attestation: All medical record entries made by the Scribe were at my direction and personally dictated by me. I have reviewed the chart and agree that the record accurately reflects my personal performance of the history, physical exam, m edical decision making, and the department course for this patient. I have also personally directed, reviewed, and agree with the discharge instructions and disposition. Disposition - Clinical Impression Clinical Impression: Gastroenteritis - Patient ED Disposition Is Patient to be Admitted: No Counseled Patient/Family Regarding: Studies Performed, Diagnosis, Need For Followup, Rx Given - Disposition Referrals: [facility] [Outside] Disposition: Routine/Home Disposition Time: 11:33 Condition: FAIR Prescriptions: Dicyclomine [Dicyclomine HCl] 10 mg PO Q8 #10 cap Instructions: Gastroenteritis (ED) Forms: [employer] (Uzbek)
[2017-11-20] MEDS ORDERED: Sodium Chloride 0.9% 50 ML IV ONE (07:55)
[2017-11-20] MEDS ORDERED: Iohexol 300 100 ML IJ ONE (07:55)
[2017-11-20 08:59] LABS: EOS % 0.6 % (0.0-4.0); HEMOGLOBIN 18.1 g/dL (12.0-18.0); LYMPH % 15.3 % (20.0-40.0); MEAN CELL VOLUME 90.9 fl (80.0-94.0); MEAN CORPUSCULAR HEMOGLOBIN 31.8 pg (27.0-31.0); MEAN PLATELET VOLUME 8.7 fl (7.2-11.7); MONO % 4.8 % (0.0-10.0); NEUT % 78.9 % (50.0-75.0); RBC 5.7 Mil/uL (4.40-5.90); RED CELL DISTRIBUTION WIDTH 14.6 % (11.5-14.5); WHITE BLOOD COUNT 8.1 K/uL (4.8-10.8)
[2017-11-20 09:00] LABS: BASO % 0.4 % (0.0-2.0); LYMPH # 1.2 K/uL (1.0-4.3); MONO # 0.4 K/uL (0.0-0.8); NEUT # 6.4 K/uL (1.8-7.0); NRBC % 0.3 % (0.0-0.0)
[2017-11-20 09:12] LABS: ALB/GLOB RATIO 1.3 (1.0-2.1); ALBUMIN 4.3 g/dL (3.5-5.0); ALT/SGPT 40 U/L (21-72); AST/SGOT 35 U/L (17-59); BLOOD UREA NITROGEN 20 mg/dl (9-20); GFR NON-AFRICAN AMERICAN > 60
--- NOTE | 2017-11-20 11:26 | CT ---
Date of service: 11/20/2017 PROCEDURE: CT Abdomen and Pelvis with contrast HISTORY: Abd pain COMPARISON: 03/06/2017 CT scan TECHNIQUE: Contrast dose: 95 mL Radiation dose: Total exam DLP = 266 mGy-cm. This CT exam was performed using one or more of the following dose reduction techniques: Automated exposure control, adjustment of the mA and/or kV according to patient size, and/or use of iterative reconstruction technique. FINDINGS: LOWER THORAX: Evaluation of the lung bases reveals mild chronic interstitial change without focal infiltrate or effusion. No pericardial effusion is seen. There is small hiatal hernia identified with mild thickening of the esophagus which may suggest some mild reflux esophagitis. Visualized stomach shows no evidence of wall thickening. LIVER: A few stable scattered subcentimeter hypodensities within the liver are noted most suggestive of small cysts. There is interval decrease in previously identified mild intrahepatic ductal dilatation. No new focal liver mass or perihepatic collection is seen. GALLBLADDER AND BILE DUCTS: Gallbladder has been removed since prior examination. There appears to be some slight decrease in size of the common bile duct from the prior study with maximal diameter of 7 millimeters. However there is the suggestion of some possible mild heterogeneous density in the distal common bile duct seen on prior study and evaluated with MRCP on prior MRI exam dated 03/07/2017. This may reflect some mild sludge within the distal common bile duct or represent some anatomic variation at the ampullary region. Correlation with laboratory values and symptoms is suggested. Duodenum is noted to be distended with fluid. PANCREAS: No appreciable pancreatic enlargement or peripancreatic inflammatory changes are noted. Pancreatic duct is unchanged in size from prior study. SPLEEN: There is a stable round enhancing lesion seen in the posterior aspect of the dome of the spleen when compare with prior study. Spleen is unchanged in overall size. ADRENALS: Unremarkable. No mass. KIDNEYS AND URETERS: There is stable appearance of the kidneys including prominent right renal pelvis and mild pelvocaliceal dilatation. Ureters show no evidence of filling defect or dilatation. No new renal masses are noted. VASCULATURE: Unchanged. BOWEL: No appreciable pericolonic inflammatory change or new bowel wall thickening is noted. No evidence of bowel obstruction. APPENDIX: Normal appendix. PERITONEUM: No ascites. LYMPH NODES: Unremarkable. No enlarged lymph nodes. BLADDER: Not significantly distended. No focal bladder wall thickening noted. REPRODUCTIVE: Enlarged prostate. BONES: Degenerative changes in the spine. No lytic process seen. Stable hips and pelvis. OTHER FINDINGS: None. IMPRESSION: Status post cholecystectomy from the prior examination. Common bile duct is slightly smaller in size now measuring 7 millimeters. There is some nonspecific persistent subtle increased density in the region of the distal common bile duct, a portion of which was noted on the prior study. This may reflect some mild distal common bile duct sludge or anatomic variation at the ampulla. No definite intrahepatic ductal dilatation. Stable small scattered probable hepatic cysts. Stable enhancing splenic lesion. Nonspecific mild fluid-filled and distended duodenum without small bowel obstruction noted elsewhere.
[2017-11-20 13:05] VITALS: BP 122/76; PULSE 76; TEMP 98; O2SAT 99
== END 2017-11-20 13:04 | disposition home or self-care (01) ==
LOC: H.ER 06:17
DX: K52.9 Noninfective gastroenteritis and colitis, unspecified (principal); E11.9 Type 2 diabetes mellitus without complications; F17.210 Nicotine dependence, cigarettes, uncomplicated; Z86.59 Personal history of other mental and behavioral disorders; Z90.49 Acquired absence of other specified parts of digestive tract
CPT/HCPCS: 74177; 80053; 85025; 99282; J7030; Q9967

== ENCOUNTER 2017-11-24 07:53 | Emergency (ER) | payer MEDICARE ==
[2017-11-24 07:54] VITALS: BMI 20.3
[2017-11-24 08:21] VITALS: TEMP 98; O2SAT 98
[2017-11-24 09:38] LABS: BASO % 0.4 % (0.0-2.0); EOS # 0.1 K/uL (0.0-0.7); EOS % 1.1 % (0.0-4.0); HEMOGLOBIN 15.6 g/dL (12.0-18.0); LYMPH # 1.4 K/uL (1.0-4.3); LYMPH % 20.7 % (20.0-40.0); MEAN CORPUSCULAR HEMOGLOBIN 32.3 pg (27.0-31.0); MEAN CORPUSCULAR HGB CONC 35.5 g/dL (33.0-37.0); MEAN PLATELET VOLUME 8.4 fl (7.2-11.7); MONO # 0.4 K/uL (0.0-0.8); MONO % 5.6 % (0.0-10.0); NEUT # 4.9 K/uL (1.8-7.0); NEUT % 72.2 % (50.0-75.0); NRBC % 0.3 % (0.0-0.0); RBC 4.84 Mil/uL (4.40-5.90); RED CELL DISTRIBUTION WIDTH 14.3 % (11.5-14.5); WHITE BLOOD COUNT 6.8 K/uL (4.8-10.8)
[2017-11-24 09:51] LABS: ALB/GLOB RATIO 1.2 (1.0-2.1); ALBUMIN 3.6 g/dL (3.5-5.0); ALT/SGPT 41 U/L (21-72); AST/SGOT 26 U/L (17-59); BLOOD UREA NITROGEN 20 mg/dl (9-20); CALCIUM 9.4 mg/dL (8.4-10.2); GFR NON-AFRICAN AMERICAN > 60; LIPASE 138 U/L (23-300)
--- NOTE | 2017-11-24 11:55 | US ---
Date of service: 11/24/2017 HISTORY: RUQ eval CBD and liver/pancreas COMPARISON: None. TECHNIQUE: Sonographic evaluation of the right upper quadrant of the abdomen. FINDINGS: LIVER: Measures 15.8 cm in length. Normal echogenicity of the liver parenchyma. No mass. No intrahepatic bile duct dilatation. GALLBLADDER: Status post cholecystectomy COMMON BILE DUCT: Measures 12 mm. This is consistent with patient age and history of prior cholecystectomy. However, note is made of choledocholithiasis in this patient. There is no accompanying intrahepatic biliary ductal dilatation. PANCREAS: Unremarkable as visualized. No mass. No ductal dilatation. RIGHT KIDNEY: Measures 11.8 cm in length. Normal cortical thickness and echogenicity. Lower pole simple cortical cyst, 1.2 cm. Mild fullness of the renal pelvis without radha hydronephrosis. No renal calculus. AORTA: No aneurysmal dilatation. IVC: Unremarkable. OTHER FINDINGS: None . IMPRESSION: Status post cholecystectomy. Mild dilatation of common bile duct without accompanying intrahepatic biliary dilatation, most likely related to patient age and prior cholecystectomy. Choledocholithiasis is noted, however. Additional minor findings as above.
--- NOTE | 2017-11-24 12:13 | ED PDOC ---
HPI: Abdomen Time Seen by Provider: 11/24/17 09:05 Chief Complaint (Nursing): Med Refill Chief Complaint (Provider): i need more bentyl History Per: Patient History/Exam Limitations: no limitations Onset/Duration Of Symptoms: Days (5-6), Intermittent Episodes Current Symptoms Are (Timing): Intermittent Episodes Severity: Mild Location Of Pain/Discomfort: Diffuse Quality Of Discomfort: Cramping Associated Symptoms: Nausea, Constipation. denies: Vomiting, Diarrhea, Loss Of Appetite, Back Pain Exacerbating Factors: None Alleviating Factors: None Last Bowel Movement: Yesterday Additional Complaint(s): 72yo male represents for crampy ongoing abdominal pain associated w nausea and constipation, last BM yesterday, hard, no blood. Seen several days ago for abd pain had CT abd pelv and bloodwork performed. Prior results reviewed. Denies fever, urinary symptoms, weakness or syncope. Past Medical History Vital Signs: Last Vital Signs Temp 98 F 11/24/17 08:19 Pulse 65 11/24/17 08:13 Resp 17 11/24/17 08:13 BP 170/72 H 11/24/17 08:13 Pulse Ox 98 11/24/17 08:19 - Medical History PMH: Anxiety, Back Problems (herniated disk), Bipolar Disorder, Depression, Diabetes (type II), HIV, Hypercholesterolemia, Hyperlipidemia, Schizophrenia, Seizures Denies: Arthritis, Bronchitis, CHF, COPD, Hepatitis, HTN, Hypothyroidism, Chronic Kidney Disease, Rheumatoid Arthritis, Sexually Transmitted Disease - Surgical History Surgical History: Back Surgery, Cholecystectomy, Tonsillectomy - Family History Family History: States: Unknown Family Hx, Diabetes (father) - Immunization History Hx Tetanus Toxoid Vaccination: No Hx Influenza Vaccination: No Hx Pneumococcal Vaccination: No - Home Medications Home Medications: Ambulatory Orders Medication Instructions Recorded DULoxetine [Cymbalta] 60 mg PO DAILY #30 ecc 06/27/17 risperiDONE [RisperDAL Tab] 1 mg PO HS #30 tab 06/27/17 traZODone [Desyrel] 50 mg PO HS #30 tab 06/27/17 Dicyclomine [Dicyclomine HCl] 10 mg PO Q8 #10 cap 11/20/17 Bisacodyl [Ducolax] 10 mg RC BID PRN #6 sup 11/24/17 Dicyclomine [Dicyclomine HCl] 10 mg PO TID PRN #12 cap 11/24/17 Magnesium Citrate [Citrate of Mag] 50 ml PO BID PRN #300 bottle 11/24/17 - Allergies Allergies/Adverse Reactions: Allergies Allergy/AdvReac Type Severity Reaction Status Date / Time No Known Allergies Allergy Verified 11/20/17 06:56 - Laboratory Results Result Diagrams: 11/24/17 09:30 11/24/17 09:30 - ECG O2 Sat by Pulse Oximetry: 98 Disposition - Clinical Impression Clinical Impression: Choledocholithiasis, Abdominal pain, Constipation - Disposition Referrals: Connor Marie MD [Staff Provider] - Condition: STABLE Additional Instructions: Followup with GI doctor and PMD for further testing and further treatment. Return to ER for any worse or new symptoms or pain. Prescriptions: Bisacodyl [Ducolax] 10 mg RC BID PRN #6 sup PRN Reason: Constipation Dicyclomine [Dicyclomine HCl] 10 mg PO TID PRN #12 cap PRN Reason: Gi Distress Magnesium Citrate [Citrate of Mag] 50 ml PO BID PRN #300 bottle PRN Reason: Constipation Instructions: Acute Abdomen (Belly Pain) Forms: [employer] (Libyan)
[2017-11-24 12:37] VITALS: BP 120/70; PULSE 78; RESP 20
--- NOTE | 2017-11-24 18:28 | CARD ---
APPROVED REPORT Date of service: 11/24/2017 EKG Measurement Heart [id number] <Conclusion> Sinus bradycardia Otherwise normal ECG
[2017-11-24] MEDS ORDERED: Magnesium Citrate Oral SOL (300 ml) ONE (19:49)
== END 2017-11-24 12:37 | disposition home or self-care (01) ==
LOC: H.ER 07:53
DX: K80.50 Calculus of bile duct without cholangitis or cholecystitis without obstruction (principal); R10.9 Unspecified abdominal pain; K59.00 Constipation, unspecified

== ENCOUNTER 2017-11-24 18:18 | Emergency (ER) | payer MEDICARE ==
[2017-11-24 18:18] VITALS: BMI 20.3
[2017-11-24 18:20] VITALS: RESP 16
[2017-11-24] MEDS ORDERED: Magnesium Citrate Oral SOL (300 ml) PO ONE ×2 (19:47→19:56)
--- NOTE | 2017-11-24 20:17 | ED PDOC ---
HPI: Abdomen Time Seen by Provider: 11/24/17 18:30 Chief Complaint (Nursing): Abdominal Pain Chief Complaint (Provider): Chronic constipation History Per: Patient History/Exam Limitations: no limitations Onset/Duration Of Symptoms: Days Associated Symptoms: Constipation Additional History Per: Patient Additional Complaint(s): 72yo male, with chronic constipation, comes to ER for evaluation of constipation. Patient was seen this morning and discharged home with medication. He states feeling continued discomfort. Patient is also asking for food. No additional medical complaints. Past Medical History Reviewed: Historical Data, Nursing Documentation, Vital Signs Vital Signs: Last Vital Signs Temp 98.3 F 11/24/17 18:19 Pulse 75 11/24/17 18:19 Resp 16 11/24/17 18:19 BP 154/90 H 11/24/17 18:19 Pulse Ox 99 11/24/17 18:19 - Medical History PMH: Anxiety, Back Problems (herniated disk), Bipolar Disorder, Depression, Diabetes (type II), HIV, Hypercholesterolemia, Hyperlipidemia, Schizophrenia, Seizures Denies: Arthritis, Bronchitis, CHF, COPD, Hepatitis, HTN, Hypothyroidism, Chronic Kidney Disease, Rheumatoid Arthritis, Sexually Transmitted Disease - Surgical History Surgical History: Back Surgery, Cholecystectomy, Tonsillectomy - Family History Family History: States: Unknown Family Hx, Diabetes (father) - Immunization History Hx Tetanus Toxoid Vaccination: No Hx Influenza Vaccination: No Hx Pneumococcal Vaccination: No - Home Medications Home Medications: Ambulatory Orders Medication Instructions Recorded RX: DULoxetine [Cymbalta] 60 mg PO DAILY #30 ecc 06/27/17 RX: risperiDONE [RisperDAL Tab] 1 mg PO HS #30 tab 06/27/17 RX: traZODone [Desyrel] 50 mg PO HS #30 tab 06/27/17 Dicyclomine [Dicyclomine HCl] 10 mg PO Q8 #10 cap 11/20/17 Bisacodyl [Ducolax] 10 mg RC BID PRN #6 sup 11/24/17 Dicyclomine [Dicyclomine HCl] 10 mg PO TID PRN #12 cap 11/24/17 RX: Magnesium Citrate [Citrate of 50 ml PO BID PRN #300 bottle 11/24/17 Mag] - Allergies Allergies/Adverse Reactions: Allergies Allergy/AdvReac Type Severity Reaction Status Date / Time No Known Allergies Allergy Verified 11/20/17 06:56 Review of Systems ROS Statement: Except As Marked, All Systems Reviewed And Found Negative Constitutional: Negative for: Fever, Chills Cardiovascular: Negative for: Chest Pain Respiratory: Negative for: Shortness of Breath Gastrointestinal: Positive for: Constipation. Negative for: Vomiting, Abdominal Pain, Diarrhea Physical Exam - Reviewed Nursing Documentation Reviewed: Yes Vital Signs Reviewed: Yes - Physical Exam Appears: Positive for: Non-toxic, No Acute Distress Head Exam: Positive for: ATRAUMATIC, NORMAL INSPECTION, NORMOCEPHALIC Skin: Positive for: Normal Color Eye Exam: Positive for: Normal appearance Neck: Positive for: Supple Cardiovascular/Chest: Positive for: Regular Rate, Rhythm Respiratory: Positive for: Normal Breath Sounds Gastrointestinal/Abdominal: Positive for: Bowel Sounds, Soft. Negative for: Tenderness Extremity: Positive for: Normal ROM Neurologic/Psych: Positive for: Alert - ECG O2 Sat by Pulse Oximetry: 99 (RA) Pulse Ox Interpretation: Normal Medical Decision Making Medical Decision Making: Impression: Chronic constipation Plan: -- Magnesium citrate PO On reassessment, patient noted to have had a bowel movement. He reports feeling better and is stable for discharge home. Scribe Attestation: Documented by Nancy Delgadillo, acting as a scribe for Chente Richardson MD. Provider Scribe Attestation: All medical record entries made by the Scribe were at my direction and personally dictated by me. I have reviewed the chart and agree that the record accurately reflects my personal performance of the history, physical exam, medical decision making, and the department course for this patient. I have also personally directed, reviewed, and agree with the discharge instructions and disposition. Disposition - Clinical Impression Clinical Impression: Chronic constipation - Patient ED Disposition Is Patient to be Admitted: No Counseled Patient/Family Regarding: Studies Performed, Diagnosis, Need For Followup - Disposition Disposition: Routine/Home Disposition Time: 20:25 Condition: IMPROVED Additional Instructions: follow up with your primary doctor in 1-2 days return to the ED with any worsening or concerning symptoms Instructions: Constipation, Adult (DC) Forms: [employer] (Austrian)
[2017-11-24 20:28] VITALS: BP 149/75; PULSE 64; TEMP 97.8
[2017-11-24 20:38] VITALS: O2SAT 99
== END 2017-11-24 20:25 | disposition home or self-care (01) ==
LOC: H.ER 18:18
DX: K59.09 Other constipation (principal)

== ENCOUNTER 2017-11-27 16:30 | Emergency (ER) | payer MEDICARE ==
[2017-11-27 16:30] VITALS: BMI 20.3
[2017-11-27 16:36] VITALS: BP 141/79; PULSE 78; RESP 18; TEMP 98.8; O2SAT 100
--- NOTE | 2017-11-27 17:48 | ED PDOC ---
HPI: Abdomen Time Seen by Provider: 11/27/17 17:14 Chief Complaint (Nursing): Abdominal Pain Chief Complaint (Provider): Abdominal Pain History Per: Patient History/Exam Limitations: no limitations Onset/Duration Of Symptoms: Hrs Quality Of Discomfort: "Pain" Additional Complaint(s): 72 year old male presents to the ER for an evaluation of lower abdominal pain and is requesting food. Patient states he was seen in the ED before and referred to follow up with gastrointestinal specialist which he denied and is requesting to stay overnight. He has pain, feels comfortable and is ambulating in the ER. Patient has had multiple visits to the ER. Due to socioeconomic factors, patient does not want to go home, prompting ER visit. Denies fever, nausea, vomiting, cough, chest pain or shortness of breath. PMD: Moe Ojeda Past Medical History Reviewed: Historical Data, Nursing Documentation, Vital Signs Vital Signs: Last Vital Signs Temp 98.8 F 11/27/17 16:34 Pulse 78 11/27/17 16:34 Resp 18 11/27/17 16:34 BP 141/79 11/27/17 16:34 Pulse Ox 100 11/27/17 16:34 - Medical History PMH: Anxiety, Back Problems (herniated disk), Bipolar Disorder, Depression, Diabetes (type II), HIV, Hypercholesterolemia, Hyperlipidemia, Schizophrenia, Seizures Denies: Arthritis, Bronchitis, CHF, COPD, Hepatitis, HTN, Hypothyroidism, Chronic Kidney Disease, Rheumatoid Arthritis, Sexually Transmitted Disease - Surgical History Surgical History: Back Surgery, Cholecystectomy, Tonsillectomy - Family History Family History: States: Unknown Family Hx, Diabetes (father) - Social History Current smoker - smoking cessation education provided: Yes (Heavy Smoker > 10 Cigarettes Daily) Alcohol: None Drugs: Cocaine - Immunization History Hx Tetanus Toxoid Vaccination: No Hx Influenza Vaccination: No Hx Pneumococcal Vaccination: No - Home Medications Home Medications: Ambulatory Orders Medication Instructions Recorded DULoxetine [Cymbalta] 60 mg PO DAILY #30 ecc 06/27/17 risperiDONE [RisperDAL Tab] 1 mg PO HS #30 tab 06/27/17 traZODone [Desyrel] 50 mg PO HS #30 tab 06/27/17 Dicyclomine [Dicyclomine HCl] 10 mg PO Q8 #10 cap 11/20/17 Bisacodyl [Ducolax] 10 mg RC BID PRN #6 sup 11/24/17 Dicyclomine [Dicyclomine HCl] 10 mg PO TID PRN #12 cap 11/24/17 Magnesium Citrate [Citrate of Mag] 50 ml PO BID PRN #300 bottle 11/24/17 - Allergies Allergies/Adverse Reactions: Allergies Allergy/AdvReac Type Severity Reaction Status Date / Time No Known Allergies Allergy Verified 11/20/17 06:56 Review of Systems ROS Statement: Except As Marked, All Systems Reviewed And Found Negative Constitutional: Negative for: Fever Cardiovascular: Negative for: Chest Pain Respiratory: Negative for: Shortness of Breath Gastrointestinal: Positive for: Abdominal Pain. Negative for: Nausea, Vomiting, Diarrhea Psych: Negative for: Suicidal ideation (homicidal ideation) Physical Exam - Reviewed Nursing Documentation Reviewed: Yes Vital Signs Reviewed: Yes - Physical Exam Appears: Positive for: Non-toxic, No Acute Distress. Negative for: Well (disheveled) Head Exam: Positive for: ATRAUMATIC, NORMAL INSPECTION, NORMOCEPHALIC Skin: Positive for: Normal Color, Warm, Dry. Negative for: Rash Eye Exam: Positive for: EOMI, Normal appearance, PERRL ENT: Positive for: Normal ENT Inspection Neck: Positive for: Normal, Painless ROM, Supple. Negative for: Decreased ROM Cardiovascular/Chest: Positive for: Regular Rate, Rhythm. Negative for: Murmur Respiratory: Positive for: Normal Breath Sounds. Negative for: Decreased Breath Sounds, Wheezing, Respiratory Distress Gastrointestinal/Abdominal: Positive for: Normal Exam, Soft. Negative for: Tenderness, Guarding, Rebound Back: Positive for: Normal Inspection Extremity: Positive for: Normal ROM. Negative for: Tenderness, Pedal Edema, Deformity Neurologic/Psych: Positive for: Alert, Oriented (x3), Gait (steady). Negative for: Motor/Sensory Deficits - Laboratory Results Result Diagrams: 11/27/17 17:41 11/27/17 17:41 - ECG O2 Sat by Pulse Oximetry: 100 (RA) Pulse Ox Interpretation: Normal Medical Decision Making Medical Decision Making: Time: 1735 Initial Plan: --CMP --CBC w/ Differential --Pepcid 40mg --Acetaminophen 650mg --Reassessment Patient tolerated PO and no IV fluids given. Upon provider reevaluation patient is feeling better, is medically stable, and requires no further treatment in the ED at this time. Patient will be discharged. Counseling was provided and all questions were answered regarding diagnosis and need for follow up with outpatient. There is agreement to discharge plan. Return if symptoms persist or worsen. Scribe Attestation: Documented by, Yanely Moralez acting as a scribe for Kindra Looney MD Provider Scribe Attestation: All medical record entries made by the Scribe were at my direction and personally dictated by me. I have reviewed the chart and agree that the record accurately reflects my personal performance of the history, physical exam, medical decision making, and the department course for this patient. I have also personally directed, reviewed, and agree with the discharge instructions and disposition. Pt with normal and unchanged labs. Pt tolerating PO and drinking juice. Vitals WNL. PT requesting to go home after learning there was no indication for admission. Pt declines outpatient follow up. Return parameters discussed. Disposition - Clinical Impression Clinical Impression: Constipation, Chronic constipation - Patient ED Disposition Is Patient to be Admitted: No - Disposition Disposition: Routine/Home Disposition Time: 18:00 Condition: IMPROVED Forms: [employer] [place] (German)
[2017-11-27 17:53] LABS: BASO # 0.1 K/uL (0.0-0.2); BASO % 0.6 % (0.0-2.0); EOS # 0.1 K/uL (0.0-0.7); EOS % 0.7 % (0.0-4.0); HEMOGLOBIN 16.9 g/dL (12.0-18.0); LYMPH # 1.8 K/uL (1.0-4.3); LYMPH % 18.6 % (20.0-40.0); MEAN CELL VOLUME 90.7 fl (80.0-94.0); MEAN CORPUSCULAR HEMOGLOBIN 32.1 pg (27.0-31.0); MEAN CORPUSCULAR HGB CONC 35.4 g/dL (33.0-37.0); MEAN PLATELET VOLUME 8.6 fl (7.2-11.7); MONO # 0.6 K/uL (0.0-0.8); MONO % 6.1 % (0.0-10.0); NEUT # 7.3 K/uL (1.8-7.0); NRBC % 0.3 % (0.0-0.0); RBC 5.28 Mil/uL (4.40-5.90); RED CELL DISTRIBUTION WIDTH 14.2 % (11.5-14.5); WHITE BLOOD COUNT 9.9 K/uL (4.8-10.8)
[2017-11-27 18:25] LABS: ALB/GLOB RATIO 1.2 (1.0-2.1); ALBUMIN 3.9 g/dL (3.5-5.0); ALT/SGPT 51 U/L (21-72); AST/SGOT 28 U/L (17-59); BLOOD UREA NITROGEN 24 mg/dl (9-20); CALCIUM 9.9 mg/dL (8.4-10.2); GFR NON-AFRICAN AMERICAN > 60
== END 2017-11-27 17:52 | disposition home or self-care (01) ==
LOC: H.ER 16:30
DX: K59.09 Other constipation (principal); E11.9 Type 2 diabetes mellitus without complications; E78.00 Pure hypercholesterolemia, unspecified; F31.9 Bipolar disorder, unspecified; F20.9 Schizophrenia, unspecified; F41.9 Anxiety disorder, unspecified

== ENCOUNTER 2017-11-28 03:07 | Emergency (ER) | payer MEDICARE ==
[2017-11-28 03:08] VITALS: BMI 20.3
[2017-11-28 03:26] VITALS: O2SAT 99
[2017-11-28] MEDS ORDERED: Sodium Chloride 0.9% 50 ML IV ONE (04:03)
[2017-11-28] MEDS ORDERED: Iohexol 300 100 ML IJ ONE (04:03)
[2017-11-28] MEDS ORDERED: metroNIDAZOLE 500mg/100ml NS 100 ML IVPB STA (05:03)
[2017-11-28] MEDS ORDERED: Ciprofloxacin 400mg/200ml D5W 400 MG/200 ML BAG IVPB STA (05:03)
--- NOTE | 2017-11-28 05:07 | ED PDOC ---
HPI: Abdomen Time Seen by Provider: 11/28/17 03:12 Chief Complaint (Nursing): Abdominal Pain History Per: Patient History/Exam Limitations: no limitations Onset/Duration Of Symptoms: Days Current Symptoms Are (Timing): Still Present Location Of Pain/Discomfort: Epigastric, Suprapubic Quality Of Discomfort: Pressure Associated Symptoms: Constipation. denies: Fever, Chills, Nausea, Vomiting, Diarrhea, Urinary Symptoms Additional Complaint(s): Hx of bipolar disorder, depression, diabetes, chronic abdominal pain presenting with abdominal pain, states it has been there for "Weeks", states he has taken the medication prescribed by the ED after several visits for similar presentation but the medication is not working. States he was here yesterday as well for evaluation and had bloodwork done. Patient states he had one small bowel movement today and does not feel that he is constipated. Denies fevers, nausea, vomiting. States he was instructed to followup with GI but he has not done so. PMD: Dr. Ojeda Past Medical History Reviewed: Historical Data, Nursing Documentation, Vital Signs Vital Signs: Last Vital Signs Temp 98.1 F 11/28/17 03:24 Pulse 84 11/28/17 03:24 Resp 16 11/28/17 03:24 BP 126/82 11/28/17 03:24 Pulse Ox 99 11/28/17 03:24 - Medical History PMH: Anxiety, Back Problems (herniated disk), Bipolar Disorder, Depression, Diabetes (type II), HIV, Hypercholesterolemia, Hyperlipidemia, Schizophrenia, Seizures Denies: Arthritis, Bronchitis, CHF, COPD, Hepatitis, HTN, Hypothyroidism, Chronic Kidney Disease, Rheumatoid Arthritis, Sexually Transmitted Disease - Surgical History Surgical History: Back Surgery, Cholecystectomy, Tonsillectomy - Family History Family History: States: Unknown Family Hx, Diabetes (father) - Immunization History Hx Tetanus Toxoid Vaccination: No Hx Influenza Vaccination: No Hx Pneumococcal Vaccination: No - Home Medications Home Medications: Ambulatory Orders Medication Instructions Recorded DULoxetine [Cymbalta] 60 mg PO DAILY #30 ecc 06/27/17 risperiDONE [RisperDAL Tab] 1 mg PO HS #30 tab 06/27/17 traZODone [Desyrel] 50 mg PO HS #30 tab 06/27/17 Dicyclomine [Dicyclomine HCl] 10 mg PO Q8 #10 cap 10/07/18 Bisacodyl [Ducolax] 10 mg RC BID PRN #6 sup 11/24/17 Dicyclomine [Dicyclomine HCl] 10 mg PO TID PRN #12 cap 11/24/17 Magnesium Citrate [Citrate of Mag] 50 ml PO BID PRN #300 bottle 11/24/17 Ciprofloxacin [Cipro] 500 mg PO BID 7 Days tab 11/28/17 metroNIDAZOLE [Flagyl] 500 mg PO BID 7 Days tab 11/28/17 - Allergies Allergies/Adverse Reactions: Allergies Allergy/AdvReac Type Severity Reaction Status Date / Time No Known Allergies Allergy Verified 11/20/17 06:56 Review of Systems ROS Statement: Except As Marked, All Systems Reviewed And Found Negative Gastrointestinal: Positive for: Abdominal Pain Physical Exam - Reviewed Nursing Documentation Reviewed: Yes Vital Signs Reviewed: Yes - Physical Exam Appears: Positive for: Well, Non-toxic, No Acute Distress Head Exam: Positive for: ATRAUMATIC, NORMAL INSPECTION, NORMOCEPHALIC Skin: Positive for: Normal Color, Warm, DRY Eye Exam: Positive for: EOMI, Normal appearance, PERRL ENT: Positive for: Normal ENT Inspection Neck: Positive for: Normal, Painless ROM Cardiovascular/Chest: Positive for: Regular Rate, Rhythm Respiratory: Positive for: CNT, Normal Breath Sounds Gastrointestinal/Abdominal: Positive for: Normal Exam, Soft Back: Positive for: Normal Inspection Extremity: Positive for: Normal ROM Neurologic/Psych: Positive for: Alert, Oriented - ECG O2 Sat by Pulse Oximetry: 99 Pulse Ox Interpretation: Normal Medical Decision Making Medical Decision MakinAM Patient presenting with abdominal pain --Patient seen yesterday with normal labs --Patient likely having sequelae of chronic abdominal pain, however given increasing visits, will get repeat CT 5AM --Exam shows uncomplicated transverse colitis --Will treat with Cipro and Flagyl --Patient was asked to confirm HIV status but he does not know, thinks he has "Hepatitis Three"? --Told patient ABx will take peak efficacy after 48 hours of medication if he's compliant --STRONGLY advised patient to followup with Dr. Marie on Tuesday and advised patient that he will likely need colonoscopy as outpatient --Well appearing, tolerating PO, benign abdomen exam upon discharge --Strongly advised smoking cessation Disposition - Clinical Impression Clinical Impression: Colitis - Patient ED Disposition Is Patient to be Admitted: No - Disposition Referrals: Connor Marie MD [Staff Provider] - Disposition: Routine/Home Disposition Time: 05:18 Condition: GOOD Prescriptions: Ciprofloxacin [Cipro] 500 mg PO BID 7 Days tab metroNIDAZOLE [Flagyl] 500 mg PO BID 7 Days tab Instructions: Microscopic Colitis
[2017-11-28] MEDS ORDERED: metroNIDAZOLE 500mg/100ml NS 100 ML IVPB ONE ×2 (05:14→13:08)
[2017-11-28] MEDS ORDERED: Ciprofloxacin 400mg/200ml D5W 400 MG/200 ML BAG IVPB ONE (05:14)
[2017-11-28] MEDS ORDERED: Alum-Mag Hydrox-Simethicone Susp (30 mL) PO ONE (05:18)
[2017-11-28 06:48] VITALS: BP 128/73; PULSE 63; RESP 17; TEMP 98.2
[2017-11-28] MEDS ORDERED: Iohexol 240 (50 ml) ONE (11:31)
--- NOTE | 2017-11-28 13:46 | CT ---
Date of service: 11/28/2017 PROCEDURE: CT Abdomen and Pelvis with contrast HISTORY: mid-abdominal pain, hx of cholecystectomy COMPARISON: None. TECHNIQUE: Following the intravenous administration of iodinated contrast material, a CT examination of the abdomen and pelvis performed from the domes of the diaphragms to the symphysis pubis with reformatted datasets provided in axial, sagittal and coronal planes. Oral contrast was not administered as per referring physician request. Coronal and sagittal reformats were generated. contrast dose: Omnipaque 300, 95 cc Radiation dose: Total exam DLP = 235.41 mGy-cm. This CT exam was performed using one or more of the following dose reduction techniques: Automated exposure control, adjustment of the mA and/or kV according to patient size, and/or use of iterative reconstruction technique. FINDINGS: LOWER THORAX: Unremarkable. LIVER: Small lucencies are seen at the medial left and inferior right hepatic lobes of uncertain origin but unchanged in the interval. Minimal central intrahepatic biliary dilatation is reiterated related to prior cholecystectomy. GALLBLADDER AND BILE DUCTS: Prior cholecystectomy reiterated. Question variation of the MP or possible sludge in the distal CB Post cholecystectomy related dilatation of the CBD unchanged. PANCREAS: Unremarkable. No gross lesion or ductal dilatation. SPLEEN: A small enhancing lesion 5 mm greatest dimension is reiterated at the spleen. ADRENALS: Unremarkable. No mass. KIDNEYS AND URETERS: Unremarkable. No hydronephrosis. No solid mass. VASCULATURE: Unremarkable. No aortic aneurysm. BOWEL: There is thickening of the transverse colon and possibly the left hemicolon without definite diverticular changes suggesting segmental colitis. Clinically correlate further. No pericolic reaction grossly evident however. APPENDIX: Normal retrocecal appendix. PERITONEUM: Unremarkable. No free fluid. No free air. LYMPH NODES: Unremarkable. No enlarged lymph nodes. BLADDER: Unremarkable. REPRODUCTIVE: Unremarkable. BONES: No acute fracture. OTHER FINDINGS: None. IMPRESSION: Segmental colitis affects transverse and possibly descending colon as well. No abscess, free air or ascites. Clinically correlate further. Other lesser findings as discussed above. Concordant preliminary report from [facility], 11/28/2017.
== END 2017-11-28 07:29 | disposition home or self-care (01) ==
LOC: H.ER 03:07
DX: K52.9 Noninfective gastroenteritis and colitis, unspecified (principal); E11.9 Type 2 diabetes mellitus without complications; E78.00 Pure hypercholesterolemia, unspecified
CPT/HCPCS: 74177; 96365; 96367; 99284; J0744; Q9967

== ENCOUNTER 2017-11-28 09:36 | Observation (INO) | payer MEDICARE ==
[2017-11-28 09:36] VITALS: BMI 20.3
--- NOTE | 2017-11-28 11:17 | ED PDOC ---
HPI: Abdomen Time Seen by Provider: 11/28/17 10:22 Chief Complaint (Nursing): Abdominal Pain Chief Complaint (Provider): persistent abdominal pain History Per: Patient History/Exam Limitations: no limitations Onset/Duration Of Symptoms: Days (7+), Gradual Current Symptoms Are (Timing): Still Present Location Of Pain/Discomfort: RUQ, Epigastric, LUQ Quality Of Discomfort: Sharp Associated Symptoms: Nausea Additional Complaint(s): 72yo male represents for approx 6 ED visit in 7 days for abdominal pain. Seen overnight last night had CT told transverse colitis. Pain worsened unable to fill medications hence returned to ED. States has poor social support. Also known stone in CBD from prior exams and visits, s/p cholecystectomy earlier this year. PMD Rusty Past Medical History Reviewed: Historical Data, Nursing Documentation, Vital Signs Vital Signs: Last Vital Signs Temp 98.6 F 11/28/17 09:39 Pulse 78 11/28/17 09:39 Resp 17 11/28/17 09:39 BP 136/87 11/28/17 09:39 Pulse Ox 97 11/28/17 09:39 - Medical History PMH: Anxiety, Back Problems (herniated disk), Bipolar Disorder, Depression, Diabetes (type II), HIV, Hypercholesterolemia, Hyperlipidemia, Schizophrenia, Seizures Denies: Arthritis, Bronchitis, CHF, COPD, Hepatitis, HTN, Hypothyroidism, Chronic Kidney Disease, Rheumatoid Arthritis, Sexually Transmitted Disease - Surgical History Surgical History: Back Surgery, Cholecystectomy, Tonsillectomy - Family History Family History: States: Unknown Family Hx, Diabetes (father) - Immunization History Hx Tetanus Toxoid Vaccination: No Hx Influenza Vaccination: No Hx Pneumococcal Vaccination: No - Home Medications Home Medications: Ambulatory Orders Medication Instructions Recorded Ibuprofen/Diphenhydramine HCl 1 each PO BID PRN 11/28/17 [Advil Pm Liqui-Gels] Ciprofloxacin HCl [Cipro] 500 mg PO BID 5 Days #10 tablet 11/29/17 DULoxetine [Cymbalta] 60 mg PO DAILY ecc 11/29/17 Famotidine [Pepcid] 40 mg PO DAILY #30 tablet 11/29/17 Metronidazole [Flagyl] 500 mg PO BID 5 Days #10 tablet 11/29/17 Polyethylene Glycol 3350 [Miralax] 119 gm PO PRN PRN #1 powder 11/29/17 Risperidone [Risperdal M-TAB] 1 mg PO HS odt 11/29/17 traZODone [Desyrel] 50 mg PO HS tab 11/29/17 - Allergies Allergies/Adverse Reactions: Allergies Allergy/AdvReac Type Severity Reaction Status Date / Time No Known Allergies Allergy Verified 11/20/17 06:56 Review of Systems Constitutional: Negative for: Fever Respiratory: Negative for: Shortness of Breath Gastrointestinal: Positive for: Nausea, Abdominal Pain, Constipation Genitourinary Male: Negative for: Dysuria Musculoskeletal: Positive for: Back Pain. Negative for: Neck Pain Skin: Negative for: Rash, Lesions Neurological: Negative for: Weakness, Numbness Psych: Negative for: Depression Physical Exam - Reviewed Nursing Documentation Reviewed: Yes Vital Signs Reviewed: Yes - Physical Exam Appears: Positive for: Well, Non-toxic, No Acute Distress Head Exam: Positive for: ATRAUMATIC, NORMAL INSPECTION, NORMOCEPHALIC Skin: Positive for: Normal Color, Warm, DRY Eye Exam: Positive for: EOMI, Normal appearance, PERRL ENT: Positive for: Normal ENT Inspection Neck: Positive for: Normal, Painless ROM Cardiovascular/Chest: Positive for: Regular Rate, Rhythm Respiratory: Positive for: CNT, Normal Breath Sounds Gastrointestinal/Abdominal: Positive for: Soft, Tenderness (upper abd mild tenderness) Back: Positive for: Normal Inspection Extremity: Positive for: Normal ROM Neurologic/Psych: Positive for: Alert, Oriented - Laboratory Results Result Diagrams: 11/29/17 05:45 11/29/17 05:45 - ECG O2 Sat by Pulse Oximetry: 97 Medical Decision Making Medical Decision Making: workup for persistent abd pain initiated prior records and multiple ED visits reviewed, prior labs and imaging reviewed revealing new colitis on CT Given 6+ ED visits failure of outpatient therapy admit Obs hospitalist Disposition - Clinical Impression Clinical Impression: Abdominal pain - Patient ED Disposition Is Patient to be Admitted: Yes - Disposition Disposition Time: 11:15 Condition: STABLE - Pt Status Changed To: Hospital Disposition Of: Observation
[2017-11-28 12:04] LABS: BASO % 0.4 % (0.0-2.0); EOS # 0.1 K/uL (0.0-0.7); EOS % 0.6 % (0.0-4.0); LYMPH # 1.4 K/uL (1.0-4.3); LYMPH % 14.7 % (20.0-40.0); MEAN CELL VOLUME 91.7 fl (80.0-94.0); MEAN CORPUSCULAR HEMOGLOBIN 31.8 pg (27.0-31.0); MEAN CORPUSCULAR HGB CONC 34.7 g/dL (33.0-37.0); MEAN PLATELET VOLUME 8.9 fl (7.2-11.7); MONO # 0.6 K/uL (0.0-0.8); MONO % 6.5 % (0.0-10.0); NEUT # 7.6 K/uL (1.8-7.0); NEUT % 77.8 % (50.0-75.0); NRBC % 0.3 % (0.0-0.0); RBC 5.04 Mil/uL (4.40-5.90); RED CELL DISTRIBUTION WIDTH 14.4 % (11.5-14.5); WHITE BLOOD COUNT 9.7 K/uL (4.8-10.8)
--- NOTE | 2017-11-28 12:10 | CP.PCM.HP ---
Addendum entered and electronically signed by Zach Castellanos MD 11/28/17 17:45: Patient seen and examined . All chart and clinical data reviewed. Case discussed with resident . Agree with assessment and plan. Continue Cipro and Flagyl IV for now Tolerating Po and abdominal pain improved Follow up official report of CT abdomen Will need colonoscopy as out patient Dispo d/c in AM Original Note: History of Present Illness - History of Present Illness History of Present Illness: Patient seen and examined at bedside and history provided by patient. 72M no PMH p/w persisting sharp, stabbing pain and waves hands over upper abdomen for about 5 days but this is not new. Pt reports worsening with cigarette smoking (smokes 1.5 ppd) and denies alleviating factors, "just there". He is unable to to describe pattern of pain throughout the day, and denies nausea, vomiting, fevers, chills, dysuria, sick contacts. He denies association with food intake, hematochezia, but reports an episode of melena about 1.5 weeks ago. He also reports alternating diarrhea/constipation with last episode this morning that he describes as constipation. He then endorses "there's no food in the house", "I've been trying to get on a methadone program", "I've been admitted here before to the psychiatry unit". When questioned further about the methadone program he says he doesn't drink alcohol, but reports purchasing 10- "Oxys" off the street approximately 1 week ago and around that time 2 bags of "dope" the latter then being reported as snorted. He denies using any form of injecting drugs. CT abd/pelvis: no official read, [facility]- transverse colitis PMD: Rusty PMH: Major Depressive Disorder PSH: Tonsillectomy, Cholecystectomy Smoke: Yes, 1.5-2 ppd Alcohol: Denies Drugs: Cocaine(?) w/i past week, Oxycodone w/i a week ALL: NKDA SocHx: Lives with brother KYA: 09/2017 Prescriptions: Trazadone 50mg, HS; Risperidone 1mg, HS Present on Admission - Present on Admission Any Indicators Present on Admission: No Review of Systems - Review of Systems All systems: reviewed and no additional remarkable complaints except - Respiratory Respiratory: Cough - Gastrointestinal Gastrointestinal: As Per HPI, Abdominal Pain, Melena (x1 1.5 weeks ago). absent: Hematemesis, Hematochezia, Nausea, Vomiting Past Patient History - Infectious Disease Hx of Infectious Diseases: None - Tetanus Immunizations Tetanus Immunization: Unknown - Past Medical History & Family History Past Medical History?: Yes - Past Social History Smoking Status: Heavy Smoker > 10 Cigarettes Daily - CARDIAC Hx Congestive Heart Failure: No Hx Hypercholesterolemia: Yes Hx Hypertension: No - PULMONARY Hx Bronchitis: No Hx Chronic Obstructive Pulmonary Disease (COPD): No - NEUROLOGICAL Hx Seizures: Yes - HEENT Hx HEENT Problems: No - RENAL Hx Chronic Kidney Disease: No - ENDOCRINE/METABOLIC Hx Hypothyroidism: No - HEMATOLOGICAL/ONCOLOGICAL Hx Human Immunodeficiency Virus (HIV): Yes - INTEGUMENTARY Hx Dermatological Problems: No - MUSCULOSKELETAL/RHEUMATOLOGICAL Hx Arthritis: No Hx Rheumatoid Arthritis: No - GASTROINTESTINAL Hx Gastrointestinal Disorders: No - GENITOURINARY/GYNECOLOGICAL Hx Sexually Transmitted Disorders: No - PSYCHIATRIC Hx Anxiety: Yes Hx Bipolar Disorder: Yes Hx Depression: Yes Hx Schizophrenia: Yes - SURGICAL HISTORY Hx Cholecystectomy: Yes Hx Tonsillectomy: Yes - ANESTHESIA Hx Anesthesia: Yes Hx Anesthesia Reactions: No Hx Malignant Hyperthermia: No Meds Allergies/Adverse Reactions: Allergies Allergy/AdvReac Type Severity Reaction Status Date / Time No Known Allergies Allergy Verified 11/20/17 06:56 Physical Exam - Constitutional Appears: Well, Non-toxic, No Acute Distress - Head Exam Head Exam: ATRAUMATIC, NORMAL INSPECTION - Eye Exam Eye Exam: EOMI, PERRL - ENT Exam ENT Exam: Mucous Membranes Dry - Neck Exam Neck exam: Positive for: Normal Inspection. Negative for: Lymphadenopathy - Respiratory Exam Respiratory Exam: Clear to Auscultation Bilateral, NORMAL BREATHING PATTERN. absent: Rales, Rhonchi, Wheezes - Cardiovascular Exam Cardiovascular Exam: REGULAR RHYTHM, +S1, +S2. absent: JVD - GI/Abdominal Exam GI & Abdominal Exam: Normal Bowel Sounds, Soft, Tenderness - Extremities Exam Extremities exam: Positive for: full ROM, normal capillary refill, pedal pulses present. Negative for: calf tenderness, pedal edema - Back Exam Back exam: absent: CVA tenderness (L), CVA tenderness (R) - Neurological Exam Neurological exam: Alert, Oriented x3 - Psychiatric Exam Psychiatric exam: Anxious - Skin Skin Exam: Dry, Warm Results - Vital Signs Recent Vital Signs: Last Vital Signs Temp 37.0 C 10/15/18 09:39 Pulse 78 11/28/17 09:39 Resp 17 11/28/17 09:39 BP 136/87 11/28/17 09:39 Pulse Ox 97 11/28/17 11:18 - Labs Result Diagrams: 11/28/17 11:50 11/28/17 11:50 Assessment & Plan (1) Abdominal pain Assessment and Plan: 72M repeated ER visits for abd pain x1 week, [facility] CT scan read as transverse colitis, no leukocytosis. Lipase elevated but physical exam benign. Pt has not followed up outpatient with Dr Marie as yet. - Consult GI (Dr Marie) - Empiric Cipro/Flagyl Status: Chronic Priority: Medium (2) DVT prophylaxis Assessment and Plan: Lovenox 40mg, SC, HS Status: Acute (3) Smoking addiction Assessment and Plan: Pt smokes 1.5-2 ppd. - Nicoderm Patch Status: Chronic (4) Major depressive disorder Assessment and Plan: Discharged from psychiatric unit 06/2017, medication except Cymbalta last filled September: - DULoxetine [Cymbalta] 60 mg PO DAILY - risperiDONE [RisperDAL Tab] 1 mg PO HS - traZODone [Desyrel] 50 mg PO HS Status: Suspected
[2017-11-28 12:17] LABS: ALB/GLOB RATIO 1.1 (1.0-2.1); ALBUMIN 3.7 g/dL (3.5-5.0); ALT/SGPT 38 U/L (21-72); AST/SGOT 36 U/L (17-59); BLOOD UREA NITROGEN 21 mg/dl (9-20); CALCIUM 9.7 mg/dL (8.4-10.2); GFR NON-AFRICAN AMERICAN > 60; LIPASE 330 U/L (23-300)
[2017-11-28] MEDS ORDERED: Sodium Chloride 0.9% 1,000 ML IV SCH (12:30)
[2017-11-28 12:54] LABS: HDL CHOLESTEROL 38 MG/DL (30-70)
[2017-11-28 13:05] LABS: LDL CHOLESTEROL 56 mg/dL (0-129)
[2017-11-28 14:04] LABS: BARBITURATES, UR NEGATIVE (NEGATIVE); BENZODIAZEPINES, UR NEGATIVE (NEGATIVE); OPIATES, UR NEGATIVE (NEGATIVE); PHENCYCLIDINE, UR NEGATIVE (NEGATIVE)
[2017-11-28] MEDS ORDERED: Pneumococcal 23-Valent Vaccine IM ONE (15:14)
[2017-11-28] MEDS ORDERED: Influenza Vaccine (5 YR UP)/PF 60 MCG/0.5 ML SYR IM ONE (15:14)
[2017-11-28] MEDS ORDERED: Famotidine 40 MG/5 ML PO SCH (17:00)
[2017-11-28] MEDS: metroNIDAZOLE 500mg/100ml NS 100 ML IVPB SCH (17:12)
[2017-11-28] MEDS ORDERED: Enoxaparin 40 mg Syringe SC SCH (22:00)
[2017-11-28] MEDS ORDERED: Risperidone M tab 1 MG PO SCH (22:00)
[2017-11-28] MEDS: Ciprofloxacin 400mg/200ml D5W 400 MG/200 ML BAG IVPB SCH (22:22)
[2017-11-29] MEDS: metroNIDAZOLE 500mg/100ml NS 100 ML IVPB SCH ×2 (00:24→09:19)
[2017-11-29 05:57] LABS: HEMOGLOBIN 15.9 g/dL (12.0-18.0); MEAN CELL VOLUME 91.9 fl (80.0-94.0); MEAN CORPUSCULAR HEMOGLOBIN 32.1 pg (27.0-31.0); MEAN CORPUSCULAR HGB CONC 34.9 g/dL (33.0-37.0); RBC 4.95 Mil/uL (4.40-5.90); RED CELL DISTRIBUTION WIDTH 14.4 % (11.5-14.5); WHITE BLOOD COUNT 7.6 K/uL (4.8-10.8)
[2017-11-29 06:15] LABS: BLOOD UREA NITROGEN 25 mg/dl (9-20); CALCIUM 9.7 mg/dL (8.4-10.2); GFR NON-AFRICAN AMERICAN > 60
[2017-11-29 08:36] VITALS: BP 145/61; PULSE 54; RESP 18; TEMP 98
[2017-11-29] MEDS: Ciprofloxacin 400mg/200ml D5W 400 MG/200 ML BAG IVPB SCH (09:19)
--- NOTE | 2017-11-29 11:41 | CP.PCM.PN ---
Subjective - Date & Time of Evaluation Date of Evaluation: 11/29/17 Time of Evaluation: 08:00 - Subjective Subjective: No acute overnight events. Pt seen and examined by bedside this AM. Pt states that his pain has significantly improved since admission, tolerating PO diet, empty tray by bedside noted. Objective - Vital Signs/Intake and Output Vital Signs (last 24 hours): Temp Pulse Resp BP Pulse Ox 98 F 54 L 18 145/61 100 11/29/17 08:36 11/29/17 08:36 11/29/17 08:36 11/29/17 08:36 11/29/17 08:36 - Medications Medications: Current Medications Acetaminophen (Tylenol 325mg Tab) 650 mg PO Q4 PRN PRN Reason: Pain, Mild (1-3) Duloxetine HCl (Cymbalta) 60 mg PO DAILY [facility] Enoxaparin Sodium (Lovenox) 40 mg SC HS [facility]; Protocol Last Admin: 11/28/17 22:25 Dose: 40 mg Ciprofloxacin (Cipro 400mg/200ml Dsw) 400 mg in 200 mls @ 200 mls/hr IVPB Q12 [facility]; Protocol Last Admin: 11/29/17 09:19 Dose: 200 mls/hr Metronidazole (Flagyl 500mg/100ml Ns) 100 mls @ 100 mls/hr IVPB Q8 [facility]; Protocol Last Admin: 11/29/17 09:19 Dose: 100 mls/hr Ketorolac Tromethamine (Toradol) 15 mg IVP Q6 PRN PRN Reason: Pain, moderate (4-7) Last Admin: 11/29/17 06:59 Dose: 15 mg Nicotine (Nicoderm Cq) 1 patch TD DAILY [facility] Last Admin: 11/29/17 09:20 Dose: 1 patch Pantoprazole Sodium (Protonix Inj) 40 mg IVP DAILY [facility] Last Admin: 11/29/17 09:20 Dose: 40 mg Risperidone (Risperdal M-Tab) 1 mg PO HS [facility] Last Admin: 11/28/17 22:25 Dose: 1 mg Trazodone HCl (Desyrel) 50 mg PO HS [facility] Last Admin: 11/28/17 22:25 Dose: 50 mg - Labs Labs: 11/29/17 05:45 11/29/17 05:45 - Constitutional Appears: No Acute Distress - Eye Exam Eye Exam: Normal appearance - ENT Exam ENT Exam: Mucous Membranes Moist - Respiratory Exam Respiratory Exam: Clear to Ausculation Bilateral, NORMAL BREATHING PATTERN. absent: Wheezes - Cardiovascular Exam Cardiovascular Exam: REGULAR RHYTHM, +S1, +S2 - GI/Abdominal Exam GI & Abdominal Exam: Soft, Normal Bowel Sounds. absent: Tenderness - Extremities Exam Extremities Exam: Normal Inspection. absent: Pedal Edema - Neurological Exam Neurological Exam: Alert, Awake - Psychiatric Exam Psychiatric exam: Normal Affect, Normal Mood Assessment and Plan - Assessment and Plan (Free Text) Assessment: Assessment and Plan: 72 YO Male with PMHx of depression is admitted for abdominal pain. CT scan read as transverse colitis, no leukocytosis remains without fever. Pt has not fol lowed up outpatient with Dr Marie as yet. Abdominal pain -improving -cont Cipro/Flagyl -GI consulted, pending recs -toradol for pain Smoking addiction -Pt smokes 1.5-2 ppd. -Nicoderm Patch Major depressive disorder -DULoxetine [Cymbalta] 60 mg PO DAILY -risperiDONE [RisperDAL Tab] 1 mg PO HS -traZODone [Desyrel] 50 mg PO HS DVT prophylaxis -Lovenox 40mg, SC, HS
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
--- NOTE | 2017-11-29 12:38 | CP.PCM.DIS ---
Addendum entered and electronically signed by Kendy Ivey MD 11/30/17 15:47: On chart review, old diagnosis of HIV is noted with any documented positive testing. No history of HIV positive, and never on any medications. 4th generation HIV was ordered and is negative. Addendum entered and electronically signed by Kendy Ivey MD 11/29/17 14:01: Blood cx was sig for gram positive cocci, likely contaminant. Pt remains clinically stable, no leukocytosis, and remains afebrile. Will repeat blood cx today and will contact pt with results. Home phone number [phone]. Strict ER precautions reviewed with patient, he understands. Original Note: <Kendy Ivey - Last Filed: 11/29/17 12:36> Provider - Provider Date of Admission: 11/28/17 11:24 Attending physician: Zach Castellanos MD Time Spent in preparation of Discharge (in minutes): 35 Diagnosis - Discharge Diagnosis (1) Abdominal pain Status: Acute Priority: Medium (2) Smoking addiction Status: Chronic (3) Depression Status: Chronic (4) Colitis Status: Acute Hospital Course - Lab Results Lab Results: Most Recent Lab Values WBC 7.6 K/uL (4.8-10.8) 11/29/17 05:45 RBC 4.95 Mil/uL (4.40-5.90) 11/29/17 05:45 Hgb 15.9 g/dL (12.0-18.0) 11/29/17 05:45 Hct 45.5 % (35.0-51.0) 11/29/17 05:45 MCV 91.9 fl (80.0-94.0) 11/29/17 05:45 MCH 32.1 pg (27.0-31.0) H 11/29/17 05:45 MCHC 34.9 g/dL (33.0-37.0) 11/29/17 05:45 RDW 14.4 % (11.5-14.5) 11/29/17 05:45 Plt Count 133 K/uL (130-400) 11/29/17 05:45 MPV 8.9 fl (7.2-11.7) 11/28/17 11:50 Neut % (Auto) 77.8 % (50.0-75.0) H 11/28/17 11:50 Lymph % (Auto) 14.7 % (20.0-40.0) L 11/28/17 11:50 [place] % (Auto) 6.5 % (0.0-10.0) 11/28/17 11:50 Eos % (Auto) 0.6 % (0.0-4.0) 11/28/17 11:50 Baso % (Auto) 0.4 % (0.0-2.0) 11/28/17 11:50 Neut # (Auto) 7.6 K/uL (1.8-7.0) H 11/28/17 11:50 Lymph # (Auto) 1.4 K/uL (1.0-4.3) 11/28/17 11:50 [place] # (Auto) 0.6 K/uL (0.0-0.8) 11/28/17 11:50 Eos # (Auto) 0.1 K/uL (0.0-0.7) 11/28/17 11:50 Baso # (Auto) 0.0 K/uL (0.0-0.2) 11/28/17 11:50 Sodium 143 mmol/l (132-148) 11/29/17 05:45 Potassium 5.1 MMOL/L (3.6-5.0) H 11/29/17 05:45 Chloride 110 mmol/L (98-107) H 11/29/17 05:45 Carbon Dioxide 32 mmol/L (22-30) H 11/29/17 05:45 Anion Gap 6 (10-20) L 11/29/17 05:45 BUN 25 mg/dl (9-20) H 11/29/17 05:45 Creatinine 1.1 mg/dl (0.8-1.5) 11/29/17 05:45 Est GFR ( Amer) > 60 11/29/17 05:45 Est GFR (Non-Af Amer) > 60 11/29/17 05:45 Random Glucose 131 mg/dL (75-110) H 11/29/17 05:45 Calcium 9.7 mg/dL (8.4-10.2) 11/29/17 05:45 Total Bilirubin 0.5 mg/dl (0.2-1.3) 11/28/17 11:50 AST 36 U/L (17-59) 11/28/17 11:50 ALT 38 U/L (21-72) 11/28/17 11:50 Alkaline Phosphatase 58 U/L (38-126) 11/28/17 11:50 Total Protein 7.1 G/DL (6.3-8.2) 11/28/17 11:50 Albumin 3.7 g/dL (3.5-5.0) 11/28/17 11:50 Globulin 3.3 gm/dL (2.2-3.9) 11/28/17 11:50 Albumin/Globulin Ratio 1.1 (1.0-2.1) 11/28/17 11:50 Triglycerides 112 mg/DL (0-149) D 11/28/17 12:20 Cholesterol 118 mg/dL (0-199) 11/28/17 12:20 LDL Cholesterol Direct 56 mg/dL (0-129) 11/28/17 12:20 HDL Cholesterol 38 MG/DL (30-70) 11/28/17 12:20 Lipase 330 U/L (23-300) H 11/28/17 11:50 Urine Opiates Screen Negative (NEGATIVE) 11/28/17 13:25 Urine Methadone Screen Negative (NEGATIVE) 11/28/17 13:25 Ur Barbiturates Screen Negative (NEGATIVE) 11/28/17 13:25 Ur Phencyclidine Scrn Negative (NEGATIVE) 11/28/17 13:25 Ur Amphetamines Screen Negative (NEGATIVE) 11/28/17 13:25 U Benzodiazepines Scrn Negative (NEGATIVE) 11/28/17 13:25 U Oth Cocaine Metabols Negative (NEGATIVE) 11/28/17 13:25 U Cannabinoids Screen Negative (NEGATIVE) 11/28/17 13:25 - Hospital Course Hospital Course: 72 YO Male with PMHx of Depression, gastritis was admitted for intractable abdominal pain. CT scan sig for transverse colitis, without leukocytosis and remains afebrile. On admission, Lipase was elevated with physical exam benign. Today, pt is doing well, tolerating PO diet, good appetite, and pain has resolved at this time. GI was consulted, per Dr. Marie pt to follow up out patient and okay for discharge home. Patient is hemodynamically stable, will d/c pt home, cont PO abx for 5 more days of cipro and flagyl and follow up with GI as outpatient. D/c Meds: Cont psychotropic meds Cipro 500mg PO BID x 5 days Flagyl 500mg PO BID x 5 days Pepcid 40mg PO daily Miralax PO PRN constipation Discharge Exam - Head Exam Head Exam: ATRAUMATIC, NORMAL INSPECTION, NORMOCEPHALIC - Eye Exam Eye Exam: Normal appearance - ENT Exam ENT Exam: Mucous Membranes Moist - Respiratory Exam Respiratory Exam: Clear to PA & Lateral, NORMAL BREATHING PATTERN. absent: Wheezes - Cardiovascular Exam Cardiovascular Exam: REGULAR RHYTHM, +S1, +S2 - GI/Abdominal Exam GI & Abdominal Exam: Normal Bowel Sounds, Soft. absent: Distended, Guarding, Tenderness - Extremities Exam Extremities exam: normal inspection - Neurological Exam Neurological exam: Alert, Oriented x3 - Psychiatric Exam Psychiatric exam: Normal Affect, Normal Mood Discharge Plan - Discharge Medications Prescriptions: Ciprofloxacin HCl [Cipro] 500 mg PO BID 5 Days #10 tablet Famotidine [Pepcid] 40 mg PO DAILY #30 tablet Metronidazole [Flagyl] 500 mg PO BID 5 Days #10 tablet Polyethylene Glycol 3350 [Miralax] 119 gm PO PRN PRN #1 powder PRN Reason: Constipation - Follow Up Plan Condition: STABLE Disposition: HOME/ ROUTINE Patient education suggested?: Yes Instructions: Acute Abdomen (Belly Pain), Adult (DC) Additional Instructions: follow up with primary MD 1 week Please return to ED if pain persists or worsens, with fever over 100.4 with Tylenol. Referrals: Connor Marie MD [Staff Provider] - <Kaylin Mckenna - Last Filed: 11/29/17 15:28> Provider - Provider Date of Admission: 11/28/17 11:24 Attending physician: Zach Castellanos MD Hospital Course - Lab Results Lab Results: Micro Results 11/28/17 12:30 Blood S.aureus & Coag-Neg Staph PNA FISH - Final 11/28/17 12:30 Blood Blood Culture - Preliminary Gram Positive Cocci 11/28/17 12:30 Blood Gram Stain - Final Most Recent Lab Values WBC 7.6 K/uL (4.8-10.8) 11/29/17 05:45 RBC 4.95 Mil/uL (4.40-5.90) 11/29/17 05:45 Hgb 15.9 g/dL (12.0-18.0) 11/29/17 05:45 Hct 45.5 % (35.0-51.0) 11/29/17 05:45 MCV 91.9 fl (80.0-94.0) 11/29/17 05:45 MCH 32.1 pg (27.0-31.0) H 11/29/17 05:45 MCHC 34.9 g/dL (33.0-37.0) 11/29/17 05:45 RDW 14.4 % (11.5-14.5) 11/29/17 05:45 Plt Count 133 K/uL (130-400) 11/29/17 05:45 MPV 8.9 fl (7.2-11.7) 11/28/17 11:50 Neut % (Auto) 77.8 % (50.0-75.0) H 11/28/17 11:50 Lymph % (Auto) 14.7 % (20.0-40.0) L 11/28/17 11:50 [place] % (Auto) 6.5 % (0.0-10.0) 11/28/17 11:50 Eos % (Auto) 0.6 % (0.0-4.0) 11/28/17 11:50 Baso % (Auto) 0.4 % (0.0-2.0) 11/28/17 11:50 Neut # (Auto) 7.6 K/uL (1.8-7.0) H 11/28/17 11:50 Lymph # (Auto) 1.4 K/uL (1.0-4.3) 11/28/17 11:50 [place] # (Auto) 0.6 K/uL (0.0-0.8) 11/28/17 11:50 Eos # (Auto) 0.1 K/uL (0.0-0.7) 11/28/17 11:50 Baso # (Auto) 0.0 K/uL (0.0-0.2) 11/28/17 11:50 Sodium 143 mmol/l (132-148) 11/29/17 05:45 Potassium 5.1 MMOL/L (3.6-5.0) H 11/29/17 05:45 Chloride 110 mmol/L (98-107) H 11/29/17 05:45 Carbon Dioxide 32 mmol/L (22-30) H 11/29/17 05:45 Anion Gap 6 (10-20) L 11/29/17 05:45 BUN 25 mg/dl (9-20) H 11/29/17 05:45 Creatinine 1.1 mg/dl (0.8-1.5) 11/29/17 05:45 Est GFR ( Amer) > 60 11/29/17 05:45 Est GFR (Non-Af Amer) > 60 11/29/17 05:45 Random Glucose 131 mg/dL (75-110) H 11/29/17 05:45 Calcium 9.7 mg/dL (8.4-10.2) 11/29/17 05:45 Total Bilirubin 0.5 mg/dl (0.2-1.3) 11/28/17 11:50 AST 36 U/L (17-59) 11/28/17 11:50 ALT 38 U/L (21-72) 11/28/17 11:50 Alkaline Phosphatase 58 U/L (38-126) 11/28/17 11:50 Total Protein 7.1 G/DL (6.3-8.2) 11/28/17 11:50 Albumin 3.7 g/dL (3.5-5.0) 11/28/17 11:50 Globulin 3.3 gm/dL (2.2-3.9) 11/28/17 11:50 Albumin/Globulin Ratio 1.1 (1.0-2.1) 11/28/17 11:50 Triglycerides 112 mg/DL (0-149) D 11/28/17 12:20 Cholesterol 118 mg/dL (0-199) 11/28/17 12:20 LDL Cholesterol Direct 56 mg/dL (0-129) 11/28/17 12:20 HDL Cholesterol 38 MG/DL (30-70) 11/28/17 12:20 Lipase 330 U/L (23-300) H 11/28/17 11:50 Urine Opiates Screen Negative (NEGATIVE) 11/28/17 13:25 Urine Methadone Screen Negative (NEGATIVE) 11/28/17 13:25 Ur Barbiturates Screen Negative (NEGATIVE) 11/28/17 13:25 Ur Phencyclidine Scrn Negative (NEGATIVE) 11/28/17 13:25 Ur Amphetamines Screen Negative (NEGATIVE) 11/28/17 13:25 U Benzodiazepines Scrn Negative (NEGATIVE) 11/28/17 13:25 U Oth Cocaine Metabols Negative (NEGATIVE) 11/28/17 13:25 U Cannabinoids Screen Negative (NEGATIVE) 11/28/17 13:25 Attending/Attestation - Attestation I have personally seen and examined this patient.: Yes I have fully participated in the care of the patient.: Yes I have reviewed all pertinent clinical information, including history, physical exam and plan: Yes Notes (Text): Abdominal Pain prob secondary to Mild Colitis and Gastritis, resolved - CT scan showed some Colitis changes, pt is afebrile, no leukocytosis, no diarrhea, no N/V - abd pain resolved, tolerating PO diet - cont Cipro and Flagyl PO - GI cleared pt - Pt had EGD in february w/c showed Gastritis and Colonoscopy w/c showed some Diverticulosis Blood c/s : Gram + Cocci 1 bottle , unclear significance , prob contamination - rpt Blood c/s - will ff up culture and sensitivity -Pt is afebrile, no leukocytosis
[2017-11-29 15:16] VITALS: O2SAT 97
--- NOTE | 2017-11-30 08:22 | PQF ---
PROVIDER RESPONSE TEXT: Await HIV testing result - pending HIV documented on a previous admission, patient denies and no lab testing to confirm this on previous visit REVIEWER QUERY TEXT: HIV Clarification and Associated Conditions HIV (Human immunodeficiency virus) is documented in the medical record. Please specify the type Such as: -- Acquired immune deficiency syndrome [AIDS] -- LMIE-plekztv-bntahry complex [ARC] -- Symptomatic -- Asymptomatic -- With current or previous HIV-related condition (please specify related condition) -- Exposure to HIV -- Inconclusive serologic evidence of HIV -- Other, please specify Also please include any associated conditions, if applicable. The patient's Clinical Indicators include: HIV Query created by: Arleen Hernández on 11/30/2017 8:07 AM Electronically signed by: Kaylin Mckenna MD 11/30/2017 8:19 AM
== END 2017-11-29 14:30 | disposition home or self-care (01) ==
LOC: H.ER 09:36 → H.ERHOLD 11:24 → H.MEDSURG1 13:27
PROVIDERS: ADMIT Hospitalist; ATTEND Hospitalist
DX: K52.9 Noninfective gastroenteritis and colitis, unspecified (principal); F17.210 Nicotine dependence, cigarettes, uncomplicated; G89.29 Other chronic pain; K59.09 Other constipation; E78.00 Pure hypercholesterolemia, unspecified; F32.9 Major depressive disorder, single episode, unspecified; K29.70 Gastritis, unspecified, without bleeding; K57.90 Diverticulosis of intestine, part unspecified, without perforation or abscess without bleeding; Z23 Encounter for immunization; F41.9 Anxiety disorder, unspecified; E11.9 Type 2 diabetes mellitus without complications; E78.5 Hyperlipidemia, unspecified
CPT/HCPCS: 36415; 74177; 80048; 80053; 80061; 83690; 85025; 85027; 87040; 87149; 87181; 87205; 87389; 90732; 96365; 96366; 96367; 96372; 96375; 96376; 99284; C9113; G0008; G0009; G0378; G0480; J0744; J1650; J1885; J7030; Q2035; Q9967

== ENCOUNTER 2017-11-29 21:46 | Emergency (ER) | payer MEDICARE ==
[2017-11-29 21:46] VITALS: BMI 20.3
[2017-11-29 21:51] VITALS: BP 167/68; PULSE 62; RESP 16; TEMP 98; O2SAT 100
== END 2017-11-29 22:15 | disposition left against medical advice (07) ==
LOC: H.ER 21:46
DX: Z02.89 Encounter for other administrative examinations (principal)

== ENCOUNTER 2017-11-30 03:10 | Emergency (ER) | payer MEDICARE ==
[2017-11-30 03:10] VITALS: BMI 20.3
[2017-11-30 03:21] VITALS: PULSE 78; RESP 17; TEMP 97.8; O2SAT 100
--- NOTE | 2017-11-30 05:12 | ED PDOC ---
HPI: Psych/Substance Abuse Time Seen by Provider: 11/30/17 03:15 Chief Complaint (Nursing): Anxiety Chief Complaint (Provider): Anxiety History Per: Patient History/Exam Limitations: no limitations Onset/Duration Of Symptoms: Days Associated Symptoms: Anxiety Additional Complaint(s): 72 year old male with PMHx of anxiety and gastritis presents to the ER with anxiety. Patient states he fell asleep and had a bad dream. He woke up shaking with abdominal pain. He states he only takes antibiotics and denies taking Bentyl or Ibuprofen. Patient states he takes 50mg Trazodone and Benadryl. He denies nausea, vomiting, diarrhea, constipation, fever. PMD: Moe Ojeda Past Medical History Reviewed: Historical Data, Nursing Documentation, Vital Signs Vital Signs: Last Vital Signs Temp 97.8 F 11/30/17 03:15 Pulse 78 11/30/17 03:15 Resp 17 11/30/17 03:15 BP 160/83 H 11/30/17 03:15 Pulse Ox 100 11/30/17 03:15 - Medical History PMH: Anxiety, Back Problems (herniated disk), Bipolar Disorder, Depression, Diabetes (type II), HIV, Hypercholesterolemia, Hyperlipidemia, Schizophrenia, Seizures Denies: Arthritis, Bronchitis, CHF, COPD, Hepatitis, HTN, Hypothyroidism, Chronic Kidney Disease, Rheumatoid Arthritis, Sexually Transmitted Disease - Surgical History Surgical History: Back Surgery, Cholecystectomy, Tonsillectomy - Family History Family History: States: Unknown Family Hx, Diabetes (father) - Immunization History Hx Tetanus Toxoid Vaccination: No Hx Influenza Vaccination: No Hx Pneumococcal Vaccination: No - Home Medications Home Medications: Ambulatory Orders Medication Instructions Recorded Ibuprofen/Diphenhydramine HCl 1 each PO BID PRN 11/28/17 [Advil Pm Liqui-Gels] Ciprofloxacin HCl [Cipro] 500 mg PO BID 5 Days #10 tablet 11/29/17 DULoxetine [Cymbalta] 60 mg PO DAILY ecc 11/29/17 Famotidine [Pepcid] 40 mg PO DAILY #30 tablet 11/29/17 Metronidazole [Flagyl] 500 mg PO BID 5 Days #10 tablet 11/29/17 Polyethylene Glycol 3350 [Miralax] 119 gm PO PRN PRN #1 powder 11/29/17 Risperidone [Risperdal M-TAB] 1 mg PO HS odt 11/29/17 traZODone [Desyrel] 50 mg PO HS tab 11/29/17 - Allergies Allergies/Adverse Reactions: Allergies Allergy/AdvReac Type Severity Reaction Status Date / Time No Known Allergies Allergy Verified 11/29/17 21:49 Review of Systems ROS Statement: Except As Marked, All Systems Reviewed And Found Negative Constitutional: Negative for: Fever Gastrointestinal: Positive for: Abdominal Pain. Negative for: Nausea, Vomiting, Diarrhea, Constipation Psych: Positive for: Anxiety. Negative for: Suicidal ideation (homicidal ideation) Physical Exam - Reviewed Nursing Documentation Reviewed: Yes Vital Signs Reviewed: Yes - Physical Exam Appears: Positive for: Non-toxic, No Acute Distress Head Exam: Positive for: ATRAUMATIC, NORMAL INSPECTION, NORMOCEPHALIC Skin: Positive for: Normal Color, Warm, Dry Eye Exam: Positive for: EOMI, Normal appearance, PERRL ENT: Positive for: Normal ENT Inspection Neck: Positive for: Normal, Painless ROM, Supple. Negative for: Decreased ROM Cardiovascular/Chest: Positive for: Regular Rate, Rhythm. Negative for: Murmur Respiratory: Positive for: Normal Breath Sounds. Negative for: Decreased Breath Sounds, Wheezing, Respiratory Distress Gastrointestinal/Abdominal: Positive for: Normal Exam, Soft. Negative for: Tenderness, Guarding, Rebound Back: Positive for: Normal Inspection. Negative for: L CVA Tenderness, R CVA Tenderness Extremity: Positive for: Normal ROM. Negative for: Tenderness, Pedal Edema, Deformity Neurologic/Psych: Positive for: Alert, Oriented (x3), Mood/Affect (Anxious appearing). Negative for: Motor/Sensory Deficits - ECG O2 Sat by Pulse Oximetry: 100 (RA) Pulse Ox Interpretation: Normal Medical Decision Making Medical Decision Making: Time: 409 A/P: 72 year old male presenting with anxiety and abdominal pain. Patient was admitted and cleared by GI. Patient resting comfortably with no acute distress noted. Patient requesting Toradol. Will give Toradol and advise to follow up with primary care. Scribe Attestation: Documented by Yanely Moralez acting as a scribe for Artemio Segovia MD Provider Scribe Attestation: All medical record entries made by the Scribe were at my direction and personally dictated by me. I have reviewed the chart and agree that the record accurately reflects my personal performance of the history, physical exam, medical decision making, and the department course for this patient. I have also personally directed, reviewed, and agree with the discharge instructions and disposition. Disposition - Clinical Impression Clinical Impression: Anxiety attack, Chronic pain - Disposition Referrals: Connor Marie MD [Staff Provider] - Disposition: Routine/Home Disposition Time: 04:10 Condition: STABLE Instructions: Anxiety, Adult (DC), Chronic Pain Forms: [facility] (L[place]uanian)
[2017-11-30 05:24] VITALS: BP 150/80
== END 2017-11-30 05:03 | disposition home or self-care (01) ==
LOC: H.ER 03:10
DX: F41.0 Panic disorder [episodic paroxysmal anxiety] (principal); G89.29 Other chronic pain; E11.9 Type 2 diabetes mellitus without complications; E78.00 Pure hypercholesterolemia, unspecified; F20.9 Schizophrenia, unspecified; F31.9 Bipolar disorder, unspecified
CPT/HCPCS: 96372; 99282; J1885

== ENCOUNTER 2017-11-30 10:35 | Emergency (ER) | payer MEDICARE ==
[2017-11-30 10:35] VITALS: BMI 20.3
[2017-11-30 10:51] VITALS: BP 151/80; PULSE 64; RESP 17; TEMP 98; O2SAT 100
--- NOTE | 2017-11-30 11:47 | ED PDOC ---
HPI: Abdomen Time Seen by Provider: 11/30/17 11:07 Chief Complaint (Nursing): Abdominal Pain Chief Complaint (Provider): abd pain History Per: Patient History/Exam Limitations: no limitations Onset/Duration Of Symptoms: Days (1 year) Additional Complaint(s): Abd pain for 1 year. Constant. Admitted few days ago and dc recently with antibiotics for colitis. GI saw pt. and cleared. Pt. came at 5am for the same and dc with toradol. Pt. again here asking for toradol. Denies any new pain. No nausea, vomit, diarrhea, headaches, back pain, testicular pain, fever. Past Medical History Reviewed: Nursing Documentation, Vital Signs Vital Signs: Last Vital Signs Temp 98.0 F 11/30/17 10:50 Pulse 64 11/30/17 10:50 Resp 17 11/30/17 10:50 BP 151/80 H 11/30/17 10:50 Pulse Ox 100 11/30/17 10:50 - Medical History PMH: Anxiety, Back Problems (herniated disk), Bipolar Disorder, Depression, Diabetes (type II), HIV, Hypercholesterolemia, Hyperlipidemia, Schizophrenia, Seizures Denies: Arthritis, Bronchitis, CHF, COPD, Hepatitis, HTN, Hypothyroidism, Chronic Kidney Disease, Rheumatoid Arthritis, Sexually Transmitted Disease Other PMH: colitis - Surgical History Surgical History: Back Surgery, Cholecystectomy, Tonsillectomy - Family History Family History: States: Unknown Family Hx, Diabetes (father) - Immunization History Hx Tetanus Toxoid Vaccination: No Hx Influenza Vaccination: No Hx Pneumococcal Vaccination: No - Home Medications Home Medications: Ambulatory Orders Medication Instructions Recorded Ibuprofen/Diphenhydramine HCl 1 each PO BID PRN 11/28/17 [Advil Pm Liqui-Gels] Ciprofloxacin HCl [Cipro] 500 mg PO BID 5 Days #10 tablet 11/29/17 DULoxetine [Cymbalta] 60 mg PO DAILY ecc 11/29/17 Famotidine [Pepcid] 40 mg PO DAILY #30 tablet 11/29/17 Metronidazole [Flagyl] 500 mg PO BID 5 Days #10 tablet 11/29/17 Polyethylene Glycol 3350 [Miralax] 119 gm PO PRN PRN #1 powder 11/29/17 Risperidone [Risperdal M-TAB] 1 mg PO HS odt 11/29/17 traZODone [Desyrel] 50 mg PO HS tab 11/29/17 - Allergies Allergies/Adverse Reactions: Allergies Allergy/AdvReac Type Severity Reaction Status Date / Time No Known Allergies Allergy Verified 11/30/17 11:04 Review of Systems ROS Statement: Except As Marked, All Systems Reviewed And Found Negative Gastrointestinal: Positive for: Abdominal Pain Physical Exam - Reviewed Nursing Documentation Reviewed: Yes Vital Signs Reviewed: Yes - Physical Exam Appears: Positive for: Non-toxic, No Acute Distress Head Exam: Positive for: ATRAUMATIC, NORMAL INSPECTION, NORMOCEPHALIC Skin: Positive for: Normal Color, Warm, DRY Eye Exam: Positive for: EOMI, Normal appearance, PERRL ENT: Positive for: Normal ENT Inspection Neck: Positive for: Normal, Painless ROM Cardiovascular/Chest: Positive for: Regular Rate, Rhythm Respiratory: Positive for: CNT, Normal Breath Sounds Gastrointestinal/Abdominal: Positive for: Normal Exam, Soft. Negative for: Tenderness Back: Positive for: Normal Inspection. Negative for: L CVA Tenderness, R CVA Tenderness Extremity: Positive for: Normal ROM. Negative for: Tenderness Neurologic/Psych: Positive for: Alert, Oriented - ECG O2 Sat by Pulse Oximetry: 100 Pulse Ox Interpretation: Normal - Progress ED Course And Treament: 1145: Stable. Tolerated PO. Chronic pain. Seen frequently for the same. Wants toradol. Has appt to see GI for follow. No new pain. AAOx3. Disposition - Clinical Impression Clinical Impression: Chronic pain - Patient ED Disposition Is Patient to be Admitted: No Counseled Patient/Family Regarding: Diagnosis, Need For Followup - Disposition Referrals: [facility] [place] [Outside] - 12/01/17 Disposition: Routine/Home Disposition Time: 11:49 Condition: STABLE Additional Instructions: Return if not better in 3 days. Instructions: Chronic Pain
== END 2017-11-30 12:00 | disposition home or self-care (01) ==
LOC: H.ER 10:35
DX: G89.29 Other chronic pain (principal)

== ENCOUNTER 2018-01-30 09:52 | Day surgery (SDC) | payer MEDICARE | END 2018-01-30 10:30 | disposition home or self-care (01) | LOC: H.ENDO 09:52 | PROVIDERS: ATTEND Internal Medicine Gastroenterology | DX: Z02.89 Encounter for other administrative examinations (principal) ==

== ENCOUNTER 2018-03-10 11:12 | Emergency (ER) | payer MEDICARE ==
[2018-03-10 11:16] VITALS: BMI 19.8
[2018-03-10 11:17] VITALS: BP 130/72; PULSE 98; RESP 18; O2SAT 100
[2018-03-10 11:24] VITALS: TEMP 97.3
--- NOTE | 2018-03-10 11:27 | ED PDOC ---
HPI: General Adult Time Seen by Provider: 03/10/18 11:23 Chief Complaint (Nursing): Flu-like Symptoms Chief Complaint (Provider): bodyaches History Per: Patient (72 y/o male here for evaluation of generalized bodyaches ongoing x years. Patient denies any fever/cough. States he was managed in past by pain manangement but currently sees Dr. Ojeda for these complaints. Has been given toradol injection in past and requests the same today.) Past Medical History Vital Signs: Last Vital Signs Temp 5.7 F L 03/10/18 11:16 Pulse 98 H 03/10/18 11:16 Resp 18 03/10/18 11:16 BP 130/72 03/10/18 11:16 Pulse Ox 100 03/10/18 11:16 - Medical History PMH: Anxiety, Back Problems (herniated disk), Bipolar Disorder, Depression, Diabetes (type II), HIV, Hypercholesterolemia, Hyperlipidemia, Schizophrenia, Seizures Denies: Arthritis, Bronchitis, CHF, COPD, Hepatitis, HTN, Hypothyroidism, Chronic Kidney Disease, Rheumatoid Arthritis, Sexually Transmitted Disease - Surgical History Surgical History: Back Surgery, Cholecystectomy, Tonsillectomy - Family History Family History: States: Unknown Family Hx, Diabetes (father) - Immunization History Hx Tetanus Toxoid Vaccination: No Hx Influenza Vaccination: No Hx Pneumococcal Vaccination: No - Home Medications Home Medications: Ambulatory Orders Medication Instructions Recorded Ibuprofen/Diphenhydramine HCl 1 each PO BID PRN 11/28/17 [Advil Pm Liqui-Gels] Ciprofloxacin HCl [Cipro] 500 mg PO BID 5 Days #10 tablet 11/29/17 DULoxetine [Cymbalta] 60 mg PO DAILY ecc 11/29/17 Famotidine [Pepcid] 40 mg PO DAILY #30 tablet 11/29/17 Metronidazole [Flagyl] 500 mg PO BID 5 Days #10 tablet 11/29/17 Polyethylene Glycol 3350 [Miralax] 119 gm PO PRN PRN #1 powder 11/29/17 Risperidone [Risperdal M-TAB] 1 mg PO HS odt 11/29/17 traZODone [Desyrel] 50 mg PO HS tab 11/29/17 - Allergies Allergies/Adverse Reactions: Allergies Allergy/AdvReac Type Severity Reaction Status Date / Time No Known Allergies Allergy Verified 11/30/17 11:04 - ECG O2 Sat by Pulse Oximetry: 100 - Progress ED Course And Treament: repeat temp 97.3 Patient doesn't want any additional testing. States symptoms are ongoing for years. Toradol 30 mg IM Disposition - Clinical Impression Clinical Impression: Myalgia - Patient ED Disposition Is Patient to be Admitted: No - Disposition Disposition: Routine/Home Disposition Time: 11:29 Condition: FAIR Instructions: Muscle and Bone Pain (DC)
== END 2018-03-10 11:45 | disposition home or self-care (01) ==
LOC: H.ER 11:12
DX: M79.10 Myalgia, unspecified site (principal); E11.9 Type 2 diabetes mellitus without complications; Z86.59 Personal history of other mental and behavioral disorders; E78.00 Pure hypercholesterolemia, unspecified

== ENCOUNTER 2018-03-10 11:53 | Emergency (ER) | payer MEDICARE ==
[2018-03-10 11:53] VITALS: BMI 19.8
[2018-03-10 12:01] VITALS: BP 130/72; PULSE 98; RESP 18; TEMP 97.1; O2SAT 100
--- NOTE | 2018-03-10 12:15 | ED PDOC ---
HPI: General Adult Time Seen by Provider: 03/10/18 12:14 Chief Complaint (Nursing): Medical Clearance Chief Complaint (Provider): Medical Clearance History Per: Patient History/Exam Limitations: no limitations Current Symptoms Are (Timing): Still Present Additional Complaint(s): 72 y/o male here for evaluation of generalized bodyaches ongoing for years. Patient denies any fever/cough. States he was managed in past by pain manangement but currently sees Dr. Ojeda for these complaints. Has been given toradol injection in past and requests the same today. Past Medical History Reviewed: Historical Data, Nursing Documentation, Vital Signs Vital Signs: Last Vital Signs Temp 97.1 F L 03/10/18 12:00 Pulse 98 H 03/10/18 12:00 Resp 18 03/10/18 12:00 BP 130/72 03/10/18 12:00 Pulse Ox 100 03/10/18 12:00 - Medical History PMH: Anxiety, Back Problems (herniated disk), Bipolar Disorder, Depression, Diabetes (type II), HIV, Hypercholesterolemia, Hyperlipidemia, Schizophrenia, Seizures Denies: Arthritis, Bronchitis, CHF, COPD, Hepatitis, HTN, Hypothyroidism, Chronic Kidney Disease, Rheumatoid Arthritis, Sexually Transmitted Disease - Surgical History Surgical History: Back Surgery, Cholecystectomy, Tonsillectomy - Family History Family History: States: Unknown Family Hx, Diabetes (father) - Immunization History Hx Tetanus Toxoid Vaccination: No Hx Influenza Vaccination: No Hx Pneumococcal Vaccination: No - Home Medications Home Medications: Ambulatory Orders Medication Instructions Recorded Ibuprofen/Diphenhydramine HCl 1 each PO BID PRN 11/28/17 [Advil Pm Liqui-Gels] Ciprofloxacin HCl [Cipro] 500 mg PO BID 5 Days #10 tablet 11/29/17 DULoxetine [Cymbalta] 60 mg PO DAILY ecc 11/29/17 Famotidine [Pepcid] 40 mg PO DAILY #30 tablet 11/29/17 Metronidazole [Flagyl] 500 mg PO BID 5 Days #10 tablet 11/29/17 Polyethylene Glycol 3350 [Miralax] 119 gm PO PRN PRN #1 powder 11/29/17 Risperidone [Risperdal M-TAB] 1 mg PO HS odt 11/29/17 traZODone [Desyrel] 50 mg PO HS tab 11/29/17 - Allergies Allergies/Adverse Reactions: Allergies Allergy/AdvReac Type Severity Reaction Status Date / Time No Known Allergies Allergy Verified 11/30/17 11:04 Review of Systems ROS Statement: Except As Marked, All Systems Reviewed And Found Negative Constitutional: Positive for: Other (Bodyaches) Physical Exam - Reviewed Nursing Documentation Reviewed: Yes Vital Signs Reviewed: Yes - Physical Exam Appears: Positive for: Well, Non-toxic, No Acute Distress Head Exam: Positive for: ATRAUMATIC Skin: Positive for: Normal Color, Warm, Dry. Negative for: Diaphoresis, Pallor, Rash Neck: Positive for: Normal, Painless ROM Cardiovascular/Chest: Positive for: Regular Rate, Rhythm Respiratory: Positive for: Normal Breath Sounds - ECG O2 Sat by Pulse Oximetry: 100 (RA) Pulse Ox Interpretation: Normal Medical Decision Making Medical Decision Making: Pt discharged as this was his second visit within one hour and no further kesha gency or medical treatment was indicated; Pt became irritated, cursed profusely at the staff informing us to "stick those discharge papers up your fk*ng as!" and walked out of the building ------ Scribe Attestation: Documented by Kirill [employer] acting as a scribe for Pablito AYALA. Provider Scribe Attestation: All medical record entries made by the Scribe were at my direction and personally dictated by me. I have reviewed the chart and agree that the record accurately reflects my personal performance of the history, physical exam, medical decision making, and the department course for this patient. I have also personally directed, reviewed, and agree with the discharge instructions and disposition. Disposition - Clinical Impression Clinical Impression: Chronic pain - Patient ED Disposition Is Patient to be Admitted: No Doctor Will See Patient In The: Office - Disposition Referrals: Moe Ojeda MD [Staff Provider] - Disposition Time: 12:21 Condition: STABLE Instructions: General (DC) Forms: [employer] (Mexican)
== END 2018-03-10 12:24 | disposition home or self-care (01) ==
LOC: H.ER 11:53
DX: G89.29 Other chronic pain (principal); Z86.59 Personal history of other mental and behavioral disorders; E11.9 Type 2 diabetes mellitus without complications; E78.00 Pure hypercholesterolemia, unspecified

== ENCOUNTER 2018-03-24 11:28 | Emergency (ER) | payer MEDICARE ==
[2018-03-24 11:30] VITALS: BMI 19.8
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
[2018-03-24 13:39] LABS: BASO % 0.3 % (0.0-2.0); EOS % 0.3 % (0.0-4.0); HEMOGLOBIN 14.2 g/dL (12.0-18.0); LYMPH % 13.9 % (20.0-40.0); MEAN CELL VOLUME 88.7 fl (80.0-94.0); MEAN CORPUSCULAR HGB CONC 34.9 g/dL (33.0-37.0); MEAN PLATELET VOLUME 7.9 fl (7.2-11.7); MONO # 0.5 K/uL (0.0-0.8); MONO % 6.5 % (0.0-10.0); NEUT # 5.8 K/uL (1.8-7.0); NRBC % 0.2 % (0.0-0.0); RBC 4.6 Mil/uL (4.40-5.90); RED CELL DISTRIBUTION WIDTH 14.1 % (11.5-14.5); WHITE BLOOD COUNT 7.4 K/uL (4.8-10.8)
[2018-03-24 13:47] LABS: ALB/GLOB RATIO 1.2 (1.0-2.1); ALBUMIN 3.7 g/dL (3.5-5.0); ALT/SGPT 29 U/L (21-72); AST/SGOT 25 U/L (17-59); BLOOD UREA NITROGEN 23 mg/dl (9-20); CALCIUM 9.8 mg/dL (8.4-10.2); GFR NON-AFRICAN AMERICAN > 60
[2018-03-24 13:49] LABS: ACETAMINOPHEN < 10.0 ug/ml (10.0-30.0); SALICYLATE < 1.0 mg/dl
[2018-03-24 14:34] VITALS: RESP 16
[2018-03-24 15:52] LABS: BARBITURATES, UR NEGATIVE (NEGATIVE); BENZODIAZEPINES, UR NEGATIVE (NEGATIVE); OPIATES, UR POSITIVE (NEGATIVE); PHENCYCLIDINE, UR NEGATIVE (NEGATIVE)
--- NOTE | 2018-03-24 16:37 | RAD ---
Date of service: 03/24/2018 HISTORY: psych clearance COMPARISON: Chest radiographs 06/17/2017. FINDINGS: LUNGS: No active pulmonary disease. PLEURA: No significant pleural effusion identified, no pneumothorax apparent. CARDIOVASCULAR: Calcific atherosclerotic changes are seen related to the thoracic aorta. Normal cardiac size. No pulmonary vascular congestion. OSSEOUS STRUCTURES: No significant abnormalities. VISUALIZED UPPER ABDOMEN: Normal. OTHER FINDINGS: None. IMPRESSION: No interval acute cardiopulmonary disease appreciated.
--- NOTE | 2018-03-24 18:19 | CARD ---
APPROVED REPORT Date of service: 03/24/2018 EKG Measurement Heart [id number] <Conclusion> Normal sinus rhythm Possible Anterior infarct, age undetermined Abnormal ECG
[2018-03-24 22:49] VITALS: BP 166/77; PULSE 89; TEMP 98; O2SAT 98
== END 2018-03-24 22:49 ==
LOC: H.ER 11:28
DX: F11.10 Opioid abuse, uncomplicated (principal); F25.9 Schizoaffective disorder, unspecified; E11.9 Type 2 diabetes mellitus without complications; E78.00 Pure hypercholesterolemia, unspecified; F31.9 Bipolar disorder, unspecified; F41.9 Anxiety disorder, unspecified
CPT/HCPCS: 71045; 80053; 85025; 93005; 96372; 99283; G0480; J1885

== ENCOUNTER 2018-03-27 15:46 | Emergency (ER) | payer MEDICARE ==
[2018-03-27 15:47] VITALS: BMI 19.8
[2018-03-27 15:55] VITALS: BP 152/76; PULSE 78; RESP 19; TEMP 97.9; O2SAT 98
== END 2018-03-27 16:30 | disposition left against medical advice (07) ==
LOC: H.ER 15:46
DX: Z02.89 Encounter for other administrative examinations (principal)